=== PATIENT | female | born 1930 | race Caucasian/White ===

== ENCOUNTER 2017-08-24 15:20 | Inpatient (IN) | payer OTHER, MEDICARE ==
[2017-08-24] VITALS: O2SAT 95
[~2017-08-24] VITALS: Ht 160 cm; Wt 99.6 kg
[2017-08-24 11:00] VITALS: BMI 18.7
[~2017-08-24 15:20] MED LIST: ASPI81TA28 PO; BTP80 PO; CLIN150C PO; DOCU100C31 PO; LEVO100T7 PO; LSN20 PO; LSX20 PO; LSX40 PO; NRN100 PO; SPR25 PO
[2017-08-24 15:26] VITALS: Ht 160 cm; Wt 99.6 kg
[2017-08-24] MEDS ORDERED: ASPIRIN 324 MG CHEW PO STA (16:16)
--- NOTE | 2017-08-24 16:29 | DIAGNOSTIC IMAGING REPORT ---
CHEST ONE VIEW PORTABLE CLINICAL HISTORY: Difficult chest pain COMPARISON STUDY: 09/07/2014 FINDINGS: The heart is enlarged. There is a left subclavian dual-chamber central venous pacemaker present. There is mild central vascular prominence. There is no overt edema. There is stable right hilar fullness. There are right basal airspace opacities likely atelectatic although an inflammatory process could appear similar.[ IMPRESSION: 1. Cardiomegaly with mild central vascular prominence but no evidence of overt edema 2. Right basal airspace opacities, atelectasis favored over pneumonia. Electronically signed by: Erich Gant M.D. 08/24/2017 4:27 PM Dictated Date/Time: 08/24/2017 4:26 PM
[2017-08-24] MEDS ORDERED: LSX80 PO (16:31)
[2017-08-24] MEDS ORDERED: ALL300 PO (16:31)
[2017-08-24 17:19] LABS: PARTIAL THROMBOPLASTIN RATIO 1.2; PROTHROMBIN TIME (PATIENT) 10.4 SECONDS (9.0-12.0)
[2017-08-24 17:33] LABS: BUN/CREATININE RATIO 41.4 (10-20); CALCIUM 8.8 mg/dl (8.5-10.1); CREATININE 1.73 mg/dl (0.60-1.20); POTASSIUM 4.2 mmol/L (3.5-5.1)
--- NOTE | 2017-08-24 18:25 | DIAGNOSTIC IMAGING REPORT ---
CHEST 2 VIEWS ROUTINE CLINICAL HISTORY: Abnormal chest x-ray COMPARISON STUDY: 08/24/2017 FINDINGS: The heart remains mildly enlarged. There is mild central vascular prominence without evidence of overt failure. There are no pleural effusions. There are persistent right basal airspace opacities, atelectatic versus inflammatory.[ IMPRESSION: Persistent right basilar airspace opacities, atelectatic versus inflammatory. Electronically signed by: Erich Gant M.D. 08/24/2017 6:23 PM Dictated Date/Time: 08/24/2017 6:22 PM
[2017-08-24 18:45] LABS: BASO % 0.9 %; BASO ABS # 0.04 K/uL (0-0.2); COMPLETE YES; EOS % 4.6 %; HEMATOCRIT 33.9 % (37-47); IG% 0.2 %; LYMPH % 15.6 %; LYMPH ABS # 0.71 K/uL (1.2-3.4); MEAN CELL VOLUME 81.9 fL (80-100); MEAN CORPUSCULAR HEMOGLOBIN 26.8 pg (25-34); MEAN CORPUSCULAR HGB CONC 32.7 g/dl (32-36); MEAN PLATELET VOLUME 11.4 fL (7.4-10.4); NEUT % 65.7 %; PLATELET COUNT 197 K/uL (130-400); RED BLOOD COUNT 4.14 M/uL (4.2-5.4); WHITE BLOOD COUNT 4.54 K/uL (4.8-10.8)
[2017-08-24] MEDS ORDERED: IV FLUIDS COMPLETED PRN (21:15)
[2017-08-24] MEDS ORDERED: SODIUM CHLORIDE 0.9% 1000ML 1,000 ML IV ONE (21:15)
[2017-08-24 21:22] LABS: ALKALINE PHOSPHATASE 72 U/L (45-117); ALT/SGPT 14 U/L (12-78); AST/SGOT 14 U/L (15-37); MAGNESIUM 2.3 mg/dl (1.8-2.4)
[2017-08-24] MEDS ORDERED: HEPARIN IV LOW DOSE NO BOLUS STA (21:26)
[2017-08-24] MEDS ORDERED: NITROGLYCERIN 0.4 MG SL PER TAB CHARGE SL PRN (21:30)
[2017-08-24] MEDS ORDERED: HYDROmorphone INJ 0.5 MG/0.5 ML SYR IV PRN (21:30)
[2017-08-24] MEDS ORDERED: TRAMADOL HCL 50 MG TAB PO PRN (21:30)
[2017-08-24] MEDS ORDERED: ACETAMINOPHEN 325 MG TAB PO PRN (21:30)
[2017-08-24] MEDS ORDERED: SOTALOL HCL 80 MG TAB PO STA (21:49)
[2017-08-24 22:00] VITALS: BP 105/65; PULSE 90; TEMP 36.5; O2SAT 95; O2SAT 96
--- NOTE | 2017-08-24 22:27 | EMERGENCY ROOM VISIT NOTE ---
History Report prepared by Devendra: Kaylan Claudio Under the Supervision of: Dr. Sheldon Moreno M.D. First contact with patient: 16:09 Chief Complaint: CHEST PAIN Stated Complaint: CHEST PAINS Nursing Triage Summary: Short of breath and chest pain, started on Sunday, took Ibuprofen which helped the pain, had intermittently yesterday and today worse. History of Present Illness The patient is a 87 year old female who presents to the Emergency Room with complaints of chest tightness that started Sunday. The patient notes that the tightness started in her upper chest before moving into her left chest. The patient took an Ibuprofen on Sunday and her pain resolved. Her pain came back on and again today. Each time the patient's pain has resolved with Ibuprofen. Presently, the patient has no chest pain. The patient notes that her pain is more present in the morning and that she feels short of breath after a mild exertion. She denies any fever or swelling in her legs. The patient has a pacemaker and is not on a blood thinner. She takes a baby aspirin daily at night. She denies any history of coronary artery disease. She does have a history of atrial fibrillation but has not had it in some time. Source of History: patient Onset: Sunday Position: chest Quality: other (tightness) Timing: resolved Modifying Factors (Relieving): ibuprofen Associated Symptoms: + SOB, No fevers Review of Systems See HPI for pertinent positives & negatives. A total of 10 systems reviewed and were otherwise negative. Past Medical & Surgical Medical Problems: (1) Atrial fibrillation, controlled (2) Chest pain (3) Pacemaker (4) Thyroid disorder Family History No significant family history Social History Smoking Status: Never Smoker Alcohol Use: none Drug Use: none Marital Status: Housing Status: lives alone Occupation Status: retired Current/Historical Medications Scheduled Allopurinol (Allopurinol), 1 TAB PO DAILY Aspirin (Aspirin Ec), 81 MG PO HS Docusate Sodium (Docusate Sodium), 100 MG PO BID Furosemide (Furosemide), 20 MG PO DAILY Furosemide (Furosemide), 1 TAB PO DAILY Gabapentin (Gabapentin), 100 MG PO HS Levothyroxine Sodium (Levothyroxine Sodium), 100 MCG PO QAM Lisinopril (Lisinopril), 20 MG PO QAM Sotalol HCl (Sotalol HCl), 80 MG PO BID Spironolactone (Spironolactone), 12.5 MG PO DAILY Scheduled PRN Clindamycin Hcl (Cleocin), 600 MG PO UD PRN for Prior to Dental Appt. Allergies Coded Allergies: Naproxen (Verified Allergy, Unknown, Black stool/bleeding., 08/24/17) Reported by PT. Codeine (Verified Adverse Reaction, Unknown, GASTRIC UPSET, 08/24/17) Methocarbamol (Verified Adverse Reaction, Unknown, Nausea/Vomiting, ) Reported by PT. Statins (Verified Adverse Reaction, Unknown, MUSCLE WEAKNESS, 08/24/17) Physical Exam Vital Signs Date Time Temp Pulse Resp B/P (MAP) Pulse Ox O2 Delivery O2 Flow Rate FiO2 08/24/17 20:22 102 08/24/17 19:16 94 20 93/59 95 Room Air 08/24/17 16:54 78 20 97/71 94 Room Air 08/24/17 16:31 83 08/24/17 16:22 94 Room Air 08/24/17 15:31 96 Room Air 08/24/17 15:26 36.6 93 20 101/62 96 Room Air Physical Exam Constitutional: Vital signs reviewed. Eyes: Pupils are equal round reactive to light. Conjunctiva are noninjected. ENT: Pharynx is clear without erythema or exudate. Mucous membranes are moist. Neck supple without meningeal signs. Respiratory: Clear to auscultation bilaterally. Breath sounds are equal bilaterally. Cardiovascular: Regular rate and rhythm. No rubs or gallops. GI: Soft, nondistended and nontender. Bowel sounds are present. Musculoskeletal: No peripheral edema. No lower extremity tenderness. Integumentary: No cyanosis. Neurological: The patient is awake and alert. No focal deficits. Psychiatric: Normal affect. Medical Decision & Procedures ER Provider Diagnostic Interpretation: Radiology results as stated below per my review and the radiologist's interpretation: CHEST ONE VIEW PORTABLE FINDINGS: The heart is enlarged. There is a left subclavian dual-chamber central venous pacemaker present. There is mild central vascular prominence. There is no overt edema. There is stable right hilar fullness. There are right basal airspace opacities likely atelectatic although an inflammatory process could appear similar.[ IMPRESSION: 1. Cardiomegaly with mild central vascular prominence but no evidence of overt edema 2. Right basal airspace opacities, atelectasis favored over pneumonia. Electronically signed by: Erich Gant M.D. CHEST 2 VIEWS ROUTINE FINDINGS: The heart remains mildly enlarged. There is mild central vascular prominence without evidence of overt failure. There are no pleural effusions. There are persistent right basal airspace opacities, atelectatic versus inflammatory. IMPRESSION: Persistent right basilar airspace opacities, atelectatic versus inflammatory. Electronically signed by: Erich Gant M.D. Laboratory Results 08/24/17 16:50 Red Blood Count 4.14, Mean Corpuscular Volume 81.9, Mean Corpuscular Hemoglobin 26.8, Mean Corpuscular Hemoglobin Concent 32.7, Mean Platelet Volume 11.4, Neutrophils (%) (Auto) 65.7, Lymphocytes (%) (Auto) 15.6, Monocytes (%) (Auto) 13.0, Eosinophils (%) (Auto) 4.6, Basophils (%) (Auto) 0.9, Neutrophils # (Auto ) 2.98, Lymphocytes # (Auto) 0.71, Monocytes # (Auto) 0.59, Eosinophils # (Auto ) 0.21, Basophils # (Auto) 0.04 08/24/17 16:50 Test 08/24/17 16:50 08/24/17 16:58 08/24/17 22:03 White Blood Count 4.54 K/uL (4.8-10.8) Red Blood Count 4.14 M/uL (4.2-5.4) Hemoglobin 11.1 g/dL (12.0-16.0) Hematocrit 33.9 % (37-47) Mean Corpuscular Volume 81.9 fL (80-100) Mean Corpuscular Hemoglobin 26.8 pg (25-34) Mean Corpuscular Hemoglobin Concent 32.7 g/dl (32-36) Platelet Count 197 K/uL (130-400) Mean Platelet Volume 11.4 fL (7.4-10.4) Neutrophils (%) (Auto) 65.7 % Lymphocytes (%) (Auto) 15.6 % Monocytes (%) (Auto) 13.0 % Eosinophils (%) (Auto) 4.6 % Basophils (%) (Auto) 0.9 % Neutrophils # (Auto) 2.98 K/uL (1.4-6.5) Lymphocytes # (Auto) 0.71 K/uL (1.2-3.4) Monocytes # (Auto) 0.59 K/uL (0.11-0.59) Eosinophils # (Auto) 0.21 K/uL (0-0.5) Basophils # (Auto) 0.04 K/uL (0-0.2) RDW Standard Deviation 50.3 fL (36.4-46.3) RDW Coefficient of Variation 16.7 % (11.5-14.5) Immature Granulocyte % (Auto) 0.2 % Immature Granulocyte # (Auto) 0.01 K/uL (0.00-0.02) Prothrombin Time 10.4 SECONDS (9.0-12.0) Prothromb Time International Ratio 1.0 (0.9-1.1) Activated Partial Thromboplast Time 30.7 SECONDS (21.0-31.0) Partial Thromboplastin Ratio 1.2 Anion Gap 7.0 mmol/L (3-11) Est Creatinine Clear Calc Drug Dose 26.3 ml/min Estimated GFR () 30.5 Estimated GFR (Non- 26.3 BUN/Creatinine Ratio 41.4 (10-20) Calcium Level 8.8 mg/dl (8.5-10.1) Magnesium Level 2.3 mg/dl (1.8-2.4) Total Bilirubin 0.4 mg/dl (0.2-1) Direct Bilirubin < 0.1 mg/dl (0-0.2) Aspartate Amino Transf (AST/SGOT) 14 U/L (15-37) Alanine Aminotransferase (ALT/SGPT) 14 U/L (12-78) Alkaline Phosphatase 72 U/L (45-117) Total Protein 7.7 gm/dl (6.4-8.2) Albumin 3.7 gm/dl (3.4-5.0) Bedside Troponin I 0.040 ng/ml (0-0.045) Laboratory results as reviewed by me. Medications Administered Medications (Trade) Dose Ordered Sig/Cyndi Route Start Time Stop Time Status Last Admin Dose Admin Aspirin (Aspirin Chew) 324 mg NOW STAT PO 08/24/17 16:16 08/24/17 16:17 DC 08/24/17 17:00 324 MG ECG Indication: chest pain Rate (beats per minute): 90 Rhythm: atrial fibrillation Findings: other (No ST elevation, occasional flutter wave) ED Course 1611: The patient was evaluated in room B2. A complete history and physical exam was performed. 1616: Aspirin 324 mg PO. 1838: I discussed test results with with patient. She reports no chest pain and I recommended hospitalization to the patient. 184: I spoke with Idalmis KERN of [facility]. We discussed the patient and his results. The patient will be further evaluated. Medical Decision This is a 89-year-old female presents with chest pain. Differential diagnosis includes unstable angina, DE, pleurisy, GERD, pneumonia. I did perform a limited focused review of portions of the patient's old chart on the electronic medical record. The patient has had no recent pertinent visits to this hospital. I did evaluate the patient as noted above. IV access was established. The patient was placed on a continuous radiographer cardiac catheterization. I did treat the patient with aspirin. She is currently not having any chest discomfort. I did order and personally review the patient's 12-lead EKG and chest x-ray as described above. I did order and review the patient's blood work as noted in the electronic medical record. Troponin is negative. The creatinine is also elevated. I did discuss the test results with the patient. I did recommend hospitalization for further care and evaluation. I did discuss case with the hospital stay and case making machine operator. Medication Reconcilliation Current Medication List: was personally reviewed by me Blood Pressure Screening Patient's blood pressure: Normal blood pressure Consults Time Called: 1837 Consulting Physician: Idalmis PIÑA Returned Call: [phone] I spoke with Idalmis KERN of [facility]. We discussed the patient and his results. The patient will be further evaluated. Impression Primary Impression: Left sided chest pain Additional Impression: Acute kidney injury Scribe Attestation The scribe's documentation has been prepared under my direct and personally reviewed by me in its entirety. I confirm that the note above accurately reflects all work, treatment, procedures, and medical decision making performed by me. Departure Information Dispostion Being Evaluated By Hospitalist Referrals No Doctor, Assigned (PCP) Patient Instructions My [facility] Problem Qualifiers
[2017-08-24 23:07] LABS: PARTIAL THROMBOPLASTIN RATIO 1.2; PROTHROMBIN TIME (PATIENT) 10.5 SECONDS (9.0-12.0)
[2017-08-25] VITALS (14 sets, daily range): BP systolic 93–129; BP diastolic 59–74; PULSE 59–100; TEMP 36.4–37.1; O2SAT 90–100
[2017-08-25 00:40] LABS: URINE APPEARANCE CLEAR (CLEAR); URINE BILIRUBIN NEG (NEG); URINE COLOR YELLOW; URINE EPITHELIAL CELL AUTO >30 /lpf (0-5); URINE NITRITE NEG (NEG); URINE SPECIFIC GRAVITY 1.017 (1.000-1.030); UROBILINOGEN NEG (NEG); ZZUR CULT IF INDIC CLEAN CATCH YES
--- NOTE | 2017-08-25 00:46 | DIAGNOSTIC IMAGING REPORT ---
ULTRASOUND BILATERAL LOWER EXTREMITY VENOUS CLINICAL HISTORY: Lower extremity edema. COMPARISON STUDY: Bilateral lower extremity venous ultrasound dated 08/19/2007. TECHNIQUE: Real-time, grayscale, and color Doppler sonography of the deep veins of the right and left lower extremity was performed from the inguinal crease to the calf. Compression and augmentation were utilized. FINDINGS: There is no sonographic evidence of deep venous thrombosis identified in the right or left lower extremity. The common femoral, superficial femoral, and popliteal veins are patent and normally compressible bilaterally. The greater saphenous vein and the profunda femoris vein at the junction with the common femoral vein are clear in both legs. The visualized calf veins are patent bilaterally. IMPRESSION: There is no sonographic evidence of deep venous thrombosis identified in the right or left lower extremity. Electronically signed by: Hi Ring M.D. 08/25/2017 12:45 AM Dictated Date/Time: 08/25/2017 12:44 AM
[2017-08-25 01:01] LABS: MANUAL MICROSCOPIC REQUIRED? NO; REVIEW REQ? NO
[2017-08-25 04:26] LABS: BASO % 0.5 %; BASO ABS # 0.02 K/uL (0-0.2); COMPLETE YES; EOS % 5.8 %; HEMATOCRIT 32.7 % (37-47); IG% 0.2 %; LYMPH % 14.6 %; LYMPH ABS # 0.63 K/uL (1.2-3.4); MEAN CORPUSCULAR HEMOGLOBIN 25.8 pg (25-34); MEAN CORPUSCULAR HGB CONC 31.5 g/dl (32-36); MEAN PLATELET VOLUME 10.9 fL (7.4-10.4); NEUT % 65.9 %; PLATELET COUNT 166 K/uL (130-400); RED BLOOD COUNT 3.99 M/uL (4.2-5.4); WHITE BLOOD COUNT 4.32 K/uL (4.8-10.8)
[2017-08-25 04:39] LABS: PARTIAL THROMBOPLASTIN RATIO 1.6
[2017-08-25 04:44] LABS: BUN/CREATININE RATIO 44.7 (10-20); CALCIUM 8.8 mg/dl (8.5-10.1); CREATININE 1.43 mg/dl (0.60-1.20); POTASSIUM 4.1 mmol/L (3.5-5.1)
[2017-08-25] MEDS ORDERED: INFLUENZA VACCINE HIGH DOSE 65+ 0.5 ML SYR IM. ONE (05:00)
[2017-08-25] MEDS ORDERED: INFLUENZA ADMINISTRATION CHARGE ONE (05:00)
[2017-08-25] MEDS: HEPARIN 25,000 UNIT/500ML D5W 500 ML IV PRN (05:31)
[2017-08-25] MEDS: LEVOTHYROXINE 100 MCG TAB PO SCH (05:49)
--- NOTE | 2017-08-25 05:50 | HISTORY & PHYSICAL EXAMINATION ---
DATE OF ADMISSION: 08/24/2017 PRIMARY CARE DOCTOR: Irish Crowley MD. CHIEF COMPLAINT: Chest pain, shortness of breath. HISTORY OF PRESENT ILLNESS: History obtained from patient and records. 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 Recent confinement July 2014 for decompensated heart failure. Two day history of left-sided chest pain, somewhat pleuritic with shortness of breath. Denies unusual weight gain or fluid retention. No cough symptoms. Px was seen at log deck tender's office earlier. Patient was noted to in AFib. Px sent to the Emergency Room for further evaluation. Px given aspirin at the ER. Patient currently comfortable. MEDICAL HISTORY: As above. 2D echo from January 2017 showed EF of 60 to 64%, concentric LV wall thickness, thickened sigmoid septum, moderate aortic valve sclerosis, mild aortic valve regurgitation, severe MR, mild TR, mild hypertension. SURGERIES: She has had carpal tunnel surgery, appendectomy, tonsillectomy, hysterectomy, knee surgery, hernia repair, pacemaker placement. HOME MEDICATIONS: Include aspirin, allopurinol, Cleocin, docusate sodium, furosemide, gabapentin, levothyroxine, lisinopril, sotalol, spironolactone. ALLERGIES: CODEINE, METHOCARBAMOL, NAPROXEN, STATIN. FAMILY HISTORY: Stroke, prostate cancer, heart disease. 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 REVIEW OF SYSTEMS: As per HPI, all other ROS negative. PHYSICAL EXAMINATION: VITAL SIGNS: Blood pressure noted to be 105/64, pulse rate 90, RR 20, temperature 36.5, sats 95% on room air. GENERAL: Comfortable, no respiratory distress. Looks younger for stated age. Wheelchair borne SKIN: Pallor, warm. HEENT: Pale palpebral conjunctivae, no ptosis. Dry buccal mucosa. Nasal cannula in place. NECK: Short neck, supple. CHEST: Clear to auscultation. No anterior chest tenderness. CV: Irregular, systolic murmur. Palpable lower extremity pulses. ABDOMEN: Some distention, nontender. EXTREMITIES: Bilateral lower extremity edema, no tenderness. No gross deformity. NEUROLOGIC: Coherent. No gross deformity. LABORATORY DATA: Hemoglobin was noted to be 11.1, hematocrit noted to be 38, white cell count 4.5, platelets 187. Sodium noted to be 137, potassium 4.2, chloride 106, CO2 24, BUN 70, creatinine 1.7, glucose was noted to be 100. Troponin 0.015. D-dimer abn. Chest x-ray showed atelectasis. EKG as per my interpretation, rate 90, AFib. Some T-wave flattening in inferior lateral leads. ASSESSMENT: 1. Pleuritic chest pain with shortness of breath rule out pulmonary embolism 2. hx SSS sp PPM Patient currently in atrial fibrillation. Not on oral anticoagulation. 2. Chronic anemia, hemoglobin baseline. 3. Valvular heart disease as per records. 5. Acute renal failure on chronic renal insufficiency, possibly related to meds. PLAN: Observation. PCU. Analgesia. PE workup. (VQ scan - CT angiogram precluded by kidney dysfunction, Lower extremity Dopplers) Cardio consult RE follow-up evaluation for left-sided chest pain. IV heparin for now for thromboembolic prevention, repeat TTE, continue home sotalol as per outpatient recommendations) Monitor creatinine response to IV fluids. Hold home diuretics, ACEI until creatinine at baseline. DVT prophylaxis, heparin. Full code. MTDD
[2017-08-25] MEDS ORDERED: HEPARIN IV BOLUS 3,000 UNIT in SYRINGE 0 ML IV STA (05:59)
[2017-08-25] MEDS: DOCUSATE SODIUM 100 MG CAP PO SCH ×3 (07:27→20:21)
[2017-08-25] MEDS: SOTALOL HCL 80 MG TAB PO SCH ×2 (08:05→20:17)
--- NOTE | 2017-08-25 08:52 | ECHOCARDIOGRAM REPORT ---
*NOTICE TO RECEIVING DEMOCRAT AGENCY This information is strictly Confidential and protected under [place] law. [place] law prohibits you from making any further disclosure of this information unless further disclosure is expressly permitted by the written consent of the person to whom it pertains or is authorized by law. A general authorization for the release of medical or other information is not sufficient for this purpose. Hospital accepts no responsibility if the information is made available to any other person, INCLUDING THE PATIENT. Interpretation Summary * Name: HECTOR FRANCES Study Date: 08/25/2017 06:48 AM BP: 97/59 mmHg * Patient Location: [facility] HR: 61 * : 1930 (M/d/yyyy) Gender: Female Height: 63 in * Age: 87 yrs Ethnicity: [place] Weight: 220 lb * Ordering Physician: Michel Fajardo * Referring Physician: Alla Velasco PA-C * Performed By: Michel Tena RDCS * * Reason For Study: Chest pain * BSA: 2.0 m2 * -- Conclusions -- * There is borderline concentric left ventricular hypertrophy. * The left ventricular wall motion is normal. * Left ventricular systolic function is normal. * The LV Ejection Fraction = 60-65%. * The right ventricle is normal in size and function. * The left atrium is severely dilated. * There is no pericardial effusion. * Moderate aortic regurgitation. * There is moderate to severe mitral regurgitation. * There is severe tricuspid regurgitation. * Moderate pulmonary hypertension is present. * The pulmonary artery systolic pressure is calculated to be 51 mm Hg. Procedure Details * A complete two-dimensional transthoracic echocardiogram was performed (2D, M-mode, Doppler and color flow Doppler). * The study was technically adequate. Left Ventricle * The left ventricle is normal in size. * There is borderline concentric left ventricular hypertrophy. * Left ventricular systolic function is normal. * Ejection Fraction = 60-65%. * The left ventricular wall motion is normal. Right Ventricle * The right ventricle is normal in size and function. Atria * The left atrium is severely dilated. * The right atrium is mildly dilated. * There is no evidence of atrial septal defect, but resolution does not allow assessment for a patent foramen ovale. Mitral Valve * The mitral valve is normal. * There is no mitral valve stenosis. * There is moderate to severe mitral regurgitation. Tricuspid Valve * The tricuspid valve is normal. * There is no tricuspid stenosis. * There is severe tricuspid regurgitation. * Moderate pulmonary hypertension is present. The pulmonary artery systolic pressure is calculated to be 51 mm Hg. Aortic Valve * The aortic valve is trileaflet. * Aortic stenosis is absent. * Moderate aortic regurgitation. Pulmonic Valve * The pulmonary valve is not well seen, but the Doppler examination is normal without significant regurgitation or stenosis. Great Vessels * The aortic root and proximal ascending aorta are normal sized. Pericardium/Pleural * There is no pericardial effusion. Right Ventricle * A pacemaker lead is noted in the right ventricle. Great Vessels * Normal inferior vena cava size and collapsability with sniff indicates a normal right atrial pressure of 3 mmHg Left Ventricular Diastolic Function * The LV diastolic function is abnormal based on the left atrial enlargement, but not graded due to the underlying mitral valve disease. MMode 2D Measurements and Calculations IVSd 0.88 cm IVSs 1.3 cm LVIDd 5.7 cm LVIDs 4.0 cm LVPWd 0.85 cm LVPWs 1.3 cm IVS/LVPW 1.0 FS 30.1 % EDV(Teich) 161.5 ml ESV(Teich) 70.0 ml EF(Teich) 56.7 % EDV(cubed) 187.4 ml ESV(cubed) 63.9 ml EF(cubed) 65.9 % % IVS thick 42.5 % % LVPW thick 53.2 % LV mass(C)d 189.7 grams LV mass(C)dI 94.2 grams/m\S\2 LV mass(C)s 182.5 grams LV mass(C)sI 90.6 grams/m\S\2 SV(Teich) 91.6 ml SI(Teich) 45.5 ml/m\S\2 SV(cubed) 123.5 ml SI(cubed) 61.3 ml/m\S\2 Ao root diam 3.3 cm Ao root area 8.5 cm\S\2 ACS 1.8 cm LA dimension 6.0 cm asc Aorta Diam 3.1 cm LA/Ao 1.8 LVOT diam 2.0 cm LVOT area 3.0 cm\S\2 LVAd ap4 20.4 cm\S\2 LVLd ap4 6.7 cm EDV(MOD-sp4) 50.7 ml LVAs ap4 10.1 cm\S\2 LVLs ap4 5.5 cm ESV(MOD-sp4) 15.3 ml EF(MOD-sp4) 69.8 % LVAd ap2 24.9 cm\S\2 LVLd ap2 6.6 cm EDV(MOD-sp2) 78.1 ml LVAs ap2 12.8 cm\S\2 LVLs ap2 5.1 cm ESV(MOD-sp2) 26.1 ml EF(MOD-sp2) 66.6 % SV(MOD-sp4) 35.4 ml SI(MOD-sp4) 17.6 ml/m\S\2 SV(MOD-sp2) 52.0 ml SI(MOD-sp2) 25.8 ml/m\S\2 Doppler Measurements and Calculations MV E max diomedes 84.4 cm/sec MV A max diomedes 55.3 cm/sec MV E/A 1.5 MV dec time 0.18 sec Ao V2 max 180.5 cm/sec Ao max PG 13.0 mmHg Ao max PG (full) 4.3 mmHg MARIA GUADALUPE(V,A) 2.5 cm\S\2 MARIA GUADALUPE(V,D) 2.5 cm\S\2 AI max diomedes 302.0 cm/sec AI max PG 36.5 mmHg AI dec slope 106.9 cm/sec\S\2 AI P1/2t 827.5 msec LV V1 max PG 8.7 mmHg LV V1 max 147.6 cm/sec MR max diomedes 480.0 cm/sec MR max PG 92.1 mmHg MR mean diomedes 365.2 cm/sec MR mean PG 60.5 mmHg MR VTI 173.6 cm MR PISA 2.1 cm\S\2 MR flow rate 75.0 cm\S\3/sec MR ERO 0.16 cm\S\2 MR volume 27.1 ml MR PISA radius 0.58 cm MR alias diomedes 35.0 cm/sec PA V2 max 138.8 cm/sec PA max PG 7.7 mmHg PA acc slope 525.4 cm/sec\S\2 PA acc time 0.12 sec TR max diomedes 348.4 cm/sec PA pr(Accel) 25.1 mmHg
--- NOTE | 2017-08-25 10:09 | Cardiology Consultation ---
Cardiology Consultation Date of Consultation: Aug 25, 2017 History of Present Illness Patient is a 87 year old female seen in cardiology consultation per the request of Dr. Rodriguez for evaluation of chest discomfort. The patient's primary data specialist is Dr. Brian Quiñones. The patient states her recent illness dates back to four days ago 1 on Sunday morning she felt a pain that started at the area of her left clavicle and radiated downward toward her left chest. She also had a nosebleed that day. The discomfort waxed and waned, and she felt that it improved with ibuprofen. She describes the discomfort as happening when she took a deep breath in. The next day it happened again in the morning and then again on Sunday, prompting an acute visit in cardiology clinic yesterday with Alla JOHNSON. At that time , she was found to have hypotension with systolic blood pressure readings in the 70 mmHg range. She was also found to have new onset rate controlled atrial fibrillation in the 70 beat per minute range when her pacemaker was checked. She was referred for hospitalization. Her blood pressure still on the lower side, but it is much better, with systolic blood pressure around the 100 mmHg naren. Her initial EKG on presentation last evening revealed rate controlled atrial fibrillation, overnight, she has since converted back to sinus rhythm, and on EKG this morning 08/25/17 and overnight on the quality assurance monitor final, sinus rhythm with atrial paced rhythm is noted and findings of inferior T wave inversion as well as T-wave inversions in leads V3 to V6. Serial cardiac enzymes have been negative. An echocardiogram performed this morning revealed normal left ventricular wall motion without regional wall motion abnormalities and normal LVEF, unchanged compared to January 2017. The patient is alert and oriented and sitting in that side chair. She states that she feels much improved. Her chest discomfort has resolved, although when she exceeded deep breath and she does note that she is still able to reproduce it at a lower intensity. She has noted no chest discomfort with walking such as walking to the bathroom. She is on a heparin infusion. She has suffered no additional nosebleeds thus far. A lower extremity venous duplex was negative for DVT. A d-dimer screen was elevated at 1430 mcg/L. She was noted to have a mild lactic acidosis with lactate level of 2.1. 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 Carpal tunnel release 2. Appendectomy 3. Hysterectomy 4. Bilateral total knee replacement 5. Dual-chamber Medtronic pacemaker June 2011 Social History: Patient lives independently Family History: Family history is noncontributory Review Of Systems See above for pertinent positives & negatives. A total of 10 systems reviewed and were otherwise negative. Allergies Coded Allergies: Naproxen (Verified Allergy, Unknown, Black stool/bleeding., 08/24/17) Reported by PT. Codeine (Verified Adverse Reaction, Unknown, GASTRIC UPSET, 08/24/17) Methocarbamol (Verified Adverse Reaction, Unknown, Nausea/Vomiting, ) Reported by PT. Statins (Verified Adverse Reaction, Unknown, MUSCLE WEAKNESS, 08/24/17) Medications Reported Home Medications Medications Dose Route/Sig Max Daily Dose Days Date Category Dose Instructions Allopurinol 300 Mg Tab 1 Tab PO DAILY 08/24/17 Reported Furosemide 80 Mg Tab 1 Tab PO DAILY 08/24/17 Reported Spironolactone 25 Mg Tab 12.5 Mg PO DAILY 06/04/15 Reported Furosemide 20 Mg Tab 20 Mg PO DAILY 09/07/14 Reported TAKE ONE 20 MG TABLET ALONG WITH AN 80MG TABLET TO EQUAL DAILY DOSE OF 100 MG. Cleocin (Clindamycin Hcl) 150 Mg Cap 600 Mg PO UD PRN 07/07/14 Reported TAKE THIS MEDICATION ONE HOUR PRIOR TO DENTAL APPOINTMENT. Docusate Sodium 100 Mg Cap 100 Mg PO BID 06/21/14 Reported Aspirin Ec (Aspirin) 81 Mg Tab 81 Mg PO HS 06/21/14 Reported Gabapentin 100 Mg Cap 100 Mg PO HS 06/21/14 Reported Lisinopril 20 Mg Tab 20 Mg PO QAM 06/21/14 Reported Sotalol HCl 80 Mg Tab 80 Mg PO BID 06/21/14 Reported Levothyroxine Sodium 100 Mcg Tab 100 Mcg PO QAM 06/21/14 Reported Physical Exam Vital Signs (Last 8hrs): Last 8 Hrs Date Time Temp Pulse Resp B/P (MAP) Pulse Ox O2 Delivery O2 Flow Rate FiO2 08/25/17 07:45 95 Room Air 08/25/17 07:44 36.6 61 18 99/65 (76) 90 08/25/17 04:22 36.5 59 18 97/59 (72) 100 Nasal Cannula 2.0 08/25/17 04:00 95 Room Air General Appearance: Alert and Oriented x3. NAD. Head: Normocephalic Atraumatic. Eyes: PERRLA, EOMI, conjunctiva and sclera clear Neck: Supple. No carotid bruits noted. No JVD. No HJD. Respiratory: Breath sounds clear to auscultation bilaterally. No w/r/r. Cardiovascular: Reg rate and rhythm. 2/6 systolic murmur heard best at left sternal border and at the axilla Abdomen: Normal bowel sounds, soft nontender. no abdominal bruits. Extremities: No edema, no clubbing or cyanosis. distal pulses 2/4 bilaterally. Neuro: No focal deficits. Psychiatric: Normal affect. Data Last Resulted 08/25/17 04:14 Red Blood Count 3.99, Mean Corpuscular Volume 82.0, Mean Corpuscular Hemoglobin 25.8, Mean Corpuscular Hemoglobin Concent 31.5, Mean Platelet Volume 10.9, Neutrophils (%) (Auto) 65.9, Lymphocytes (%) (Auto) 14.6, Monocytes (%) (Auto) 13.0, Eosinophils (%) (Auto) 5.8, Basophils (%) (Auto) 0.5, Neutrophils # (Auto ) 2.85, Lymphocytes # (Auto) 0.63, Monocytes # (Auto) 0.56, Eosinophils # (Auto ) 0.25, Basophils # (Auto) 0.02 Last Resulted 08/25/17 04:14 Past 24 Hours Test 08/24/17 16:50 08/24/17 22:03 08/25/17 04:14 Range/Units Prothromb Time International Ratio 1.0 1.0 0.9-1.1 Prothrombin Time 10.4 10.5 9.0-12.0 SECONDS Troponin I < 0.015 0.017 0-0.045 ng/ml EKG and telemetry as outlined above Pacemaker check performed yesterday had revealed 8 hours of atrial fibrillation. Appropriate generator longevity. Chest x-ray poor summary per radiology report 08/24/17: Persistent right basilar airspace opacities, atelectasis versus inflammatory nature Summary transthoracic echocardiogram performed 08/25/17 and reviewed in apparently: * -- Conclusions -- * There is borderline concentric left ventricular hypertrophy. * The left ventricular wall motion is normal. * Left ventricular systolic function is normal. * The LV Ejection Fraction = 60-65%. * The right ventricle is normal in size and function. * The left atrium is severely dilated. * There is no pericardial effusion. * Moderate aortic regurgitation. * There is moderate to severe mitral regurgitation. * There is severe tricuspid regurgitation. * Moderate pulmonary hypertension is present. * The pulmonary artery systolic pressure is calculated to be 51 mm Hg. -Compared to the report of the prior echocardiogram performed as an outpatient at [facility] in January,, only mild tricuspid regurgitation was noted at that time and severe tricuspid regurgitation is noted on the present study. The calculated pulmonary artery systolic pressure was 2 to be 30-36 mmHg on the prior study, and is higher on the present study 51 mmHg. Assessment & Plan Impression: 87 or female 1. Pleuritic chest discomfort, negative troponin, nonspecific EKG changes, normal resting left ventricular wall motion. Her discomfort has resolved at present. Although she is able to reproduce it to a subtle degree with deep inspiration. She is feeling much more comfortable. Symptoms and clinical presentation are consistent with pleuritis versus perhaps pulmonary embolism, I do not think her presentation is consistent with an acute coronary syndrome 2. Extensive heart disease with significant tricuspid regurgitation, mitral regurgitation, aortic valve regurgitation, moderate pulmonary hypertension 3. Paroxysmal atrial fibrillation, back in sinus rhythm at present Plan: Regarding the patient's atrial fibrillation, she is back in sinus rhythm. I had initially planned to discontinue her sotalol and transition her to metoprolol given her severe left atrial enlargement is of is not optimistic that she would stay in sinus rhythm, however she spontaneously converted to sinus rhythm and therefore I will plan to continue her sotalol for the time being. She does have noted stage III chronic kidney disease, but I think her dose of sotalol is reasonably safe since she has a pacemaker to prevent bradycardia. Recommend anticoagulation with heparin to Coumadin for stroke prophylaxis. She has not been anticoagulated in the past, but given the episode of atrial fibrillation I think this is indicated. Also, although her venous duplex study was negative, I do have underlying clinical suspicion that point her embolism would explain her presentation. She is due to go to nuclear medicine this morning for a ventilation perfusion scan, I think it is reasonable to do her best to evaluate for this diagnosis. Given her kidney insufficiency, she is not a candidate for CT angiogram. In summary, continue sotalol, heparin to Coumadin. If she develops fever or worsening pleuritic chest discomfort would have low threshold for starting her on antibiotics for possible underlying pulmonary infection. A urine culture is pending at present. Andrew Tabares DO, FACC, FACOI Associate Painter [facility], [facility]
--- NOTE | 2017-08-25 10:37 | DIAGNOSTIC IMAGING REPORT ---
NUCLEAR PULMONARY VENTILATION/PERFUSION SCAN CLINICAL HISTORY: Atypical chest pain. Dyspnea. COMPARISON STUDY: Chest CT dated 08/28/2014. Chest x-ray dated 08/24/2017. TECHNIQUE: Initially, ventilation images of both lungs are obtained following the inhalation of 31.8 mCi of aerosolized technetium 99m DTPA. Subsequently, perfusion images of both lungs were obtained following the IV administration of 5.5 mCi of technetium 99m MAA. Ventilation and perfusion images were acquired in the anterior, posterior, and oblique projections. FINDINGS: A chest x-ray performed 08/24/2017 shows cardiomegaly and a cardiac pacemaker. No airspace consolidation or pleural effusion is identified The ventilation of both lungs is markedly heterogeneous. There is deposition of tracer within the central airways suggesting obstructive physiology. Pulmonary perfusion is heterogeneous. No large or segmental perfusion defect is seen. A photopenic defect overlying the left chest is consistent with the patient's pacemaker. IMPRESSION: Findings are considered low probability for pulmonary embolus. Electronically signed by: Hi Ring M.D. 08/25/2017 10:36 AM Dictated Date/Time: 08/25/2017 10:33 AM
[2017-08-25 11:30] LABS: PARTIAL THROMBOPLASTIN RATIO 3.4
--- NOTE | 2017-08-25 15:42 | Progress Note ---
Medicine Progress Note Date & Time of Visit: Aug 25, 2017 at 15:29. Subjective patient seen resting in bedside chair, comfortable states she feels ok overall reports left sided chest pain has resolved no dyspnea, palpitations, dizziness no bleeding denies other symptoms Objective Last 8 Hrs Date Time Temp Pulse Resp B/P (MAP) Pulse Ox O2 Delivery O2 Flow Rate FiO2 08/25/17 14:54 97 Room Air 08/25/17 11:36 36.4 63 20 101/63 (76) 99 08/25/17 11:33 96 Room Air 08/25/17 07:45 95 Room Air 08/25/17 07:44 36.6 61 18 99/65 (76) 90 Physical Exam: General- oriented x 3, not in distress, speaks in sentences with no effort Eyes- EOMI, anicteric Neck- supple, no JVD Lungs- clear breath sounds bilaterally , no rales/wheezes Heart- regular rhythm; no murmur, normal rate Abdomen- normal bowel sounds, soft, nontender Extremities- no pretibial edema, no calf tenderness Neuro- alert, oriented x 3; no gross focal deficits Skin- warm & dry Laboratory Results: Last 24 Hours Test 08/24/17 16:50 08/24/17 16:58 08/24/17 22:03 08/25/17 00:10 White Blood Count 4.54 K/uL Red Blood Count 4.14 M/uL Hemoglobin 11.1 g/dL Hematocrit 33.9 % Mean Corpuscular Volume 81.9 fL Mean Corpuscular Hemoglobin 26.8 pg Mean Corpuscular Hemoglobin Concent 32.7 g/dl Platelet Count 197 K/uL Mean Platelet Volume 11.4 fL Neutrophils (%) (Auto) 65.7 % Lymphocytes (%) (Auto) 15.6 % Monocytes (%) (Auto) 13.0 % Eosinophils (%) (Auto) 4.6 % Basophils (%) (Auto) 0.9 % Neutrophils # (Auto) 2.98 K/uL Lymphocytes # (Auto) 0.71 K/uL Monocytes # (Auto) 0.59 K/uL Eosinophils # (Auto) 0.21 K/uL Basophils # (Auto) 0.04 K/uL RDW Standard Deviation 50.3 fL RDW Coefficient of Variation 16.7 % Immature Granulocyte % (Auto) 0.2 % Immature Granulocyte # (Auto) 0.01 K/uL Prothrombin Time 10.4 SECONDS 10.5 SECONDS Prothromb Time International Ratio 1.0 1.0 Activated Partial Thromboplast Time 30.7 SECONDS 31.7 SECONDS Partial Thromboplastin Ratio 1.2 1.2 Sodium Level 137 mmol/L Potassium Level 4.2 mmol/L Chloride Level 106 mmol/L Carbon Dioxide Level 24 mmol/L Anion Gap 7.0 mmol/L Blood Urea Nitrogen 72 mg/dl Creatinine 1.73 mg/dl Est Creatinine Clear Calc Drug Dose 26.3 ml/min Estimated GFR () 30.5 Estimated GFR (Non- 26.3 BUN/Creatinine Ratio 41.4 Random Glucose 100 mg/dl Calcium Level 8.8 mg/dl Magnesium Level 2.3 mg/dl Total Bilirubin 0.4 mg/dl Direct Bilirubin < 0.1 mg/dl Aspartate Amino Transf (AST/SGOT) 14 U/L Alanine Aminotransferase (ALT/SGPT) 14 U/L Alkaline Phosphatase 72 U/L Total Protein 7.7 gm/dl Albumin 3.7 gm/dl Bedside Troponin I 0.040 ng/ml D-Dimer 1430 ug/L FEU Lactic Acid Level 2.1 mmol/L Troponin I < 0.015 ng/ml Urine Color YELLOW Urine Appearance CLEAR Urine pH 5.0 Urine Specific [place] 1.017 Urine Protein NEG Urine Glucose (UA) NEG Urine Ketones NEG Urine Occult Blood NEG Urine Nitrite NEG Urine Bilirubin NEG Urine Urobilinogen NEG Urine Leukocyte Esterase MODERATE Urine WBC (Auto) 10-30 /hpf Urine RBC (Auto) 0-4 /hpf Urine Hyaline Casts (Auto) 5-10 /lpf Urine Epithelial Cells (Auto) >30 /lpf Urine Bacteria (Auto) NEG Test 08/25/17 04:14 08/25/17 10:39 White Blood Count 4.32 K/uL Red Blood Count 3.99 M/uL Hemoglobin 10.3 g/dL Hematocrit 32.7 % Mean Corpuscular Volume 82.0 fL Mean Corpuscular Hemoglobin 25.8 pg Mean Corpuscular Hemoglobin Concent 31.5 g/dl Platelet Count 166 K/uL Mean Platelet Volume 10.9 fL Neutrophils (%) (Auto) 65.9 % Lymphocytes (%) (Auto) 14.6 % Monocytes (%) (Auto) 13.0 % Eosinophils (%) (Auto) 5.8 % Basophils (%) (Auto) 0.5 % Neutrophils # (Auto) 2.85 K/uL Lymphocytes # (Auto) 0.63 K/uL Monocytes # (Auto) 0.56 K/uL Eosinophils # (Auto) 0.25 K/uL Basophils # (Auto) 0.02 K/uL RDW Standard Deviation 49.9 fL RDW Coefficient of Variation 16.6 % Immature Granulocyte % (Auto) 0.2 % Immature Granulocyte # (Auto) 0.01 K/uL Activated Partial Thromboplast Time 42.7 SECONDS 87.2 SECONDS Partial Thromboplastin Ratio 1.6 3.4 Sodium Level 140 mmol/L Potassium Level 4.1 mmol/L Chloride Level 108 mmol/L Carbon Dioxide Level 23 mmol/L Anion Gap 9.0 mmol/L Blood Urea Nitrogen 64 mg/dl Creatinine 1.43 mg/dl Est Creatinine Clear Calc Drug Dose 31.8 ml/min Estimated GFR () 38.3 Estimated GFR (Non- 33.1 BUN/Creatinine Ratio 44.7 Random Glucose 88 mg/dl Lactic Acid Level 1.0 mmol/L Calcium Level 8.8 mg/dl Troponin I 0.017 ng/ml Date/Time Source Procedure Growth Status 08/25/17 00:10 Urine , Clean Catch Urine Culture Pending Received Assessment & Plan 87 year old female with history of CHF, Valvular Heart Disease, SSS s/p PM presenting with chest pain, left sided. LEFT SIDED CHEST PAIN - ACS ruled out VQ scan: low probability for PE - denies cough, sputum production - resolved ATRIAL FIBRILLATION SSS S/P PACEMAKER PLACEMENT - converted to SR - on heparin drip, warfarin started - continue Sotalol ACUTE RENAL FAILURE ON CKD 3 - baseline crea 1.3-14 GFR 33-39 - back to baseline resume diuretics, Lisinopril CHF, VALVULAR TYPE - euvolemic resume diuretics Chronic anemia, hemoglobin baseline. Disposition pending anticipate d/c home when medically stable may need Lovenox bridge with coumadin upon discharge Current Inpatient Medications: Current Inpatient Medications Medications (Trade) Dose Ordered Sig/Cyndi Route Start Time Stop Time Status Last Admin Dose Admin Miscellaneous (Iv Fluids Completed) 1 ea PRN PRN N/A 08/24/17 21:15 08/24/18 21:14 Acetaminophen (Tylenol Tab) 650 mg Q4H PRN PO 08/24/17 21:30 11/19/17 21:29 Nitroglycerin (Nitrostat Tab) 0.4 mg UD PRN SL 08/24/17 21:30 09/23/17 21:29 Hydromorphone HCl (Dilaudid Inj) 0.5 mg Q3H PRN IV 08/24/17 21:30 09/07/17 21:29 Tramadol HCl (Ultram Tab) 25 mg Q6H PRN PO 08/24/17 21:30 09/23/17 21:29 Aspirin (Ecotrin Tab) 81 mg HS PO 08/25/17 21:00 09/24/17 20:59 Docusate Sodium (coLACE CAP) 100 mg BID PO 08/25/17 09:00 09/24/17 08:59 Gabapentin (Neurontin Cap) 100 mg HS PO 08/25/17 21:00 09/24/17 20:59 Levothyroxine Sodium (Synthroid Tab) 100 mcg DAILYBB PO 08/25/17 06:00 09/24/17 06:59 08/25/17 05:49 100 MCG Sotalol HCl (Betapace Tab) 80 mg BID PO 08/25/17 09:00 09/24/17 08:59 Heparin Sodium/ Dextrose 500 ml @ 15 mls/hr Q24H PRN IV 08/24/17 23:30 09/23/17 23:29 08/25/17 05:31 17 MLS/HR Warfarin Sodium (Coumadin Tab) 5 mg DAILY@16 PO 08/25/17 16:00 09/24/17 15:59
[2017-08-25] MEDS: WARFARIN SOD 5 MG TAB PO SCH (15:52)
[2017-08-25 18:13] LABS: PARTIAL THROMBOPLASTIN RATIO 2.2
[2017-08-25] MEDS: ASPIRIN 81 MG ECTAB PO SCH (20:17)
[2017-08-25] MEDS ORDERED: GABAPENTIN 100 MG CAP PO SCH (21:00)
[2017-08-26] VITALS (8 sets, daily range): BP systolic 79–120; BP diastolic 43–73; PULSE 60–72; TEMP 36.4–36.8; O2SAT 91–98
[2017-08-26] MEDS: HEPARIN 25,000 UNIT/500ML D5W 500 ML IV PRN (04:28)
[2017-08-26] MEDS: LEVOTHYROXINE 100 MCG TAB PO SCH (06:03)
[2017-08-26 06:48] LABS: BASO % 0.6 %; BASO ABS # 0.02 K/uL (0-0.2); COMPLETE YES; EOS % 6.6 %; HEMATOCRIT 29.6 % (37-47); IG% 0.3 %; LYMPH % 17.2 %; LYMPH ABS # 0.62 K/uL (1.2-3.4); MEAN CORPUSCULAR HEMOGLOBIN 26.3 pg (25-34); MEAN CORPUSCULAR HGB CONC 32.1 g/dl (32-36); MEAN PLATELET VOLUME 10.9 fL (7.4-10.4); MONO % 13.6 %; NEUT % 61.7 %; PLATELET COUNT 163 K/uL (130-400); RED BLOOD COUNT 3.61 M/uL (4.2-5.4); WHITE BLOOD COUNT 3.61 K/uL (4.8-10.8)
[2017-08-26 07:03] LABS: PARTIAL THROMBOPLASTIN RATIO 1.9; PROTHROMBIN TIME (PATIENT) 10.6 SECONDS (9.0-12.0)
[2017-08-26] MEDS: DOCUSATE SODIUM 100 MG CAP PO SCH ×2 (07:03→21:06)
[2017-08-26] MEDS: SOTALOL HCL 80 MG TAB PO SCH ×2 (07:05→21:55)
[2017-08-26] MEDS: SPIRONOLACTONE 25 MG TAB PO SCH (07:07)
[2017-08-26 07:20] LABS: BUN/CREATININE RATIO 39.7 (10-20); CALCIUM 8.6 mg/dl (8.5-10.1); CREATININE 1.36 mg/dl (0.60-1.20); POTASSIUM 4.7 mmol/L (3.5-5.1)
[2017-08-26] MEDS ORDERED: FUROSEMIDE 80 MG TAB PO SCH (09:00)
[2017-08-26] MEDS ORDERED: LISINOPRIL 20 MG TAB PO SCH (09:00)
[2017-08-26] MEDS ORDERED: FUROSEMIDE 20 MG TAB PO SCH (09:00)
--- NOTE | 2017-08-26 10:31 | Cardiology Follow-Up ---
Subjective General Date of Service: Aug 26, 2017. Chief Complaint: follow up chest pain, AF, hypotension Pt evaluation today including: conversation w/ patient, physical exam History of Present Illness The patient is a 87 year old female seen in follow up. Patient continues to feel much improved. She denies chest discomfort, denies subjective palpitations, she denies subjective lightheadedness or dizziness. She been in sinus rhythm with atrial pacing until 938 this morning, when on telemetry she converted to a rate controlled atrial fibrillation in the 60 beat per minute range. Her systolic blood pressure has declined to the 90 mmHg range. Her lisinopril had been held for parameters, but she did receive 100 mg of furosemide this morning, however the low blood pressures preceded her receiving the furosemide and she had multiple readings in the 90 mmHg range last evening. Allergies Coded Allergies: Naproxen (Verified Allergy, Unknown, Black stool/bleeding., 08/24/17) Reported by PT. Codeine (Verified Adverse Reaction, Unknown, GASTRIC UPSET, 08/24/17) Methocarbamol (Verified Adverse Reaction, Unknown, Nausea/Vomiting, ) Reported by PT. Statins (Verified Adverse Reaction, Unknown, MUSCLE WEAKNESS, 08/24/17) Social History Smoking Status: Never Smoker Hx Tobacco Use In Past Year?: No Hx Alcohol Use - Type And Amou: No Hx Substance Use - Type And Am: No Problem List Medical Problems: (1) Acute kidney injury Status: Acute (2) Left sided chest pain Status: Acute Physical Exam Vital Signs Last Vital Signs Documentation Date Time Temp Pulse Resp B/P (MAP) Pulse Ox O2 Delivery O2 Flow Rate FiO2 08/26/17 07:42 Nasal Cannula 2.0 08/26/17 07:36 36.8 60 18 86/43 (57) 95 79/55 (63) Physical Exam Constitutional: General Apperance: heathly-appearing Level of Distress: NAD ENMT: normal ENT inspection Neck: supple Lungs: Auscultation: no wheezing, no rales/crackles, no rhonchi Cardiovascular: Heart Auscultation: II/ SERINA Extremities: no edema Assessment and Plan Assessment and Plan Impression: 87 or female 1. Pleuritic chest discomfort, negative troponin, normal left ventricular wall motion on echo-chest pain symptoms subjectively resolved 2. Extensive heart disease with significant tricuspid regurgitation, mitral regurgitation, aortic valve regurgitation, moderate pulmonary hypertension 3. Paroxysmal atrial fibrillation, back in sinus rhythm at present 4. Hypotension Plan: Ventilation/perfusion scan performed yesterday, was low probability for pulmonary embolism. Given her stroke risks of age over 75 years, female sex, congestive heart failure, she is at high risk for cardiac embolic stroke, and therefore will continue plan to initiate anticoagulation, she is on a heparin infusion, and she is to receive her second dose of Coumadin today. Based on how she is feeling, she appears to be ready for discharge, unfortunately her blood pressures have been low and is difficult to determine what to do with her medications. In 2013 she had been admitted for heart failure due to diastolic dysfunction intermixed valvular heart disease per the discharge summary she was discharged on furosemide 40 mg alternating with 20 mg daily. This dose has been increased over the last several years and she is now on furosemide 100 mg daily and spironolactone 12.5 mg daily. The patient knows her medications very well. She is also on lisinopril 20 mg daily. She likely requires diuretic dose daily given her significant mitral regurgitation and tricuspid regurgitation and aortic valve regurgitation aortic to prevent significant heart failure symptoms. At present she does not have any dyspnea. I've placed on hold on her furosemide. I also placed on hold on her lisinopril. Continue spironolactone 12.5 mg daily. Continue sotalol 80 mg twice a day. Continue to monitor her, hopefully by tomorrow the blood pressure was better. Will likely need to adjust her chronic frusemide dose from 100 mg daily down to perhaps 60 mg daily. Patient was agreeable with this approach. She notes her medications very well. She noted that Neurontin appears to be ordered for her while she is in the hospital. She has not been taking this for several years. She had taken it in the past for postherpetic neuralgia. I have updated her medication list and have eliminated the Neurontin as prescribed in the hospital and I have also eliminated from her home medication list in [facility]. She does take allopurinol home. Going to continue to hold this for the time being pending reassessment of her blood pressure and renal function, just to simplify her medication list for now, her. Laboratory Results Last 24 Hours Test 08/25/17 10:39 08/25/17 17:43 08/26/17 06:14 Activated Partial Thromboplast Time 87.2 SECONDS 56.1 SECONDS 48.2 SECONDS Partial Thromboplastin Ratio 3.4 2.2 1.9 White Blood Count 3.61 K/uL Red Blood Count 3.61 M/uL Hemoglobin 9.5 g/dL Hematocrit 29.6 % Mean Corpuscular Volume 82.0 fL Mean Corpuscular Hemoglobin 26.3 pg Mean Corpuscular Hemoglobin Concent 32.1 g/dl Platelet Count 163 K/uL Mean Platelet Volume 10.9 fL Neutrophils (%) (Auto) 61.7 % Lymphocytes (%) (Auto) 17.2 % Monocytes (%) (Auto) 13.6 % Eosinophils (%) (Auto) 6.6 % Basophils (%) (Auto) 0.6 % Neutrophils # (Auto) 2.23 K/uL Lymphocytes # (Auto) 0.62 K/uL Monocytes # (Auto) 0.49 K/uL Eosinophils # (Auto) 0.24 K/uL Basophils # (Auto) 0.02 K/uL RDW Standard Deviation 49.7 fL RDW Coefficient of Variation 16.5 % Immature Granulocyte % (Auto) 0.3 % Immature Granulocyte # (Auto) 0.01 K/uL Prothrombin Time 10.6 SECONDS Prothromb Time International Ratio 1.0 Sodium Level 138 mmol/L Potassium Level 4.7 mmol/L Chloride Level 109 mmol/L Carbon Dioxide Level 24 mmol/L Anion Gap 5.0 mmol/L Blood Urea Nitrogen 54 mg/dl Creatinine 1.36 mg/dl Est Creatinine Clear Calc Drug Dose 33.5 ml/min Estimated GFR () 40.7 Estimated GFR (Non- 35.1 BUN/Creatinine Ratio 39.7 Random Glucose 83 mg/dl Calcium Level 8.6 mg/dl
--- NOTE | 2017-08-26 11:18 | Progress Note ---
Medicine Progress Note Date & Time of Visit: Aug 26, 2017 at 11:14. Subjective patient seen resting in bedside chair, in good spirits, comfortable states she feels fine today no recurrence of chest no dyspnea, dizziness, nausea, palpitations denies bleeding no other symptoms Objective Last 8 Hrs Date Time Temp Pulse Resp B/P (MAP) Pulse Ox O2 Delivery O2 Flow Rate FiO2 08/26/17 11:03 36.5 63 16 120/73 (89) 96 Room Air 08/26/17 11:00 Nasal Cannula 2.0 08/26/17 07:42 Nasal Cannula 2.0 08/26/17 07:36 36.8 60 18 86/43 (57) 95 79/55 (63) 08/26/17 04:02 36.5 72 20 93/61 (72) 98 Room Air 08/26/17 04:00 Nasal Cannula 2.0 Physical Exam: General- oriented x 3, not in distress, speaks in sentences with no effort Eyes- anicteric Neck- no JVD Lungs- clear breath sounds bilaterally , no rales/wheezes Heart- regular rhythm; no murmur, normal rate Abdomen- normal bowel sounds, soft, nontender Extremities- grade 1 lower leg edema, no calf tenderness Neuro- alert, oriented x 3; no gross focal deficits Skin- warm & dry Laboratory Results: Last 24 Hours Test 08/25/17 17:43 08/26/17 06:14 Activated Partial Thromboplast Time 56.1 SECONDS 48.2 SECONDS Partial Thromboplastin Ratio 2.2 1.9 White Blood Count 3.61 K/uL Red Blood Count 3.61 M/uL Hemoglobin 9.5 g/dL Hematocrit 29.6 % Mean Corpuscular Volume 82.0 fL Mean Corpuscular Hemoglobin 26.3 pg Mean Corpuscular Hemoglobin Concent 32.1 g/dl Platelet Count 163 K/uL Mean Platelet Volume 10.9 fL Neutrophils (%) (Auto) 61.7 % Lymphocytes (%) (Auto) 17.2 % Monocytes (%) (Auto) 13.6 % Eosinophils (%) (Auto) 6.6 % Basophils (%) (Auto) 0.6 % Neutrophils # (Auto) 2.23 K/uL Lymphocytes # (Auto) 0.62 K/uL Monocytes # (Auto) 0.49 K/uL Eosinophils # (Auto) 0.24 K/uL Basophils # (Auto) 0.02 K/uL RDW Standard Deviation 49.7 fL RDW Coefficient of Variation 16.5 % Immature Granulocyte % (Auto) 0.3 % Immature Granulocyte # (Auto) 0.01 K/uL Prothrombin Time 10.6 SECONDS Prothromb Time International Ratio 1.0 Sodium Level 138 mmol/L Potassium Level 4.7 mmol/L Chloride Level 109 mmol/L Carbon Dioxide Level 24 mmol/L Anion Gap 5.0 mmol/L Blood Urea Nitrogen 54 mg/dl Creatinine 1.36 mg/dl Est Creatinine Clear Calc Drug Dose 33.5 ml/min Estimated GFR () 40.7 Estimated GFR (Non- 35.1 BUN/Creatinine Ratio 39.7 Random Glucose 83 mg/dl Calcium Level 8.6 mg/dl Assessment & Plan 87 year old female with history of CHF, Valvular Heart Disease, SSS s/p PM presenting with chest pain, left sided. LEFT SIDED CHEST PAIN, RESOLVED - ACS ruled out VQ scan: low probability for PE - denies cough, sputum production - resolved ATRIAL FIBRILLATION SSS S/P PACEMAKER PLACEMENT - converted to SR - on heparin drip, warfarin started inr 1.0 continue heparin + coumadin 5mg po daily - continue Sotalol HYPOTENSION - Lasix + Lisinopril held for now monitor BP ACUTE RENAL FAILURE ON CKD 3 - baseline crea 1.3-14 GFR 33-39 - back to baseline CHF, VALVULAR TYPE - no signs of overt decompensation Lasix on hold due to hypotension monitor Chronic anemia, hemoglobin baseline. Disposition pending anticipate d/c home when medically stable may need Lovenox bridge with coumadin upon discharge follows with Dr. Crowley for PCP [facility] for Cardiology Current Inpatient Medications: Current Inpatient Medications Medications (Trade) Dose Ordered Sig/Cyndi Route Start Time Stop Time Status Last Admin Dose Admin Miscellaneous (Iv Fluids Completed) 1 ea PRN PRN N/A 08/24/17 21:15 08/24/18 21:14 Acetaminophen (Tylenol Tab) 650 mg Q4H PRN PO 08/24/17 21:30 09/23/17 21:29 Nitroglycerin (Nitrostat Tab) 0.4 mg UD PRN SL 08/24/17 21:30 09/23/17 21:29 Hydromorphone HCl (Dilaudid Inj) 0.5 mg Q3H PRN IV 08/24/17 21:30 09/07/17 21:29 Tramadol HCl (Ultram Tab) 25 mg Q6H PRN PO 08/24/17 21:30 09/23/17 21:29 Aspirin (Ecotrin Tab) 81 mg HS PO 08/25/17 21:00 09/24/17 20:59 08/25/17 20:17 81 MG Docusate Sodium (coLACE CAP) 100 mg BID PO 08/25/17 09:00 09/24/17 08:59 Levothyroxine Sodium (Synthroid Tab) 100 mcg DAILYBB PO 08/25/17 06:00 09/24/17 06:59 08/26/17 06:03 100 MCG Sotalol HCl (Betapace Tab) 80 mg BID PO 08/25/17 09:00 09/24/17 08:59 08/25/17 20:17 80 MG Heparin Sodium/ Dextrose 500 ml @ 15 mls/hr Q24H PRN IV 08/24/17 23:30 09/23/17 23:29 08/26/17 04:28 15 MLS/HR Warfarin Sodium (Coumadin Tab) 5 mg DAILY@16 PO 08/25/17 16:00 09/24/17 15:59 08/25/17 15:52 5 MG Lisinopril (Zestril Tab) 20 mg QAM PO 08/26/17 09:00 09/25/17 08:59 Future Hold Spironolactone (Aldactone Tab) 12.5 mg DAILY PO 08/26/17 09:00 09/25/17 08:59 08/26/17 07:07 12.5 MG
[2017-08-26] MEDS: WARFARIN SOD 5 MG TAB PO SCH (15:22)
[2017-08-26] MEDS: ASPIRIN 81 MG ECTAB PO SCH (21:06)
[2017-08-27 03:02] VITALS: BP 96/62; PULSE 60; TEMP 36.5; O2SAT 99
[2017-08-27] MEDS: LEVOTHYROXINE 100 MCG TAB PO SCH (05:50)
[2017-08-27 06:12] LABS: BASO % 0.3 %; BASO ABS # 0.01 K/uL (0-0.2); COMPLETE YES; EOS % 7.2 %; HEMATOCRIT 30.6 % (37-47); IG% 0.3 %; LYMPH % 16.2 %; LYMPH ABS # 0.56 K/uL (1.2-3.4); MEAN CELL VOLUME 81.8 fL (80-100); MEAN CORPUSCULAR HEMOGLOBIN 25.4 pg (25-34); MEAN PLATELET VOLUME 10.5 fL (7.4-10.4); MONO % 14.5 %; NEUT % 61.5 %; PLATELET COUNT 171 K/uL (130-400); RED BLOOD COUNT 3.74 M/uL (4.2-5.4); WHITE BLOOD COUNT 3.46 K/uL (4.8-10.8)
[2017-08-27 06:21] LABS: PARTIAL THROMBOPLASTIN RATIO 1.6; PROTHROMBIN TIME (PATIENT) 10.7 SECONDS (9.0-12.0)
[2017-08-27 06:38] LABS: CALCIUM 8.9 mg/dl (8.5-10.1); CREATININE 1.3 mg/dl (0.60-1.20); POTASSIUM 4.5 mmol/L (3.5-5.1)
[2017-08-27 07:45] VITALS: BP 94/60; PULSE 60; TEMP 36.8; O2SAT 93
[2017-08-27] MEDS: SOTALOL HCL 80 MG TAB PO SCH (08:01)
[2017-08-27] MEDS: DOCUSATE SODIUM 100 MG CAP PO SCH (08:01)
[2017-08-27] MEDS: SPIRONOLACTONE 25 MG TAB PO SCH (08:25)
--- NOTE | 2017-08-27 08:49 | Cardiology Follow-Up ---
Subjective General Date of Service: Aug 27, 2017. Chief Complaint: follow up chest pain, AF, hypotension Pt evaluation today including: conversation w/ patient, physical exam, chart review, lab review, review of studies, review of inpatient medication list History of Present Illness Patient feeling well this AM. No recurrent chest pain. No SOB. currently NSR/ Atrial paced on telemetry. Denies orthopnea, PND or edema. No dizziness or lightheadedness. Allergies Coded Allergies: Naproxen (Verified Allergy, Unknown, Black stool/bleeding., 08/24/17) Reported by PT. Codeine (Verified Adverse Reaction, Unknown, GASTRIC UPSET, 08/24/17) Methocarbamol (Verified Adverse Reaction, Unknown, Nausea/Vomiting, ) Reported by PT. Statins (Verified Adverse Reaction, Unknown, MUSCLE WEAKNESS, 08/24/17) Social History Smoking Status: Never Smoker Hx Tobacco Use In Past Year?: No Hx Alcohol Use - Type And Amou: No Hx Substance Use - Type And Am: No Problem List Medical Problems: (1) Acute kidney injury Status: Acute (2) Left sided chest pain Status: Acute Review of Systems Respiratory: No cough, No sputum, No wheezing, No shortness of breath, No dyspnea at rest, No hemoptysis Cardiac: No chest pain, No orthopnea, No PND, No edema, No palpitations Physical Exam Vital Signs Last Vital Signs Documentation Date Time Temp Pulse Resp B/P (MAP) Pulse Ox O2 Delivery O2 Flow Rate FiO2 08/27/17 07:45 36.8 60 18 94/60 (71) 93 Room Air 08/27/17 03:02 2.0 Physical Exam Constitutional: General Apperance: heathly-appearing, overweight Level of Distress: NAD Psychiatric: Mental Status: active & alert Orientation: to time, to place, to person Eyes: Pupils: PERRLA ENMT: normal ENT inspection Neck: supple Lungs: Respiratory effort: no dyspnea Auscultation: no wheezing, no rales/crackles, no rhonchi Cardiovascular: Heart Auscultation: RRR, II/ SERINA Abdomen: Bowel Sounds: normal Inspection & Palpation: soft, non-distended Extremities: no edema Assessment and Plan Assessment and Plan 87 year old female 1. Pleuritic chest discomfort, negative troponin, normal left ventricular wall motion on echo-chest pain symptoms subjectively resolved 2. Extensive heart disease with significant tricuspid regurgitation, mitral regurgitation, aortic valve regurgitation, moderate pulmonary hypertension 3. Paroxysmal atrial fibrillation, back in sinus rhythm at present 4. Hypotension, asymptomatic. Plan: Ventilation/perfusion scan was low probability for pulmonary embolism. Venous duplex negative for DVT. Symptoms improved. Recommend stopping lisinopril on discharge. Discharge on Furosemide 60 mg daily (reduced from 100 mg). Continue spironolactone. Continue sotalol. Anticoagulation clinic referral. Stop heparin this AM. Continue coumadin for CHADS2 score of 3 (Age, CHF, history of HTN). (Verify Neurontin is not on discharge medications. Resumed on admission in error ). Stable cardiac signs/symptoms for discharge today. 1-2 week cardiology f/u will be arranged to monitor BP and fluid status with the above changes. She will be contacted by the anticoagulation clinic as well. Case discussed with Dr. Tabares CARDIOLOGY ATTENDING ADDENDUM: The patient was seen and personally examined. Agree with Alla Velasco PA-C's findings and plans as documented above with additions as noted below. Pt feel well. Denies chest pain or palpitations. Impression -as above. Plan: stable for dc on coumadin without bridge therapy. Follow up with [facility] anticoagulation clinic. Hold lisinopril until outpt follow up at which time BP will be reassess. Continue [employer] spironolactone dose. Reduce furosemide from 100 mg daily to 60 mg daily. Abdulkadir Tabares, Laboratory Results Last 24 Hours Test 08/27/17 05:42 White Blood Count 3.46 K/uL Red Blood Count 3.74 M/uL Hemoglobin 9.5 g/dL Hematocrit 30.6 % Mean Corpuscular Volume 81.8 fL Mean Corpuscular Hemoglobin 25.4 pg Mean Corpuscular Hemoglobin Concent 31.0 g/dl Platelet Count 171 K/uL Mean Platelet Volume 10.5 fL Neutrophils (%) (Auto) 61.5 % Lymphocytes (%) (Auto) 16.2 % Monocytes (%) (Auto) 14.5 % Eosinophils (%) (Auto) 7.2 % Basophils (%) (Auto) 0.3 % Neutrophils # (Auto) 2.13 K/uL Lymphocytes # (Auto) 0.56 K/uL Monocytes # (Auto) 0.50 K/uL Eosinophils # (Auto) 0.25 K/uL Basophils # (Auto) 0.01 K/uL RDW Standard Deviation 49.0 fL RDW Coefficient of Variation 16.4 % Immature Granulocyte % (Auto) 0.3 % Immature Granulocyte # (Auto) 0.01 K/uL Prothrombin Time 10.7 SECONDS Prothromb Time International Ratio 1.0 Activated Partial Thromboplast Time 41.1 SECONDS Partial Thromboplastin Ratio 1.6 Sodium Level 137 mmol/L Potassium Level 4.5 mmol/L Chloride Level 105 mmol/L Carbon Dioxide Level 24 mmol/L Anion Gap 8.0 mmol/L Blood Urea Nitrogen 53 mg/dl Creatinine 1.30 mg/dl Est Creatinine Clear Calc Drug Dose 34.9 ml/min Estimated GFR () 43.0 Estimated GFR (Non- 37.1 BUN/Creatinine Ratio 41.0 Random Glucose 84 mg/dl Calcium Level 8.9 mg/dl
[2017-08-27] MEDS ORDERED: FUROSEMIDE 40 MG TAB PO SCH (09:15)
[2017-08-27 11:32] VITALS: BP 101/66; PULSE 61; TEMP 36.6; O2SAT 95
[2017-08-27] MEDS ORDERED: LSX40 PO (12:05)
[2017-08-27] MEDS ORDERED: CMD5 PO (12:05)
--- NOTE | 2017-08-27 12:12 | Discharge Instructions ---
Discharge Instructions Date of Service Aug 27, 2017. Admission Reason for Admission: Chest Pain Discharge Discharge Diagnosis / Problem: CHEST PAIN Discharge Goals Goal(s): Diagnostic testing, Therapeutic intervention Activity Recommendations Activity Limitations: as noted below (increase activity gradually as tolerated) . Instructions / Follow-Up Instructions / Follow-Up PLEASE REVIEW YOUR NEW MEDICATION LIST AND FOLLOW INSTRUCTIONS CAREFULLY. ALWAYS BE CAREFUL WITH AMBULATING. IF YOU HAVE ANY HEAD TRAUMA, PLEASE GO TO THE IMMEDIATELY TO BE EVALUATED. CALL PRIMARY CARE PHYSICIAN OR RETURN TO ER IMMEDIATELY IF WITH RECURRENCE OF SYMPTOMS. FOLLOW UP WITH DR. POWER ON THURSDAY AUGUST 31, 2017 AT 12:45PM. FOLLOW UP WITH CARDIOLOGY CLINIC SCHEDULED (CLINIC WILL CALL YOU RE: APPOINTMENT SCHEDULE). FOLLOW UP WITH [facility]/ANTICOAGULATION CLINIC FOR FURTHER INSTRUCTIONS REGARDING COUMADIN DOSE. (CLINIC WILL CALL YOU REGARDING APPOINTMENT SCHEDULE. IF YOU HAVE NOT RECEIVED A CALL BY TOMORROW, PLEASE CALL THEIR OFFICE AT [phone]. Call your Primary Care doctor if any of the following symptoms or problems start or get worse: * Shortness of breath or difficulty breathing * Wake up at night short of breath * Chest pain * Cough * Swelling of your hands, feet, or legs * More fatigued or tired with your normal activity * Palpitations - sudden fast heart beats WEIGHT * Weigh yourself every morning after using the bathroom. * Use the same scale. * Wear the same amount of clothing. * Write your weight down on a chart. * Call your Primary Care doctor if you gain more than 2-3 pounds in 1-2 days. MEDICATIONS * Use this discharge instruction sheet for medication instructions. * Take your medications at the time your doctor ordered. * Do not skip a dose of your medicines. * If you miss a dose of medicine, take it as soon as possible, but DO NOT DOUBLE A DOSE. * Read your medicine information when you get home. * Know all of the side effects of your medicine. If in doubt, ask your pharmacist * Call your Primary Care doctor's office if you have any side effects. * Be sure all of your doctors know what medicine and herbs you take (including cold, flu, and herbal medicine). Take the following with you to your follow-up doctor appointments: * Weight Chart * Medication List * List of questions Do not drink excessive alcohol, beer or wine. Current Hospital Diet Patient's current hospital diet: AHA Diet (Heart Healthy) Discharge Diet Recommended Diet: AHA Diet (Heart Healthy) Fluid Restriction: 2000 ml (8 cups) Procedures Procedures Performed: VQ SCAN OF THE LUNGS, ECHOCARDIOGRAM Pending Studies Studies pending at discharge: yes List of pending studies: REPEAT BLOODWORK TO BE DIRECTED BY THE [facility]/ANTICOAGULATION CLINIC Medical Emergencies . Who to Call and When: Call 911 or go to the Emergency Room if: * If at any time you feel your situation is an emergency * You have tightness or pain in your chest that does not go away with rest or Nitroglycerin * You are very short of breath even with rest . Non-Emergent Contact Non-Emergency issues call your: Primary Care Provider, Co Founder And President Call Non-Emergent contact if: you have a fever, your pain is not controlled, your pain is worsening, you have any medication questions . . "Provider Documentation" section prepared by Julio Lubin. . VTE Core Measure Inpt VTE Proph given/why not?: Unfractionated heparin SQ, Warfarin (Coumadin)
--- NOTE | 2017-08-27 12:26 | Progress Note ---
Medicine Progress Note Date & Time of Visit: Aug 27, 2017 at 12:26. Subjective sitting in bedside chair, comfortable states she feels fine overall denies dizziness, chest pain, dyspnea, palpitations no other symptoms Objective Last 8 Hrs Date Time Temp Pulse Resp B/P (MAP) Pulse Ox O2 Delivery O2 Flow Rate FiO2 08/27/17 11:32 36.6 61 16 101/66 (78) 95 Room Air 08/27/17 08:10 Room Air 08/27/17 07:45 36.8 60 18 94/60 (71) 93 Room Air Physical Exam: General- oriented x 3, not in distress, speaks in sentences with no effort Eyes- anicteric Neck- no JVD Lungs- clear breath sounds bilaterally Heart- regular rhythm; no murmur, normal rate Abdomen- normal bowel sounds, soft, nontender Extremities- grade 1 lower leg edema, no calf tenderness Neuro- alert, oriented x 3; no gross focal deficits Skin- warm & dry Laboratory Results: Last 24 Hours Test 08/27/17 05:42 White Blood Count 3.46 K/uL Red Blood Count 3.74 M/uL Hemoglobin 9.5 g/dL Hematocrit 30.6 % Mean Corpuscular Volume 81.8 fL Mean Corpuscular Hemoglobin 25.4 pg Mean Corpuscular Hemoglobin Concent 31.0 g/dl Platelet Count 171 K/uL Mean Platelet Volume 10.5 fL Neutrophils (%) (Auto) 61.5 % Lymphocytes (%) (Auto) 16.2 % Monocytes (%) (Auto) 14.5 % Eosinophils (%) (Auto) 7.2 % Basophils (%) (Auto) 0.3 % Neutrophils # (Auto) 2.13 K/uL Lymphocytes # (Auto) 0.56 K/uL Monocytes # (Auto) 0.50 K/uL Eosinophils # (Auto) 0.25 K/uL Basophils # (Auto) 0.01 K/uL RDW Standard Deviation 49.0 fL RDW Coefficient of Variation 16.4 % Immature Granulocyte % (Auto) 0.3 % Immature Granulocyte # (Auto) 0.01 K/uL Prothrombin Time 10.7 SECONDS Prothromb Time International Ratio 1.0 Activated Partial Thromboplast Time 41.1 SECONDS Partial Thromboplastin Ratio 1.6 Sodium Level 137 mmol/L Potassium Level 4.5 mmol/L Chloride Level 105 mmol/L Carbon Dioxide Level 24 mmol/L Anion Gap 8.0 mmol/L Blood Urea Nitrogen 53 mg/dl Creatinine 1.30 mg/dl Est Creatinine Clear Calc Drug Dose 34.9 ml/min Estimated GFR () 43.0 Estimated GFR (Non- 37.1 BUN/Creatinine Ratio 41.0 Random Glucose 84 mg/dl Calcium Level 8.9 mg/dl Assessment & Plan 87 year old female with history of CHF, Valvular Heart Disease, SSS s/p PM presenting with chest pain, left sided. LEFT SIDED CHEST PAIN, RESOLVED - ACS ruled out VQ scan: low probability for PE - resolved ATRIAL FIBRILLATION EPISODE SSS S/P PACEMAKER PLACEMENT - converted to Sinus rhythm spontaneously - Cardiology Dr. Tabares consulted, recommend anticoagulation - started on heparin drip + warfarin inr 1.0 on discharge day Cardiology recommending to discharge on Coumadin, no bridging necessary discharged on Coumadin 5mg po daily called Anticoagulation Clinic to establish patient with them, they will call the patient re: further instructions - continue Sotalol HYPOTENSION - noted on hospital day 2 - Lisinopril discontinued Lasix decreased to 60mg po daily - monitor ACUTE RENAL FAILURE ON CKD 3 - back to baseline crea CHF, VALVULAR TYPE - no signs of overt decompensation - - Lisinopril discontinued Lasix decreased to 60mg po daily Chronic anemia, hemoglobin baseline. Disposition d/c home with home health services follow with Dr. Crowley for PCP in 3-5 days [facility] Coumadin Clinic already notified re: patient Current Inpatient Medications: Current Inpatient Medications Medications (Trade) Dose Ordered Sig/Cyndi Route Start Time Stop Time Status Last Admin Dose Admin Miscellaneous (Iv Fluids Completed) 1 ea PRN PRN N/A 08/24/17 21:15 08/24/18 21:14 Acetaminophen (Tylenol Tab) 650 mg Q4H PRN PO 08/24/17 21:30 09/23/17 21:29 Nitroglycerin (Nitrostat Tab) 0.4 mg UD PRN SL 08/24/17 21:30 09/23/17 21:29 Hydromorphone HCl (Dilaudid Inj) 0.5 mg Q3H PRN IV 08/24/17 21:30 09/07/17 21:29 Tramadol HCl (Ultram Tab) 25 mg Q6H PRN PO 08/24/17 21:30 09/23/17 21:29 Aspirin (Ecotrin Tab) 81 mg HS PO 08/25/17 21:00 09/24/17 20:59 08/26/17 21:06 81 MG Docusate Sodium (coLACE CAP) 100 mg BID PO 08/25/17 09:00 09/24/17 08:59 08/27/17 08:01 100 MG Levothyroxine Sodium (Synthroid Tab) 100 mcg DAILYBB PO 08/25/17 06:00 09/24/17 06:59 08/27/17 05:50 100 MCG Sotalol HCl (Betapace Tab) 80 mg BID PO 08/25/17 09:00 09/24/17 08:59 08/27/17 08:01 80 MG Warfarin Sodium (Coumadin Tab) 5 mg DAILY@16 PO 08/25/17 16:00 09/24/17 15:59 08/26/17 15:22 5 MG Spironolactone (Aldactone Tab) 12.5 mg DAILY PO 08/26/17 09:00 09/25/17 08:59 08/27/17 08:25 12.5 MG Furosemide (Lasix Tab) 60 mg QAM PO 08/27/17 09:15 09/26/17 09:14 08/27/17 11:23 60 MG
--- NOTE | 2017-08-27 12:26 | Discharge Summary ---
Discharge Summary Date of Service Aug 27, 2017. Discharge Summary Admission Date: Aug 26, 2017 at 13:35 Discharge Date: Aug 27, 2017 Discharge Disposition: Home with services Principal Diagnosis: LEFT SIDED CHEST PAIN, RESOLVED, ACUTE CORONARY SYNDROME RULED OUT Secondary Diagnoses/Problems: Please refer to hospital course below. Procedures: CHEST 2 VIEWS ROUTINE CLINICAL HISTORY: Abnormal chest x-ray COMPARISON STUDY: 08/24/2017 FINDINGS: The heart remains mildly enlarged. There is mild central vascular prominence without evidence of overt failure. There are no pleural effusions. There are persistent right basal airspace opacities, atelectatic versus inflammatory.[ IMPRESSION: Persistent right basilar airspace opacities, atelectatic versus inflammatory. LEG US: IMPRESSION: There is no sonographic evidence of deep venous thrombosis identified in the right or left lower extremity. VQ SCAN IMPRESSION: Findings are considered low probability for pulmonary embolus. Consultations: [facility] [employer] DR. MCCULLOUGH Pending Studies/Follow-Up: Please refer to hospital course below. Medication Reconciliation New Medications: Furosemide (Furosemide) 40 Mg Tab 60 MG PO QAM for 30 Days, #45 TAB 2 Refills Warfarin Sod (Coumadin) 5 Mg Tab 5 MG PO DAILY@16 for 30 Days, #30 TAB 1 Refill further instructions regarding dose will be provided by coumadin clinic in [facility] Continued Medications: Allopurinol (Allopurinol) 300 Mg Tab 1 TAB PO DAILY Aspirin (Aspirin Ec) 81 Mg Tab 81 MG PO HS Clindamycin Hcl (Cleocin) 150 Mg Cap 600 MG PO UD PRN for Prior to Dental Appt., CAP TAKE THIS MEDICATION ONE HOUR PRIOR TO DENTAL APPOINTMENT. Docusate Sodium (Docusate Sodium) 100 Mg Cap 100 MG PO BID Levothyroxine Sodium (Levothyroxine Sodium) 100 Mcg Tab 100 MCG PO QAM Sotalol HCl (Sotalol HCl) 80 Mg Tab 80 MG PO BID Spironolactone (Spironolactone) 25 Mg Tab 12.5 MG PO DAILY Discontinued Medications: Furosemide (Furosemide) 20 Mg Tab 20 MG PO DAILY TAKE ONE 20 MG TABLET ALONG WITH AN 80MG TABLET TO EQUAL DAILY DOSE OF 100 MG. Furosemide (Furosemide) 80 Mg Tab 1 TAB PO DAILY Lisinopril (Lisinopril) 20 Mg Tab 20 MG PO QAM Admission Information HPI (per Admitting provider): Medical history significant for diastolic heart failure (EF 65%), mixed valvular heart disease (aortic, mitral/tricuspid insufficiency, sick sinus syndrome status post pacemaker placement, sleep apnea as per records, restrictive lung disease secondary to kyphoscoliosis, chronic anemia (baseline hemoglobin of 10 to 11), chronic renal insufficiency (baseline creatinine 1.3). Recent confinement July 2014 for decompensated heart failure. Two day history of left-sided chest pain, somewhat pleuritic with shortness of breath. Denies unusual weight gain or fluid retention. No cough symptoms. 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 Patient was noted to in AFib. Px sent to the Emergency Room for further evaluation. Px given aspirin at the ER. Patient currently comfortable. Physical Exam (per Admitting): VITAL SIGNS: Blood pressure noted to be 105/64, pulse rate 90, RR 20, temperature 36.5, sats 95% on room air. GENERAL: Comfortable, no respiratory distress. Looks younger for stated age. Wheelchair borne SKIN: Pallor, warm. HEENT: Pale palpebral conjunctivae, no ptosis. Dry buccal mucosa. Nasal cannula in place. NECK: Short neck, supple. CHEST: Clear to auscultation. No anterior chest tenderness. CV: Irregular, systolic murmur. Palpable lower extremity pulses. ABDOMEN: Some distention, nontender. EXTREMITIES: Bilateral lower extremity edema, no tenderness. No gross deformity. NEUROLOGIC: Coherent. No gross deformity. Hospital Course 87 year old female with history of CHF, Valvular Heart Disease, SSS s/p PM presenting with chest pain, left sided. LEFT SIDED CHEST PAIN, RESOLVED - ACS ruled out VQ scan: low probability for PE - denies cough, sputum production - resolved ATRIAL FIBRILLATION SSS S/P PACEMAKER PLACEMENT - converted to SR - on heparin drip, warfarin started inr 1.0 continue heparin + coumadin 5mg po daily - continue Sotalol HYPOTENSION - Lasix + Lisinopril held for now monitor BP ACUTE RENAL FAILURE ON CKD 3 - baseline crea 1.3-14 GFR 33-39 - back to baseline CHF, VALVULAR TYPE - no signs of overt decompensation Lasix on hold due to hypotension monitor Chronic anemia, hemoglobin baseline. Disposition pending anticipate d/c home when medically stable may need Lovenox bridge with coumadin upon discharge follows with Dr. Power for PCP [facility] Total time spent on discharge = 40 minutes This includes examination of the patient, discharge planning, medication reconciliation, and communication with other providers. Discharge Instructions Discharge Instructions Date of Service Aug 27, 2017. Admission Reason for Admission: Chest Pain Discharge Discharge Diagnosis / Problem: CHEST PAIN Discharge Goals Goal(s): Diagnostic testing, Therapeutic intervention Activity Recommendations Activity Limitations: as noted below (increase activity gradually as tolerated) . Instructions / Follow-Up Instructions / Follow-Up PLEASE REVIEW YOUR NEW MEDICATION LIST AND FOLLOW INSTRUCTIONS CAREFULLY. ALWAYS BE CAREFUL WITH AMBULATING. IF YOU HAVE ANY HEAD TRAUMA, PLEASE GO TO THE IMMEDIATELY TO BE EVALUATED. CALL PRIMARY CARE PHYSICIAN OR RETURN TO ER IMMEDIATELY IF WITH RECURRENCE OF SYMPTOMS. FOLLOW UP WITH DR. POWER ON THURSDAY AUGUST 31, 2017 AT 12:45PM. FOLLOW UP WITH CARDIOLOGY CLINIC SCHEDULED (CLINIC WILL CALL YOU RE: APPOINTMENT SCHEDULE). FOLLOW UP WITH [facility]/ANTICOAGULATION CLINIC FOR FURTHER INSTRUCTIONS REGARDING COUMADIN DOSE. (CLINIC WILL CALL YOU REGARDING APPOINTMENT SCHEDULE. IF YOU HAVE NOT RECEIVED A CALL BY TOMORROW, PLEASE CALL THEIR OFFICE AT [phone]. Call your Primary Care doctor if any of the following symptoms or problems start or get worse: * Shortness of breath or difficulty breathing * Wake up at night short of breath * Chest pain * Cough * Swelling of your hands, feet, or legs * More fatigued or tired with your normal activity * Palpitations - sudden fast heart beats WEIGHT * Weigh yourself every morning after using the bathroom. * Use the same scale. * Wear the same amount of clothing. * Write your weight down on a chart. * Call your Primary Care doctor if you gain more than 2-3 pounds in 1-2 days. MEDICATIONS * Use this discharge instruction sheet for medication instructions. * Take your medications at the time your doctor ordered. * Do not skip a dose of your medicines. * If you miss a dose of medicine, take it as soon as possible, but DO NOT DOUBLE A DOSE. * Read your medicine information when you get home. * Know all of the side effects of your medicine. If in doubt, ask your pharmacist * Call your Primary Care doctor's office if you have any side effects. * Be sure all of your doctors know what medicine and herbs you take (including cold, flu, and herbal medicine). Take the following with you to your follow-up doctor appointments: * Weight Chart * Medication List * List of questions Do not drink excessive alcohol, beer or wine. Current Hospital Diet Patient's current hospital diet: AHA Diet (Heart Healthy) Discharge Diet Recommended Diet: AHA Diet (Heart Healthy) Fluid Restriction: 2000 ml (8 cups) Procedures Procedures Performed: VQ SCAN OF THE LUNGS, ECHOCARDIOGRAM Pending Studies Studies pending at discharge: yes List of pending studies: REPEAT BLOODWORK TO BE DIRECTED BY THE [facility]AGULATION CLINIC Medical Emergencies . Who to Call and When: Call 911 or go to the Emergency Room if: * If at any time you feel your situation is an emergency * You have tightness or pain in your chest that does not go away with rest or Nitroglycerin * You are very short of breath even with rest . Non-Emergent Contact Non-Emergency issues call your: Primary Care Provider, Legal File Clerk Call Non-Emergent contact if: you have a fever, your pain is not controlled, your pain is worsening, you have any medication questions . . "Provider Documentation" section prepared by Julio Lubin. . VTE Core Measure Inpt VTE Proph given/why not?: Unfractionated heparin SQ, Warfarin (Coumadin)
[2017-08-27 12:55] VITALS: BP 101/66; PULSE 61; TEMP 36.6; O2SAT 95
== END 2017-08-27 14:37 | disposition home health service (06) | DRG 204 ==
LOC: C.EDB 15:21 → C.2T 20:56 → ENRESERV 21:07 → OBSVTOIN 08-26 13:35
PROVIDERS: ADMIT Internal Medicine; ATTEND Internal Medicine
DX: R07.81 Pleurodynia (principal); N17.9 Acute kidney failure, unspecified; I50.30 Unspecified diastolic (congestive) heart failure; E87.2 Acidosis; R06.02 Shortness of breath; I95.9 Hypotension, unspecified; I48.0 Paroxysmal atrial fibrillation; I08.3 Combined rheumatic disorders of mitral, aortic and tricuspid valves; I27.20 Pulmonary hypertension, unspecified; N18.3 Chronic kidney disease, stage 3 (moderate); J98.4 Other disorders of lung; E07.9 Disorder of thyroid, unspecified; D53.9 Nutritional anemia, unspecified; M41.9 Scoliosis, unspecified; G47.30 Sleep apnea, unspecified; E66.3 Overweight; Z68.38 Body mass index [BMI] 38.0-38.9, adult; Z23 Encounter for immunization; Z95.0 Presence of cardiac pacemaker; Z96.653 Presence of artificial knee joint, bilateral; Z79.82 Long term (current) use of aspirin; Z79.899 Other long term (current) drug therapy

== ENCOUNTER 2018-06-23 15:16 | Emergency (ER) | payer OTHER, MEDICARE ==
[~2018-06-23] VITALS: Ht 149.9 cm; Wt 102.9 kg
[~2018-06-23 15:16] MED LIST changes: +ALL300 PO; +CMD5 PO; -LSN20 PO; -LSX20 PO; -NRN100 PO; +SPIR25TA6 PO; -SPR25 PO
[2018-06-23 15:28] VITALS: TEMP 36.6
[2018-06-23 16:32] VITALS: Ht 149.9 cm; Wt 102.9 kg
[2018-06-23 16:32] LABS: BASO % 0.3 %; BASO ABS # 0.02 K/uL (0-0.2); EOS % 3.1 %; EOS ABS # 0.19 K/uL (0-0.5); HEMATOCRIT 36.1 % (37-47); HEMOGLOBIN 11.5 g/dL (12.0-16.0); IG# 0.01 K/uL (0.00-0.02); LYMPH % 7.9 %; LYMPH ABS # 0.49 K/uL (1.2-3.4); MEAN CELL VOLUME 84.7 fL (80-100); MEAN CORPUSCULAR HGB CONC 31.9 g/dl (32-36); MEAN PLATELET VOLUME 10.5 fL (7.4-10.4); MONO % 12.4 %; MONO ABS # 0.77 K/uL (0.11-0.59); NEUT % 76.1 %; NEUT ABS # 4.71 K/uL (1.4-6.5); PLATELET COUNT 200 K/uL (130-400); RED CELL DISTRIBUTION WIDTH CV 17.1 % (11.5-14.5); RED CELL DISTRIBUTION WIDTH SD 52.5 fL (36.4-46.3); WHITE BLOOD COUNT 6.19 K/uL (4.8-10.8)
[2018-06-23 16:41] LABS: INR 1.9 (0.9-1.1); PTT PATIENT 36.9 SECONDS (21.0-31.0)
[2018-06-23 16:48] LABS: CALCIUM 9.3 mg/dl (8.5-10.1); CREATININE 1.25 mg/dl (0.60-1.20); POTASSIUM 4.6 mmol/L (3.5-5.1)
[2018-06-23] MEDS ORDERED: FERR1TAB23 PO (16:55)
[2018-06-23] MEDS ORDERED: BIOT1CAP4 PO (16:55)
[2018-06-23] MEDS ORDERED: WARF-246 PO ×2 (16:55)
[2018-06-23] MEDS ORDERED: CHOL100040 PO (16:55)
[2018-06-23] MEDS ORDERED: BUME1TAB PO (16:55)
--- NOTE | 2018-06-23 17:58 | DIAGNOSTIC IMAGING REPORT ---
LEFT LOWER EXTREMITY VENOUS DOPPLER CLINICAL HISTORY: Left leg pain. Evaluate for DVT/hematoma. COMPARISON STUDY: Bilateral lower extremity venous Doppler August 25, 2017. TECHNIQUE: Sonography of the deep venous system of the left lower extremity was performed. Compression and augmentation were evaluated. FINDINGS: The left common femoral, superficial femoral and popliteal veins were compressible. Augmentation was normal. Flow was shown within the deep calf vessels. Note is made of a complex 4.9 x 2.6 x 1.2 cm left popliteal fluid collection at site of bruising. This contains no color flow. IMPRESSION: 1. No evidence of deep venous thrombus within the left lower extremity. 2. Complex 4.9 x 2.6 x 1.2 cm left popliteal fluid collection at site of bruising. This may reflect hematoma or complex popliteal cyst. Electronically signed by: Zacarias Diaz M.D. 06/23/2018 5:57 PM Dictated Date/Time: 06/23/2018 5:56 PM
[2018-06-23 18:30] VITALS: BP 110/61; PULSE 58; O2SAT 97
--- NOTE | 2018-06-23 22:09 | EMERGENCY ROOM VISIT NOTE ---
History Report prepared by Devendra: Torey Bhandari Under the Supervision of: Dr. Sheldon Moreno M.D. First contact with patient: 16:01 Chief Complaint: LEG PAIN,LEG INJURY Stated Complaint: LARGE LUMP ON LEFT KNEE History of Present Illness The patient is a 87 year old female who presents to the Emergency Room with complaints of a bruise on the posterior side of the left knee that is mildly painful with contact. The patient reports that she noticed it today and suggested it may be from her automatic chair she uses because it pushes on the back of her leg. She also reports being on Coumadin daily and that her legs are normally swollen at baseline. 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 The patient denies chest murry, fever, shortness of breath , vomiting, abdominal pain, a history of lower extremity blood clots, and any recent bug bites. Source of History: patient Onset: Today Position: leg (left) Symptom Intensity: mild Quality: dull Modifying Factors (Worsening): other (With contact) Associated Symptoms: No fevers, No chest pain, No SOB, No vomiting, No abdominal pain Review of Systems See HPI for pertinent positives & negatives. A total of 10 systems reviewed and were otherwise negative. Past Medical & Surgical Medical Problems: (1) Atrial fibrillation, controlled (2) Chest pain (3) Pacemaker (4) Thyroid disorder Family History No significant family history Social History Smoking Status: Never Smoker Alcohol Use: none Drug Use: none Marital Status: Housing Status: lives alone Occupation Status: retired Current/Historical Medications Scheduled Allopurinol (Allopurinol), 1 TAB PO DAILY Aspirin (Aspirin Ec), 81 MG PO HS Biotin (Biotin), 1 PO DAILY Bumetanide (Bumex), 1 MG PO BID Cholecalciferol (Vitamin D-1000), 1 TAB PO DAILY Ferrous Sulfate (Iron), 1 TAB PO DAILY Levothyroxine Sodium (Levothyroxine Sodium), 100 MCG PO QAM Sotalol HCl (Sotalol HCl), 80 MG PO BID Spironolactone (Spironolactone), 12.5 MG PO DAILY Warfarin Sodium (Warfarin Sodium), 1 TAB PO 5XWK Warfarin Sodium (Warfarin Sodium), 7.5 TAB PO WK Scheduled PRN Clindamycin Hcl (Cleocin), 600 MG PO UD PRN for Prior to Dental Appt. Allergies Coded Allergies: Naproxen (Verified Allergy, Unknown, Black stool/bleeding., 06/23/18) Reported by PT. Codeine (Verified Adverse Reaction, Unknown, GASTRIC UPSET, 06/23/18) Methocarbamol (Verified Adverse Reaction, Unknown, Nausea/Vomiting, ) Reported by PT. Statins (Verified Adverse Reaction, Unknown, MUSCLE WEAKNESS, 06/23/18) Physical Exam Vital Signs Date Time Temp Pulse Resp B/P (MAP) Pulse Ox O2 Delivery O2 Flow Rate FiO2 06/23/18 18:30 58 18 110/61 97 06/23/18 17:48 62 18 109/57 97 Room Air 06/23/18 15:28 36.6 62 20 126/80 97 Room Air Physical Exam Constitutional: Vital signs reviewed. Eyes: Pupils are equal round reactive to light. Conjunctiva are noninjected. ENT: Pharynx is clear without erythema or exudate. Mucous membranes are moist. Neck supple without meningeal signs. Respiratory: Clear to auscultation bilaterally. Breath sounds are equal bilaterally. Cardiovascular: Regular rate and rhythm. No rubs or gallops. GI: Soft, nondistended and nontender. Bowel sounds are present. Musculoskeletal: Bilateral pitting edema, left leg shows ecchymosis medially behind knee without increased warmth or erythema. 6cm rounded indurated region without fluctuance. Integumentary: No cyanosis. Neurological: The patient is awake and alert. No focal deficits. Psychiatric: Normal affect. Medical Decision & Procedures ER Provider Diagnostic Interpretation: Radiology results as stated below per my review and the radiologist's interpretation: LEFT LOWER EXTREMITY VENOUS DOPPLER CLINICAL HISTORY: Left leg pain. Evaluate for DVT/hematoma. COMPARISON STUDY: Bilateral lower extremity venous Doppler August 25, 2017. TECHNIQUE: Sonography of the deep venous system of the left lower extremity was performed. Compression and augmentation were evaluated. FINDINGS: The left common femoral, superficial femoral and popliteal veins were compressible. Augmentation was normal. Flow was shown within the deep calf vessels. Note is made of a complex 4.9 x 2.6 x 1.2 cm left popliteal fluid collection at site of bruising. This contains no color flow. IMPRESSION: 1. No evidence of deep venous thrombus within the left lower extremity. 2. Complex 4.9 x 2.6 x 1.2 cm left popliteal fluid collection at site of bruising. This may reflect hematoma or complex popliteal cyst. Electronically signed by: Zacarias Diaz M.D. 06/23/2018 5:57 PM Dictated Date/Time: 06/23/2018 5:56 PM Laboratory Results 06/23/18 16:19 Red Blood Count 4.26, Mean Corpuscular Volume 84.7, Mean Corpuscular Hemoglobin 27.0, Mean Corpuscular Hemoglobin Concent 31.9, Mean Platelet Volume 10.5, Neutrophils (%) (Auto) 76.1, Lymphocytes (%) (Auto) 7.9, Monocytes (%) (Auto) 12.4, Eosinophils (%) (Auto) 3.1, Basophils (%) (Auto) 0.3, Neutrophils # (Auto ) 4.71, Lymphocytes # (Auto) 0.49, Monocytes # (Auto) 0.77, Eosinophils # (Auto ) 0.19, Basophils # (Auto) 0.02 06/23/18 16:19 Test 06/23/18 16:19 White Blood Count 6.19 K/uL (4.8-10.8) Red Blood Count 4.26 M/uL (4.2-5.4) Hemoglobin 11.5 g/dL (12.0-16.0) Hematocrit 36.1 % (37-47) Mean Corpuscular Volume 84.7 fL (80-100) Mean Corpuscular Hemoglobin 27.0 pg (25-34) Mean Corpuscular Hemoglobin Concent 31.9 g/dl (32-36) Platelet Count 200 K/uL (130-400) Mean Platelet Volume 10.5 fL (7.4-10.4) Neutrophils (%) (Auto) 76.1 % Lymphocytes (%) (Auto) 7.9 % Monocytes (%) (Auto) 12.4 % Eosinophils (%) (Auto) 3.1 % Basophils (%) (Auto) 0.3 % Neutrophils # (Auto) 4.71 K/uL (1.4-6.5) Lymphocytes # (Auto) 0.49 K/uL (1.2-3.4) Monocytes # (Auto) 0.77 K/uL (0.11-0.59) Eosinophils # (Auto) 0.19 K/uL (0-0.5) Basophils # (Auto) 0.02 K/uL (0-0.2) RDW Standard Deviation 52.5 fL (36.4-46.3) RDW Coefficient of Variation 17.1 % (11.5-14.5) Immature Granulocyte % (Auto) 0.2 % Immature Granulocyte # (Auto) 0.01 K/uL (0.00-0.02) Prothrombin Time 19.9 SECONDS (9.0-12.0) Prothromb Time International Ratio 1.9 (0.9-1.1) Activated Partial Thromboplast Time 36.9 SECONDS (21.0-31.0) Partial Thromboplastin Ratio 1.4 Anion Gap 9.0 mmol/L (3-11) Est Creatinine Clear Calc Drug Dose 34.2 ml/min Estimated GFR () 45.1 Estimated GFR (Non- 38.9 BUN/Creatinine Ratio 30.2 (10-20) Calcium Level 9.3 mg/dl (8.5-10.1) Laboratory results as reviewed by me. ED Course 1604: The patient was evaluated in room B12. A complete history and physical exam was performed. 180: I spoke with the patient about her test results. 1814 Upon reevaluation, the patient appeared to have improvement of all symptoms. I discussed shelli's findings with the patient. She verbalized agreement of the treatment plan. She was discharged home. Medical Decision This is an 87-year-old female who presents with a bruise behind her left leg. Differential diagnosis includes hematoma, abscess, cellulitis, DVT, superficial thrombophlebitis. I did perform a limited focused review of portions of the patient's old chart on the electronic medical record. The patient has had one recent pertinent visit to this hospital in August of 2017 for chest pain. She had a low probability V/Q scan and negative Doppler ultrasound of bilateral legs. I did evaluate the patient as noted above. Patient has a bruise behind her left leg. It does not appear to be infected at all. There is no increased warmth or erythema. She states it only hurts when you push on it. She does appear to have a hematoma there. She is on Coumadin. IV access was established. I did order and review the patient's blood work as noted in the electronic medical record. Her INR is subtherapeutic at 1.9. I did order a Doppler ultrasound of the left leg. I did review the images myself as well as the radiology report as described above. Doppler demonstrates possible hematoma versus Quiroz's cyst. I did discuss the test results with the patient and her son. She will call her doctor tomorrow regarding her INR and Coumadin dosing. She was discharged in good condition. Medication Reconcilliation Current Medication List: was personally reviewed by me Blood Pressure Screening Patient's blood pressure: Normal blood pressure Impression Primary Impression: Hematoma of left lower extremity Additional Impression: Subtherapeutic international normalized ratio (INR) Scribe Attestation The scribe's documentation has been prepared under my direct and personally reviewed by me in its entirety. I confirm that the note above accurately reflects all work, treatment, procedures, and medical decision making performed by me. Departure Information Dispostion Home / Self-Care Referrals Irish Crowley M.D. (PCP) Forms HOME CARE DOCUMENTATION FORM, IMPORTANT VISIT INFORMATION Patient Instructions My [facility] Additional Instructions You have been examined and treated today on an emergency basis only. This is not a substitute for, or an effort to provide, complete comprehensive medical care. It is impossible to recognize and treat all injuries or illnesses in a single emergency department visit. It is therefore important that you follow up closely with your physician. Call as soon as possible for an appointment. Return for worsening symptoms or if you develop fever, vomiting, chest pain, shortness of breath, numbness or weakness in your foot, significant coldness or change in color of your foot or any other concerning symptoms. Your INR today was 1.9. Talk to your doctor tomorrow about your Coumadin dosing. Problem Qualifiers Primary Impression: Hematoma of left lower extremity Encounter type: initial encounter Qualified Codes: S80.12XA - Contusion of left lower leg, initial encounter
== END 2018-06-23 18:30 | disposition home or self-care (01) ==
LOC: C.EDB 15:17
DX: S80.12XA Contusion of left lower leg, initial encounter (principal); X58.XXXA Exposure to other specified factors, initial encounter; R79.1 Abnormal coagulation profile; Z96.652 Presence of left artificial knee joint; I48.91 Unspecified atrial fibrillation; Z95.0 Presence of cardiac pacemaker; E07.9 Disorder of thyroid, unspecified; Z79.82 Long term (current) use of aspirin; Z79.01 Long term (current) use of anticoagulants; Z79.899 Other long term (current) drug therapy; Z88.6 Allergy status to analgesic agent; Z88.5 Allergy status to narcotic agent; Z88.8 Allergy status to other drugs, medicaments and biological substances

== ENCOUNTER 2018-12-03 03:36 | Inpatient (IN) ==
[2018-12-03 04:41] LABS: Basophils # (auto) 0.02 K/uL (0-0.2); Basophils % (auto) 0.2 %; Eosinophils # (auto) 0.09 K/uL (0-0.5); Eosinophils % (auto) 0.8 %; Hematocrit (blood only) 34.8 % (37-47); Hemoglobin 11.4 g/dL (12.0-16.0); Immature Granulocytes # (auto) 0.02 K/uL (0.00-0.02); Immature Granulocytes % (auto) 0.2 %; Lymphocytes # (auto) 1.07 K/uL (1.2-3.4); Mean Corpuscular Hgb Conc 32.8 g/dL (32-36); Mean Corpuscular Volume 86.6 fL (80-100); Mean Platelet Volume 10.7 fL (7.4-10.4); Monocytes # (auto) 1.26 K/uL (0.11-0.59); Monocytes % (auto) 10.6 %; Neutrophils # (auto) 9.45 K/uL (1.4-6.5); Neutrophils % (auto) 79.2 %; Platelet Count 236 K/uL (130-400); RDW Coefficient of Variation 16.2 % (11.5-14.5); RDW Standard Deviation 51.2 fL (36.4-46.3); Red Blood Count 4.02 M/uL (4.2-5.4); White Blood Count 11.91 K/uL (4.8-10.8)
[2018-12-03] MEDS ORDERED: SODIUM CHLORIDE 0.9% 1000ML 500 ML IV ONE (04:53)
[2018-12-03 05:00] LABS: BUN Creatinine Ratio 13.3 (10-20); Blood Urea Nitrogen 42 mg/dl (7-18); Calcium 9.8 mg/dl (8.5-10.1); Carbon Dioxide 27 mmol/L (21-32); Chloride 96 mmol/L (98-107); Est GFR (African American) 14.8; Est GFR (Non-African American) 12.8; Glucose 106 mg/dl (70-99); Sodium 131 mmol/L (136-145)
[2018-12-03 05:29] LABS: Potassium 4.5 mmol/L (3.5-5.1)
[2018-12-03 05:30] LABS: Magnesium 2.2 mg/dl (1.8-2.4)
[2018-12-03 05:38] LABS: Allen Test POS (Pos); HCO3 ABG 22 mmol/L (19-24); Oxygen Saturation ABG 92.2 % (90-95); PCO2 ABG 29 mmHg (35-46); PO2 ABG 64 mm/Hg (80-95)
[2018-12-03 05:45] LABS: Influenza A virus by PCR Neg for Influ A (Neg); Influenza B virus by PCR Neg for Influ B (Neg)
[2018-12-03] MEDS ORDERED: MIDODRINE HCL 2.5 MG TAB PO STA (06:07)
[2018-12-03 07:20] LABS: Troponin I 0.353 ng/ml (0-0.045)
--- NOTE | 2018-12-03 07:21 | Emergency Department Note ---
Entered by Sheldon Faulkner acting as a scribe for Kvng Snell MD ED Provider Note Name: Delfina Majano Age: 88 Arrives Via: Private vehicle Informant: Patient CC: SOB HPI: The patient is an 88 year old female who presents to the ED via private vehicle with her son due to complaints of intermittent SOB and heart palpitations that began recently. Patient adds that 10 hours ago she was experiencing pain in her left arm which was resolved after taking Aspirin. Patient states she is a dialysis patient and that her blood pressure typically runs low when she is receiving treatment. She adds that she gets her dialysis through a chest port which was put in by Dr. Miles. She denies any recent leakage from the port. Patients past medical history includes a pacemaker, fluid overload, and kidney infections. She denies using blood thinners. Patient adds that she has lost weight recently. Son states the patient has had intermittent back pain as well as SOB over the past couple of weeks which appears to be mildly relieved following a bowel movement. ROS: See above HPI for pertinent positives & negatives. A total of 10 systems reviewed and were otherwise negative. Past Medical History: Kidney infections, pacemaker, and hypothyroidism Past Surgical History: Appendectomy Family History: None Social History: Lives with family Home Medications: None Allergies None Physical: Vitals: BP = 59/37 P = 68 Resp = 35 Temp = 97.9 O2 Sat = 95 Delivery = Nasal Cannula Exam: GENERAL: Patient is chronically unwell appearing and in minimal distress. EYES: No scleral icterus, unremarkable pupils. ENT: Mucous membranes are dry, no nasal congestion. NECK: No masses appreciated, no meningismus, trachea is midline. RESPIRATORY: Mildly tachypneic otherwise clear to auscultation and equal bilaterally. No wheeze, no rhonchi. CARDIOVASCULAR: Regular rate and rhythm. No murmurs, rubs, gallops appreciated. GASTROINTESTINAL: Abdomen soft, non-tender, no peritonitis. Bowel sounds positive. No masses appreciated. BACK: No midline tenderness, no CVA tenderness EXTREMITIES: Normal motion all extremities, no cyanosis, mild edema. NEUROLOGIC: Alert and oriented, no acute motor or sensory deficits, no focal weakness, cranial nerves grossly intact. SKIN: No rash, no jaundice, no diaphoresis. ED Course: Prior Medical Record, Triage/Nursing Notes, Medications, Allergies reviewed by Me Vital Signs: reviewed and remarkable for hypotension Labs: Reviewed and remarkable for elevated ph, low po2 Interventions: Saline Lock, NSS bolus 500ml IV, Midodrine 5mg PO Imaging: X ray results are stated below per my interpretation: Chest: 1 view: Extensive congestive findings worse from previous 08/2018 EKG: Per My Interpretation: Sinus at 64 bpm with PVC, qtc 458 and periodic paced atrial beat. Consults: Dr Ford Times: 0350: Past medical records reviewed. The patient was evaluated in room B2 , and a complete history and physical examination were performed. 0459: I reevaluated the patient. Patient's blood pressure dropped once again and is now 59/34. Patient is still complaining of mild SOB but otherwise no significant chest pain. I discussed starting fluids with the patient and she is aware of the risks and agreeable. Further labs were ordered. 0525: I reevaluated the patient. She had mild improvement of her blood pressure with IV fluids and denies any current symptoms. 0544: I reassessed the patient whose blood pressure continues to improve. Patient is now in the systolic 80's which son notes is normal for her. Blood pressure: Hypotensive. No Referral necessary Disposition: Hospitalization. Prescriptions: none. Differentials: Infectious, Reactive Airway Disease, Pneumonia, Pneumothorax, COPD, CHF, ACS, Pulmonary Embolism, MSK, GI, Dissection, amongst other etiologies entertained. Medical Decision Making: Pleasant 88 yr old female arrives for evaluation of shortness of breath and palpitations. Initial triage HR 122 though on my eval it is in 60s. She is hypotensive and seemed to be improving just with getting in bed but then started dropping though asymtomatic with this. CXR with diffuse congestion findings which don't really go with exam. She has no fever, nor cough thus I feel that infection seems unlikely. She was given small fluid bolus with improvement in BP though notes it seems to have made her feel more abdominal fullness. She was noted to have improvement to her BP on the low limit of her baseline. She was then given PO Midodrine and I am concerned further fluid would put her in to fulmanant failure. I am somewhat worried about this being PE, though with renal failure I am a bit loath to give her dye challenge, plus fact that with her O2 at baseline seems unlikely this is PE. She has no active chest pain, and EKG without ischemia. There was some issue with lab unfortunately thus delay to mildly positive which I suspect is more due to renal failure than acs. I do not feel that empiric anticoagulation would be arana in this patient at this time. She does have hypotension though no evidence of infection and it is tough to believe this is septic in nature. She denies any recent nor chronic steroids thus I feel adrenal insufficiency/ hypotension unlikely. Given difficulty of case I involved hospitalist for further evaluation/management. Impression: Shortness of Breath Acute Hypotension Kvng Snell MD The scribe's documentation has been prepared under my direction and personally reviewed by me in its entirety. I confirm that the note above accurately reflects all work, treatment, procedures, and medical decision making performed by me. Impression & Plan Shortness of breath, Acute hypotension Past Med/Surg History Social History marital status: / Current Living Situation: Alone Other Information That Helps Us Care for You: No Feels Safe at Home: Yes Safety Concerns: Feels Safe At This Time Smoking Status: Never smoker Do You Dip or Chew Tobacco: No Second Hand Exposure: No Tobacco Cessation Education Requested by Patient: No Hx Alcohol Use: Yes Alcohol Intake Frequency: other Hx Substance Use: No Beliefs That Will Affect Care: None Preferred Language: Yakut Communication Ability: Effective Director Of Search Engine Marketing Required: No Results & Data Vital Signs Vital Signs - 24 hr 12/03/18 03:39 12/03/18 03:54 12/03/18 03:56 Temperature 36.6 C Temperature Source Oral Sepsis Recent Fever Within 48 Hours No Sepsis Action Taken by Nursing No Action Required Pulse Rate 122 H 74 70 Respiratory Rate 20 21 30 H Respiratory Effort / Characteristics Non-Labored Spontaneous Respiratory Depth Normal Blood Pressure 60/38 L 66/45 L Blood Pressure Mean 45 52 Blood Pressure Position Sitting Pulse Oximetry 98 Oxygen Delivery Method Room Air Oxygen Flow Rate 12/03/18 04:00 12/03/18 04:01 12/03/18 04:10 Temperature Temperature Source Sepsis Recent Fever Within 48 Hours Sepsis Action Taken by Nursing Pulse Rate 75 78 69 Respiratory Rate 32 H 32 H 33 H Respiratory Effort / Characteristics Respiratory Depth Blood Pressure 73/49 L Blood Pressure Mean 57 Blood Pressure Position Pulse Oximetry 97 Oxygen Delivery Method Nasal Cannula Oxygen Flow Rate 12/03/18 04:20 12/03/18 04:30 12/03/18 04:31 Temperature Temperature Source Sepsis Recent Fever Within 48 Hours Sepsis Action Taken by Nursing Pulse Rate 72 68 67 Respiratory Rate 28 H 27 H 23 Respiratory Effort / Characteristics Respiratory Depth Blood Pressure 59/37 L Blood Pressure Mean 44 Blood Pressure Position Pulse Oximetry Oxygen Delivery Method Oxygen Flow Rate 12/03/18 04:40 12/03/18 04:50 12/03/18 05:00 Temperature Temperature Source Sepsis Recent Fever Within 48 Hours Sepsis Action Taken by Nursing Pulse Rate 68 68 68 Respiratory Rate 35 H 30 H 41 H Respiratory Effort / Characteristics Respiratory Depth Blood Pressure Blood Pressure Mean Blood Pressure Position Pulse Oximetry 95 95 93 Oxygen Delivery Method Nasal Cannula Oxygen Flow Rate 12/03/18 05:01 12/03/18 05:10 12/03/18 05:20 Temperature Temperature Source Sepsis Recent Fever Within 48 Hours Sepsis Action Taken by Nursing Pulse Rate 68 68 71 Respiratory Rate 26 H 23 25 H Respiratory Effort / Characteristics Respiratory Depth Blood Pressure 65/47 L Blood Pressure Mean 53 Blood Pressure Position Pulse Oximetry 95 95 95 Oxygen Delivery Method Oxygen Flow Rate 12/03/18 05:30 12/03/18 05:31 12/03/18 05:40 Temperature Temperature Source Sepsis Recent Fever Within 48 Hours Sepsis Action Taken by Nursing Pulse Rate 70 71 72 Respiratory Rate 23 31 H 30 H Respiratory Effort / Characteristics Respiratory Depth Blood Pressure 75/55 L Blood Pressure Mean 61 Blood Pressure Position Pulse Oximetry 95 96 93 Oxygen Delivery Method Nasal Cannula Oxygen Flow Rate 12/03/18 05:50 12/03/18 06:00 12/03/18 06:01 Temperature Temperature Source Sepsis Recent Fever Within 48 Hours Sepsis Action Taken by Nursing Pulse Rate 70 72 71 Respiratory Rate 26 H 26 H 27 H Respiratory Effort / Characteristics Respiratory Depth Blood Pressure 80/59 L Blood Pressure Mean 66 Blood Pressure Position Pulse Oximetry 92 91 91 Oxygen Delivery Method Oxygen Flow Rate 12/03/18 06:02 12/03/18 06:10 12/03/18 06:15 Temperature Temperature Source Sepsis Recent Fever Within 48 Hours Sepsis Action Taken by Nursing Pulse Rate 71 72 Respiratory Rate 28 H 39 H Respiratory Effort / Characteristics Respiratory Depth Blood Pressure Blood Pressure Mean Blood Pressure Position Pulse Oximetry 92 89 L 94 Oxygen Delivery Method Nasal Cannula Oxygen Flow Rate 2 12/03/18 06:30 12/03/18 06:31 Temperature Temperature Source Sepsis Recent Fever Within 48 Hours Sepsis Action Taken by Nursing Pulse Rate 74 74 Respiratory Rate 25 H 29 H Respiratory Effort / Characteristics Respiratory Depth Blood Pressure 88/60 L Blood Pressure Mean 69 Blood Pressure Position Pulse Oximetry 92 92 Oxygen Delivery Method Oxygen Flow Rate Laboratory Data Result diagrams: 12/03/18 04:10 12/03/18 05:05 Lab Results 12/03/18 12/03/18 12/03/18 Range/Units 04:10 04:10 04:37 WBC 11.91 H (4.8-10.8) K/uL RBC 4.02 L (4.2-5.4) M/uL Hgb 11.4 L (12.0-16.0) g/dL Hct 34.8 L (37-47) % MCV 86.6 (80-100) fL MCH 28.4 (25-34) pg MCHC 32.8 (32-36) g/dL RDW Std Deviation 51.2 H (36.4-46.3) fL RDW Coeff of Cornel 16.2 H (11.5-14.5) % Plt Count 236 (130-400) K/uL MPV 10.7 H (7.4-10.4) fL Immature Gran % (Auto) 0.2 % Neut % (Auto) 79.2 % Lymph % (Auto) 9.0 % [place] % (Auto) 10.6 % Eos % (Auto) 0.8 % Baso % (Auto) 0.2 % Immature Gran # (Auto) 0.02 (0.00-0.02) K/uL Neut # (Auto) 9.45 H (1.4-6.5) K/uL Lymph # (Auto) 1.07 L (1.2-3.4) K/uL [place] # (Auto) 1.26 H (0.11-0.59) K/uL Eos # (Auto) 0.09 (0-0.5) K/uL Baso # (Auto) 0.02 (0-0.2) K/uL ABG pH (7.35-7.45) ABG pCO2 (35-46) mmHg ABG pO2 (80-95) mm/Hg ABG HCO3 (19-24) mmol/L ABG O2 Saturation (90-95) % ABG Base Excess (-9-1.8) mEq/L Kory Test (Pos) Barometric Pressure mm/Hg Oxygen Given Sodium 131 L (136-145) mmol/L Potassium (3.5-5.1) mmol/L Chloride 96 L (98-107) mmol/L Carbon Dioxide 27 (21-32) mmol/L Anion Gap 8.0 (3-11) BUN 42 H (7-18) mg/dl Creatinine 3.12 H (0.6-1.2) mg/dl Est Cr Clr Drug Dosing Not Reportable Est GFR ( Amer) 14.8 Est GFR (Non-Af Amer) 12.8 BUN/Creatinine Ratio 13.3 (10-20) Glucose 106 H (70-99) mg/dl Lactate (0.4-2.0) mmol/L Calcium 9.8 (8.5-10.1) mg/dl Magnesium (1.8-2.4) mg/dl TSH 2.030 (0.300-4.500) uIu/ml Influenza Type A (PCR) Neg for Influ A (Neg) Influenza Type B (PCR) Neg for Influ B (Neg) 12/03/18 12/03/18 12/03/18 Range/Units 05:05 05:05 05:27 WBC (4.8-10.8) K/uL RBC (4.2-5.4) M/uL Hgb (12.0-16.0) g/dL Hct (37-47) % MCV (80-100) fL MCH (25-34) pg MCHC (32-36) g/dL RDW Std Deviation (36.4-46.3) fL RDW Coeff of Cornel (11.5-14.5) % Plt Count (130-400) K/uL MPV (7.4-10.4) fL Immature Gran % (Auto) % Neut % (Auto) % Lymph % (Auto) % [place] % (Auto) % Eos % (Auto) % Baso % (Auto) % Immature Gran # (Auto) (0.00-0.02) K/uL Neut # (Auto) (1.4-6.5) K/uL Lymph # (Auto) (1.2-3.4) K/uL [place] # (Auto) (0.11-0.59) K/uL Eos # (Auto) (0-0.5) K/uL Baso # (Auto) (0-0.2) K/uL ABG pH 7.50 H (7.35-7.45) ABG pCO2 29 L (35-46) mmHg ABG pO2 64 L (80-95) mm/Hg ABG HCO3 22 (19-24) mmol/L ABG O2 Saturation 92.2 (90-95) % ABG Base Excess -0.3 (-9-1.8) mEq/L Kory Test POS (Pos) Barometric Pressure 726.4 mm/Hg Oxygen Given 2L Sodium (136-145) mmol/L Potassium 4.5 (3.5-5.1) mmol/L Chloride (98-107) mmol/L Carbon Dioxide (21-32) mmol/L Anion Gap (3-11) BUN (7-18) mg/dl Creatinine (0.6-1.2) mg/dl Est Cr Clr Drug Dosing Est GFR ( Amer) Est GFR (Non-Af Amer) BUN/Creatinine Ratio (10-20) Glucose (70-99) mg/dl Lactate 1.8 (0.4-2.0) mmol/L Calcium (8.5-10.1) mg/dl Magnesium 2.2 (1.8-2.4) mg/dl TSH (0.300-4.500) uIu/ml Influenza Type A (PCR) (Neg) Influenza Type B (PCR) (Neg) Administered Medications Discontinued Medications Sodium Chloride (Nss 1000ml) 500 mls @ 999 mls/hr IV .Q31M ONE Stop: 12/03/18 05:23 Last Infusion: 12/03/18 05:35 Dose: Admin: 12/03/18 05:05 Dose: 999 mls/hr Midodrine (Proamatine) 5 mg PO NOW STA Stop: 12/03/18 06:08 Last Admin: 12/03/18 06:17 Dose: 5 mg Discharge Plan Visit Data Chief Complaint: Shortness of Breath/Dyspnea Stated Complaint: SHORTNESS OF BREATH ED Provider: Kvng Snell Discharge Problem: Shortness of breath, Acute hypotension Forms Stand Alone Forms: My [facility] Prescriptions Prescriptions: No Action levothyroxine [Synthroid] 100 mcg tablet 100 mcg PO DAILY RF: 0 pantoprazole 40 mg tablet,delayed release (DR/EC) 40 mg PO DAILY RF: 0 aspirin [Aspirin Childrens] 81 mg Tablet,Chewable 81 mg PO DAILY RF: 0 iron 18 mg Tablet 25 mg PO DAILY RF: 0 allopurinol 100 mg Tablet 150 mg PO DAILY RF: 0 sotalol 80 mg Tablet 40 mg PO BID RF: 0 bumetanide 1 mg Tablet 1 mg PO DAILY RF: 0 docusate sodium [Colace] 100 mg Capsule 100 mg PO DAILY RF: 0 sennosides [Senna Laxative] 8.6 mg Tablet 8.6 mg PO DAILY PRN (Reason: Constipation) RF: 0 midodrine 5 mg Tablet 5 mg PO DIRECTED RF: 0 The scribe's documentation has been prepared under my direction and personally reviewed by me in its entirety. I confirm that the note above accurately reflects all work, treatment, procedures, and medical decision making performed by me.
--- NOTE | 2018-12-03 07:31 | XRay Report ---
XR KUB CLINICAL HISTORY: 88 years-old Female presenting with constipation. TECHNIQUE: Single supine view of the abdomen was obtained. COMPARISON: 08/22/[address] from 07/02/2018. FINDINGS: Nonobstructive bowel gas pattern. No gross pneumoperitoneum. Allowing for bowel gas and stool, no calcifications to suggest nephrolithiasis. Atherosclerotic calci fications. Several pelvic phleboliths, unchanged in distribution. Degenerative changes of the spine. Partially visualized pacer lead to the right ventricular apex. IMPRESSION: 1. No bowel obstruction or gross evidence of a pathologic stool burden. Electronically signed by: Zhang Duffy M.D. 12/03/2018 7:30 AM
--- NOTE | 2018-12-03 07:33 | XRay Report ---
XR chest 1V portable CLINICAL HISTORY: 88 years-old Female presenting with cp, palpitations. TECHNIQUE: Portable upright AP view of the chest was obtained. COMPARISON: 09/03/2018. FINDINGS: Tunneled right internal jugular dialysis catheter terminates in the lower SVC. Left subclavian pacer with leads to the right atrium and right ventricular apex. Atherosclerosis of the aortic arch. Cardia c silhouette moderately enlarged. Pulmonary vascular prominence with bronchial wall cuffing. Perihila r and bibasilar added density of the lungs. Trace bilateral pleural effusions may also be present. No pneumothorax. Degenerative changes of the thoracic spine. Suspected osteopenia. IMPRESSION: 1. Cardiomegaly with volume overload/congestive change and mild pulmonary edema. Trace effusions als o suspected. 2. Pulmonary edema obscures the previously suggested right lower lung nodule. Electronically signed by: Zhang Duffy M.D. 12/03/2018 7:31 AM
[2018-12-03] MEDS ORDERED: DOPAMINE / D5W 400 MG/250 ML BAG IV STA (07:45)
--- NOTE | 2018-12-03 07:51 | XRay Report ---
XR chest 1V portable CLINICAL HISTORY: Worsening shortness of breath COMPARISON STUDY: 12/03/2018 FINDINGS: The heart remains enlarged. There is a left subclavian dual-chamber central venous pacemake r present. There is a right internal jugular central venous catheter. Lateral positioning of the tip, is likely secondary to slight film rotation. There is radiographic evidence of congestive failure/fl uid overload. Small pleural effusions are suspected.[ IMPRESSION: 1. Cardiomegaly and radiographic evidence of congestive failure with pulmonary edema. 2. Suspected small pleural effusions 3. Slight lateral positioning of the tip of the right internal jugular central venous catheter, likel y represents a projectional phenomenon due to film rotation Electronically signed by: Erich Gant M.D. 12/03/2018 7:50 AM
--- NOTE | 2018-12-03 08:28 | Nephrology Consultation ---
Date of Consultation December 03, 2018 Assessment & Plan (1) ESRD on dialysis: will do stat tx today; plan again tomorrow most likely >3 hr tx today w/ 2.5 L fluid removal goal -midodrine another 5 mg now and additional 5 mg prn hypotension on HD ordered Present on Admission?: Yes (2) Acute on chronic heart failure with preserved ejection fraction: -if bp not adequate on midodrine, cardiology recommends levophed support of bp; monitor for need; further cardiology recs pending -ordered FR 1.2 L -bumex on non HD days only pls Present on Admission?: Yes History of Present Illness Reason for Consultation: ESRD Requesting Physician: Dr Ford Attending Physician: Hilario Gage MD History of Present Illness 88 y/o F w/ ESRD on 2 days weekly HD via [facility] whom I'm asked to see for dialysis care and volume mgt after she presented to ER this AM w/ progressive dyspnea, palpitations. Her presenting sbp was 59. She had 500 mL NS in ER; also had 5 mg midodrine >> sbp in 80s now which is about her baseline. She was moved to ICU where she was started on cpap but still feeling sob. She has pulmonary HTN, valvular disease (mitral and tricuspid insufficiency), chronic heart failure from same, paroxysmal a fib, ESRD but just started on dialysis this fall. She only dialysis twice weekly; we have tried to wean her from dialysis but her respiratory status does not tolerate this. In fact she appears now not to be tolerating 2X weekly dialysis. She had acute dyspnea on 11/29 pretx and had 2.4 L off but needed w/c after treatment (she usually walks out after tx). She did well until 12/01 afternoon when she became again short of breath, more urgent by 12/02 AM >> went to HD and had 1.8 L off but woke short of breath and came in. Allergies Allergy/AdvReac Type Severity Reaction Status Date / Time naproxen Allergy Unknown Black Verified 12/03/18 04:21 stool/bleeding. codeine AdvReac Unknown GASTRIC Verified 12/03/18 04:21 UPSET methocarbamol AdvReac Unknown Nausea/Vomi Verified 12/03/18 04:21 ting [id number] Reductase AdvReac Unknown MUSCLE Verified 12/03/18 04:21 Inhibitor WEAKNESS Home Medications Home Medications Medication Instructions Recorded Confirmed Type aspirin [Aspirin Childrens] 81 mg PO DAILY 08/20/18 12/03/18 History iron 25 mg PO DAILY 08/20/18 12/03/18 History levothyroxine [Synthroid] 100 mcg PO DAILY 08/20/18 12/03/18 History pantoprazole 40 mg PO DAILY 08/20/18 12/03/18 History allopurinol 150 mg PO DAILY 12/03/18 12/03/18 History bumetanide 1 mg PO DAILY 12/03/18 12/03/18 History docusate sodium [Colace] 100 mg PO DAILY 12/03/18 12/03/18 History midodrine 5 mg PO DIRECTED 12/03/18 12/03/18 History sennosides [Senna Laxative] 8.6 mg PO DAILY PRN 12/03/18 12/03/18 History sotalol 40 mg PO BID 12/03/18 12/03/18 History Patient History Social History marital status: / Current Living Situation: Alone Other Information That Helps Us Care for You: No Feels Safe at Home: Yes Safety Concerns: Feels Safe At This Time Smoking Status: Never smoker Do You Dip or Chew Tobacco: No Second Hand Exposure: No Tobacco Cessation Education Requested by Patient: No Hx Alcohol Use: Yes Alcohol Intake Frequency: other Hx Substance Use: No Beliefs That Will Affect Care: None Preferred Language: Arabic Communication Ability: Effective [employer] Truck [employer] Required: No Review of Systems limited by pt being on cpap Constitutional: as per Subjective / HPI, + fatigue and + weakness Eyes: no worsening vision Ear, Nose, Mouth, Throat: no dry mouth Respiratory: + dyspnea and + dyspnea on exertion Cardiovascular: + dyspnea, + orthopnea and + lightheadedness; no chest pain and no palpitations Gastrointestinal: + early satiety; no abdominal pain, no nausea, no vomiting and no change in bowel habits voids most days; takes bumex non hd days; no change in chronic voiding habits Musculoskeletal: + muscle weakness; no back pain, no stiffness and no body aches Integumentary: no rash and no non-healing lesions Neurologic: + generalized weakness; no abnormal speech and no confusion Psychiatric: no behavioral changes and no confusion Endocrine: + fatigue Hematologic / Lymphatic: no easy bleeding Physical Exam 2 Vital Signs (Past 24 Hours): Last Vital Signs Temp 36.6 C 12/03/18 03:39 Pulse 78 12/03/18 07:27 Resp 30 H 12/03/18 07:27 BP 71/48 L 12/03/18 07:27 Pulse Ox 87 L 12/03/18 07:23 Constitutional: well developed, well nourished and + obese on cpap, alert, oriented x 3, very slight distress w/ breathing Eyes: EOM intact bilaterally ENMT: Ears: no external ear abnormality Nose: no external nose abnormality Mouth: + dry oral mucous membranes Neck: no nuchal rigidity Respiratory: + respiratory distress (mild > from tachypnea) Auscultation: + diminished lung sounds and + crackles kyphotic spine Cardiovascular: Rate/Rhythm: regular rate and regular rhythm Extremities: + edema (trace) Gastrointestinal (Abdomen): Inspection/Auscultation: normal bowel sounds Percussion/Palpation: abdomen soft; abdomen nontender Musculoskeletal: Extremities: strength 5/5 throughout Skin: no rashes, warm and dry Neurologic: wilson, fluent speech, no tremor Psychiatric: A+Ox3, euthymic affect Genitourinary: no fish Results & Data Laboratory Results Abnormal lab results 12/03/18 12/03/18 12/03/18 Range/Units 04:10 04:10 05:27 WBC 11.91 H (4.8-10.8) K/uL RBC 4.02 L (4.2-5.4) M/uL Hgb 11.4 L (12.0-16.0) g/dL Hct 34.8 L (37-47) % RDW Std Deviation 51.2 H (36.4-46.3) fL RDW Coeff of Cornel 16.2 H (11.5-14.5) % MPV 10.7 H (7.4-10.4) fL Neut # (Auto) 9.45 H (1.4-6.5) K/uL Lymph # (Auto) 1.07 L (1.2-3.4) K/uL [place] # (Auto) 1.26 H (0.11-0.59) K/uL ABG pH 7.50 H (7.35-7.45) ABG pCO2 29 L (35-46) mmHg ABG pO2 64 L (80-95) mm/Hg Sodium 131 L (136-145) mmol/L Chloride 96 L (98-107) mmol/L BUN 42 H (7-18) mg/dl Creatinine 3.12 H (0.6-1.2) mg/dl Glucose 106 H (70-99) mg/dl Troponin I 0.353 H* (0-0.045) ng/ml Diagnostic Findings cxr 1. Cardiomegaly and radiographic evidence of congestive failure with pulmonary edema. 2. Suspected small pleural effusions 3. Slight lateral positioning of the tip of the right internal jugular central venous catheter, likely represents a projectional phenomenon due to film rotation
[2018-12-03] MEDS ORDERED: IPRATROPIUM BROMIDE NEB SOLN 0.02% 2.5 ML VIAL INH PRN (08:36)
[2018-12-03] MEDS ORDERED: SENNA 8.6 MG TAB PO PRN (08:36)
[2018-12-03] MEDS ORDERED: LEVALBUTEROL 1.25MG/0.5ML NEB INH PRN (08:36)
[2018-12-03] MEDS ORDERED: ONDANSETRON INJ 2 MG/ML 2 ML VIAL IV PRN (08:36)
[2018-12-03] MEDS ORDERED: XOPENEX/ATROVENT 1.25mg/0.5MG NEB COMBO NEB PRN (08:36)
[2018-12-03] MEDS ORDERED: NITROGLYCERIN SL 0.4 MG/TAB TAB SL PRN (08:36)
[2018-12-03] MEDS ORDERED: IRON 25 MG PO SCH (09:00)
[2018-12-03] MEDS ORDERED: ALLOPURINOL 100 MG TAB PO SCH (09:00)
[2018-12-03] MEDS ORDERED: BUMETANIDE 1 MG TAB PO SCH (09:00)
[2018-12-03] MEDS ORDERED: PANTOprazole 40 MG TAB PO SCH (09:00)
[2018-12-03] MEDS ORDERED: ASPIRIN 81 MG ECTAB PO SCH (09:00)
[2018-12-03] MEDS ORDERED: SODIUM CHLORIDE 0.9% 1000ML 1,000 ML IV PRN ×2 (09:56→20:55)
[2018-12-03] MEDS ORDERED: HEPARIN SOD (PORCINE) 1000 UNIT/ML 10 ML VIAL IV ONE (10:15)
[2018-12-03] MEDS ORDERED: MIDODRINE HCL 2.5 MG TAB PO PRN (10:17)
[2018-12-03] MEDS: SOTALOL HCL 80 MG TAB PO SCH ×2 (10:20→20:56)
--- NOTE | 2018-12-03 10:59 | Cardiology Consultation ---
Date of Consultation December 03, 2018 Assessment & Plan (1) Acute on chronic heart failure with preserved ejection fraction: Acute decompensated heart failure on the basis of mixed valvular heart disease with history of moderate to severe mitral insufficiency, severe tricuspid regurgitation, moderate aortic insufficiency, with moderate pulmonary hypertension. Patient initially hypotensive on admission. Clinically improved with addition of midodrine. Suggest use of intravenous norepinephrine if necessary during hemodialysis. Case discussed with nephrology. Recommend volume removal as tolerated to improve pulmonary edema and respiratory status. Overall prognosis is poor. 40 minutes of critical care time were spent reviewing records, evaluating patient, reviewing data, formulating plan of care and discussion with consultants and family. (2) Valvular heart disease: (3) Paroxysmal atrial fibrillation: Patient remains in sinus rhythm on sotalol. 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 (4) Acute hypotension: Supportive care. Avoid additional intravenous hydration at this time due to acute decompensated heart failure in the setting of mixed valvular heart disease. Norepinephrine will be utilized for blood pressure support. Will consider addition of dobutamine if necessary. (5) ESRD on dialysis: HD today. (6) Tachy-xi syndrome: (7) Pacemaker: History of Present Illness Reason for Consultation: CHF, hypotension Requesting Physician: Dr. Ford Attending Physician: Hilario Gage MD History of Present Illness 88-year-old female presenting to the emergency department with progressive shortness of breath. Carries a history of mixed valvular heart disease, paroxysmal atrial fibrillation, end-stage renal disease on hemodialysis, and chronic hypertension. Patient received dialysis treatment yesterday when they remove 1.3 L. Unfortunately, shortness of breath continued to progress despite volume removal. She presented the ER hypotensive with x-ray evidence of pulmonary edema. Currently receiving BiPAP therapy. She is awake and alert. Denies chest pain at this time. Shortness of breath improved. Remains in sinus rhythm on telemetry. Denies edema, orthopnea, or PND. No chest discomfort or palpitations. Chronically treated with sotalol despite renal insufficiency and hemodialysis. Most recent echocardiogram demonstrated severe mixed valvular disease with preserved LV systolic function. Denies fever, chills, sick contact, cough, myalgia, dysuria, diarrhea, or abdominal discomfort. Allergies Allergy/AdvReac Type Severity Reaction Status Date / Time naproxen Allergy Unknown Black Verified 12/03/18 04:21 stool/bleeding. codeine AdvReac Unknown GASTRIC Verified 12/03/18 04:21 UPSET methocarbamol AdvReac Unknown Nausea/Vomi Verified 12/03/18 04:21 ting [id number] Reductase AdvReac Unknown MUSCLE Verified 12/03/18 04:21 Inhibitor WEAKNESS Home Medications Home Medications Medication Instructions Recorded Confirmed Type aspirin [Aspirin Childrens] 81 mg PO DAILY 08/20/18 12/03/18 History iron 25 mg PO DAILY 08/20/18 12/03/18 History levothyroxine [Synthroid] 100 mcg PO DAILY 08/20/18 12/03/18 History pantoprazole 40 mg PO DAILY 08/20/18 12/03/18 History allopurinol 150 mg PO DAILY 12/03/18 12/03/18 History bumetanide 1 mg PO DAILY 12/03/18 12/03/18 History docusate sodium [Colace] 100 mg PO DAILY 12/03/18 12/03/18 History midodrine 5 mg PO DIRECTED 12/03/18 12/03/18 History sennosides [Senna Laxative] 8.6 mg PO DAILY PRN 12/03/18 12/03/18 History sotalol 40 mg PO BID 12/03/18 12/03/18 History Patient History Medical History 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) Obstructive type of ventilatory defect with mild restriction which may be related to patient's morbid obesity (per 2015 PFTs) Morbid obesity (Chronic) CKD (chronic kidney disease), stage III (Chronic) Gout (Chronic) Pulmonary HTN (Chronic) Myasthenia gravis (Chronic) Subacute cutaneous lupus erythematosus (Chronic) Acute on chronic diastolic HF (heart failure) (Acute) In setting of mixed valvular disease Hypothyroidism (Chronic) Pacemaker (Chronic) Atrial fibrillation (Chronic) on anticoaguation Congestive heart failure Surgical History H/O: hysterectomy (Resolved) History of tonsillectomy (Resolved) History of appendectomy (Resolved) History of permanent cardiac pacemaker placement (Resolved) Family History Other Heart disease Stroke Social History marital status: / Current Living Situation: Alone Other Information That Helps Us Care for You: No Feels Safe at Home: Yes Safety Concerns: Feels Safe At This Time Smoking Status: Never smoker Do You Dip or Chew Tobacco: No Second Hand Exposure: No Tobacco Cessation Education Requested by Patient: No Hx Alcohol Use: Yes Alcohol Intake Frequency: other Hx Substance Use: No Beliefs That Will Affect Care: None Communication Ability: Effective Review of Systems Pertinent positives noted per HPI, comprehensive 10 system review otherwise negative. Physical Exam 2 Vital Signs (Past 24 Hours): Last Vital Signs Temp 36.6 C 12/03/18 08:05 Pulse 71 12/03/18 10:01 Resp 27 H 12/03/18 10:01 BP 84/56 L 12/03/18 10:01 Pulse Ox 97 12/03/18 10:01 Physical Exam: General: NAD, AAO x3, well nourished. Chronically ill. HEENT : + Bipap. Normocephalic. Atraumatic. Conjunctiva pink, no scleral icterus. Neck : No carotid bruits, the carotid upstrokes are brisk. + JVD. No HJR Heart: Regular normal S-1 and S-2 no S-3 or S-4 gallop. 2/6 mid systolic murmur heard best at the left sternal border. No rub appreciated. PMI is not displaced. No RV heave. Lungs: + Rales bilateral at the lower and mid lung holden. No rhonchi or wheeze. Abdomen: Normal bowel sounds. Soft. Nontender. No masses or organomegaly. No abdominal bruits. Extremities: No clubbing, cyanosis, or edema. Pulses: radial=2/4, posterior tibial=2/4. Neuro: Cranial nerves grossly intact. No focal motor deficit.
[2018-12-03] MEDS ORDERED: MIDODRINE HCL 2.5 MG TAB PO SCH (11:30)
[2018-12-03] MEDS: DOCUSATE SODIUM 100 MG CAP PO SCH (11:39)
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
[2018-12-03] MEDS: LEVOTHYROXINE SODIUM 100 MCG TABLET PO SCH (11:40)
[2018-12-03] MEDS: HEPARIN SOD (PORCINE) 1000 UNIT/ML 10 ML VIAL IV SCH (16:38)
--- NOTE | 2018-12-03 17:16 | Hospitalist Progress Note ---
Date of Service December 03, 2018 Assessment & Plan (1) ESRD on dialysis: This is an 88-year-old female who presents with shortness of breath. ESRD on dialysis /Solitary kidney - Patient had dialysis while in the ICU and a reported 2.5 liters removed. she is breathing on nasal cannula and feeling better since this morning when she was on BIPAP -midodrine as per nephrology for hypotension Acute decompensated heart failure on the basis of mixed valvular heart disease with history of moderate to severe mitral insufficiency, severe tricuspid regurgitation, moderate aortic insufficiency, with moderate pulmonary hypertension. -Patient initially hypotensive on admission -blood pressure better with dialysis but patient known to tolerate chronically soft blood pressures -In ICU in case pressors are needed -patient home diuresis is bumex because of reactions to Lasix as per patient No identifiable infection at this time and no antibiotics given as blood pressure likely related to ESRD and cardiac dsyfunction as above Tachy/xi syndrome with pacemaker Valvular heart disease: Paroxysmal atrial fibrillation: -Patient remains in sinus rhythm on sotalol -cardiology will discuss transition to amiodarone with patient's outpatient preventive medicine specialist due to renal insufficiency and need for hemodialysis. Anemia, most likely from chronic kidney disease. Iron deficiency. Continue iron supplements. History of chronic obstructive pulmonary disease and pulmonary hypertension -DuoNebs p.r.n. History of gout can resume allopurinol. History of hypothyroidism can resume Synthroid. Deep venous thrombosis prophylaxis. Sequential compression devices Subjective Patient had dialysis while in the ICU and a reported 2.5 liters removed. she is breathing on nasal cannula and feeling better since this morning when she was on BIPAP denies lightheadedness. denies chest pain. denies palpitations. denies pain. denies vomiting Physical Exam 2 Vital Signs (Past 24 Hours): Last Vital Signs Temp 36.4 C L 12/03/18 14:55 Pulse 68 12/03/18 16:00 Resp 38 H 12/03/18 11:15 BP 99/62 L 12/03/18 14:55 Pulse Ox 96 12/03/18 11:15 Constitutional: WD/WN, vitals as above Eyes: PERRL, conjunctivae normal, anicteric sclerae ENMT: external ear and nose normal, oropharynx normal Respiratory: normal respiratory effort (no wheezing, no rhonchi) Cardiovascular: Rate/Rhythm: regular rate and regular rhythm Gastrointestinal (Abdomen): normal bowel sounds, soft, nontender, no hepatosplenomegaly Musculoskeletal: Head/Neck/Chest: normocephalic and head atraumatic Neurologic: PERRL, EOMI, accommodation nl, no face palsy, no dysarthria Psychiatric: A+Ox3, euthymic affect
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
[2018-12-04 05:14] LABS: Basophils # (auto) 0.02 K/uL (0-0.2); Basophils % (auto) 0.2 %; Eosinophils # (auto) 0.07 K/uL (0-0.5); Eosinophils % (auto) 0.7 %; Hematocrit (blood only) 33.3 % (37-47); Hemoglobin 10.8 g/dL (12.0-16.0); Immature Granulocytes # (auto) 0.03 K/uL (0.00-0.02); Immature Granulocytes % (auto) 0.3 %; Lymphocytes % (auto) 6.5 %; Mean Corpuscular Hgb Conc 32.4 g/dL (32-36); Mean Corpuscular Volume 87.4 fL (80-100); Mean Platelet Volume 10.9 fL (7.4-10.4); Monocytes # (auto) 1.31 K/uL (0.11-0.59); Monocytes % (auto) 12.2 %; Neutrophils % (auto) 80.1 %; Platelet Count 192 K/uL (130-400); RDW Coefficient of Variation 16.4 % (11.5-14.5); RDW Standard Deviation 52.6 fL (36.4-46.3); Red Blood Count 3.81 M/uL (4.2-5.4); White Blood Count 10.73 K/uL (4.8-10.8)
[2018-12-04 05:51] LABS: Albumin Globulin Ratio 0.8 (0.9-2); Albumin Level 3.2 gm/dl (3.4-5.0); BUN Creatinine Ratio 9.1 (10-20); Bilirubin,Total 0.7 mg/dl (0.2-1); Calcium 9.3 mg/dl (8.5-10.1); Creatinine Clr Calc Pharmacy 13.8 ml/min; Est GFR (African American) 16.2; Potassium 4.2 mmol/L (3.5-5.1); Total Protein 7.2 gm/dl (6.4-8.2); Troponin I 0.693 ng/ml (0-0.045)
[2018-12-04] MEDS: LEVOTHYROXINE SODIUM 100 MCG TABLET PO SCH (05:55)
[2018-12-04] MEDS: SOTALOL HCL 80 MG TAB PO SCH ×2 (07:04→20:54)
[2018-12-04] MEDS: ALLOPURINOL 100 MG TAB PO SCH (07:43)
[2018-12-04] MEDS: DOCUSATE SODIUM 100 MG CAP PO SCH (07:43)
[2018-12-04] MEDS ORDERED: HEPARIN SOD (PORCINE) 1000 UNIT/ML 10 ML VIAL IV SCH (08:00)
[2018-12-04 08:13] LABS: Hepatitis B Surface Antibody Non-Immune
[2018-12-04 08:23] LABS: Hepatitis B Surface Antigen Neg (Neg)
--- NOTE | 2018-12-04 08:23 | Nephrology Progress Note ---
Date of Service December 04, 2018 Assessment & Plan (1) ESRD on dialysis: for routine tx today; plan another tx tomorrow and likely 12/06 as well to optimize volume status >4 hr tx today w/ 2-2.5 L fluid removal goal as tolerated <<>>did have call from dialysis nurse that HR incresaing to 100-110s, even 130s on hd -midodrine 5 mg before HD 30 min and additional 5 mg prn hypotension on HD ordered -cont 1.2L FR and daily bmp (2) Acute on chronic heart failure with preserved ejection fraction: -agree w/ holding bumex for now -has fortunately not needed IV meds for bp support and bp a bit better today Subjective tolerated 2.5L fluid removal yesterday; seen on rounds this am and feeling well on 2L NC at that time; no n, weakness improved. Physical Exam 2 Vital Signs (Past 24 Hours): Last Vital Signs Temp 37 C 12/04/18 04:00 Pulse 62 12/04/18 06:00 Resp 22 12/04/18 06:00 BP 94/56 L 12/04/18 06:00 Pulse Ox 95 12/04/18 06:00 Constitutional: well developed, well nourished and + obese on 02nc Eyes: EOM intact bilaterally ENMT: Ears: no external ear abnormality Nose: no external nose abnormality Mouth: + dry oral mucous membranes Neck: no nuchal rigidity Respiratory: Auscultation: + diminished lung sounds and + crackles Cardiovascular: Rate/Rhythm: regular rate and regular rhythm Extremities: + edema (trace) Gastrointestinal (Abdomen): Inspection/Auscultation: normal bowel sounds Percussion/Palpation: abdomen soft; abdomen nontender Musculoskeletal: Extremities: strength 5/5 throughout Skin: no rashes, warm and dry Neurologic: wilson fluent speech good insight Psychiatric: A+Ox3, euthymic affect Results & Data Laboratory Results Abnormal lab results 12/03/18 12/03/18 12/03/18 Range/Units 08:29 09:00 14:51 RBC (4.2-5.4) M/uL Hgb (12.0-16.0) g/dL Hct (37-47) % RDW Std Deviation (36.4-46.3) fL RDW Coeff of Cornel (11.5-14.5) % MPV (7.4-10.4) fL Immature Gran # (Auto) (0.00-0.02) K/uL Neut # (Auto) (1.4-6.5) K/uL Lymph # (Auto) (1.2-3.4) K/uL Foster # (Auto) (0.11-0.59) K/uL Sodium (136-145) mmol/L Chloride (98-107) mmol/L BUN (7-18) mg/dl Creatinine (0.6-1.2) mg/dl BUN/Creatinine Ratio (10-20) POC Glucose 113 H (70-99) Troponin I 0.288 H* 0.573 H* (0-0.045) ng/ml Albumin (3.4-5.0) gm/dl Albumin/Globulin Ratio (0.9-2) Hep Bs Antibody, Quant (>or=10mIU/mL Immune) mIU/mL 12/03/18 12/04/18 12/04/18 Range/Units 20:48 04:50 04:50 RBC 3.81 L (4.2-5.4) M/uL Hgb 10.8 L (12.0-16.0) g/dL Hct 33.3 L (37-47) % RDW Std Deviation 52.6 H (36.4-46.3) fL RDW Coeff of Cornel 16.4 H (11.5-14.5) % MPV 10.9 H (7.4-10.4) fL Immature Gran # (Auto) 0.03 H (0.00-0.02) K/uL Neut # (Auto) 8.60 H (1.4-6.5) K/uL Lymph # (Auto) 0.70 L (1.2-3.4) K/uL Foster # (Auto) 1.31 H (0.11-0.59) K/uL Sodium 131 L (136-145) mmol/L Chloride 96 L (98-107) mmol/L BUN 26 H (7-18) mg/dl Creatinine 2.90 H (0.6-1.2) mg/dl BUN/Creatinine Ratio 9.1 L (10-20) POC Glucose (70-99) Troponin I 0.760 H* 0.693 H* (0-0.045) ng/ml Albumin 3.2 L (3.4-5.0) gm/dl Albumin/Globulin Ratio 0.8 L (0.9-2) Hep Bs Antibody, Quant (>or=10mIU/mL Immune) mIU/mL 12/04/18 12/04/18 Range/Units 04:50 05:56 RBC (4.2-5.4) M/uL Hgb (12.0-16.0) g/dL Hct (37-47) % RDW Std Deviation (36.4-46.3) fL RDW Coeff of Cornel (11.5-14.5) % MPV (7.4-10.4) fL Immature Gran # (Auto) (0.00-0.02) K/uL Neut # (Auto) (1.4-6.5) K/uL Lymph # (Auto) (1.2-3.4) K/uL Foster # (Auto) (0.11-0.59) K/uL Sodium (136-145) mmol/L Chloride (98-107) mmol/L BUN (7-18) mg/dl Creatinine (0.6-1.2) mg/dl BUN/Creatinine Ratio (10-20) POC Glucose 103 H (70-99) Troponin I (0-0.045) ng/ml Albumin (3.4-5.0) gm/dl Albumin/Globulin Ratio (0.9-2) Hep Bs Antibody, Quant 5.10 L (>or=10mIU/mL Immune) mIU/mL
[2018-12-04] MEDS ORDERED: MIDODRINE HCL 2.5 MG TAB PO SCH (08:30)
--- NOTE | 2018-12-04 09:07 | Cardiology Progress Note ---
Date of Service December 04, 2018 Assessment & Plan (1) Acute on chronic heart failure with preserved ejection fraction: Echocardiogram demonstrates severe mitral regurgitation. Heart failure secondary to volume overload in the setting of severe valvular heart disease. Patient appears markedly improved after dialysis treatment. She is scheduled for second dialysis treatment today. Ultimately I believe she will require treatment 3 days/week to maintain lower body weight for adequate volume control. She may be considered for mitral valve clip in the future pending clinical course. We will continue to monitor closely. She may be transferred to telemetry today. (2) Valvular heart disease: (3) Paroxysmal atrial fibrillation: Atrial paced rhythm on telemetry. Continue current medications. (4) Acute hypotension: Blood pressure stable. She has not required intravenous vasopressor medications at this time. Will continue to monitor. (5) ESRD on dialysis: HD today. (6) Tachy-xi syndrome: (7) Pacemaker: Subjective Patient seen and examined at bedside. 2.5 L removed on HD yesterday. Feeling much better today. Son is present at bedside. Patient denies chest pain or shortness of breath at rest. Atrial paced rhythm on telemetry. Patient offers no complaints. Review of Systems All systems reviewed & are unremarkable except as noted in HPI & below Physical Exam 2 Vital Signs (Past 24 Hours): Last Vital Signs Temp 37 C 12/04/18 04:00 Pulse 62 12/04/18 06:00 Resp 22 12/04/18 06:00 BP 94/56 L 12/04/18 06:00 Pulse Ox 95 12/04/18 06:00 Physical Exam: General: NAD, AAO x3, well nourished. HEENT: Normocephalic. Atraumatic. Conjunctiva pink, no scleral icterus. Neck: No carotid bruits, the carotid upstrokes are brisk. No JVD. No HJR Heart: Regular normal S-1 and S-2 no S-3 or S-4 gallop. 1-2/6 mid systolic murmur heard best at the left ventricular apex. There is a second 1/6 systolic murmur heard best at the left sternal border. No rub appreciated. PMI is not displaced. No RV heave. Lungs: Clear bilateral without rales , rhonchi, or wheeze. Abdomen: Normal bowel sounds. Soft. Nontender. No masses or organomegaly. No abdominal bruits. Extremities: No clubbing, cyanosis, or edema. Pulses: radial=2/4, posterior tibial=2/4. Neuro: Cranial nerves grossly intact. No focal motor deficit.
--- NOTE | 2018-12-04 11:59 | Critical Care Progress Note ---
Date of Service December 04, 2018 Assessment & Plan (1) Myasthenia gravis: 88-year-old female was admitted on 03 December 2018 for shortness of breath. 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 Awake, alert, conversational, no known acute issues. PMH myasthenia gravis. Pulm: Shortness of breath, likely related to acute on chronic diastolic valvular heart disease and pulmonary edema (seen on CXR). Dialysis has previously helped with this. Nephrology recommends bumex on non-HD days only. PMH COPD and pulmonary hypertension. Has atrovent and xopenex (both prn). Doing well on 2 L nasal cannula oxygen. CVS: Diastolic CHF, mitral insufficiency & tricuspid regurg, requiring dopamine on prior admits. Some hypotension on this admission, briefly on dopamine. PMH Afib, presently in NSR on sotalol. Pacemaker for tachy-xi syndrome. As outpt, on midodrine on dialysis days for hypotension. Continued here. echo notes EF 65-70%, dilation of left & right atrium, and valvular regurgitation (see full report). Mildly elevated TnI may be due to ESRD. See cardiology notes. ID: Afebrile, WBC 11, lactate of 1.8. No known acute infectious issues. Endo: No known diabetes. History of hypothyroidism (normal TSH), on Synthroid. Monitor blood sugars. Renal/Lytes: PMH solitary kidney. ESRD, started on dialysis in Aug 2018, currently [facility]. Nephrology consulted. Cards mentions may need dialysis 3x/wk for fluid status. Mild hyponatremia. GI: No known acute issues. On home pantoprazole. Tolerating heart healthy, renal dialysis diet, 1200 mL fluid restriction. Heme: Admit Hb 11.4, stable compared to prior. Anemia likely related to chronic kidney disease. On iron supplements. DVT prophy: Previously stopped coumadin due to hemoptysis. On SCDs. Heparin with dialysis. Misc: PMH gout, on allopurinol. Code status: DO NOT RESUSCITATE PT/OT: Ordered. Disposition: Admitted to telemetry with critical care consult. Critical care will sign off, though please reconsult if any questions or concerns. 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 Bonilla was resident physician during care of patient. I separately evaluated patient for kaminski portions of the history and the exam. I was present during the critical portion of medical decision making, and I discussed the case with the resident. I generally agree with the findings and plan. Patient feeling much improved compared to yesterday. No longer requiring oxygen tolerated breakfast this morning. No evidence of myasthenic crisis, NIF within acceptable range. Answered questions of the patient and the son both are very pleasant. Patient is stable for downgrade out of the ICU today. Patient still has some intrinsic kidney function, this may make finding her true dry weight somewhat difficult she appears to be on a very tight edge with regards to her fluid status given her preserved ejection fraction heart failure. She has decent insight into the disease process and denies dietary indiscretion and is buddhism with the amount of fluid intake she allows herself. Subjective Found patient sitting the bedside chair this morning with her son at bedside. She says that she feels "great", has some general questions about her overall heart, but has no other immediate concerns. Physical Exam 2 Vital Signs (Past 24 Hours): Last Vital Signs Temp 37.1 C 12/04/18 08:00 Pulse 65 12/04/18 08:35 Resp 20 12/04/18 08:35 BP 91/50 L 12/04/18 08:35 Pulse Ox 98 12/04/18 08:01 Physical Exam: General Appearance: Awake, alert & oriented, speaking easily with nasal cannula oxygen in place, and appears no acute distress. CV: +S1S2, 2/6 systolic murmur. Right chest perm-a-cath. Pulm: Clear throughout. Abdomen: +BS, soft, non-tender, non-distended. Extremities: No pedal edema or calf tenderness. Moving all extremities naturally and easily. Neuro: No gross neuro deficits. Results & Data Laboratory Results 12/04/18 12/04/18 12/04/18 Range/Units 05:56 04:50 04:50 WBC (4.8-10.8) K/uL RBC (4.2-5.4) M/uL Hgb (12.0-16.0) g/dL Hct (37-47) % MCV (80-100) fL MCH (25-34) pg MCHC (32-36) g/dL RDW Std Deviation (36.4-46.3) fL RDW Coeff of Cornel (11.5-14.5) % Plt Count (130-400) K/uL MPV (7.4-10.4) fL Immature Gran % (Auto) % Neut % (Auto) % Lymph % (Auto) % [place] % (Auto) % Eos % (Auto) % Baso % (Auto) % Immature Gran # (Auto) (0.00-0.02) K/uL Neut # (Auto) (1.4-6.5) K/uL Lymph # (Auto) (1.2-3.4) K/uL [place] # (Auto) (0.11-0.59) K/uL Eos # (Auto) (0-0.5) K/uL Baso # (Auto) (0-0.2) K/uL Sodium 131 L (136-145) mmol/L Potassium 4.2 (3.5-5.1) mmol/L Chloride 96 L (98-107) mmol/L Carbon Dioxide 28 (21-32) mmol/L Anion Gap 7.0 (3-11) BUN 26 H (7-18) mg/dl Creatinine 2.90 H (0.6-1.2) mg/dl Est Cr Clr Drug Dosing 13.8 ml/min Est GFR ( Amer) 16.2 Est GFR (Non-Af Amer) 14.0 BUN/Creatinine Ratio 9.1 L (10-20) Glucose 87 (70-99) mg/dl POC Glucose 103 H (70-99) Calcium 9.3 (8.5-10.1) mg/dl Total Bilirubin 0.7 (0.2-1) mg/dl AST 17 (15-37) U/L ALT 14 (12-78) U/L Alkaline Phosphatase 67 (45-117) U/L Troponin I 0.693 H* (0-0.045) ng/ml Total Protein 7.2 (6.4-8.2) gm/dl Albumin 3.2 L (3.4-5.0) gm/dl Globulin 4.0 (2.5-4.0) gm/dl Albumin/Globulin Ratio 0.8 L (0.9-2) Nasal Screen MRSA (PCR) (Negative) Hep Bs Antigen Neg (Neg) Hep Bs Antibody Non-Immune Hep Bs Antibody, Quant 5.10 L (>or=10mIU/mL Immune) mIU/mL 12/04/18 12/03/18 12/03/18 Range/Units 04:50 20:48 14:56 WBC 10.73 (4.8-10.8) K/uL RBC 3.81 L (4.2-5.4) M/uL Hgb 10.8 L (12.0-16.0) g/dL Hct 33.3 L (37-47) % MCV 87.4 (80-100) fL MCH 28.3 (25-34) pg MCHC 32.4 (32-36) g/dL RDW Std Deviation 52.6 H (36.4-46.3) fL RDW Coeff of Cornel 16.4 H (11.5-14.5) % Plt Count 192 (130-400) K/uL MPV 10.9 H (7.4-10.4) fL Immature Gran % (Auto) 0.3 % Neut % (Auto) 80.1 % Lymph % (Auto) 6.5 % [place] % (Auto) 12.2 % Eos % (Auto) 0.7 % Baso % (Auto) 0.2 % Immature Gran # (Auto) 0.03 H (0.00-0.02) K/uL Neut # (Auto) 8.60 H (1.4-6.5) K/uL Lymph # (Auto) 0.70 L (1.2-3.4) K/uL [place] # (Auto) 1.31 H (0.11-0.59) K/uL Eos # (Auto) 0.07 (0-0.5) K/uL Baso # (Auto) 0.02 (0-0.2) K/uL Sodium (136-145) mmol/L Potassium (3.5-5.1) mmol/L Chloride (98-107) mmol/L Carbon Dioxide (21-32) mmol/L Anion Gap (3-11) BUN (7-18) mg/dl Creatinine (0.6-1.2) mg/dl Est Cr Clr Drug Dosing ml/min Est GFR ( Amer) Est GFR (Non-Af Amer) BUN/Creatinine Ratio (10-20) Glucose (70-99) mg/dl POC Glucose 97 (70-99) Calcium (8.5-10.1) mg/dl Total Bilirubin (0.2-1) mg/dl AST (15-37) U/L ALT (12-78) U/L Alkaline Phosphatase (45-117) U/L Troponin I 0.760 H* (0-0.045) ng/ml Total Protein (6.4-8.2) gm/dl Albumin (3.4-5.0) gm/dl Globulin (2.5-4.0) gm/dl Albumin/Globulin Ratio (0.9-2) Nasal Screen MRSA (PCR) (Negative) Hep Bs Antigen (Neg) Hep Bs Antibody Hep Bs Antibody, Quant (>or=10mIU/mL Immune) mIU/mL 12/03/18 12/03/18 Range/Units 14:51 08:00 WBC (4.8-10.8) K/uL RBC (4.2-5.4) M/uL Hgb (12.0-16.0) g/dL Hct (37-47) % MCV (80-100) fL MCH (25-34) pg MCHC (32-36) g/dL RDW Std Deviation (36.4-46.3) fL RDW Coeff of Cornel (11.5-14.5) % Plt Count (130-400) K/uL MPV (7.4-10.4) fL Immature Gran % (Auto) % Neut % (Auto) % Lymph % (Auto) % [place] % (Auto) % Eos % (Auto) % Baso % (Auto) % Immature Gran # (Auto) (0.00-0.02) K/uL Neut # (Auto) (1.4-6.5) K/uL Lymph # (Auto) (1.2-3.4) K/uL [place] # (Auto) (0.11-0.59) K/uL Eos # (Auto) (0-0.5) K/uL Baso # (Auto) (0-0.2) K/uL Sodium (136-145) mmol/L Potassium (3.5-5.1) mmol/L Chloride (98-107) mmol/L Carbon Dioxide (21-32) mmol/L Anion Gap (3-11) BUN (7-18) mg/dl Creatinine (0.6-1.2) mg/dl Est Cr Clr Drug Dosing ml/min Est GFR ( Amer) Est GFR (Non-Af Amer) BUN/Creatinine Ratio (10-20) Glucose (70-99) mg/dl POC Glucose (70-99) Calcium (8.5-10.1) mg/dl Total Bilirubin (0.2-1) mg/dl AST (15-37) U/L ALT (12-78) U/L Alkaline Phosphatase (45-117) U/L Troponin I 0.573 H* (0-0.045) ng/ml Total Protein (6.4-8.2) gm/dl Albumin (3.4-5.0) gm/dl Globulin (2.5-4.0) gm/dl Albumin/Globulin Ratio (0.9-2) Nasal Screen MRSA (PCR) Negative (Negative) Hep Bs Antigen (Neg) Hep Bs Antibody Hep Bs Antibody, Quant (>or=10mIU/mL Immune) mIU/mL Medications Administered Current Inpatient Medications Acetaminophen (Tylenol) 650 mg PO Q4H PRN PRN Reason: Pain or Fever Stop: 01/02/19 08:35 Allopurinol (Zyloprim) 100 mg PO DAILY [facility] Stop: 01/03/19 08:59 Last Admin: 12/04/18 07:43 Dose: 100 mg Docusate Sodium (Colace) 100 mg PO DAILY [facility] Stop: 01/02/19 08:59 Last Admin: 12/04/18 07:43 Dose: 100 mg Heparin Sodium (Porcine) (Heparin Iv Bolus) 1,000 units IV TODAY@0800 [facility] Stop: 12/04/18 23:59 Heparin Sodium (Porcine) (Heparin Iv Bolus) 400 units IV TODAY@0800,0900,1000 [facility] Stop: 12/04/18 23:59 Ipratropium [place] (Atrovent 0.02% 0.5mg/2.5ml) 0.5 mg INH Q4H PRN PRN Reason: Shortness Of Breath Stop: 01/02/19 08:35 Levalbuterol HCl (Xopenex 1.25mg/0.5ml Neb) 1.25 mg INH Q4H PRN PRN Reason: Shortness Of Breath Stop: 01/02/19 08:35 Levothyroxine Sodium (Synthroid) 100 mcg PO DAILYBB [facility] Stop: 01/02/19 08:59 Last Admin: 12/04/18 05:55 Dose: 100 mcg Midodrine (Proamatine) 5 mg PO UD PRN PRN Reason: low bp Stop: 01/02/19 10:16 Midodrine (Proamatine) 5 mg PO UD [facility] Stop: 01/03/19 08:29 Nitroglycerin (Nitrostat) 0.4 mg SL UD PRN PRN Reason: Chest Pain Stop: 01/02/19 08:35 Ondansetron HCl (Zofran) 4 mg IV Q6H PRN PRN Reason: Nausea Stop: 01/02/19 08:35 Sennosides (Senokot) 8.6 mg PO DAILY PRN PRN Reason: Constipation Stop: 01/02/19 08:35 Last Admin: 12/03/18 11:39 Dose: 8.6 mg Sotalol HCl (Betapace) 40 mg PO BID [facility] Stop: 01/02/19 08:59 Last Admin: 12/04/18 07:04 Dose: Not Given Resident Activity Tracking Resident Involvement: Resident Care Provided Care Provided: Adult Hospital Medicine
--- NOTE | 2018-12-04 13:22 | Hospitalist Progress Note ---
Date of Service December 04, 2018 Assessment & Plan (1) Acute on chronic heart failure with preserved ejection fraction: secondary to Valvular Heart Disease, Severe Mitral Regurgitation improved after HD for HD today and likely the next 2 days per Cardiology; She may be considered for mitral valve clip in the future pending clinical course. (2) ESRD on dialysis: ESRD on dialysis /Solitary kidney - on Midodrine for Hypotension Nephro on board Tachy/xi syndrome with pacemaker Valvular heart disease: Paroxysmal atrial fibrillation: -Patient remains in sinus rhythm on sotalol Anemia, most likely from chronic kidney disease. Iron deficiency. Continue iron supplements. History of chronic obstructive pulmonary disease and pulmonary hypertension -DuoNebs p.r.n. History of gout allopurinol. History of hypothyroidism Synthroid. Deep venous thrombosis prophylaxis. Sequential compression devices Disposition: management of volume overload in progress Subjective ff up for volume overload, Valvular CHF seen sitting up in bed, comfortable, in good spirits states she feels improved today no dyspnea denies chest pain, palpitations, dizziness, nausea, headache no other symptoms Physical Exam 2 Vital Signs (Past 24 Hours): Last Vital Signs Temp 37 C 12/04/18 12:00 Pulse 64 12/04/18 12:01 Resp 25 H 12/04/18 12:01 BP 94/66 L 12/04/18 12:01 Pulse Ox 97 12/04/18 12:01 Physical Exam: General- oriented x 3, not in distress, speaks in sentences with no effort or accessory muscle use Eyes- anicteric Neck- no JVD Lungs- mild rales at the bases, no wheezing Heart- normal rate, regular rhythm; (+) 3/6 holosystolic murmur Abdomen- normal bowel sounds, nondistended, soft, nontender Extremities- no pretibial edema, no calf tenderness Neuro- alert, oriented x 3; no gross focal neurologic deficits Skin- warm & dry Results & Data Laboratory Results Laboratory Results - last 24 hr 12/03/18 12/03/18 12/03/18 14:51 14:56 20:48 WBC RBC Hgb Hct MCV MCH MCHC RDW Std Deviation RDW Coeff of Cornel Plt Count MPV Immature Gran % (Auto) Neut % (Auto) Lymph % (Auto) [place] % (Auto) Eos % (Auto) Baso % (Auto) Immature Gran # (Auto) Neut # (Auto) Lymph # (Auto) [place] # (Auto) Eos # (Auto) Baso # (Auto) Sodium Potassium Chloride Carbon Dioxide Anion Gap BUN Creatinine Est Cr Clr Drug Dosing Est GFR ( Amer) Est GFR (Non-Af Amer) BUN/Creatinine Ratio Glucose POC Glucose 97 Calcium Total Bilirubin AST ALT Alkaline Phosphatase Troponin I 0.573 H* 0.760 H* Total Protein Albumin Globulin Albumin/Globulin Ratio Hep Bs Antigen Hep Bs Antibody Hep Bs Antibody, Quant 12/04/18 12/04/18 12/04/18 04:50 04:50 04:50 WBC 10.73 RBC 3.81 L Hgb 10.8 L Hct 33.3 L MCV 87.4 MCH 28.3 MCHC 32.4 RDW Std Deviation 52.6 H RDW Coeff of Cornel 16.4 H Plt Count 192 MPV 10.9 H Immature Gran % (Auto) 0.3 Neut % (Auto) 80.1 Lymph % (Auto) 6.5 [place] % (Auto) 12.2 Eos % (Auto) 0.7 Baso % (Auto) 0.2 Immature Gran # (Auto) 0.03 H Neut # (Auto) 8.60 H Lymph # (Auto) 0.70 L [place] # (Auto) 1.31 H Eos # (Auto) 0.07 Baso # (Auto) 0.02 Sodium 131 L Potassium 4.2 Chloride 96 L Carbon Dioxide 28 Anion Gap 7.0 BUN 26 H Creatinine 2.90 H Est Cr Clr Drug Dosing 13.8 Est GFR ( Amer) 16.2 Est GFR (Non-Af Amer) 14.0 BUN/Creatinine Ratio 9.1 L Glucose 87 POC Glucose Calcium 9.3 Total Bilirubin 0.7 AST 17 ALT 14 Alkaline Phosphatase 67 Troponin I 0.693 H* Total Protein 7.2 Albumin 3.2 L Globulin 4.0 Albumin/Globulin Ratio 0.8 L Hep Bs Antigen Neg Hep Bs Antibody Non-Immune Hep Bs Antibody, Quant 5.10 L 12/04/18 05:56 WBC RBC Hgb Hct MCV MCH MCHC RDW Std Deviation RDW Coeff of Cornel Plt Count MPV Immature Gran % (Auto) Neut % (Auto) Lymph % (Auto) [place] % (Auto) Eos % (Auto) Baso % (Auto) Immature Gran # (Auto) Neut # (Auto) Lymph # (Auto) [place] # (Auto) Eos # (Auto) Baso # (Auto) Sodium Potassium Chloride Carbon Dioxide Anion Gap BUN Creatinine Est Cr Clr Drug Dosing Est GFR ( Amer) Est GFR (Non-Af Amer) BUN/Creatinine Ratio Glucose POC Glucose 103 H Calcium Total Bilirubin AST ALT Alkaline Phosphatase Troponin I Total Protein Albumin Globulin Albumin/Globulin Ratio Hep Bs Antigen Hep Bs Antibody Hep Bs Antibody, Quant
[2018-12-04] MEDS ORDERED: SENNA 8.6 MG TAB PO PRN (17:53)
[2018-12-04] MEDS: PANTOprazole 40 MG TAB PO SCH (19:10)
[2018-12-04] MEDS: ASPIRIN 81 MG ECTAB PO SCH (19:11)
[2018-12-05] MEDS: LEVOTHYROXINE SODIUM 100 MCG TABLET PO SCH (06:13)
--- NOTE | 2018-12-05 07:42 | Nephrology Progress Note ---
Date of Service December 05, 2018 Assessment & Plan (1) ESRD on dialysis: given AF w/ RVR yesterday on tx, will hold tx today >plan routine HD tomorrow and if tolerated consider short 2/3 tx ->will permanently be 3d/wk as OP -midodrine 5 mg before HD 30 min and additional 5 mg prn hypotension on HD ordered -cont 1.2L FR (2) Acute on chronic heart failure with preserved ejection fraction: -agree w/ holding bumex for now -clinically improved -due in part to severe mitral valve rgg>>cardiology considering MV clip in future but remotely and not likely Subjective had af w/ rvr on hd yesterday; had to get some fluid back; still managed 2L UF though; son at bedside w/ pt today. trying RA and breathing ok. slept well. feeling well. not aware of palpitations. closer to baseline today Physical Exam 2 Vital Signs (Past 24 Hours): Last Vital Signs Temp 36.5 C 12/05/18 03:26 Pulse 99 H 12/05/18 03:26 Resp 18 12/05/18 03:26 BP 84/57 L 12/05/18 03:26 Pulse Ox 97 12/05/18 03:26 Constitutional: well developed, well nourished and + obese on RA sitting up in bed Eyes: EOM intact bilaterally ENMT: Ears: no external ear abnormality Nose: no external nose abnormality Mouth: + dry oral mucous membranes Neck: no nuchal rigidity Respiratory: Auscultation: + diminished lung sounds and + crackles (fine ) Cardiovascular: Extremities: + edema (trace) irregularly irregular in 100s Gastrointestinal (Abdomen): Inspection/Auscultation: normal bowel sounds Percussion/Palpation: abdomen soft; abdomen nontender Musculoskeletal: Extremities: strength 5/5 throughout Skin: no rashes, warm and dry Neurologic: wilson, fluent speech Psychiatric: A+Ox3, euthymic affect Results & Data Laboratory Results Abnormal lab results 12/04/18 Range/Units 04:50 Hep Bs Antibody, Quant 5.10 L (>or=10mIU/mL Immune) mIU/mL
[2018-12-05] MEDS: ALLOPURINOL 100 MG TAB PO SCH (07:55)
[2018-12-05] MEDS: DOCUSATE SODIUM 100 MG CAP PO SCH (07:55)
[2018-12-05] MEDS: PANTOprazole 40 MG TAB PO SCH (07:56)
[2018-12-05] MEDS: ASPIRIN 81 MG ECTAB PO SCH (07:56)
[2018-12-05] MEDS: SOTALOL HCL 80 MG TAB PO SCH (08:58)
[2018-12-05] MEDS: HEPARIN SOD (PORCINE) 1000 UNIT/ML 10 ML VIAL IV SCH (10:12)
--- NOTE | 2018-12-05 11:47 | Cardiology Progress Note ---
Date of Service December 05, 2018 Assessment & Plan (1) Paroxysmal atrial fibrillation: Patient converted to atrial fibrillation with rapid ventricular response during hemodialysis. Due to chronic resting hypotension treatment options are limited. In the presence of structural heart disease and renal insufficiency, amiodarone is preferred to sotalol. Patient will require 24- 48hour washout period for sotalol prior to initiation of amiodarone. Sotalol is not protein bound and therefore likely will be removed significantly with a dialysis treatment. Plan for repeat ECG tomorrow after dialysis. If QTC within acceptable range will initiate amiodarone therapy in addition to metoprolol. Continue to monitor telemetry. She is not a candidate for long- term anticoagulation due to hemoptysis and intramuscular hematoma as previously documented. (2) Acute on chronic heart failure with preserved ejection fraction: Acute decompensated heart failure on the basis of severe mitral insufficiency. Patient converted to atrial fibrillation although she remains minimally symptomatic currently. Hemodialysis will be performed tomorrow with additional fluid removal as tolerated. Management of atrial fibrillation as noted above. (3) Valvular heart disease: (4) Acute hypotension: Supportive care. Avoid additional intravenous hydration at this time due to acute decompensated heart failure in the setting of mixed valvular heart disease. Norepinephrine will be utilized for blood pressure support if necessary. (5) ESRD on dialysis: HD tomorrow. Nephrology input appreciated. (6) Tachy-xi syndrome: (7) Pacemaker: Subjective Patient seen and examined at the bedside. Converted to atrial flutter/ fibrillation with rapid ventricular response yesterday at approximately 5 PM yesterday. Continues to receive sotalol. Patient is unaware of her atrial fibrillation. Denies palpitations, chest pain, shortness of breath. Apparently converted to atrial fibrillation during hemodialysis. Her hemodialysis treatments placed on hold today. Anticoagulation discontinued in the past due to spontaneous intramuscular hematoma as well as hemoptysis. Review of Systems All systems reviewed & are unremarkable except as noted in HPI & below Physical Exam 2 Vital Signs (Past 24 Hours): Last Vital Signs Temp 36.9 C 12/05/18 11:04 Pulse 106 H 12/05/18 11:04 Resp 17 12/05/18 11:04 BP 86/59 L 12/05/18 11:04 Pulse Ox 95 12/05/18 11:04 Physical Exam: General: NAD, AAO x3, well nourished. Chronically ill. HEENT : Normocephalic. Atraumatic. Conjunctiva pink, no scleral icterus. Neck: No carotid bruits, the carotid upstrokes are brisk. No JVD. No HJR Heart: Irregular rhythm, borderline tachycardic. Normal S-1 and S-2. 1/6 holosystolic murmur heard best at left ventricular apex. No rub appreciated. PMI is not displaced. No RV heave. Lungs: Clear bilateral without rales , rhonchi, or wheeze. Abdomen: Normal bowel sounds. Soft. Nontender. No masses or organomegaly. No abdominal bruits. Extremities: Trace to mild bilateral pedal edema. No clubbing, or cyanosis. Pulses: radial=2/4, Dorsalis pedis =2/4, posterior tibial=2/4. Neuro: Cranial nerves grossly intact. No focal motor deficit.
[2018-12-05] MEDS: METOPROLOL TARTRATE 25 MG TAB PO SCH ×2 (14:23→20:09)
--- NOTE | 2018-12-05 14:41 | Hospitalist Progress Note ---
Date of Service December 05, 2018 Assessment & Plan (1) Acute on chronic heart failure with preserved ejection fraction: secondary to Valvular Heart Disease, Severe Mitral Regurgitation appears euvolemic today plan for HD tomorrow per Cardiology; She may be considered for mitral valve clip in the future pending clinical course. (2) ESRD on dialysis: ESRD on dialysis /Solitary kidney - on Midodrine for Hypotension Nephro on board Paroxysmal atrial fibrillation: - converted to A fib yesterday - asymptomatic, HR high 90s on Sotalol plan to transition to Amiodaron as per Cardiology - continue ASA not a good candidate for anticoagulation due to history of hemopysis and intramuscular hematoma Tachy/xi syndrome with pacemaker Anemia, most likely from chronic kidney disease. Iron deficiency. Continue iron supplements. History of chronic obstructive pulmonary disease and pulmonary hypertension -DuoNebs p.r.n. History of gout allopurinol. History of hypothyroidism Synthroid. Deep venous thrombosis prophylaxis. Sequential compression devices Disposition: management of volume overload in progress PT /OT eval patient would like to return home upon discharge Subjective ff up for volume overload, Valvular CHF converted to Afib during HD yesterday resting in bed, comfortable denies chest pain, dyspnea, palpitations, dizziness no other symptoms Physical Exam 2 Vital Signs (Past 24 Hours): Last Vital Signs Temp 36.9 C 12/05/18 11:04 Pulse 106 H 12/05/18 11:04 Resp 17 12/05/18 11:04 BP 86/59 L 12/05/18 11:04 Pulse Ox 95 12/05/18 11:04 Physical Exam: General- oriented x 3, not in distress, speaks in sentences with no effort or accessory muscle use Eyes- anicteric Neck- no JVD Lungs- clear BS BL, no rales/wheezes Heart- normal rate, regular rhythm; no murmurs Abdomen- normal bowel sounds, nondistended, soft, nontender Extremities- no pretibial edema, no calf tenderness Neuro- alert, oriented x 3; no gross focal neurologic deficits Skin- warm & dry Results & Data Laboratory Results Laboratory Results - last 24 hr 12/04/18 18:15 POC Glucose 88
[2018-12-06] MEDS: LEVOTHYROXINE SODIUM 100 MCG TABLET PO SCH (06:00)
--- NOTE | 2018-12-06 07:19 | Nephrology Consultation ---
Date of Consultation December 06, 2018 Assessment & Plan (1) ESRD on dialysis: >plan routine HD today and if tolerated consider short 2/3 tx ->will permanently be 3d/wk as OP -midodrine 5 mg before HD 30 min and additional 5 mg prn hypotension on HD ordered -cont 1.2L FR (2) Acute on chronic heart failure with preserved ejection fraction: -agree w/ holding bumex for now -clinically improved -due in part to severe mitral valve rgg>>cardiology considering MV clip in future but remotely and not likely History of Present Illness Attending Physician: Julio Lubin MD Allergies Allergy/AdvReac Type Severity Reaction Status Date / Time naproxen Allergy Unknown Black Verified 12/03/18 04:21 stool/bleeding. codeine AdvReac Unknown GASTRIC Verified 12/03/18 04:21 UPSET methocarbamol AdvReac Unknown Nausea/Vomi Verified 12/03/18 04:21 ting [id number] Reductase AdvReac Unknown MUSCLE Verified 12/03/18 04:21 Inhibitor WEAKNESS Home Medications Home Medications Medication Instructions Recorded Confirmed Type aspirin [Aspirin Childrens] 81 mg PO DAILY 08/20/18 12/03/18 History iron 25 mg PO DAILY 08/20/18 12/03/18 History levothyroxine [Synthroid] 100 mcg PO DAILY 08/20/18 12/03/18 History pantoprazole 40 mg PO DAILY 08/20/18 12/03/18 History allopurinol 150 mg PO DAILY 12/03/18 12/03/18 History bumetanide 1 mg PO DAILY 12/03/18 12/03/18 History docusate sodium [Colace] 100 mg PO DAILY 12/03/18 12/03/18 History midodrine 5 mg PO DIRECTED 12/03/18 12/03/18 History sennosides [Senna Laxative] 8.6 mg PO DAILY PRN 12/03/18 12/03/18 History sotalol 40 mg PO BID 12/03/18 12/03/18 History Patient History Medical History 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) Obstructive type of ventilatory defect with mild restriction which may be related to patient's morbid obesity (per 2015 PFTs) Morbid obesity (Chronic) CKD (chronic kidney disease), stage III (Chronic) Gout (Chronic) Pulmonary HTN (Chronic) Myasthenia gravis (Chronic) Subacute cutaneous lupus erythematosus (Chronic) Acute on chronic diastolic HF (heart failure) (Acute) In setting of mixed valvular disease Hypothyroidism (Chronic) Pacemaker (Chronic) Atrial fibrillation (Chronic) on anticoaguation Congestive heart failure Surgical History H/O: hysterectomy (Resolved) History of tonsillectomy (Resolved) History of appendectomy (Resolved) History of permanent cardiac pacemaker placement (Resolved) Family History Other Heart disease Stroke Social History marital status: / Current Living Situation: Alone Other Information That Helps Us Care for You: No Feels Safe at Home: Yes Safety Concerns: Feels Safe At This Time Smoking Status: Never smoker Do You Dip or Chew Tobacco: No Second Hand Exposure: No Tobacco Cessation Education Requested by Patient: No Hx Alcohol Use: Yes Alcohol Intake Frequency: other Hx Substance Use: No Beliefs That Will Affect Care: None Communication Ability: Effective Physical Exam 2 Vital Signs (Past 24 Hours): Last Vital Signs Temp 36.3 C L 12/06/18 04:51 Pulse 94 H 12/06/18 04:51 Resp 18 12/06/18 04:51 BP 93/65 L 12/06/18 04:51 Pulse Ox 99 12/06/18 04:51 Constitutional: well developed, well nourished and + obese Eyes: EOM intact bilaterally ENMT: Ears: no external ear abnormality Nose: no external nose abnormality Mouth: + dry oral mucous membranes Neck: no nuchal rigidity Respiratory: + respiratory distress (mild > from tachypnea) Auscultation: + diminished lung sounds and + crackles (fine ) Cardiovascular: Rate/Rhythm: regular rate and regular rhythm Extremities: + edema (trace) Gastrointestinal (Abdomen): Inspection/Auscultation: normal bowel sounds Percussion/Palpation: abdomen soft; abdomen nontender Musculoskeletal: Extremities: strength 5/5 throughout Skin: no rashes, warm and dry Psychiatric: A+Ox3, euthymic affect
[2018-12-06] MEDS ORDERED: MIDODRINE HCL 2.5 MG TAB PO SCH (07:30)
[2018-12-06] MEDS ORDERED: HEPARIN SOD (PORCINE) 1000 UNIT/ML 10 ML VIAL IV ONE (08:00)
[2018-12-06] MEDS ORDERED: SODIUM CHLORIDE 0.9% 1000ML 1,000 ML IV PRN (08:00)
[2018-12-06] MEDS ORDERED: EPOETIN ALFA 4,000 UNIT/ML VIAL IV SCH (08:00)
[2018-12-06] MEDS: ASPIRIN 81 MG ECTAB PO SCH (08:07)
[2018-12-06] MEDS: ALLOPURINOL 100 MG TAB PO SCH (08:07)
[2018-12-06] MEDS: METOPROLOL TARTRATE 25 MG TAB PO SCH ×3 (08:07→21:25)
[2018-12-06] MEDS: PANTOprazole 40 MG TAB PO SCH (08:07)
[2018-12-06] MEDS: DOCUSATE SODIUM 100 MG CAP PO SCH (08:11)
[2018-12-06] MEDS: HEPARIN SOD (PORCINE) 1000 UNIT/ML 10 ML VIAL IV SCH (11:39)
--- NOTE | 2018-12-06 13:45 | Cardiology Progress Note ---
Date of Service December 06, 2018 Assessment & Plan (1) Paroxysmal atrial fibrillation: Patient converted to atrial fibrillation with rapid ventricular response during hemodialysis. Due to chronic resting hypotension treatment options are limited. She did not receive her evening dose of metoprolol nor her a.m. dose today. Heart rate remains elevated although she is essentially asymptomatic. Plan to initiate treatment with amiodarone this evening pending review of repeat ECG and QT interval. May utilize intravenous digoxin in the short-term to improve rate control. Hold parameter for metoprolol will be changed to ensure patient receives her doses regularly. She is not a candidate for long-term anticoagulation due to hemoptysis and intramuscular hematoma as previously documented. (2) Acute on chronic heart failure with preserved ejection fraction: Acute decompensated heart failure on the basis of severe mitral insufficiency. Patient converted to atrial fibrillation although she remains minimally symptomatic currently. Hemodialysis today with volume removal as tolerated. (3) Valvular heart disease: Mitral valve clip may be considered in the future for treatment of severe mitral regurgitation. (4) Tachy-xi syndrome: (5) Pacemaker: Subjective Patient seen and examined on hemodialysis. Rhythm currently atrial fibrillation with rapid ventricular response. Heart rate ranging from 100-125 bpm. Unaware of her heart rate. No chest discomfort or shortness of breath. Remains hypotensive. Sotalol placed on hold yesterday. She did not receive her evening dose of metoprolol nor her a.m. dose of metoprolol today due to hypotension. Offers no complaints. Review of Systems All systems reviewed & are unremarkable except as noted in HPI & below Physical Exam 2 Vital Signs (Past 24 Hours): Last Vital Signs Temp 36.8 C 12/06/18 12:20 Pulse 120 H 12/06/18 13:41 Resp 20 12/06/18 12:20 BP 85/35 L 12/06/18 13:41 Pulse Ox 95 12/06/18 12:20 Physical Exam: General: NAD, AAO x3, well nourished. Chronically ill. HEENT : Normocephalic. Atraumatic. Conjunctiva pink, no scleral icterus. Neck: No carotid bruits, the carotid upstrokes are brisk. No JVD. No HJR Heart: Irregular rhythm, tachycardic. Normal S-1 and S-2. 1/6 holosystolic murmur heard best at left ventricular apex. No rub appreciated. PMI is not displaced. No RV heave. Lungs: Clear bilateral without rales , rhonchi, or wheeze. Abdomen: Normal bowel sounds. Soft. Nontender. No masses or organomegaly. No abdominal bruits. Extremities: Trace to mild bilateral pedal edema. No clubbing, or cyanosis. Pulses: radial=2/4, Dorsalis pedis =2/4, posterior tibial=2/4. Neuro: Cranial nerves grossly intact. No focal motor deficit.
[2018-12-06] MEDS: ACETAMINOPHEN 325 MG TAB PO PRN (14:01)
--- NOTE | 2018-12-06 16:01 | Hospitalist Progress Note ---
Date of Service December 06, 2018 Assessment & Plan (1) Acute on chronic heart failure with preserved ejection fraction: secondary to Valvular Heart Disease, Severe Mitral Regurgitation appears euvolemic today s/p HD today per Cardiology; She may be considered for mitral valve clip in the future pending clinical course. (2) ESRD on dialysis: ESRD on dialysis /Solitary kidney - on Midodrine for Hypotension Nephro on board Paroxysmal atrial fibrillation: - converted to A fib yesterday - asymptomatic, HR low 100s on Metoprolol plan to transition to Amiodarone as per Cardiology - continue ASA not a good candidate for anticoagulation due to history of hemopysis and intramuscular hematoma Tachy/xi syndrome with pacemaker Anemia, most likely from chronic kidney disease. Iron deficiency. Continue iron supplements. History of chronic obstructive pulmonary disease and pulmonary hypertension -[employer] p.r.n. History of gout allopurinol. History of hypothyroidism Synthroid. Deep venous thrombosis prophylaxis. Sequential compression devices Disposition: management of volume overload in progress PT /OT eval patient would like to return home upon discharge Subjective ff up for volume overload, Valvular CHF seen resting in bed, reading a book felt tired after HD but feeling better during my exam denies dyspnea, chest pain, dizziness no other symptoms Physical Exam 2 Vital Signs (Past 24 Hours): Last Vital Signs Temp 36.6 C 12/06/18 15:44 Pulse 109 H 12/06/18 15:44 Resp 18 12/06/18 15:44 BP 63/44 L 12/06/18 15:44 Pulse Ox 93 12/06/18 15:44 Physical Exam: General- oriented x 3, not in distress, speaks in sentences with no effort or accessory muscle use Eyes- anicteric Neck- no JVD Lungs- clear breath sounds bilaterally Heart- mild tachycardia, irregularly irregular rhythm; no murmurs Abdomen- normal bowel sounds, nondistended, soft, nontender Extremities- no pretibial edema, no calf tenderness Neuro- alert, oriented x 3; no gross focal neurologic deficits Skin- warm & dry
--- NOTE | 2018-12-06 19:57 | Nephrology Progress Note ---
Date of Service December 06, 2018 Assessment & Plan (1) ESRD on dialysis: >plan routine HD today >> would not tx again before 2/4 unless acute event ->will permanently be 3d/wk as OP -midodrine 5 mg before HD 30 min and additional 5 mg prn hypotension on HD ordered -cont 1.2L FR (2) Acute on chronic heart failure with preserved ejection fraction: -agree w/ holding bumex for now -clinically improved -due in part to severe mitral valve rgg>>cardiology considering MV clip in future but remotely and not likely Subjective tolerated hd well this am >> states mouth feels dry, noting some constipation. sbp in 70s past few hrs asx and HR 100-120s; no distress. no sob Physical Exam 2 Vital Signs (Past 24 Hours): Last Vital Signs Temp 36.3 C L 12/06/18 19:46 Pulse 60 12/06/18 19:46 Resp 22 12/06/18 19:46 BP 73/45 L 12/06/18 19:46 Pulse Ox 94 12/06/18 19:46 Constitutional: well developed, well nourished and + obese on RA A70 x 3 Eyes: EOM intact bilaterally ENMT: Ears: no external ear abnormality Nose: no external nose abnormality Mouth: + dry oral mucous membranes Neck: no nuchal rigidity Respiratory: Auscultation: + diminished lung sounds and + crackles (fine ) Cardiovascular: Rate/Rhythm: regular rate and regular rhythm Extremities: + edema (trace) Gastrointestinal (Abdomen): Inspection/Auscultation: normal bowel sounds Percussion/Palpation: abdomen soft; abdomen nontender Musculoskeletal: Extremities: strength 5/5 throughout Skin: no rashes, warm and dry Neurologic: wilson fluent sepech Psychiatric: A+Ox3, euthymic affect Results & Data Laboratory Results reviewed
[2018-12-06] MEDS: AMIODARONE 200 MG TAB PO SCH (21:24)
[2018-12-06] MEDS: SENNA 8.6 MG TAB PO SCH (21:29)
[2018-12-07] MEDS: LEVOTHYROXINE SODIUM 100 MCG TABLET PO SCH (06:25)
[2018-12-07] MEDS: ACETAMINOPHEN 325 MG TAB PO PRN (07:26)
[2018-12-07] MEDS: PANTOprazole 40 MG TAB PO SCH (07:27)
[2018-12-07] MEDS: ALLOPURINOL 100 MG TAB PO SCH (07:27)
[2018-12-07] MEDS: SENNA 8.6 MG TAB PO SCH (07:28)
[2018-12-07] MEDS: ASPIRIN 81 MG ECTAB PO SCH (07:28)
[2018-12-07] MEDS: AMIODARONE 200 MG TAB PO SCH ×2 (07:30→21:51)
[2018-12-07] MEDS: DOCUSATE SODIUM 100 MG CAP PO SCH (07:54)
[2018-12-07] MEDS: METOPROLOL TARTRATE 25 MG TAB PO SCH ×3 (08:41→21:50)
[2018-12-07] MEDS ORDERED: SENNA 8.6 MG TAB PO SCH (09:00)
--- NOTE | 2018-12-07 11:08 | Cardiology Progress Note ---
Date of Service December 07, 2018 Assessment & Plan (1) Paroxysmal atrial fibrillation: Patient overnight is reverted back to atrial paced rhythm with resolve of atrial fibrillation on low-dose amiodarone therapy. Blood pressure is improved with rate control she is not a candidate for long-term anticoagulation due to hemoptysis and intramuscular hematoma as previously documented. (2) Acute on chronic heart failure with preserved ejection fraction: Acute decompensated heart failure on the basis of severe mitral insufficiency. We will anticipate 3 times weekly dialysis (3) Valvular heart disease: Mitral valve clip may be considered in the future for treatment of severe mitral regurgitation. (4) Tachy-xi syndrome: We will continue amiodarone and metoprolol as amiodarone becomes more complete and load likely reduce or discontinue metoprolol (5) Pacemaker: Subjective Patient seen and examined chart medications telemetry reviewed. Patient feels well this morning notes no dyspnea chest pains tachypalpitations dizziness or lightheadedness. Telemetry reveals reversion back to atrial paced rhythm with resolve atrial fibrillation Physical Exam 2 Vital Signs (Past 24 Hours): Last Vital Signs Temp 36.5 C 12/07/18 07:42 Pulse 67 12/07/18 07:42 Resp 20 12/07/18 07:42 BP 95/57 L 12/07/18 07:42 Pulse Ox 94 12/07/18 07:42 Physical Exam: General: NAD, AAO x3, well nourished. Appears bright today. HEENT: Normocephalic. Atraumatic. Conjunctiva pink, no scleral icterus. Neck: No carotid bruits, the carotid upstrokes are brisk. No JVD. No HJR Heart: Regular rate and rhythm with atrial paced rhythm on telemetry. Normal S-1 and S -2. 1/6 holosystolic murmur heard best at left ventricular apex. No rub appreciated. PMI is not displaced. No RV heave. Lungs: Clear bilateral without rales , rhonchi, or wheeze. Abdomen: Normal bowel sounds. Soft. Nontender. No masses or organomegaly. No abdominal bruits. Extremities: Trace to mild bilateral pedal edema. No clubbing, or cyanosis. Pulses: radial=2/4, Dorsalis pedis =2/4, posterior tibial=2/4. Neuro: Cranial nerves grossly intact. No focal motor deficit.
[2018-12-07] MEDS: LIDOCAINE 5% 1 PATCH TD SCH (11:10)
[2018-12-07] MEDS: DICLOFENAC SOD 1% GEL 100 GM TUBE EXT SCH ×2 (11:13→21:51)
[2018-12-07] MEDS ORDERED: FUROSEMIDE 40 MG in SYRINGE 0 ML IV ONE (12:45)
--- NOTE | 2018-12-07 12:51 | Progress Note ---
DATE: 12/07/2018 NEPHROLOGY PROGRESS NOTE SUBJECTIVE: Overnight, no new issues. She had dialysis yesterday and about 2 kilo of fluid was removed. She denies any worsening shortness of breath, orthopnea, PND; however, she is not making a whole lot of urine. PHYSICAL EXAMINATION: VITAL SIGNS: Blood pressure is 97/65, 96% on room air. CHEST: Decreased breath sounds. S1 and S2, regular. Systolic murmur heard. ABDOMEN: Soft, nontender. EXTREMITIES: Shows trace to 1+ edema. LABORATORY TESTS: Reviewed in detail, although no labs today. ASSESSMENT AND PLAN: End-stage renal disease, on dialysis. She had dialysis yesterday. Plan is to do dialysis again on Sunday. She is not making a lot of urine, so there is a risk of getting into pulmonary edema. I will give her Lasix 40 mg IV x1, although her blood pressure is somewhat low. She should be able to handle this dose of Lasix. Obviously, is she cannot handle Lasix she cant handle dialysis. Daily labs, I would order one BMP for tomorrow. SYLVIA
--- NOTE | 2018-12-07 17:38 | Hospitalist Progress Note ---
Date of Service December 07, 2018 Assessment & Plan (1) Acute on chronic heart failure with preserved ejection fraction: secondary to Valvular Heart Disease, Severe Mitral Regurgitation appears euvolemic today plan for repeat HD On Sunday per Cardiology; She may be considered for mitral valve clip in the future pending clinical course. (2) ESRD on dialysis: ESRD on dialysis /Solitary kidney - on Midodrine for Hypotension Nephro on board Paroxysmal atrial fibrillation: - converted to A fib Amiodarone started Metoprolol being tapered off - back to atrial paced rhyhthm - continue ASA not a good candidate for anticoagulation due to history of hemopysis and intramuscular hematoma Tachy/xi syndrome with pacemaker Anemia, most likely from chronic kidney disease. Iron deficiency. Continue iron supplements. History of chronic obstructive pulmonary disease and pulmonary hypertension -Abe p.r.n. History of gout allopurinol. History of hypothyroidism Synthroid. Deep venous thrombosis prophylaxis. Sequential compression devices Disposition: management of volume overload in progress PT /OT eval patient would like to return home upon discharge Subjective ff for CHF seen sitting up in bed,comfortable, in good spirits daughter at the bedside states she feels good today no dyspnea, chest pain, dizzinesss, palpitations no other symptoms Physical Exam 2 Vital Signs (Past 24 Hours): Last Vital Signs Temp 36.5 C 12/07/18 15:10 Pulse 59 L 12/07/18 15:10 Resp 18 12/07/18 15:10 BP 100/68 12/07/18 15:10 Pulse Ox 96 12/07/18 15:10 Physical Exam: General- oriented x 3, not in distress, speaks in sentences with no effort or accessory muscle use Eyes- anicteric Neck- no JVD Lungs- clear breath sounds bilaterally Heart- normal rate, regular rhythm; no murmurs Abdomen- normal bowel sounds, nondistended, soft, nontender Extremities- no pretibial edema, no calf tenderness Neuro- alert, oriented x 3; no gross focal neurologic deficits Skin- warm & dry
[2018-12-08 06:45] LABS: BUN Creatinine Ratio 9.3 (10-20); Calcium 9.4 mg/dl (8.5-10.1); Creatinine Clr Calc Pharmacy 7.7 ml/min; Est GFR (African American) 8.7; Est GFR (Non-African American) 7.5
[2018-12-08] MEDS: LEVOTHYROXINE SODIUM 100 MCG TABLET PO SCH (07:04)
[2018-12-08] MEDS: LIDOCAINE 5% 1 PATCH TD SCH (07:42)
[2018-12-08] MEDS: SENNA 8.6 MG TAB PO SCH (07:43)
[2018-12-08] MEDS: DICLOFENAC SOD 1% GEL 100 GM TUBE EXT SCH ×2 (07:43→20:00)
[2018-12-08] MEDS: ASPIRIN 81 MG ECTAB PO SCH (07:43)
[2018-12-08] MEDS: PANTOprazole 40 MG TAB PO SCH (07:43)
[2018-12-08] MEDS: AMIODARONE 200 MG TAB PO SCH ×2 (07:43→19:59)
[2018-12-08] MEDS: ALLOPURINOL 100 MG TAB PO SCH (07:44)
[2018-12-08] MEDS: DOCUSATE SODIUM 100 MG CAP PO SCH (09:03)
[2018-12-08] MEDS: METOPROLOL TARTRATE 25 MG TAB PO SCH (09:03)
--- NOTE | 2018-12-08 12:33 | Cardiology Progress Note ---
Date of Service December 08, 2018 Assessment & Plan (1) Paroxysmal atrial fibrillation: Patient overnight is reverted back to atrial paced rhythm with resolve of atrial fibrillation on low-dose amiodarone therapy. Blood pressure is improved with rate control she is not a candidate for long-term anticoagulation due to hemoptysis and intramuscular hematoma as previously documented. We will continue amiodarone, discontinue metoprolol (2) Acute on chronic heart failure with preserved ejection fraction: Acute decompensated heart failure on the basis of severe mitral insufficiency. We will anticipate 3 times weekly dialysis (3) Valvular heart disease: Mitral valve clip may be considered in the future for treatment of severe mitral regurgitation. (4) Tachy-xi syndrome: We will continue amiodarone and metoprolol as amiodarone becomes more complete and load likely reduce or discontinue metoprolol (5) Pacemaker: Subjective Patient seen and examined chart medications telemetry reviewed. Patient feels well this morning notes no dyspnea chest pains tachypalpitations dizziness or lightheadedness. Patient is maintaining normal AV conduction with atrial paced rhythm by telemetry. Recurrence of atrial arrhythmias. Blood pressure still trending low and metoprolol has been held. Overall feels well today Physical Exam 2 Vital Signs (Past 24 Hours): Last Vital Signs Temp 36.9 C 12/08/18 06:58 Pulse 68 12/08/18 06:58 Resp 19 12/08/18 06:58 BP 81/52 L 12/08/18 09:07 Pulse Ox 96 12/08/18 06:58 Physical Exam: Physical Exam: General: NAD, AAO x3, well nourished. Appears bright today. HEENT: Normocephalic. Atraumatic. Conjunctiva pink, no scleral icterus. Neck: No carotid bruits, the carotid upstrokes are brisk. No JVD. No HJR Heart: Regular rate and rhythm with atrial paced rhythm on telemetry. Normal S-1 and S -2. 1/6 holosystolic murmur heard best at left ventricular apex. No rub appreciated. PMI is not displaced. No RV heave. Lungs: Clear bilateral without rales , rhonchi, or wheeze. Abdomen: Normal bowel sounds. Soft. Nontender. No masses or organomegaly. No abdominal bruits. Extremities: Trace to mild bilateral pedal edema. No clubbing, or cyanosis. Pulses: radial=2/4, Dorsalis pedis =2/4, posterior tibial=2/4. Neuro: Cranial nerves grossly intact. No focal motor deficit. Results & Data Laboratory Results Laboratory Results - last 24 hr 12/08/18 05:23 Sodium 131 L Potassium 4.0 Chloride 94 L Carbon Dioxide 26 Anion Gap 11.0 BUN 46 H Creatinine 4.85 H* Est Cr Clr Drug Dosing 7.7 Est GFR ( Amer) 8.7 Est GFR (Non-Af Amer) 7.5 BUN/Creatinine Ratio 9.3 L Glucose 92 Calcium 9.4
--- NOTE | 2018-12-08 14:33 | Hospitalist Progress Note ---
Date of Service December 08, 2018 Assessment & Plan (1) Acute on chronic heart failure with preserved ejection fraction: secondary to Valvular Heart Disease, Severe Mitral Regurgitation appears euvolemic today plan for repeat HD On Sunday per Cardiology; She may be considered for mitral valve clip in the future pending clinical course. 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 Iron deficiency. Continue iron supplements. History of chronic obstructive pulmonary disease and pulmonary hypertension -[employer] p.r.n. History of gout allopurinol. History of hypothyroidism Synthroid. Deep venous thrombosis prophylaxis. Sequential compression devices Disposition: management of volume overload in progress PT /OT eval patient would like to return home upon discharge Subjective ff for CHF seen sitting up in bed comfortable, not in distress in good spirits reports pain on the left side of her back- attributes to pain from previous episode of shingles denies shortness of breath, chest pain, dyspnea, palpitations, dizziness no other symptoms Physical Exam 2 Vital Signs (Past 24 Hours): Last Vital Signs Temp 36.5 C 12/08/18 13:08 Pulse 61 12/08/18 13:08 Resp 18 12/08/18 13:08 BP 77/51 L 12/08/18 13:08 Pulse Ox 93 12/08/18 13:08 Physical Exam: General- oriented x 2, not in distress, speaks in sentences with no effort or accessory muscle use Eyes- anicteric Neck- no JVD Lungs- clear breath sounds bilaterally Heart- normal rate, regular rhythm; no murmurs Abdomen- normal bowel sounds, nondistended, soft, nontender Back-mild tenderness mid thoracic--> left side of the back no erythema/warmth Extremities- no pretibial edema, no calf tenderness Neuro- alert, oriented x 3; no gross focal neurologic deficits Skin- warm & dry Results & Data Laboratory Results Laboratory Results - last 24 hr 12/08/18 05:23 Sodium 131 L Potassium 4.0 Chloride 94 L Carbon Dioxide 26 Anion Gap 11.0 BUN 46 H Creatinine 4.85 H* Est Cr Clr Drug Dosing 7.7 Est GFR ( Amer) 8.7 Est GFR (Non-Af Amer) 7.5 BUN/Creatinine Ratio 9.3 L Glucose 92 Calcium 9.4
--- NOTE | 2018-12-08 16:15 | Progress Note ---
DATE: 12/08/2018 NEPHROLOGY NOTE SUBJECTIVE: Overnight, no new issues. I gave Lasix 40 mg IV one time as a trial, but she really did not make any urine even after that. Her blood pressure is running very low and this morning was only 77 systolic. However, she appears quite upbeat and denies any nausea, vomiting, chest pain, shortness of breath or orthopnea. She ate her meal almost entirely. PHYSICAL EXAMINATION: VITAL SIGNS: Blood pressure is 77/51, pulse rate 61, respiratory rate 18, 93% on room air. HEENT: Mucous membrane is moist. NECK: Supple. No jugular venous distention. CHEST: She has bilaterally decreased breath sound. CARDIOVASCULAR: Systolic murmur heard. ABDOMEN: Soft, nontender. EXTREMITIES: Shows trace to 1+ edema, but it is mostly lymphedema. LABORATORY TESTS: Reviewed in detail. Sodium 131, potassium 4.0, BUN 46, creatinine 4.85. The hemoglobin was not done. ASSESSMENT AND PLAN: An 88-year-old female with end-stage renal disease, but mainly related with severe cardiac status. Plan is to do dialysis tomorrow. However, it will be challenging as her blood pressure is very low. The exact prescription of dialysis will be adjusted depending on her condition tomorrow.
[2018-12-09] MEDS: DICLOFENAC SOD 1% GEL 100 GM TUBE EXT SCH ×2 (04:52→21:02)
[2018-12-09] MEDS: TRAMADOL HCL 50 MG TABLET PO PRN ×2 (05:17→20:03)
[2018-12-09] MEDS: LEVOTHYROXINE SODIUM 100 MCG TABLET PO SCH (05:17)
[2018-12-09 07:38] LABS: BUN Creatinine Ratio 11.3 (10-20); Calcium 9.2 mg/dl (8.5-10.1); Creatinine Clr Calc Pharmacy 6.4 ml/min; Est GFR (African American) 6.8; Est GFR (Non-African American) 5.9; Potassium 3.9 mmol/L (3.5-5.1)
[2018-12-09] MEDS: ASPIRIN 81 MG ECTAB PO SCH (10:08)
[2018-12-09] MEDS: LIDOCAINE 5% 1 PATCH TD SCH (10:08)
[2018-12-09] MEDS: ALLOPURINOL 100 MG TAB PO SCH (10:09)
[2018-12-09] MEDS: SENNA 8.6 MG TAB PO SCH (10:09)
[2018-12-09] MEDS: PANTOprazole 40 MG TAB PO SCH (10:10)
[2018-12-09] MEDS: AMIODARONE 200 MG TAB PO SCH ×3 (10:52→21:47)
[2018-12-09] MEDS: DOCUSATE SODIUM 100 MG CAP PO SCH (10:52)
--- NOTE | 2018-12-09 14:25 | Cardiology Progress Note ---
Date of Service December 09, 2018 Assessment & Plan (1) Paroxysmal atrial fibrillation: Patient remains in atrial paced rhythm no recurrence of atrial fibrillation. We will continue amiodarone, metoprolol discontinued. Patient poor long-term anticoagulation candidate (2) Acute on chronic heart failure with preserved ejection fraction: Acute decompensated heart failure on the basis of severe mitral insufficiency. We will anticipate 3 times weekly dialysis. Mild volume overload noted today with anticipated dialysis this afternoon (3) Valvular heart disease: Mitral valve clip may be considered in the future for treatment of severe mitral regurgitation. 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 Patient feels well this morning notes no dyspnea chest pains tachypalpitations dizziness or lightheadedness. Patient is maintaining normal AV conduction with atrial paced rhythm by telemetry. Recurrence of atrial arrhythmias. Blood pressure still trending low and metoprolol has been held. Overall feels well today Physical Exam 2 Vital Signs (Past 24 Hours): Last Vital Signs Temp 36.5 C 12/09/18 13:25 Pulse 60 12/09/18 13:45 Resp 16 12/09/18 13:05 BP 96/60 L 12/09/18 13:45 Pulse Ox 94 12/09/18 13:05 Physical Exam: Physical Exam: General: NAD, AAO x3, well nourished. Appears bright today. HEENT: Normocephalic. Atraumatic. Conjunctiva pink, no scleral icterus. Neck: No carotid bruits, the carotid upstrokes are brisk. No JVD. No HJR Heart: Regular rate and rhythm with atrial paced rhythm on telemetry. Normal S-1 and S -2. 3/6 holosystolic murmur heard best at left ventricular apex. No rub appreciated. PMI is not displaced. No RV heave. Lungs: Bibasilar rales are present. Abdomen: Normal bowel sounds. Soft. Nontender. No masses or organomegaly. No abdominal bruits. Extremities: Trace to mild bilateral pedal edema. No clubbing, or cyanosis. Pulses: radial=2/4, Dorsalis pedis =2/4, posterior tibial=2/4. Neuro: Cranial nerves grossly intact. No focal motor deficit. Results & Data Laboratory Results Laboratory Results - last 24 hr 12/09/18 06:19 Sodium 130 L Potassium 3.9 Chloride 92 L Carbon Dioxide 25 Anion Gap 13.0 H BUN 67 H Creatinine 5.91 H* D Est Cr Clr Drug Dosing 6.4 Est GFR ( Amer) 6.8 Est GFR (Non-Af Amer) 5.9 BUN/Creatinine Ratio 11.3 Glucose 85 Calcium 9.2
--- NOTE | 2018-12-09 18:04 | Nephrology Progress Note ---
Date of Service December 09, 2018 Assessment & Plan (1) ESRD on dialysis: >plan routine HD today >> next HD on 12/11; tolerated 2L UF today ->will permanently be 3d/wk as OP -cont midodrine 5 mg before HD 30 min and additional 5 mg prn hypotension on HD ordered -cont 1.2L FR -sNa on today's labs reflects mild vol OL (2) Acute on chronic heart failure with preserved ejection fraction: -agree w/ holding bumex for now -- she does still void and could use bumex on non hd days -clinically improved -due in part to severe mitral valve rgg>>cardiology considering MV clip in future but remotely and not likely Subjective seen on rounds this am. son at bedside. cardiology cont to adjust amiodarone. walking carefully to bathroom atnd back. no change in edema; feels exertional dyspnea controlled. no palpitations, no n Physical Exam 2 Vital Signs (Past 24 Hours): Last Vital Signs Temp 36.5 C 12/09/18 16:55 Pulse 61 12/09/18 17:30 Resp 16 12/09/18 13:05 BP 99/56 L 12/09/18 17:30 Pulse Ox 94 12/09/18 13:05 Constitutional: well developed, well nourished and + obese on ra nad Eyes: EOM intact bilaterally ENMT: Ears: no external ear abnormality Nose: no external nose abnormality Mouth: + dry oral mucous membranes Neck: no nuchal rigidity Respiratory: Auscultation: + diminished lung sounds Cardiovascular: Rate/Rhythm: regular rate and regular rhythm Extremities: + edema (trace) Gastrointestinal (Abdomen): Inspection/Auscultation: normal bowel sounds Percussion/Palpation: abdomen soft; abdomen nontender Musculoskeletal: Extremities: strength 5/5 throughout Skin: no rashes, warm and dry Neurologic: wilson, fluent speech Psychiatric: A+Ox3, euthymic affect Results & Data Laboratory Results Abnormal lab results 12/09/18 Range/Units 06:19 Sodium 130 L (136-145) mmol/L Chloride 92 L (98-107) mmol/L Anion Gap 13.0 H (3-11) BUN 67 H (7-18) mg/dl Creatinine 5.91 H* D (0.6-1.2) mg/dl
--- NOTE | 2018-12-09 18:49 | Hospitalist Progress Note ---
Date of Service December 09, 2018 Assessment & Plan (1) Acute on chronic heart failure with preserved ejection fraction: secondary to Valvular Heart Disease, Severe Mitral Regurgitation s/p HD today plan for 3x week per Cardiology; She may be considered for mitral valve clip in the future pending clinical course. 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 Iron deficiency. Continue iron supplements. History of chronic obstructive pulmonary disease and pulmonary hypertension -Abe p.r.n. History of gout allopurinol. History of hypothyroidism Synthroid. Deep venous thrombosis prophylaxis. Sequential compression devices Disposition: management of volume overload in progress PT /OT eval anticipate d/c home tomorrow with home health services Subjective ff for CHF sitting up in bed, comfortable smiling states she feels fine overall no dyspnea BP improving no other symptoms Physical Exam 2 Vital Signs (Past 24 Hours): Last Vital Signs Temp 36.5 C 12/09/18 16:55 Pulse 61 12/09/18 17:30 Resp 16 12/09/18 13:05 BP 99/56 L 12/09/18 17:30 Pulse Ox 94 12/09/18 13:05 Physical Exam: General- oriented x 3, not in distress, speaks in sentences with no effort or accessory muscle use Eyes- anicteric Neck- no JVD Lungs- clear BS BL no rales no wheezing Heart- normal rate, regular rhythm; no murmurs Abdomen- normal bowel sounds, nondistended, soft, nontender Extremities- no pretibial edema, no calf tenderness Neuro- alert, oriented x 3; no gross focal neurologic deficits Skin- warm & dry Results & Data Laboratory Results Laboratory Results - last 24 hr 12/09/18 06:19 Sodium 130 L Potassium 3.9 Chloride 92 L Carbon Dioxide 25 Anion Gap 13.0 H BUN 67 H Creatinine 5.91 H* D Est Cr Clr Drug Dosing 6.4 Est GFR ( Amer) 6.8 Est GFR (Non-Af Amer) 5.9 BUN/Creatinine Ratio 11.3 Glucose 85 Calcium 9.2
[2018-12-09] MEDS ORDERED: ALBUMIN 25% 50 ML IV ONE (21:30)
[2018-12-09 21:44] LABS: Basophils # (auto) 0.03 K/uL (0-0.2); Basophils % (auto) 0.3 %; Eosinophils # (auto) 0.19 K/uL (0-0.5); Eosinophils % (auto) 2.2 %; Hematocrit (blood only) 35.9 % (37-47); Hemoglobin 11.9 g/dL (12.0-16.0); Immature Granulocytes # (auto) 0.03 K/uL (0.00-0.02); Immature Granulocytes % (auto) 0.3 %; Lymphocytes # (auto) 0.67 K/uL (1.2-3.4); Lymphocytes % (auto) 7.6 %; Mean Corpuscular Hgb Conc 33.1 g/dL (32-36); Mean Corpuscular Volume 86.1 fL (80-100); Mean Platelet Volume 10.4 fL (7.4-10.4); Monocytes # (auto) 0.88 K/uL (0.11-0.59); Neutrophils # (auto) 6.98 K/uL (1.4-6.5); Neutrophils % (auto) 79.6 %; Platelet Count 241 K/uL (130-400); RDW Coefficient of Variation 15.6 % (11.5-14.5); RDW Standard Deviation 49.2 fL (36.4-46.3); Red Blood Count 4.17 M/uL (4.2-5.4); White Blood Count 8.78 K/uL (4.8-10.8)
[2018-12-10] MEDS: LEVOTHYROXINE SODIUM 100 MCG TABLET PO SCH (06:10)
[2018-12-10 07:50] LABS: Creatinine Clr Calc Pharmacy 9.7 ml/min; Est GFR (African American) 11.5; Est GFR (Non-African American) 9.9; Potassium 3.7 mmol/L (3.5-5.1)
[2018-12-10] MEDS: SENNA 8.6 MG TAB PO SCH (08:58)
[2018-12-10] MEDS: LIDOCAINE 5% 1 PATCH TD SCH (08:58)
[2018-12-10] MEDS: ASPIRIN 81 MG ECTAB PO SCH (08:58)
[2018-12-10] MEDS: PANTOprazole 40 MG TAB PO SCH (08:58)
[2018-12-10] MEDS: ALLOPURINOL 100 MG TAB PO SCH (08:58)
[2018-12-10] MEDS: DOCUSATE SODIUM 100 MG CAP PO SCH (09:05)
[2018-12-10] MEDS: AMIODARONE 200 MG TAB PO SCH (09:09)
[2018-12-10] MEDS: DICLOFENAC SOD 1% GEL 100 GM TUBE EXT SCH (09:10)
--- NOTE | 2018-12-10 10:48 | Hospitalist Progress Note ---
Date of Service December 10, 2018 Assessment & Plan (1) Acute on chronic heart failure with preserved ejection fraction: secondary to Valvular Heart Disease, Severe Mitral Regurgitation seen by Nephro received additional HD plan to increase HD to 3x a week to optimize volume status per Cardiology; She may be considered for mitral valve clip in the future pending clinical course. 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 Iron deficiency. Continue iron supplements. History of chronic obstructive pulmonary disease and pulmonary hypertension -Abe p.r.n. History of gout allopurinol. History of hypothyroidism Synthroid. Deep venous thrombosis prophylaxis. Sequential compression devices Disposition: d/c home today with home health ff up with PCP in [address] Crowley 12/17/18 at 1245 ff up with [facility] for HD MWF ff up with Cardio as scheduled Subjective ff for CHF sitting up in bed, reading a book comfortable states she feels fine overall denies dyspnea, dizziness, chest pain, palpitaitons no other symptoms states she is ready and would like to be discharged today Physical Exam 2 Vital Signs (Past 24 Hours): Last Vital Signs Temp 36.6 C 12/10/18 07:34 Pulse 60 12/10/18 07:34 Resp 18 12/10/18 07:34 BP 95/58 L 12/10/18 07:34 Pulse Ox 99 12/10/18 07:34 Physical Exam: General- oriented x 3, not in distress, speaks in sentences with no effort or accessory muscle use Eyes- anicteric Neck- no JVD Lungs- clear breath sounds bilaterally no rales/wheezes Heart- normal rate, regular rhythm; no murmurs Abdomen- normal bowel sounds, nondistended, soft, nontender Extremities- no pretibial edema, no calf tenderness Neuro- alert, oriented x 3; no gross focal neurologic deficits Skin- warm & dry Results & Data Laboratory Results Laboratory Results - last 24 hr 12/09/18 12/09/18 12/09/18 21:31 21:31 21:31 WBC 8.78 RBC 4.17 L Hgb 11.9 L Hct 35.9 L MCV 86.1 MCH 28.5 MCHC 33.1 RDW Std Deviation 49.2 H RDW Coeff of Cornel 15.6 H Plt Count 241 MPV 10.4 Immature Gran % (Auto) 0.3 Neut % (Auto) 79.6 Lymph % (Auto) 7.6 Page % (Auto) 10.0 Eos % (Auto) 2.2 Baso % (Auto) 0.3 Immature Gran # (Auto) 0.03 H Neut # (Auto) 6.98 H Lymph # (Auto) 0.67 L Page # (Auto) 0.88 H Eos # (Auto) 0.19 Baso # (Auto) 0.03 Sodium Potassium Chloride Carbon Dioxide Anion Gap BUN Creatinine Est Cr Clr Drug Dosing Est GFR ( Amer) Est GFR (Non-Af Amer) BUN/Creatinine Ratio Glucose Lactate 1.3 Calcium Blood Type A Positive Antibody Screen NEGATIVE 12/10/18 06:17 WBC RBC Hgb Hct MCV MCH MCHC RDW Std Deviation RDW Coeff of Cornel Plt Count MPV Immature Gran % (Auto) Neut % (Auto) Lymph % (Auto) Page % (Auto) Eos % (Auto) Baso % (Auto) Immature Gran # (Auto) Neut # (Auto) Lymph # (Auto) Page # (Auto) Eos # (Auto) Baso # (Auto) Sodium 131 L Potassium 3.7 Chloride 95 L Carbon Dioxide 26 Anion Gap 11.0 BUN 31 H D Creatinine 3.85 H D Est Cr Clr Drug Dosing 9.7 Est GFR ( Amer) 11.5 Est GFR (Non-Af Amer) 9.9 BUN/Creatinine Ratio 8.0 L Glucose 85 Lactate Calcium 9.0 Blood Type Antibody Screen
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
--- NOTE | 2018-12-10 16:10 | Cardiology Progress Note ---
Date of Service December 10, 2018 Assessment & Plan (1) Paroxysmal atrial fibrillation: Patient remains in atrial paced rhythm no recurrence of atrial fibrillation. We will continue amiodarone, metoprolol discontinued. Patient poor long-term anticoagulation candidate Arrangements [facility] for [facility] as well as interventional cardiology planned appointment/valve clinic (2) Acute on chronic heart failure with preserved ejection fraction: Acute decompensated heart failure on the basis of severe mitral insufficiency. We will anticipate 3 times weekly dialysis. Volume overload improved (3) Valvular heart disease: Mitral valve clip may be considered in the future for treatment of severe mitral regurgitation. 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 Patient feels well this morning notes no dyspnea chest pains tachypalpitations dizziness or lightheadedness. No further arrhythmias on telemetry remains in atrial paced mechanism Physical Exam 2 Vital Signs (Past 24 Hours): Last Vital Signs Temp 36.4 C L 12/10/18 11:57 Pulse 60 12/10/18 11:57 Resp 18 12/10/18 11:57 BP 90/60 L 12/10/18 11:57 Pulse Ox 97 12/10/18 11:57 Physical Exam: Physical Exam: General: NAD, AAO x3, well nourished. Appears bright today. HEENT: Normocephalic. Atraumatic. Conjunctiva pink, no scleral icterus. Neck: No carotid bruits, the carotid upstrokes are brisk. No JVD. No HJR Heart: Regular rate and rhythm with atrial paced rhythm on telemetry. Normal S-1 and S-2. 3/6 holosystolic murmur heard best at left ventricular apex. No rub appreciated. PMI is not displaced. No RV heave. Lungs : Bibasilar crackles are present. Abdomen: Normal bowel sounds. Soft. Nontender. No masses or organomegaly. No abdominal bruits. Extremities: Trace to mild bilateral pedal edema. No clubbing, or cyanosis. Pulses: radial=2/4, Dorsalis pedis =2/4, posterior tibial=2/4. Neuro: Cranial nerves grossly intact. No focal motor deficit.
== END 2018-12-10 13:30 | disposition home health service (06) | DRG 306 ==
LOC: ED 03:36 → 1E 06:32 → SUATTDRO 06:32 → 1E 07:45 → 2N 12-04 10:56
DX: Z99.2 Dependence on renal dialysis; Z79.899 Other long term (current) drug therapy; R79.89 Other specified abnormal findings of blood chemistry; M10.9 Gout, unspecified; I50.33 Acute on chronic diastolic (congestive) heart failure; E03.9 Hypothyroidism, unspecified; Z79.82 Long term (current) use of aspirin; I48.0 Paroxysmal atrial fibrillation; Z82.49 Family history of ischemic heart disease and other diseases of the circulatory system; Z88.6 Allergy status to analgesic agent; Z88.8 Allergy status to other drugs, medicaments and biological substances; D50.9 Iron deficiency anemia, unspecified; I95.9 Hypotension, unspecified; Z86.79 Personal history of other diseases of the circulatory system; I08.1 Rheumatic disorders of both mitral and tricuspid valves; B02.23 Postherpetic polyneuropathy; E66.01 Morbid (severe) obesity due to excess calories; Z95.0 Presence of cardiac pacemaker; Z66 Do not resuscitate; D72.829 Elevated white blood cell count, unspecified; J44.9 Chronic obstructive pulmonary disease, unspecified; N18.6 End stage renal disease; G70.00 Myasthenia gravis without (acute) exacerbation; D63.1 Anemia in chronic kidney disease; Z68.41 Body mass index [BMI] 40.0-44.9, adult; I27.20 Pulmonary hypertension, unspecified

== ENCOUNTER 2019-04-13 22:59 | Inpatient (IN) ==
--- OUTSIDE RECORDS SUMMARY | 2019-04-13 23:01 | External Medical Summary | Continuity of Care Document ---
:1930 Author Name Sherry Ding, Provider Address Unavailable Unavailable , Care Team Providers Name Role Phone Michel Stephenson M.D. Unavailable [email or web address] PAMELLA POWER Unavailable Unavailable Assessments Assessment Narrative:Hiatal hernia. Problems Raynaud phenomenon (443.0) (I73.00) Gout (274.9) (M10.9) Chronic kidney disease, stage III (moderate) (585.3) (N18.3) Pulmonary hypertension (416.8) (I27.20) COPD (chronic obstructive pulmonary disease) (496) (J44.9) Afib (427.31) (I48.91) Myasthenia gravis (358.00) (G70.00) Hyperlipidemia (272.4) (E78.5) Osteoporosis (733.00) (M81.0) Mitral insufficiency (424.0) (I34.0) GERD (gastroesophageal reflux disease) (530.81) (K21.9) Pacemaker (V45.01) (Z95.0) Allergies and Adverse Reactions codeine (Allergy) methocarbamol (Allergy) Naproxen TABS (Allergy) Statins (Allergy) Medications Bumex 1 MG Oral Tablet; TAKE 1 TABLET TWICE DAILY. Start: 29-Jul-2018 Refills: 0 Aspirin 81 MG Oral Tablet Delayed Release; TAKE 1 TABLET BELLA LY. Start: 29-Jul-2018 Refills: 0 Allopurinol 300 MG Oral Tablet; TAKE 1 TABLET DAILY. Start: 29-Jul-2018 Refills: 0 Coumadin 5 MG Oral Tablet; TAKE 1 TABLET DAILY. Start: 29-Jul-2018 Refills: 0 Spironolactone 25 MG Oral Tablet; TAKE 1/2 TABLET DAILY. Start: 29-Jul-2018 Refills: 0 Sotalol HCl - 80 MG Oral Tablet; TAKE 1 TABLET TWICE DAILY. Start: 29-Jul-2018 Refills: 0 Synthroid 100 MCG Oral Tablet; TAKE 1 TABLET DAILY. Start: 29-Jul-2018 Refills: 0 Iron 325 (65 Fe) MG Oral Tablet; TAKE 1 TABLET DAILY DIRE CTED. Start: 29-Jul-2018 Refills: 0 Vitamin D 1000 UNIT Oral Tablet; TAKE 1 TABLET DAILY. Start: 29-Jul-2018 Refills: 0 Biotin 2500 MCG Oral Capsule Start: Refills: 0 Procedures History of Knee Replacement Status: Comp leted History of Appendectomy Status: Complete d History of Tonsillectomy Status: Complet ed History of umbilical hernia repair Statu s: Completed History of Hysterectomy Status: Complete d Immunizations Immunizations not documented Family History Mother Family history of Status: Active Father Family history of Status: Active Social History - Smoking Status Never smoker Interventions Discussion/SummaryQuite frankly, this 88-year-old looks much better and I think the symptoms from her hiatal hernia are minimal. While one could certainly make a case for addressing this surgically, I would not push it on this obese 88-year-old female with multiple other comorbidities. I am going to follow her up as needed. I have explained to the patient and her family that we are here if she needs us. I would be glad to revisit the topic of a hiatal hernia repair if she were to run into trouble. She seemed very pleased with this plan. Plan of Treatment Planned Observations Planned Goals not documented Results No Known Results Results not documented Encounters Appointment; Michel Stephenson M.D. 29-Jul-2018 14:15 Encounter Diagnosis: Problem not documented
[2019-04-14] MEDS ORDERED: FUROSEMIDE 120 MG in SYRINGE 0 ML IV STA (00:27)
[2019-04-14] MEDS ORDERED: NITROGLYCERIN 2% OINTMENT 30GM TUBE EXT ONE (00:27)
[2019-04-14] MEDS ORDERED: metOLazone 5 MG TABLET PO ONE (00:27)
[2019-04-14 00:33] LABS: Basophils # (auto) 0.03 K/uL (0-0.2); Basophils % (auto) 0.2 %; Eosinophils % (auto) 0.8 %; Hematocrit (blood only) 38.1 % (37-47); Hemoglobin 12.7 g/dL (12.0-16.0); Immature Granulocytes # (auto) 0.03 K/uL (0.00-0.02); Immature Granulocytes % (auto) 0.2 %; Mean Corpuscular Hgb Conc 33.3 g/dL (32-36); Monocytes # (auto) 1.23 K/uL (0.11-0.59); Neutrophils # (auto) 9.79 K/uL (1.4-6.5); Neutrophils % (auto) 79.8 %; Platelet Count 255 K/uL (130-400); RDW Coefficient of Variation 14.3 % (11.5-14.5); RDW Standard Deviation 44.2 fL (36.4-46.3); Red Blood Count 4.48 M/uL (4.2-5.4); White Blood Count 12.28 K/uL (4.8-10.8)
[2019-04-14] MEDS ORDERED: FUROSEMIDE 40 MG/4 ML VIAL IV ONE (00:34)
[2019-04-14 00:42] LABS: BUN Creatinine Ratio 19.2 (10-20); Calcium 9.6 mg/dl (8.5-10.1); Creatinine Clr Calc Pharmacy 12.6 ml/min; Est GFR (African American) 15.4; Est GFR (Non-African American) 13.3; Potassium 3.8 mmol/L (3.5-5.1)
[2019-04-14 00:48] LABS: Albumin Globulin Ratio 1.1 (0.9-2); Bilirubin,Total 0.5 mg/dl (0.2-1); Globulin 3.7 gm/dl (2.5-4.0); Total Protein 7.7 gm/dl (6.4-8.2); Troponin I 0.049 ng/ml (0-0.045)
[2019-04-14] MEDS ORDERED: MoRPHine SULFATE 2 MG/ML CARP IV STA (00:52)
[2019-04-14] MEDS ORDERED: MoRPHine SULFATE 4 MG/ML 1 ML CARP\\VIAL IV STA (01:03)
[2019-04-14] MEDS ORDERED: RAPID SEQUENCE INDUCTION BAG ONE (01:09)
[2019-04-14] MEDS ORDERED: PROPOFOL IV EMULSION 10 MG/ML 100 ML VIAL IV ONE (01:09)
[2019-04-14] MEDS ORDERED: NITROGLYCERIN/D5W 100MCG/ML 250 ML IV SCH (01:15)
[2019-04-14 01:40] LABS: Phosphorus 4.5 mg/dl (2.5-4.9)
[2019-04-14] MEDS ORDERED: ALBUT/IPRATROP 3MG/0.5MG NEB 3 ML VIAL NEB STA (01:51)
[2019-04-14] MEDS ORDERED: ALBUT/IPRATROP 3MG/0.5MG NEB 3 ML VIAL ONE (01:55)
--- NOTE | 2019-04-14 01:59 | History & Physical Report ---
Date of Service April 14, 2019 Assessment & Plan (1) Acute hypoxemic respiratory failure: Secondary to decompensated HF failure History diastolic dysfunction hx valvular heart disease (severe mitral regurgitation; moderate aortic/tricuspid regurgitation) hx ESRD on HD Possibly precipitated by "higher than usual" home blood pressure (Patient's BP usually low as per son.) SSS sp PPM, patient NSR currently not on Coumadin secondary to bleeding history Bilateral LE swelling secondary to CHF rule out LE DVT NICKY as per records COPD/restrictive lung disease as per records chronic anemia secondary to ESRD, hemoglobin at baseline myasthenia gravis, currently in remission Hyperglycemia rule out DM ICU Baseline ABG Continue BiPAP Cardiology consult RE decompensated heart failure Nephrology consult RE emergent dialysis for pulmonary edema causing significant respiratory distress (ER provider already in touch with Dr. Shea. He recommends emergent hemodialysis in addition to initial diuretics administered at the emergency room.) Monitor patient BP, may need beta-guera addition Strict I/Os, daily weights, CHF education LE venous Dopplers rule out DVT check hemoglobin A1c DVT prophylaxis. Heparin subcu Conditional CODE STATUS (okay with intubation; no CPR) Patient son requesting updates from providers. Mr. Josef Majano, contact #[phone]. History of Present Illness Chief Complaint: Shortness of breath Primary Care Provider: Irish Crowley MD History obtained from patient, family, and records. 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 Recent confinement November 2018 for decompensated heart failure. Watchman device recommended by [facility] operational test mechanic doing February 2019 outpatient visit. Patient still contemplating decision. The last 3 days, patient heart rate noted to be higher than usual, 100-110s. As per son, patient SBP 120s which is high for patient's usual low blood pressures. Patient denies unusual stress/anxiety/dietary indiscretion. Compliant with home meds and scheduled hemodialysis. Denies chest pain, cough symptoms. Legs increasingly noted to be more swollen. Patient brought to the ER with worsening shortness of breath, fluid retention issues. At the ER, patient noted to be in respiratory distress. BiPAP initiated. Lasix, Zaroxolyn, Nitro , Morphine administered at the ER. 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 gabapentin AdvReac Severe drug Verified 04/14/19 00:54 induced lupus codeine AdvReac Unknown GASTRIC Verified 04/14/19 00:54 UPSET methocarbamol AdvReac Unknown Nausea/Vomi Verified 04/14/19 00:54 ting [id number]-[id number] Reductase AdvReac Unknown MUSCLE Verified 04/14/19 00:54 Inhibitor WEAKNESS Home Medications Home Medications Medication Instructions Recorded Confirmed Type aspirin [Aspirin Childrens] 81 mg PO HS 08/20/18 04/14/19 History levothyroxine [Synthroid] 100 mcg PO DAILY 08/20/18 04/14/19 History pantoprazole 40 mg PO DAILY 08/20/18 04/14/19 History docusate sodium [Colace] 100 mg PO DAILY 12/03/18 04/14/19 History midodrine 5 mg PO DIRECTED 12/03/18 04/14/19 History sennosides [Senna Laxative] 8.6 mg PO DAILY PRN 12/03/18 04/14/19 History amiodarone 200 mg PO DAILY 04/14/19 04/14/19 History cholecalciferol (vitamin D3) 1,000 unit PO DAILY 04/14/19 04/14/19 History [Vitamin D3] Past Med/Surg History Medical History Anemia Hyponatremia Elevated troponin Hypotension Tricuspid regurgitation Mitral insufficiency COPD (chronic obstructive pulmonary disease) Pulmonary edema Acute on chronic heart failure with preserved ejection fraction Acute decompensated heart failure on the basis of mixed valvular heart disease with history of moderate to severe mitral insufficiency, severe tricuspid insufficiency, moderate aortic insufficiency. 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) Obstructive type of ventilatory defect with mild restriction which may be related to patient's morbid obesity (per 2015 PFTs) Morbid obesity (Chronic) CKD (chronic kidney disease), stage III (Chronic) Gout (Chronic) Pulmonary HTN (Chronic) Myasthenia gravis (Chronic) Subacute cutaneous lupus erythematosus (Chronic) Acute on chronic diastolic HF (heart failure) (Acute) In setting of mixed valvular disease Hypothyroidism (Chronic) Pacemaker (Chronic) Atrial fibrillation (Chronic) on anticoaguation Congestive heart failure Surgical History H/O: hysterectomy (Resolved) History of tonsillectomy (Resolved) History of appendectomy (Resolved) History of permanent cardiac pacemaker placement (Resolved) Family History Other Heart disease Stroke Social History Preferred Language: Ivorian Communication Ability: Effective Visual Impairment: No Limitations Mushroom Growing Supervisor Required: No Beliefs That Will Affect Care: None marital status: / Current Living Situation: Alone current occupational status: retired Other Information That Helps Us Care for You: No Feels Safe at Home: Yes Safety Concerns: Feels Safe At This Time Smoking Status: Never smoker Second Hand Exposure: No Hx Alcohol Use: No Hx Substance Use: No Review of Systems Review of Systems: As per HPI, all 10 systems reviewed, all other ROS negative Physical Exam Physical Exam: GENERAL: Pleasant, slightly uncomfortable, minimal respiratory distress, obese SKIN: Sallow , warm HEENT: Pale palpebral conjunctivae, no ptosis, dry buccal mucosa, BiPAP in place NECK : Supple, short, no tenderness CHEST : Bilateral crackles, expiratory wheezes , no tenderness HEART : RRR, systolic murmur ABDOMEN: Some distention, nontender EXTREMITIES : Bilateral LE swelling with leg wrappings noted, no LE tenderness, no other conspicuous deformities noted NEUROLOGIC : Coherent, no facial asymmetry, gait and stance not assessed Results & Data Vital Signs (Past 12 Hours) Vital Signs Temp Pulse Pulse Resp BP BP Pulse Ox 04/14/19 01:55 90 24 110/70 98 04/14/19 01:50 89 22 109/64 95 04/14/19 01:45 93 H 25 H 108/62 95 04/14/19 01:40 98 H 30 H 118/72 94 04/14/19 01:35 97 H 26 H 119/65 94 04/14/19 01:30 104 H 29 H 127/91 94 04/14/19 01:26 99 H 30 H 94 04/14/19 01:25 100 H 29 H 152/93 H 94 04/14/19 01:22 104 H 32 H 161/93 H 97 04/14/19 01:12 106 H 28 H 169/90 H 94 04/14/19 00:41 110 H 36 H 133/86 96 04/14/19 00:22 110 H 32 H 95 04/14/19 00:17 108 H 32 H 141/92 H 94 04/13/19 23:15 36.5 C 22 121/75 Laboratory Results Laboratory Results WBC 12.28 K/uL (4.8-10.8) H 04/14/19 00:02 RBC 4.48 M/uL (4.2-5.4) 04/14/19 00:02 Hgb 12.7 g/dL (12.0-16.0) 04/14/19 00:02 Hct 38.1 % (37-47) 04/14/19 00:02 MCV 85.0 fL (80-100) 04/14/19 00:02 MCH 28.3 pg (25-34) 04/14/19 00:02 MCHC 33.3 g/dL (32-36) 04/14/19 00:02 RDW Std Deviation 44.2 fL (36.4-46.3) 04/14/19 00:02 RDW Coeff of Cornel 14.3 % (11.5-14.5) 04/14/19 00:02 Plt Count 255 K/uL (130-400) 04/14/19 00:02 MPV 11.0 fL (7.4-10.4) H 04/14/19 00:02 Immature Gran % (Auto) 0.2 % 04/14/19 00:02 Neut % (Auto) 79.8 % 04/14/19 00:02 Lymph % (Auto) 9.0 % 04/14/19 00:02 [place] % (Auto) 10.0 % 04/14/19 00:02 Eos % (Auto) 0.8 % 04/14/19 00:02 Baso % (Auto) 0.2 % 04/14/19 00:02 Immature Gran # (Auto) 0.03 K/uL (0.00-0.02) H 04/14/19 00:02 Neut # (Auto) 9.79 K/uL (1.4-6.5) H 04/14/19 00:02 Lymph # (Auto) 1.10 K/uL (1.2-3.4) L 04/14/19 00:02 [place] # (Auto) 1.23 K/uL (0.11-0.59) H 04/14/19 00:02 Eos # (Auto) 0.10 K/uL (0-0.5) 04/14/19 00:02 Baso # (Auto) 0.03 K/uL (0-0.2) 04/14/19 00:02 Sodium 130 mmol/L (136-145) L 04/14/19 00:02 Potassium 3.8 mmol/L (3.5-5.1) 04/14/19 00:02 Chloride 92 mmol/L (98-107) L 04/14/19 00:02 Carbon Dioxide 27 mmol/L (21-32) 04/14/19 00:02 Anion Gap 11.0 (3-11) 04/14/19 00:02 BUN 58 mg/dl (7-18) H 04/14/19 00:02 Creatinine 3.02 mg/dl (0.6-1.2) H 04/14/19 00:02 Est Cr Clr Drug Dosing 12.6 ml/min 04/14/19 00:02 Est GFR ( Amer) 15.4 04/14/19 00:02 Est GFR (Non-Af Amer) 13.3 04/14/19 00:02 BUN/Creatinine Ratio 19.2 (10-20) 04/14/19 00:02 Glucose 116 mg/dl (70-99) H 04/14/19 00:02 Calcium 9.6 mg/dl (8.5-10.1) 04/14/19 00:02 Phosphorus 4.5 mg/dl (2.5-4.9) 04/14/19 00:02 Magnesium 2.0 mg/dl (1.8-2.4) 04/14/19 00:02 Total Bilirubin 0.5 mg/dl (0.2-1) 04/14/19 00:02 AST 16 U/L (15-37) 04/14/19 00:02 ALT 17 U/L (12-78) 04/14/19 00:02 Alkaline Phosphatase 90 U/L (45-117) 04/14/19 00:02 Troponin I 0.049 ng/ml (0-0.045) H* 04/14/19 00:02 NT-Pro-B Natriuret Pep 3991 pg/ml (0-1800) H 04/14/19 00:02 Total Protein 7.7 gm/dl (6.4-8.2) 04/14/19 00:02 Albumin 4.0 gm/dl (3.4-5.0) 04/14/19 00:02 Globulin 3.7 gm/dl (2.5-4.0) 04/14/19 00:02 Albumin/Globulin Ratio 1.1 (0.9-2) 04/14/19 00:02 Lipase 215 U/L (73-393) 04/14/19 00:02 Diagnostic Findings Chest x-ray as per my interpretation pulmonary edema, bilateral pleural effusions EKG as per my interpretation : Rate 80, NSR, diffuse T wave flattening over limb leads, ST depression lateral leads
[2019-04-14 02:21] LABS: Partial Thromboplastin Ratio 1.1
[2019-04-14] MEDS ORDERED: ICU PROTOCOL FOR HYPERGLYCEMIA PRN (03:09)
[2019-04-14] MEDS ORDERED: LEVALBUTEROL 1.25MG/0.5ML NEB INH PRN (03:09)
[2019-04-14] MEDS ORDERED: ACETAMINOPHEN 325 MG TAB PO PRN (03:09)
[2019-04-14] MEDS ORDERED: MIDODRINE HCL 2.5 MG TAB PO PRN (03:09)
[2019-04-14] MEDS ORDERED: PROMETHAZINE HCL 12.5 MG in SODIUM CHLORIDE 0.9% 50 ML IV PRN (03:09)
[2019-04-14] MEDS ORDERED: HYDROmorphone INJ 0.5 MG/0.5 ML SYR IV PRN (03:09)
[2019-04-14] MEDS ORDERED: TRAMADOL HCL 50 MG TABLET PO PRN (03:09)
[2019-04-14] MEDS ORDERED: XOPENEX/ATROVENT 1.25mg/0.5MG NEB COMBO NEB PRN (03:09)
[2019-04-14] MEDS ORDERED: SENNA 8.6 MG TAB PO PRN (03:09)
[2019-04-14] MEDS ORDERED: IPRATROPIUM BROMIDE NEB SOLN 0.02% 2.5 ML VIAL INH PRN (03:09)
[2019-04-14 03:47] LABS: Prothrombin Time 10.3 Seconds (9.0-12.0)
[2019-04-14 04:15] LABS: Hepatitis B Surface Antibody Immune
[2019-04-14 04:26] LABS: Hepatitis B Surface Antigen Neg (Neg)
[2019-04-14] MEDS ORDERED: HEPARIN SOD 5,000 UNIT/0.5 ML VIAL SQ SCH ×2 (06:00→21:00)
[2019-04-14 06:45] LABS: Estimated Average Glucose 97 mg/dl
--- NOTE | 2019-04-14 06:47 | XRay Report ---
XR chest 1V portable CLINICAL HISTORY: Shortness of breath. COMPARISON STUDY: Chest radiograph December 03, 2018. FINDINGS: Patient is rotated. A right internal jugular dual lumen catheter remains in place. There is a dual-lead left subclavian pacemaker. Cardiomegaly is again noted. Right hilar prominence is noted. This may be due to patient rotation. Diffuse interstitial thickening and bilateral opacities are not ed. There is no pneumothorax. There are suspected small bilateral pleural effusions. IMPRESSION: 1. Extensive interstitial thickening and bilateral opacities. The findings favor pulmonary edema alth ough bilateral pneumonia could appear similar. Radiographic follow-up is recommended. 2. Small bilateral pleural effusions. Electronically signed by: Zacarias Diaz M.D. 04/14/2019 6:46 AM
[2019-04-14] MEDS: LEVOTHYROXINE SODIUM 100 MCG TABLET PO SCH (07:49)
--- NOTE | 2019-04-14 08:15 | Nephrology Consultation ---
Date of Consultation April 14, 2019 Assessment & Plan (1) ESRD on dialysis: pt on mwf HD; she had emergent HD 3 hrs overnight w/ 2.4 L removed; unable to achieve 3L UF goal d/t hypotension. her blood pressures currently, serum chemistries, anemia, dialysis clearance are all acceptable at this time. More work to do to optimize her volume status but this will be incremental work. Her hyponatremia is stable/ moderate and likely reflects volume overload -no further HD today unless marked change in status -reassess needs on 04/15, but likely to need tx at that time primarily for volume mgt -daily bmp, hgb Present on Admission?: Yes (2) Acute on chronic heart failure with preserved ejection fraction: pt w/ chronic valvular/ R HF and presenting here w/ volume overload; pulmonary edema; low threshold to repeat TTE if not already planned Present on Admission?: Yes (3) Acute pulmonary edema: improved after aggressive HD, no longer needing bipap; follow clinically and per ICU team Present on Admission?: Yes History of Present Illness Reason for Consultation: ESRD admitted w/ acute pulmonary edema Requesting Physician: Dr Fajardo Attending Physician: Julio Lubin MD History of Present Illness 88 y/o F who had emergent HD overnight in ICU for 3 hrs after she was admitted w/ pulmonary edema; 2.4 kg of fluid was removed. She dialyzes under my care at [facility] via tunnelled dialysis catheter; she is adherent w/ dialysis treatemnts. Other pmh includes pulmonary HTN, valvular disease (severe mitral and moderate aortic/ tricuspid insufficiency), chronic valvular/R heart failure from same, paroxysmal a fib not on AC, hypothyroid, COPD/restrictive lung disease per report secondary to kyphoscoliosis. she lives independently w/ strong family support at baseline and ambulates w/ a walker. She has chronic hypotension w/ sbp running often in 80-100s at dialysis and needing midodrine to maintain these pressures. she has not tolerated attempts to wean her dialysis in the past d/t volume issues despite improvements in creatinine. She generally has very low blood pressures which make hitting fluid removal targets challenging. She has recently been doing lymphedema therapy as OP to help w/ fluid overlaod issues. She presented to the ER w/ HR in 120s and relatively elevated SBP in 120s; no reported dietary indiscretions or missed dialysis treatments. Pt and her son are very educated about dialysis care >> her son noticed more swelling recently (past 36 hrs) but less fluid removal at dialysis - ie, she has been coming in close to her target weight despite more swelling. pt did walk in and out of [facility] yesterday w/o issues, went home, cooked own lunch; but by evening she was feeling so sob that she came to ER Allergies Allergy/AdvReac Type Severity Reaction Status Date / Time naproxen Allergy Unknown Black Verified 04/14/19 00:54 stool/bleeding. gabapentin AdvReac Severe drug Verified 04/14/19 00:54 induced lupus codeine AdvReac Unknown GASTRIC Verified 04/14/19 00:54 UPSET methocarbamol AdvReac Unknown Nausea/Vomi Verified 04/14/19 00:54 ting Dupxaxc-Nju-Iuz Reductase AdvReac Unknown MUSCLE Verified 04/14/19 00:54 Inhibitor WEAKNESS Home Medications Home Medications Medication Instructions Recorded Confirmed Type aspirin [Aspirin Childrens] 81 mg PO HS 08/20/18 04/14/19 History levothyroxine [Synthroid] 100 mcg PO DAILY 08/20/18 04/14/19 History pantoprazole 40 mg PO DAILY 08/20/18 04/14/19 History docusate sodium [Colace] 100 mg PO DAILY 12/03/18 04/14/19 History midodrine 5 mg PO DIRECTED 12/03/18 04/14/19 History sennosides [Senna Laxative] 8.6 mg PO DAILY PRN 12/03/18 04/14/19 History amiodarone 200 mg PO DAILY 04/14/19 04/14/19 History cholecalciferol (vitamin D3) 1,000 unit PO DAILY 04/14/19 04/14/19 History [Vitamin D3] Patient History Medical History Anemia Hyponatremia Elevated troponin Hypotension Tricuspid regurgitation Mitral insufficiency COPD (chronic obstructive pulmonary disease) Pulmonary edema Acute on chronic heart failure with preserved ejection fraction Acute decompensated heart failure on the basis of mixed valvular heart disease with history of moderate to severe mitral insufficiency, severe tricuspid insufficiency, moderate aortic insufficiency. 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) Obstructive type of ventilatory defect with mild restriction which may be related to patient's morbid obesity (per 2015 PFTs) Morbid obesity (Chronic) CKD (chronic kidney disease), stage III (Chronic) Gout (Chronic) Pulmonary HTN (Chronic) Myasthenia gravis (Chronic) Subacute cutaneous lupus erythematosus (Chronic) Acute on chronic diastolic HF (heart failure) (Acute) In setting of mixed valvular disease Hypothyroidism (Chronic) Pacemaker (Chronic) Atrial fibrillation (Chronic) on anticoaguation Congestive heart failure Surgical History H/O: hysterectomy (Resolved) History of tonsillectomy (Resolved) History of appendectomy (Resolved) History of permanent cardiac pacemaker placement (Resolved) Family History Other Heart disease Stroke Social History Preferred Language: Amharic Communication Ability: Effective Visual Impairment: No Limitations Wheel Inspector Required: No Beliefs That Will Affect Care: None marital status: / Current Living Situation: Alone current occupational status: retired Other Information That Helps Us Care for You: No Feels Safe at Home: Yes Safety Concerns: Feels Safe At This Time Smoking Status: Never smoker Second Hand Exposure: No Hx Alcohol Use: No Hx Substance Use: No Review of Systems Review of Systems: All systems reviewed & are unremarkable except as noted in HPI & below Constitutional: as per Subjective / HPI, + fatigue and + weakness; no fever and no chills Eyes: no worsening vision Ear, Nose, Mouth, Throat: + dry mouth Respiratory: as per Subjective / HPI; no cough and no pain on inspiration Cardiovascular: + edema; no chest pain Gastrointestinal: no abdominal pain, no vomiting and no change in bowel habits Genitourinary: no change in chronic voiding habits; minimal uop daily Musculoskeletal: no myalgia and no muscle weakness Integumentary: no rash and no non-healing lesions Psychiatric: no behavioral changes Endocrine: + fatigue Hematologic / Lymphatic: no easy bleeding Physical Exam Constitutional: well developed, well nourished and + obese sitting in bed A& 0 x 3 on 02nc Eyes: EOM intact bilaterally ENMT: Ears: no external ear abnormality Nose: no external nose abnormality Mouth: + dry oral mucous membranes Neck: no nuchal rigidity Respiratory: normal respiratory effort; no labored breathing Auscultation: + diminished lung sounds and + crackles (about 2/[address] up posteriorly - her baseline); no wheezes kyphotic spine Cardiovascular: Rate/Rhythm: regular rate and regular rhythm Heart Sounds: + murmur Extremities: + edema (at most 1+) Gastrointestinal (Abdomen): Inspection/Auscultation: normal bowel sounds Percussion/Palpation: abdomen soft; abdomen nontender Musculoskeletal: Extremities: strength 5/5 throughout wilson, fluent speech Skin: no rashes, warm and dry Neurologic: wilson, fluent speech, no tremor Psychiatric: A+Ox3, euthymic affect Results & Data Vital Signs (Past 12 Hours) Vital Signs Temp Pulse Pulse Pulse Pulse Resp BP 04/14/19 07:15 66 24 04/14/19 06:26 36.3 C L 66 66 107/67 04/14/19 06:20 66 95/65 L 04/14/19 06:00 68 68 20 99/70 L 04/14/19 05:40 67 91/61 L 04/14/19 05:20 66 93/59 L 04/14/19 05:00 69 65 16 95/61 L 04/14/19 04:40 63 89/59 L 04/14/19 04:20 65 93/62 L 04/14/19 04:00 36.7 C 64 65 14 106/64 04/14/19 03:40 69 113/73 04/14/19 03:25 36.4 C 78 78 140/79 04/14/19 03:19 36.7 C 84 18 04/14/19 03:09 73 20 04/14/19 02:53 84 20 04/14/19 02:25 85 23 04/14/19 02:15 86 25 H 04/14/19 02:10 84 23 04/14/19 02:05 87 21 04/14/19 02:00 88 23 04/14/19 01:59 89 23 04/14/19 01:55 90 24 04/14/19 01:50 89 22 04/14/19 01:45 93 H 25 H 06/10/19 01:40 98 H 30 H 04/14/19 01:35 97 H 26 H 04/14/19 01:30 104 H 29 H 04/14/19 01:26 99 H 30 H 04/14/19 01:25 100 H 29 H 04/14/19 01:22 104 H 32 H 04/14/19 01:12 106 H 28 H 04/14/19 00:41 110 H 36 H 04/14/19 00:22 110 H 32 H 04/14/19 00:17 108 H 32 H 04/13/19 23:15 36.5 C 22 121/75 BP Pulse Ox 04/14/19 07:15 100 04/14/19 06:26 107/67 04/14/19 06:20 04/14/19 06:00 89/62 L 96 04/14/19 05:40 04/14/19 05:20 04/14/19 05:00 93/59 L 98 04/14/19 04:40 04/14/19 04:20 04/14/19 04:00 89/59 L 96 04/14/19 03:40 04/14/19 03:25 04/14/19 03:19 138/79 98 04/14/19 03:09 140/79 97 04/14/19 02:53 96 04/14/19 02:25 93/54 L 97 04/14/19 02:15 112/69 97 04/14/19 02:10 108/66 97 04/14/19 02:05 107/63 97 04/14/19 02:00 119/66 98 04/14/19 01:59 98 04/14/19 01:55 110/70 98 04/14/19 01:50 109/64 95 04/14/19 01:45 108/62 95 04/14/19 01:40 118/72 94 04/14/19 01:35 119/65 94 04/14/19 01:30 127/91 94 04/14/19 01:26 94 04/14/19 01:25 152/93 H 94 04/14/19 01:22 161/93 H 97 04/14/19 01:12 169/90 H 94 04/14/19 00:41 133/86 96 04/14/19 00:22 95 04/14/19 00:17 141/92 H 94 04/13/19 23:15 Laboratory Results Abnormal lab results 04/14/19 04/14/19 04/14/19 Range/Units 00:02 00:02 02:14 WBC 12.28 H (4.8-10.8) K/uL MPV 11.0 H (7.4-10.4) fL Immature Gran # (Auto) 0.03 H (0.00-0.02) K/uL Neut # (Auto) 9.79 H (1.4-6.5) K/uL Lymph # (Auto) 1.10 L (1.2-3.4) K/uL Hart # (Auto) 1.23 H (0.11-0.59) K/uL Sodium 130 L (136-145) mmol/L Chloride 92 L (98-107) mmol/L BUN 58 H (7-18) mg/dl Creatinine 3.02 H (0.6-1.2) mg/dl Glucose 116 H (70-99) mg/dl Troponin I 0.049 H* 0.149 H* (0-0.045) ng/ml NT-Pro-B Natriuret Pep 3991 H (0-1800) pg/ml TSH 5.120 H (0.300-4.500) uIu/ml Diagnostic Findings cxr 1. Extensive interstitial thickening and bilateral opacities. The findings favor pulmonary edema although bilateral pneumonia could appear similar. Radiographic follow-up is recommended. 2. Small bilateral pleural effusions.
--- NOTE | 2019-04-14 08:23 | Emergency Department Note ---
Entered by Maryellen Sanchez acting as a scribe for History of Present Illness General Chief complaint: Shortness of Breath/Dyspnea Stated complaint: SOB Time Seen by Provider: 04/13/19 23:32 Source: patient and family History of Present Illness Onset (ago): day(s) (this evening) Location: chest Pain Consistency: + other (episode) Quality: + other (shortness of breath) Exacerbated By: + movement (exertion) Associated symptoms: + denies other symptoms (dizziness, lightheadedness, change in bowel movements, numbness, tingling) and + other (heart racing, leg swelling, lack of thirst); no chest pain and no fever/chills (fever) The patient is an 88 year old female who presents to the ED with complaints of an episode of shortness of breath starting this evening. The patients son states that the patient is on dialysis and goes Sunday, Sunday and Sunday. He notes that she is on dialysis because she only had one functioning kidney for many years since the other was injured and gradually that one declined in function. He states that 4 days ago when she went her heart rate was way up over 100. He states that she came home and she monitored it and it came down, but he believes that she was in a fib. He notes that she has a history of it and it has been seen when they have gone for their pacer checks, but otherwise they havent seen it. He reports that the next evening following dialysis she woke up and could feel her heart racing. He states that when they went in the next morning though for dialysis, it was fine and her heart rate was back to normal. The patients son states that yesterday he noticed the she was retaining fluid more than normal from the waist down. He states that her legs were much more swollen than usual. He states that tonight she then called him saying he was short of breath. He states that when he got there she was breathing very shallow. He notes that each time she breaths like this there is an underlying problem caus ing it. He states that he decided to bring her to the ED. The patient notes that the shortness of breath is worse when she exerts herself. The patients son notes that she normally can walk around a store for 5-10 minutes and can walk out of dialysis on her own. The patients son complains of the patient having a lack of thirst. The patient denies use of blood thinners, fever, chest pain, dizziness, lightheadedness, change in bowel movements, numbness, tingling, and a history of lung problems. Pt's son privately states pt has had similar episode before, last one was in the winter. She has needed bipap previously and on last admission was a DNR. Home Medications Home Medications Medication Instructions Recorded Confirmed Type aspirin [Aspirin Childrens] 81 mg PO HS 08/20/18 04/14/19 History levothyroxine [Synthroid] 100 mcg PO DAILY 08/20/18 04/14/19 History pantoprazole 40 mg PO DAILY 08/20/18 04/14/19 History docusate sodium [Colace] 100 mg PO DAILY 12/03/18 04/14/19 History midodrine 5 mg PO DIRECTED 12/03/18 04/14/19 History sennosides [Senna Laxative] 8.6 mg PO DAILY PRN 12/03/18 04/14/19 History amiodarone 200 mg PO DAILY 04/14/19 04/14/19 History cholecalciferol (vitamin D3) 1,000 unit PO DAILY 04/14/19 04/14/19 History [Vitamin D3] Allergies Allergy/AdvReac Type Severity Reaction Status Date / Time naproxen Allergy Unknown Black Verified 04/14/19 00:54 stool/bleeding. gabapentin AdvReac Severe drug Verified 04/14/19 00:54 induced lupus codeine AdvReac Unknown GASTRIC Verified 04/14/19 00:54 UPSET methocarbamol AdvReac Unknown Nausea/Vomi Verified 04/14/19 00:54 ting [id number] Reductase AdvReac Unknown MUSCLE Verified 04/14/19 00:54 Inhibitor WEAKNESS Past Med/Surg History Medical History Anemia Hyponatremia Elevated troponin Hypotension Tricuspid regurgitation Mitral insufficiency COPD (chronic obstructive pulmonary disease) Pulmonary edema Acute on chronic heart failure with preserved ejection fraction Acute decompensated heart failure on the basis of mixed valvular heart disease with history of moderate to severe mitral insufficiency, severe tricuspid insufficiency, moderate aortic insufficiency. 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) Obstructive type of ventilatory defect with mild restriction which may be related to patient's morbid obesity (per 2015 PFTs) Morbid obesity (Chronic) CKD (chronic kidney disease), stage III (Chronic) Gout (Chronic) Pulmonary HTN (Chronic) Myasthenia gravis (Chronic) Subacute cutaneous lupus erythematosus (Chronic) Acute on chronic diastolic HF (heart failure) (Acute) In setting of mixed valvular disease Hypothyroidism (Chronic) Pacemaker (Chronic) Atrial fibrillation (Chronic) on anticoaguation Congestive heart failure Surgical History H/O: hysterectomy (Resolved) History of tonsillectomy (Resolved) History of appendectomy (Resolved) History of permanent cardiac pacemaker placement (Resolved) Family History Other Heart disease Stroke Social History Preferred Language: Guamanian Communication Ability: Effective Visual Impairment: No Limitations 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 and A total of 10 systems reviewed and were otherwise negative Physical Exam Vital Signs Vital Signs - 24 hr 04/14/19 01:25 04/14/19 01:26 04/14/19 01:30 Pulse Rate 99 H Pulse Rate [Finger] 100 H 104 H Respiratory Rate 29 H 30 H 29 H Respiratory Effort / Characteristics Non-Labored Spontaneous Respiratory Depth Normal Respiratory Pattern Regular Blood Pressure [Right Arm] 152/93 H 127/91 Blood Pressure Mean [Right Arm] 112 103 Blood Pressure Position [Right Arm] Sitting Sitting Pulse Oximetry 94 94 94 Oxygen Delivery Method BiPAP CPAP Fraction of Inspired Oxygen 60 60 60 SaO2/FiO2 Ratio 156 156 04/14/19 01:35 04/14/19 01:40 04/14/19 01:45 Pulse Rate Pulse Rate [Finger] 97 H 98 H 93 H Respiratory Rate 26 H 30 H 25 H Respiratory Effort / Characteristics Respiratory Depth Respiratory Pattern Blood Pressure [Right Arm] 119/65 118/72 108/62 Blood Pressure Mean [Right Arm] 83 87 77 Blood Pressure Position [Right Arm] Sitting Sitting Pulse Oximetry 94 94 95 Oxygen Delivery Method BiPAP BiPAP BiPAP Fraction of Inspired Oxygen SaO2/FiO2 Ratio 04/14/19 01:50 04/14/19 01:55 04/14/19 01:59 Pulse Rate 89 Pulse Rate [Finger] 89 90 Respiratory Rate 22 24 23 Respiratory Effort / Characteristics Non-Labored Spontaneous Respiratory Depth Normal Respiratory Pattern Regular Blood Pressure [Right Arm] 109/64 110/70 Blood Pressure Mean [Right Arm] 79 83 Blood Pressure Position [Right Arm] Sitting Pulse Oximetry 95 98 98 Oxygen Delivery Method BiPAP BiPAP Fraction of Inspired Oxygen 60 SaO2/FiO2 Ratio 04/14/19 02:00 04/14/19 02:05 04/14/19 02:10 Pulse Rate Pulse Rate [Finger] 88 87 84 Respiratory Rate 23 21 23 Respiratory Effort / Characteristics Non-Labored Spontaneous Respiratory Depth Respiratory Pattern Blood Pressure [Right Arm] 119/66 107/63 108/66 Blood Pressure Mean [Right Arm] 83 77 80 Blood Pressure Position [Right Arm] Pulse Oximetry 98 97 97 Oxygen Delivery Method BiPAP Nebulizer BiPAP BiPAP Fraction of Inspired Oxygen 50 50 SaO2/FiO2 Ratio 196 194 04/14/19 02:15 Pulse Rate Pulse Rate [Finger] 86 Respiratory Rate 25 H Respiratory Effort / Characteristics Respiratory Depth Respiratory Pattern Blood Pressure [Right Arm] 112/69 Blood Pressure Mean [Right Arm] 83 Blood Pressure Position [Right Arm] Pulse Oximetry 97 Oxygen Delivery Method BiPAP Fraction of Inspired Oxygen SaO2/FiO2 Ratio GENERAL: alert, well appearing, well nourished, no distress, non-toxic EYE EXAM: normal conjunctiva, PERRL and EOM's grossly intact OROPHARYNX: no exudate, no erythema, lips, buccal mucosa, and tongue normal and mucous membranes are moist NECK: JVD present, supple, no nuchal rigidity, no adenopathy, non-tender LUNGS: Increased work of breathing. Supraclavicular retractions. Fine bibasilar rales. HEART: Tachycardic rate, no murmurs, S1 normal and S2 normal ABDOMEN: abdomen soft, non-tender, normo-active bowel sounds, no masses, no rebound or guarding. BACK: Back is symmetrical on inspection and there is no deformity, no midline tenderness, no CVA tenderness. SKIN: no rashes and no bruising, no petechiae. UPPER EXTREMITIES: upper extremities are grossly normal. FROM b/l, nml pulses b/l. LOWER EXTREMITIES: Bilateral 2+ lower extremity edema. Legs wrapped b/l. Sensation intact b/l. NEURO EXAM: Normal sensorium, cranial nerves II-XII grossly intact, normal speech, no gross weakness of arms, no gross weakness of legs. Course 2339: Past medical records reviewed. The patient was evaluated in room B12B. A complete history and physical exam was performed. 0006: I reevaluated the patient and she is working to breathe now more than before. On re-exam, she has rales throughout bilateral lungs. She is being placed on Bi-PAP. The patient's son states that she has been refractory to other diuretics in the past. He notes that she is DNR. 0023: I discussed the patient's case with Dr. Shea-Nephrology. She states to give the patient 120 of Lasix, 5 of Metolazone, Nitroglycerin, and Morphine. He states that he wants to try to hold off for dialysis till early this morning. 0034: I reevaluated the patient and updated the son on the treatment plan. She is still not breathing very well. 0048: I reevaluated the patient and she doesn't look any better. I discussed the option of intubation. The son and her are going to talk it over. 0103: I reevaluated the patient and her blood pressure is going up. She is going to get more Morphine. The son and her are still talking over the possibility of intubation. 0112: I reevaluated the patient and watched her breathing for some time. Pt still appears to have increased WOB and audible rales. 0117: I discussed the patient's case with Dr. Shea-Nephrology. They will call in a dialysis nurse. 0121: I reevaluated the patient and updated her and her son on the plan thus far. She is getting a second line. She is not using as many accessory muscles as before, but you can still here audible gurgling. 0128: I reevaluated the patient and she looks a little better. She is not pulling at her shoulders and her neck as much either. We are titrating her nitroglycerin up at this time. She still sounds like she has bilaterally rales throughout. 0142: I reevaluated the patient and she has rales throughout bilateral lungs. No audible gurgling. She looks marginally improved. 0148: I discussed the patient's case with Dr. Kathleen Rick. He will evaluate the patient for further management. 0202: I reevaluated the patient and she was up to 15 on the Nitroglycerin drip, but is now at 10. She states that she is feeling slightly better. 0216: I discussed the patient's case with Dr. Ramirez-Director Payment. 0217: I reevaluated the patient and she is doing much better. I updated her and her son on her test results and discussed the treatment plan with them. They verbally agree and understand. 0248: The patient is heading to the unit at this time. Consultations Consultation #1: I discussed the patient's case with Dr. JohnsonNephfaizan. She states to give the patient 120 of Lasix, 5 of Metolazone, Nitroglycerin, and Mor phine. He states that he wants to try to hold off for dialysis till early this morning. Time: 00:23 Consultation #2: I discussed the patient's case with Dr. Torres. She is going to call in a dialysis nurse. Time: 01:17 Consultation #3: I discussed the patient's case with Dr. Kathleen Rick. He will evaluate the patient for further management. Time: 01:48 Additional Consultation(s): 0216: I discussed the patient's case with Dr. Ramirez-Director Payment. He accepts the patient to the unit. Administered Medications Amiodarone HCl (Cordarone) 200 mg PO DAILY [facility]DR[facility] Stop: 05/14/19 08:59 Last Admin: 04/14/19 10:15 Dose: 200 mg Documented by: [id number] Aspirin (Ecotrin Ectab) 81 mg PO HS [facility] Stop: 05/14/19 20:59 Last Admin: 04/14/19 21:27 Dose: 81 mg Documented by: [id number] Docusate Sodium (Colace) 100 mg PO DAILY [facility] Stop: 05/14/19 08:59 Last Admin: 04/14/19 10:15 Dose: 100 mg Documented by: [id number] Levothyroxine Sodium (Synthroid) 100 mcg PO DAILYBB [facility] Stop: 05/14/19 06:29 Last Admin: 04/14/19 07:49 Dose: 100 mcg Documented by: [id number] Pantoprazole Sodium (Protonix) 40 mg PO DAILY [facility] Stop: 05/14/19 08:59 Last Admin: 04/14/19 10:16 Dose: 40 mg Documented by: [id number] Sennosides (Senokot) 8.6 mg PO DAILY PRN PRN Reason: Constipation Stop: 05/14/19 03:08 Last Admin: 04/14/19 10:17 Dose: 8.6 mg Documented by: [id number] Sevelamer HCl (Renagel) 800 mg PO TIDM [facility]DRED Stop: 05/14/19 11:59 Last Admin: 04/14/19 16:37 Dose: 800 mg Documented by: [id number] Admin: 04/14/19 11:28 Dose: 800 mg Documented by: [id number] Vitamin D (Vitamin D3) 1,000 units PO DAILY MILDRED Stop: 05/14/19 08:59 Last Admin: 04/14/19 10:16 Dose: 1,000 units Documented by: [id number] Discontinued Medications Albuterol (Duoneb) 3 ml NEB NOW STA Stop: 04/14/19 01:52 Last Admin: 04/14/19 02:00 Dose: 3 ml Documented by: [id number] Albuterol (Duoneb) Confirm Administered Dose 3 ml .ROUTE .STK-MED ONE Stop: 04/14/19 01:56 Last Admin: 04/14/19 02:02 Dose: Not Given Documented by: [id number] Allopurinol (Zyloprim) 150 mg PO DAILY MILDR[facility] Stop: 05/14/19 08:59 Last Admin: 04/14/19 18:31 Dose: Not Given Documented by: [id number] Furosemide (Lasix) Confirm Administered Dose 120 mg IV .STK-MED ONE Stop: 04/14/19 00:35 Last Admin: 04/14/19 00:39 Dose: 120 mg Documented by: [id number] Heparin Sodium (Porcine) (Heparin Sodium (Porcine)) 5,000 units SQ Q8 MILDRED Stop: 05/14/19 05:59 Last Admin: 04/14/19 07:48 Dose: 5,000 units Documented by: [id number] Cosigned by: [id number] Furosemide 120 mg/ Syringe 12 mls @ 4 mls/min IV NOW STA Stop: 04/14/19 00:29 Last Admin: 04/14/19 00:39 Dose: Not Given Documented by: [id number] Nitroglycerin/Dextrose (Nitroglycerin/D5w 100 Mcg/Ml) 250 mls @ 3 mls/hr IV .Q24H MILDRED; Protocol Stop: 05/14/19 01:14 Last Titration: 04/14/19 07:42 Dose: 0 mcg/min, 0 mls/hr Documented by: [id number] Titration: 04/14/19 02:40 Dose: 0 mcg/min, 0 mls/hr Documented by: [id number] Titration: 04/14/19 01:45 Dose: 5 mcg/min, 3 mls/hr Documented by: [id number] Titration: 04/14/19 01:36 Dose: 10 mcg/min, 6 mls/hr Documented by: [id number] Titration: 04/14/19 01:26 Dose: 15 mcg/min, 9 mls/hr Documented by: [id number] Admin: 04/14/19 01:14 Dose: 5 mcg/min, 3 mls/hr Documented by: [id number] Cosigned by: [id number] Metolazone (Zaroxolyn) 5 mg PO NOW ONE Stop: 04/14/19 00:28 Last Admin: 04/14/19 00:46 Dose: 5 mg Documented by: [id number] Miscellaneous () Confirm Administered Dose 1 ea .ROUTE .STK-MED ONE Stop: 04/14/19 01:10 Last Admin: 04/14/19 03:06 Dose: Not Given Documented by: [id number] Morphine Sulfate (Morphine Sulfate) 2 mg IV NOW STA Stop: 04/14/19 00:53 Last Admin: 04/14/19 00:55 Dose: 2 mg Documented by: [id number] Morphine Sulfate (Morphine Sulfate) 4 mg IV NOW STA Stop: 04/14/19 01:04 Last Admin: 04/14/19 01:06 Dose: 4 mg Documented by: [id number] Nitroglycerin (Nitro-Bid 2%) 1 inch EXT NOW ONE Stop: 04/14/19 00:28 Last Admin: 04/14/19 00:38 Dose: 1 inch Documented by: [id number] Propofol (Diprivan) Confirm Administered Dose 1,000 mg IV .STK-MED ONE Stop: 04/14/19 01:10 Last Admin: 04/14/19 03:05 Dose: Not Given Documented by: [id number] Medical Decision Making Differential Diagnosis Differential diagnoses includes but is not limited to pneumonia, bronchitis, COPD/Asthma exacerbation, pneumothorax, pulmonary embolism, congestive heart jimenez lure, acute coronary syndrome Medical Records Attestation: I reviewed the patient's medical records. Home Medications Current Medication List: was personally reviewed by me Laboratory Data Attestation: I reviewed the patient's lab results. Result diagrams: 04/14/19 21:29 04/14/19 00:02 Lab Results 04/14/19 04/14/19 04/14/19 Range/Units 00:02 00:02 00:02 WBC 12.28 H (4.8-10.8) K/uL RBC 4.48 (4.2-5.4) M/uL Hgb 12.7 (12.0-16.0) g/dL Hct 38.1 (37-47) % MCV 85.0 (80-100) fL MCH 28.3 (25-34) pg MCHC 33.3 (32-36) g/dL RDW Std Deviation 44.2 (36.4-46.3) fL RDW Coeff of Cornel 14.3 (11.5-14.5) % Plt Count 255 (130-400) K/uL MPV 11.0 H (7.4-10.4) fL Immature Gran % (Auto) 0.2 % Neut % (Auto) 79.8 % Lymph % (Auto) 9.0 % Fallon % (Auto) 10.0 % Eos % (Auto) 0.8 % Baso % (Auto) 0.2 % Immature Gran # (Auto) 0.03 H (0.00-0.02) K/uL Neut # (Auto) 9.79 H (1.4-6.5) K/uL Lymph # (Auto) 1.10 L (1.2-3.4) K/uL Fallon # (Auto) 1.23 H (0.11-0.59) K/uL Eos # (Auto) 0.10 (0-0.5) K/uL Baso # (Auto) 0.03 (0-0.2) K/uL PT (9.0-12.0) Seconds INR (0.9-1.1) APTT 30.0 (21.0-31.0) Seconds PTT Ratio 1.1 Sodium 130 L (136-145) mmol/L Potassium 3.8 (3.5-5.1) mmol/L Chloride 92 L (98-107) mmol/L Carbon Dioxide 27 (21-32) mmol/L Anion Gap 11.0 (3-11) BUN 58 H (7-18) mg/dl Creatinine 3.02 H (0.6-1.2) mg/dl Est Cr Clr Drug Dosing 12.6 ml/min Est GFR ( Amer) 15.4 Est GFR (Non-Af Amer) 13.3 BUN/Creatinine Ratio 19.2 (10-20) Glucose 116 H (70-99) mg/dl Calcium 9.6 (8.5-10.1) mg/dl Phosphorus 4.5 (2.5-4.9) mg/dl Magnesium 2.0 (1.8-2.4) mg/dl Total Bilirubin 0.5 (0.2-1) mg/dl AST 16 (15-37) U/L ALT 17 (12-78) U/L Alkaline Phosphatase 90 (45-117) U/L Troponin I 0.049 H* (0-0.045) ng/ml NT-Pro-B Natriuret Pep 3991 H (0-1800) pg/ml Total Protein 7.7 (6.4-8.2) gm/dl Albumin 4.0 (3.4-5.0) gm/dl Globulin 3.7 (2.5-4.0) gm/dl Albumin/Globulin Ratio 1.1 (0.9-2) Lipase 215 (73-393) U/L Procalcitonin (0-0.5) ng/ml TSH 5.120 H (0.300-4.500) uIu/ml Hep Bs Antigen (Neg) Hep Bs Antibody Hep Bs Antibody, Quant (>or=10mIU/mL Immune) mIU/mL 04/14/19 04/14/19 04/14/19 Range/Units 00:02 00:02 00:02 WBC (4.8-10.8) K/uL RBC (4.2-5.4) M/uL Hgb (12.0-16.0) g/dL Hct (37-47) % MCV (80-100) fL MCH (25-34) pg MCHC (32-36) g/dL RDW Std Deviation (36.4-46.3) fL RDW Coeff of Cornel (11.5-14.5) % Plt Count (130-400) K/uL MPV (7.4-10.4) fL Immature Gran % (Auto) % Neut % (Auto) % Lymph % (Auto) % Fallon % (Auto) % Eos % (Auto) % Baso % (Auto) % Immature Gran # (Auto) (0.00-0.02) K/uL Neut # (Auto) (1.4-6.5) K/uL Lymph # (Auto) (1.2-3.4) K/uL Fallon # (Auto) (0.11-0.59) K/uL Eos # (Auto) (0-0.5) K/uL Baso # (Auto) (0-0.2) K/uL PT 10.3 (9.0-12.0) Seconds INR 1.0 (0.9-1.1) APTT (21.0-31.0) Seconds PTT Ratio Sodium (136-145) mmol/L Potassium (3.5-5.1) mmol/L Chloride (98-107) mmol/L Carbon Dioxide (21-32) mmol/L Anion Gap (3-11) BUN (7-18) mg/dl Creatinine (0.6-1.2) mg/dl Est Cr Clr Drug Dosing ml/min Est GFR ( Amer) Est GFR (Non-Af Amer) BUN/Creatinine Ratio (10-20) Glucose (70-99) mg/dl Calcium (8.5-10.1) mg/dl Phosphorus (2.5-4.9) mg/dl Magnesium (1.8-2.4) mg/dl Total Bilirubin (0.2-1) mg/dl AST (15-37) U/L ALT (12-78) U/L Alkaline Phosphatase (45-117) U/L Troponin I (0-0.045) ng/ml NT-Pro-B Natriuret Pep (0-1800) pg/ml Total Protein (6.4-8.2) gm/dl Albumin (3.4-5.0) gm/dl Globulin (2.5-4.0) gm/dl Albumin/Globulin Ratio (0.9-2) Lipase (73-393) U/L Procalcitonin < 0.05 (0-0.5) ng/ml TSH (0.300-4.500) uIu/ml Hep Bs Antigen Neg (Neg) Hep Bs Antibody Immune Hep Bs Antibody, Quant > 1000.00 (>or=10mIU/mL Immune) mIU/mL 04/14/19 Range/Units 02:14 WBC (4.8-10.8) K/uL RBC (4.2-5.4) M/uL Hgb (12.0-16.0) g/dL Hct (37-47) % MCV (80-100) fL MCH (25-34) pg MCHC (32-36) g/dL RDW Std Deviation (36.4-46.3) fL RDW Coeff of Cornel (11.5-14.5) % Plt Count (130-400) K/uL MPV (7.4-10.4) fL Immature Gran % (Auto) % Neut % (Auto) % Lymph % (Auto) % Fallon % (Auto) % Eos % (Auto) % Baso % (Auto) % Immature Gran # (Auto) (0.00-0.02) K/uL Neut # (Auto) (1.4-6.5) K/uL Lymph # (Auto) (1.2-3.4) K/uL Fallon # (Auto) (0.11-0.59) K/uL Eos # (Auto) (0-0.5) K/uL Baso # (Auto) (0-0.2) K/uL PT (9.0-12.0) Seconds INR (0.9-1.1) APTT (21.0-31.0) Seconds PTT Ratio Sodium (136-145) mmol/L Potassium (3.5-5.1) mmol/L Chloride (98-107) mmol/L Carbon Dioxide (21-32) mmol/L Anion Gap (3-11) BUN (7-18) mg/dl Creatinine (0.6-1.2) mg/dl Est Cr Clr Drug Dosing ml/min Est GFR ( Amer) Est GFR (Non-Af Amer) BUN/Creatinine Ratio (10-20) Glucose (70-99) mg/dl Calcium (8.5-10.1) mg/dl Phosphorus (2.5-4.9) mg/dl Magnesium (1.8-2.4) mg/dl Total Bilirubin (0.2-1) mg/dl AST (15-37) U/L ALT (12-78) U/L Alkaline Phosphatase (45-117) U/L Troponin I 0.149 H* (0-0.045) ng/ml NT-Pro-B Natriuret Pep (0-1800) pg/ml Total Protein (6.4-8.2) gm/dl Albumin (3.4-5.0) gm/dl Globulin (2.5-4.0) gm/dl Albumin/Globulin Ratio (0.9-2) Lipase (73-393) U/L Procalcitonin (0-0.5) ng/ml TSH (0.300-4.500) uIu/ml Hep Bs Antigen (Neg) Hep Bs Antibody Hep Bs Antibody, Quant (>or=10mIU/mL Immune) mIU/mL Imaging Data Attestation: I personally reviewed and interpreted this imaging study as follows: My Impression: CHEST X-RAY: The results were interpreted by me. Bilateral pulmonary edema. Port noted in the right chest. Cardiomegaly. Rotated. Worse compared to prior. ECG Data Attestation: I personally reviewed and interpreted this ECG as follows: Indication: SOB/dyspnea Rate (beats per minute): 83 Rhythm: sinus rhythm Findings: + other (normal axis, normal intervals, erratic baseline, flat T waves in lead 1 and aVL) and + ST depression (slight in V6) Blood Pressure Blood Pressure Findings: Normal blood pressure Blood Pressure Disposition: did not require urgent referral MDM Narrative Patient initially here with mild respiratory distress and increased work of breathing but became suddenly and severely worse while starting her evaluation with labs. Patient had not even gotten chest x-ray yet when she suddenly became worse and so RT was called stat to initiate BiPAP. Given severity of condition, difficulty obtaining IV access and labs, and knowing patient was due for dialysis in several hours anyway, I discussed the case with nephrology. Concern that while patient does still make a small amount of urine, the son states she has briefly been refractory to diuretic therapy. Nephrology felt it was reasonable to try additional medications including diuretics and patient. Patient was started on additional medications according to these recommendations and given progressive increased work of breathing and worsening bilateral rales, patient moved to room B1 in case of possible intubation as this is been an ongoing discussion with the patient and son at bedside. Patient was reevaluated multiple times at frequent intervals due to her severity of symptoms and she and son altered decided they would be in favor of pursuing intubation if need be. Preparations were made for possible intubation at bedside given the patient's tenuous condition. After 45 minutes every contacted nephrology as she had not shown any improvement with their original orders and updated them on her condition. They will plan on trying to arrange emergent dialysis tonight instead of waiting until the morning. Patient very slowly began to show very slight improvement although still had bilateral rales throughout. Patient's hypertension improved with addition and titration of nitro drip and additional morphine. Lab abnormalities noted once labs eventually received. I feel the elevated troponin is more likely related to her chronic kidney disease and not ACS. Case discussed with hospitalist for admission and escape wheel tooth cutter contacted. Patient and family aware of all results, critical nature of her condition, possible need for intubation, they verbalized understanding. Impression & Plan Acute pulmonary edema, Dyspnea, CKD (chronic kidney disease) Critical Care Time Critical Care Time: Yes Total Critical Care Time: 123 I have personally spent 123 minutes of critical care time in the direct management of this patient. This includes bedside care, interpretation of diagno stic studies, and testing, discussion with consultants, patient, and family members, and other required patient management activities. This 123 minutes is in excess of all separately billable procedures. Discharge Plan Visit Data *Final* Discharge Date/Time: 04/14/19 02:33 Chief Complaint: Shortness of Breath/Dyspnea Stated Complaint: SOB ED Provider: Chani Orantes Discharge Problem: Acute pulmonary edema, Dyspnea, CKD (chronic kidney disease) Patient Disposition: Admitted As Inpatient Discharge Instructions Interventions: ED Discharge Assessment Last Done: 04/14/19 02:33 Discharge Problem: Dyspnea Qualifiers: Dyspnea type: unspecified Qualified Code(s): R06.00 - Dyspnea, unspecified CKD (chronic kidney disease) Qualifiers: Chronic kidney disease stage: unspecified stage Qualified Code(s): N18.9 - Chronic kidney disease, unspecified The scribe's documentation has been prepared under my direction and personally reviewed by me in its entirety. I confirm that the note above accurately reflects all work, treatment, procedures, and medical decision making performed by me.
[2019-04-14] MEDS ORDERED: ALLOPURINOL 100 MG TAB PO SCH (09:00)
--- NOTE | 2019-04-14 09:41 | Hospitalist Progress Note ---
Date of Service April 14, 2019 Assessment & Plan (1) Acute hypoxemic respiratory failure: Secondary to decompensated CHF failure hx valvular heart disease (severe mitral regurgitation; moderate aortic/tricuspid regurgitation) ESRD on HD Status post hemodialysis overnight Respiratory status improved, weaned off Bipap Management of HD per nephro- plan for HD tomorrow Cardiology also consulted ALEN, STEPHANIE sp PPM, patient NSR currently not on Coumadin secondary to bleeding history Bilateral LE swelling secondary to CHF rule out LE DVT NICKY as per records COPD/restrictive lung disease as per records chronic anemia secondary to ESRD, hemoglobin at baseline myasthenia gravis, currently in remission DVT prophylaxis. Heparin subcu Conditional CODE STATUS (okay with intubation; no CPR) discussed case and plan of care at length with patient and son Bill, they are agreeable and comfortable with the plan of care All questions answered Subjective ff up for hypoxic respiratory failure, CHF exacerbation seen sitting up in bed, comfortable In good spirits States he feels improved compared to admission On 2 L nasal cannula, not in distress Denies chest pain, shortness of breath, palpitations, dizziness, nausea No other symptoms Review of Systems Review of Systems: All systems reviewed & are unremarkable except as noted in HPI & below Physical Exam Physical Exam: General- oriented x 2, not in distress, speaks in sentences with no effort or accessory muscle use Eyes- anicteric Neck- no JVD Lungs-positive mild rales bilaterally, at the bases, no wheezing, good air entry bilaterally Heart- normal rate, regular rhythm; no murmurs Abdomen- normal bowel sounds, nondistended, soft, nontender Extremities-grade 2 bilateral lower leg edema, no calf tenderness Neuro- alert, oriented x 2; no gross focal neurologic deficits Skin- warm & dry Results & Data Vital Signs (Past 12 Hours) Vital Signs Temp Pulse Pulse Pulse Pulse Resp BP 04/14/19 08:01 72 113/58 L 04/14/19 08:00 69 04/14/19 07:15 66 24 04/14/19 06:26 36.3 C L 66 66 107/67 04/14/19 06:20 66 95/65 L 04/14/19 06:00 68 68 20 99/70 L 04/14/19 05:40 67 91/61 L 04/14/19 05:20 66 93/59 L 04/14/19 05:00 69 65 16 95/61 L 04/14/19 04:40 63 89/59 L 04/14/19 04:20 65 93/62 L 04/14/19 04:00 36.7 C 64 65 14 106/64 04/14/19 03:40 69 113/73 04/14/19 03:25 36.4 C 78 78 140/79 04/14/19 03:19 36.7 C 84 18 04/14/19 03:09 73 20 04/14/19 02:53 84 20 04/14/19 02:25 85 23 04/14/19 02:15 86 25 H 04/14/19 02:10 84 23 04/14/19 02:05 87 21 04/14/19 02:00 88 23 04/14/19 01:59 89 23 04/14/19 01:55 90 24 04/14/19 01:50 89 22 04/14/19 01:45 93 H 25 H 04/14/19 01:40 98 H 30 H 04/14/19 01:35 97 H 26 H 04/14/19 01:30 104 H 29 H 04/14/19 01:26 99 H 30 H 04/14/19 01:25 100 H 29 H 04/14/19 01:22 104 H 32 H 04/14/19 01:12 106 H 28 H 04/14/19 00:41 110 H 36 H 04/14/19 00:22 110 H 32 H 04/14/19 00:17 108 H 32 H 04/13/19 23:15 36.5 C 22 121/75 BP Pulse Ox 04/14/19 08:01 93 04/14/19 08:00 04/14/19 07:15 100 04/14/19 06:26 107/67 04/14/19 06:20 04/14/19 06:00 89/62 L 96 04/14/19 05:40 04/14/19 05:20 04/14/19 05:00 93/59 L 98 04/14/19 04:40 04/14/19 04:20 04/14/19 04:00 89/59 L 96 04/14/19 03:40 04/14/19 03:25 04/14/19 03:19 138/79 98 04/14/19 03:09 140/79 97 04/14/19 02:53 96 04/14/19 02:25 93/54 L 97 04/14/19 02:15 112/69 97 04/14/19 02:10 108/66 97 04/14/19 02:05 107/63 97 04/14/19 02:00 119/66 98 04/14/19 01:59 98 04/14/19 01:55 110/70 98 04/14/19 01:50 109/64 95 04/14/19 01:45 108/62 95 04/14/19 01:40 118/72 94 04/14/19 01:35 119/65 94 04/14/19 01:30 127/91 94 04/14/19 01:26 94 04/14/19 01:25 152/93 H 94 04/14/19 01:22 161/93 H 97 04/14/19 01:12 169/90 H 94 04/14/19 00:41 133/86 96 04/14/19 00:22 95 04/14/19 00:17 141/92 H 94 04/13/19 23:15 Laboratory Results Laboratory Results - last 24 hr 04/14/19 04/14/19 04/14/19 00:02 00:02 00:02 WBC 12.28 H RBC 4.48 Hgb 12.7 Hct 38.1 MCV 85.0 MCH 28.3 MCHC 33.3 RDW Std Deviation 44.2 RDW Coeff of Cornel 14.3 Plt Count 255 MPV 11.0 H Immature Gran % (Auto) 0.2 Neut % (Auto) 79.8 Lymph % (Auto) 9.0 [place] % (Auto) 10.0 Eos % (Auto) 0.8 Baso % (Auto) 0.2 Immature Gran # (Auto) 0.03 H Neut # (Auto) 9.79 H Lymph # (Auto) 1.10 L [place] # (Auto) 1.23 H Eos # (Auto) 0.10 Baso # (Auto) 0.03 PT INR APTT 30.0 PTT Ratio 1.1 ABG pH ABG pCO2 ABG pO2 ABG HCO3 ABG O2 Saturation ABG Base Excess Kory Test Barometric Pressure Oxygen Given Sodium 130 L Potassium 3.8 Chloride 92 L Carbon Dioxide 27 Anion Gap 11.0 BUN 58 H Creatinine 3.02 H Est Cr Clr Drug Dosing 12.6 Est GFR ( Amer) 15.4 Est GFR (Non-Af Amer) 13.3 BUN/Creatinine Ratio 19.2 Glucose 116 H Estimat Average Glucose Hemoglobin A1c Lactate Calcium 9.6 Phosphorus 4.5 Magnesium 2.0 Total Bilirubin 0.5 AST 16 ALT 17 Alkaline Phosphatase 90 Troponin I 0.049 H* NT-Pro-B Natriuret Pep 3991 H Total Protein 7.7 Albumin 4.0 Globulin 3.7 Albumin/Globulin Ratio 1.1 Lipase 215 Procalcitonin TSH 5.120 H Urine Color Urine Appearance Urine pH Ur Specific [place] Urine Protein Urine Glucose (UA) Urine Ketones Urine Blood Urine Nitrite Urine Bilirubin Urine Urobilinogen Ur Leukocyte Esterase Urine WBC (Auto) Urine RBC (Auto) U Hyaline Cast (Auto) U Epithel Cells (Auto) Urine Bacteria (Auto) Ur Renal Epithelial Cell Nasal Screen MRSA (PCR) Hep Bs Antigen Hep Bs Antibody Hep Bs Antibody, Quant 04/14/19 04/14/19 04/14/19 00:02 00:02 00:02 WBC RBC Hgb Hct MCV MCH MCHC RDW Std Deviation RDW Coeff of Cornel Plt Count MPV Immature Gran % (Auto) Neut % (Auto) Lymph % (Auto) [place] % (Auto) Eos % (Auto) Baso % (Auto) Immature Gran # (Auto) Neut # (Auto) Lymph # (Auto) [place] # (Auto) Eos # (Auto) Baso # (Auto) PT 10.3 INR 1.0 APTT PTT Ratio ABG pH ABG pCO2 ABG pO2 ABG HCO3 ABG O2 Saturation ABG Base Excess Kory Test Barometric Pressure Oxygen Given Sodium Potassium Chloride Carbon Dioxide Anion Gap BUN Creatinine Est Cr Clr Drug Dosing Est GFR ( Amer) Est GFR (Non-Af Amer) BUN/Creatinine Ratio Glucose Estimat Average Glucose Hemoglobin A1c Lactate Calcium Phosphorus Magnesium Total Bilirubin AST ALT Alkaline Phosphatase Troponin I NT-Pro-B Natriuret Pep Total Protein Albumin Globulin Albumin/Globulin Ratio Lipase Procalcitonin < 0.05 TSH Urine Color Urine Appearance Urine pH Ur Specific [place] Urine Protein Urine Glucose (UA) Urine Ketones Urine Blood Urine Nitrite Urine Bilirubin Urine Urobilinogen Ur Leukocyte Esterase Urine WBC (Auto) Urine RBC (Auto) U Hyaline Cast (Auto) U Epithel Cells (Auto) Urine Bacteria (Auto) Ur Renal Epithelial Cell Nasal Screen MRSA (PCR) Hep Bs Antigen Neg Hep Bs Antibody Immune Hep Bs Antibody, Quant > 1000.00 04/14/19 04/14/19 04/14/19 02:14 02:33 02:33 WBC RBC Hgb Hct MCV MCH MCHC RDW Std Deviation RDW Coeff of Cornel Plt Count MPV Immature Gran % (Auto) Neut % (Auto) Lymph % (Auto) [place] % (Auto) Eos % (Auto) Baso % (Auto) Immature Gran # (Auto) Neut # (Auto) Lymph # (Auto) [place] # (Auto) Eos # (Auto) Baso # (Auto) PT INR APTT PTT Ratio ABG pH Cancelled ABG pCO2 Cancelled ABG pO2 Cancelled ABG HCO3 Cancelled ABG O2 Saturation Cancelled ABG Base Excess Cancelled Kory Test Cancelled Barometric Pressure Cancelled Oxygen Given Cancelled Sodium Potassium Chloride Carbon Dioxide Anion Gap BUN Creatinine Est Cr Clr Drug Dosing Est GFR ( Amer) Est GFR (Non-Af Amer) BUN/Creatinine Ratio Glucose Estimat Average Glucose Hemoglobin A1c Lactate 2.0 Calcium Phosphorus Magnesium Total Bilirubin AST ALT Alkaline Phosphatase Troponin I 0.149 H* NT-Pro-B Natriuret Pep Total Protein Albumin Globulin Albumin/Globulin Ratio Lipase Procalcitonin TSH Urine Color Urine Appearance Urine pH Ur Specific [place] Urine Protein Urine Glucose (UA) Urine Ketones Urine Blood Urine Nitrite Urine Bilirubin Urine Urobilinogen Ur Leukocyte Esterase Urine WBC (Auto) Urine RBC (Auto) U Hyaline Cast (Auto) U Epithel Cells (Auto) Urine Bacteria (Auto) Ur Renal Epithelial Cell Nasal Screen MRSA (PCR) Hep Bs Antigen Hep Bs Antibody Hep Bs Antibody, Quant 04/14/19 04/14/19 04/14/19 02:33 03:10 07:56 WBC RBC Hgb Hct MCV MCH MCHC RDW Std Deviation RDW Coeff of Cornel Plt Count MPV Immature Gran % (Auto) Neut % (Auto) Lymph % (Auto) [place] % (Auto) Eos % (Auto) Baso % (Auto) Immature Gran # (Auto) Neut # (Auto) Lymph # (Auto) [place] # (Auto) Eos # (Auto) Baso # (Auto) PT INR APTT PTT Ratio ABG pH ABG pCO2 ABG pO2 ABG HCO3 ABG O2 Saturation ABG Base Excess Kory Test Barometric Pressure Oxygen Given Sodium Potassium Chloride Carbon Dioxide Anion Gap BUN Creatinine Est Cr Clr Drug Dosing Est GFR ( Amer) Est GFR (Non-Af Amer) BUN/Creatinine Ratio Glucose Estimat Average Glucose 97 Hemoglobin A1c 5.0 Lactate Calcium Phosphorus Magnesium Total Bilirubin AST ALT Alkaline Phosphatase Troponin I 0.500 H* NT-Pro-B Natriuret Pep Total Protein Albumin Globulin Albumin/Globulin Ratio Lipase Procalcitonin TSH Urine Color Urine Appearance Urine pH Ur Specific [place] Urine Protein Urine Glucose (UA) Urine Ketones Urine Blood Urine Nitrite Urine Bilirubin Urine Urobilinogen Ur Leukocyte Esterase Urine WBC (Auto) Urine RBC (Auto) U Hyaline Cast (Auto) U Epithel Cells (Auto) Urine Bacteria (Auto) Ur Renal Epithelial Cell Nasal Screen MRSA (PCR) Negative Hep Bs Antigen Hep Bs Antibody Hep Bs Antibody, Quant 04/14/19 10:25 WBC RBC Hgb Hct MCV MCH MCHC RDW Std Deviation RDW Coeff of Cornel Plt Count MPV Immature Gran % (Auto) Neut % (Auto) Lymph % (Auto) [place] % (Auto) Eos % (Auto) Baso % (Auto) Immature Gran # (Auto) Neut # (Auto) Lymph # (Auto) [place] # (Auto) Eos # (Auto) Baso # (Auto) PT INR APTT PTT Ratio ABG pH ABG pCO2 ABG pO2 ABG HCO3 ABG O2 Saturation ABG Base Excess Kory Test Barometric Pressure Oxygen Given Sodium Potassium Chloride Carbon Dioxide Anion Gap BUN Creatinine Est Cr Clr Drug Dosing Est GFR ( Amer) Est GFR (Non-Af Amer) BUN/Creatinine Ratio Glucose Estimat Average Glucose Hemoglobin A1c Lactate Calcium Phosphorus Magnesium Total Bilirubin AST ALT Alkaline Phosphatase Troponin I NT-Pro-B Natriuret Pep Total Protein Albumin Globulin Albumin/Globulin Ratio Lipase Procalcitonin TSH Urine Color Yellow Urine Appearance Cloudy A Urine pH 5.0 Ur Specific [place] 1.018 Urine Protein Negative Urine Glucose (UA) Negative Urine Ketones Negative Urine Blood Negative Urine Nitrite Negative Urine Bilirubin Negative Urine Urobilinogen Negative Ur Leukocyte Esterase 3+ H Urine WBC (Auto) 10-30 H Urine RBC (Auto) 0-4 U Hyaline Cast (Auto) 1-5 U Epithel Cells (Auto) 20-30 H Urine Bacteria (Auto) 1+ H Ur Renal Epithelial Cell 5-10 H Nasal Screen MRSA (PCR) Hep Bs Antigen Hep Bs Antibody Hep Bs Antibody, Quant Diagnostic Findings Laboratory Results - last 24 hr 04/14/19 04/14/19 04/14/19 00:02 00:02 00:02 WBC 12.28 H RBC 4.48 Hgb 12.7 Hct 38.1 MCV 85.0 MCH 28.3 MCHC 33.3 RDW Std Deviation 44.2 RDW Coeff of Cornel 14.3 Plt Count 255 MPV 11.0 H Immature Gran % (Auto) 0.2 Neut % (Auto) 79.8 Lymph % (Auto) 9.0 [place] % (Auto) 10.0 Eos % (Auto) 0.8 Baso % (Auto) 0.2 Immature Gran # (Auto) 0.03 H Neut # (Auto) 9.79 H Lymph # (Auto) 1.10 L [place] # (Auto) 1.23 H Eos # (Auto) 0.10 Baso # (Auto) 0.03 PT INR APTT 30.0 PTT Ratio 1.1 ABG pH ABG pCO2 ABG pO2 ABG HCO3 ABG O2 Saturation ABG Base Excess Kory Test Barometric Pressure Oxygen Given Sodium 130 L Potassium 3.8 Chloride 92 L Carbon Dioxide 27 Anion Gap 11.0 BUN 58 H Creatinine 3.02 H Est Cr Clr Drug Dosing 12.6 Est GFR ( Amer) 15.4 Est GFR (Non-Af Amer) 13.3 BUN/Creatinine Ratio 19.2 Glucose 116 H Estimat Average Glucose Hemoglobin A1c Lactate Calcium 9.6 Phosphorus 4.5 Magnesium 2.0 Total Bilirubin 0.5 AST 16 ALT 17 Alkaline Phosphatase 90 Troponin I 0.049 H* NT-Pro-B Natriuret Pep 3991 H Total Protein 7.7 Albumin 4.0 Globulin 3.7 Albumin/Globulin Ratio 1.1 Lipase 215 Procalcitonin TSH 5.120 H Urine Color Urine Appearance Urine pH Ur Specific [place] Urine Protein Urine Glucose (UA) Urine Ketones Urine Blood Urine Nitrite Urine Bilirubin Urine Urobilinogen Ur Leukocyte Esterase Urine WBC (Auto) Urine RBC (Auto) U Hyaline Cast (Auto) U Epithel Cells (Auto) Urine Bacteria (Auto) Ur Renal Epithelial Cell Nasal Screen MRSA (PCR) Hep Bs Antigen Hep Bs Antibody Hep Bs Antibody, Quant 04/14/19 04/14/19 04/14/19 00:02 00:02 00:02 WBC RBC Hgb Hct MCV MCH MCHC RDW Std Deviation RDW Coeff of Cornel Plt Count MPV Immature Gran % (Auto) Neut % (Auto) Lymph % (Auto) [place] % (Auto) Eos % (Auto) Baso % (Auto) Immature Gran # (Auto) Neut # (Auto) Lymph # (Auto) [place] # (Auto) Eos # (Auto) Baso # (Auto) PT 10.3 INR 1.0 APTT PTT Ratio ABG pH ABG pCO2 ABG pO2 ABG HCO3 ABG O2 Saturation ABG Base Excess Kory Test Barometric Pressure Oxygen Given Sodium Potassium Chloride Carbon Dioxide Anion Gap BUN Creatinine Est Cr Clr Drug Dosing Est GFR ( Amer) Est GFR (Non-Af Amer) BUN/Creatinine Ratio Glucose Estimat Average Glucose Hemoglobin A1c Lactate Calcium Phosphorus Magnesium Total Bilirubin AST ALT Alkaline Phosphatase Troponin I NT-Pro-B Natriuret Pep Total Protein Albumin Globulin Albumin/Globulin Ratio Lipase Procalcitonin < 0.05 TSH Urine Color Urine Appearance Urine pH Ur Specific [place] Urine Protein Urine Glucose (UA) Urine Ketones Urine Blood Urine Nitrite Urine Bilirubin Urine Urobilinogen Ur Leukocyte Esterase Urine WBC (Auto) Urine RBC (Auto) U Hyaline Cast (Auto) U Epithel Cells (Auto) Urine Bacteria (Auto) Ur Renal Epithelial Cell Nasal Screen MRSA (PCR) Hep Bs Antigen Neg Hep Bs Antibody Immune Hep Bs Antibody, Quant > 1000.00 04/14/19 04/14/19 04/14/19 02:14 02:33 02:33 WBC RBC Hgb Hct MCV MCH MCHC RDW Std Deviation RDW Coeff of Cornel Plt Count MPV Immature Gran % (Auto) Neut % (Auto) Lymph % (Auto) [place] % (Auto) Eos % (Auto) Baso % (Auto) Immature Gran # (Auto) Neut # (Auto) Lymph # (Auto) [place] # (Auto) Eos # (Auto) Baso # (Auto) PT INR APTT PTT Ratio ABG pH Cancelled ABG pCO2 Cancelled ABG pO2 Cancelled ABG HCO3 Cancelled ABG O2 Saturation Cancelled ABG Base Excess Cancelled Kory Test Cancelled Barometric Pressure Cancelled Oxygen Given Cancelled Sodium Potassium Chloride Carbon Dioxide Anion Gap BUN Creatinine Est Cr Clr Drug Dosing Est GFR ( Amer) Est GFR (Non-Af Amer) BUN/Creatinine Ratio Glucose Estimat Average Glucose Hemoglobin A1c Lactate 2.0 Calcium Phosphorus Magnesium Total Bilirubin AST ALT Alkaline Phosphatase Troponin I 0.149 H* NT-Pro-B Natriuret Pep Total Protein Albumin Globulin Albumin/Globulin Ratio Lipase Procalcitonin TSH Urine Color Urine Appearance Urine pH Ur Specific [place] Urine Protein Urine Glucose (UA) Urine Ketones Urine Blood Urine Nitrite Urine Bilirubin Urine Urobilinogen Ur Leukocyte Esterase Urine WBC (Auto) Urine RBC (Auto) U Hyaline Cast (Auto) U Epithel Cells (Auto) Urine Bacteria (Auto) Ur Renal Epithelial Cell Nasal Screen MRSA (PCR) Hep Bs Antigen Hep Bs Antibody Hep Bs Antibody, Quant 04/14/19 04/14/19 04/14/19 02:33 03:10 07:56 WBC RBC Hgb Hct MCV MCH MCHC RDW Std Deviation RDW Coeff of Cornel Plt Count MPV Immature Gran % (Auto) Neut % (Auto) Lymph % (Auto) [place] % (Auto) Eos % (Auto) Baso % (Auto) Immature Gran # (Auto) Neut # (Auto) Lymph # (Auto) [place] # (Auto) Eos # (Auto) Baso # (Auto) PT INR APTT PTT Ratio ABG pH ABG pCO2 ABG pO2 ABG HCO3 ABG O2 Saturation ABG Base Excess Kory Test Barometric Pressure Oxygen Given Sodium Potassium Chloride Carbon Dioxide Anion Gap BUN Creatinine Est Cr Clr Drug Dosing Est GFR ( Amer) Est GFR (Non-Af Amer) BUN/Creatinine Ratio Glucose Estimat Average Glucose 97 Hemoglobin A1c 5.0 Lactate Calcium Phosphorus Magnesium Total Bilirubin AST ALT Alkaline Phosphatase Troponin I 0.500 H* NT-Pro-B Natriuret Pep Total Protein Albumin Globulin Albumin/Globulin Ratio Lipase Procalcitonin TSH Urine Color Urine Appearance Urine pH Ur Specific [place] Urine Protein Urine Glucose (UA) Urine Ketones Urine Blood Urine Nitrite Urine Bilirubin Urine Urobilinogen Ur Leukocyte Esterase Urine WBC (Auto) Urine RBC (Auto) U Hyaline Cast (Auto) U Epithel Cells (Auto) Urine Bacteria (Auto) Ur Renal Epithelial Cell Nasal Screen MRSA (PCR) Negative Hep Bs Antigen Hep Bs Antibody Hep Bs Antibody, Quant 04/14/19 10:25 WBC RBC Hgb Hct MCV MCH MCHC RDW Std Deviation RDW Coeff of Cornel Plt Count MPV Immature Gran % (Auto) Neut % (Auto) Lymph % (Auto) [place] % (Auto) Eos % (Auto) Baso % (Auto) Immature Gran # (Auto) Neut # (Auto) Lymph # (Auto) [place] # (Auto) Eos # (Auto) Baso # (Auto) PT INR APTT PTT Ratio ABG pH ABG pCO2 ABG pO2 ABG HCO3 ABG O2 Saturation ABG Base Excess Kory Test Barometric Pressure Oxygen Given Sodium Potassium Chloride Carbon Dioxide Anion Gap BUN Creatinine Est Cr Clr Drug Dosing Est GFR ( Amer) Est GFR (Non-Af Amer) BUN/Creatinine Ratio Glucose Estimat Average Glucose Hemoglobin A1c Lactate Calcium Phosphorus Magnesium Total Bilirubin AST ALT Alkaline Phosphatase Troponin I NT-Pro-B Natriuret Pep Total Protein Albumin Globulin Albumin/Globulin Ratio Lipase Procalcitonin TSH Urine Color Yellow Urine Appearance Cloudy A Urine pH 5.0 Ur Specific [place] 1.018 Urine Protein Negative Urine Glucose (UA) Negative Urine Ketones Negative Urine Blood Negative Urine Nitrite Negative Urine Bilirubin Negative Urine Urobilinogen Negative Ur Leukocyte Esterase 3+ H Urine WBC (Auto) 10-30 H Urine RBC (Auto) 0-4 U Hyaline Cast (Auto) 1-5 U Epithel Cells (Auto) 20-30 H Urine Bacteria (Auto) 1+ H Ur Renal Epithelial Cell 5-10 H Nasal Screen MRSA (PCR) Hep Bs Antigen Hep Bs Antibody Hep Bs Antibody, Quant
--- NOTE | 2019-04-14 09:53 | Cardiology Consultation ---
Date of Consultation April 14, 2019 Assessment & Plan (1) Acute on chronic heart failure with preserved ejection fraction: Patient symptomatically improved after hemodialysis session, having received BiPAP support overnight. She has a mild troponin elevation, likely due to her kidney insufficiency and volume overload status, I do not think her symptoms and mild troponin elevation are reflective of an acute coronary syndrome or intracoronary plaque rupture. (2) Mitral insufficiency: The patient has a history of moderate to severe mitral regurgitation as well as tricuspid regurgitation. She has been followed by Dr. Selene Napoles of interventional cardiology / structural heart disease / valve clinic at [facility] with most recent follow-up visit in February 2019. Transesophageal echocardiogram performed at that time was interpreted as moderate by ALEC. Therefore it was felt that no percutaneous intervention of the mitral regurgitation. (3) Atrial fibrillation: PAF. In SR at present. Continue Amiodarone. 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 She had previously been on sotalol for rhythm control, but in November 2018 she had breakthrough atrial fibrillation prompting transition to amiodarone. She is not on anticoagulation due to multiple severe bleeding complications in the past. Her most recent visit with interventional cardiology, implantation of the Watchman percutaneous left atrial appendage occlusion device was recommended. This had actually tentatively been scheduled, but the patient canceled that on 03/18/2019 due to concerns that she felt the risks of procedure outweigh the potential benefits. (4) History of permanent cardiac pacemaker placement: Most recent device check as an outpatient on 02/03/2019 revealed stable findings with underlying sinus rhythm and intact AV node function, she was atrial paced 49% the time and right ventricular paced 8% the time was stable generator longevity, the battery voltage was 2.89 V with an estimated longevity of 2.81 V. She is due for repeat device check in EP clinic on 05/19/2019 for close follow-up of her pacing thresholds and battery life. (5) ESRD on dialysis: Nephrology input noted and appreciated. History of Present Illness Attending Physician: Julio Lubin MD History of Present Illness Delfina Majano is an 88-year-old female seen in cardiology consultation per the request of Dr. Rodriguez for the evaluation of shortness of breath. 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 Brian Quiñones. She is well-known to our cardiology service from multiple admissions, and follows closely as an outpatient. The patient is accompanied by her son, Josef, who is sitting at the bedside. She reports that she has been doing relatively well from a congestive heart failure standpoint recently. She has been having routine dialysis, and has not been admitted for congestive heart failure since November 2018. She reportedly was doing well on Sunday, and even did well in terms of how she felt through Sunday when Josef accompanied her to congregational. He did note that it looks like she was swollen in her abdomen and legs and feet on Sunday. She felt abrupt onset of shortness of breath at 7:30 PM last evening, Sunday evening, prompting emergency room evaluation. EKG performed on 04/13/2019 at 2329 revealed normal sinus rhythm at 83 bpm, although the preliminary computer report sites of possible lateral ST changes, there is significant baseline artifact, I do not think this EKG is very helpful in terms of ischemia in this territory. Chest x-ray revealed findings suggestive of interstitial edema with small pleural effusions also noted. Her initial blood pressure reading in the emergency room at 12:17 AM was 141/92, and it is improved, most recent reading has been 113/58. She is Antwan received a course of bedside dialysis first thing this morning. Allergies Allergy/AdvReac Type Severity Reaction Status Date / Time naproxen Allergy Unknown Black Verified 04/14/19 00:54 stool/bleeding. gabapentin AdvReac Severe drug Verified 04/14/19 00:54 induced lupus codeine AdvReac Unknown GASTRIC Verified 04/14/19 00:54 UPSET methocarbamol AdvReac Unknown Nausea/Vomi Verified 04/14/19 00:54 ting Ofmvjof-Man-Iuj Reductase AdvReac Unknown MUSCLE Verified 04/14/19 00:54 Inhibitor WEAKNESS Home Medications Home Medications Medication Instructions Recorded Confirmed Type aspirin [Aspirin Childrens] 81 mg PO HS 08/20/18 04/14/19 History levothyroxine [Synthroid] 100 mcg PO DAILY 08/20/18 04/14/19 History pantoprazole 40 mg PO DAILY 08/20/18 04/14/19 History docusate sodium [Colace] 100 mg PO DAILY 12/03/18 04/14/19 History midodrine 5 mg PO DIRECTED 12/03/18 04/14/19 History sennosides [Senna Laxative] 8.6 mg PO DAILY PRN 12/03/18 04/14/19 History amiodarone 200 mg PO DAILY 04/14/19 04/14/19 History cholecalciferol (vitamin D3) 1,000 unit PO DAILY 04/14/19 04/14/19 History [Vitamin D3] Patient History Medical History Anemia Hyponatremia Elevated troponin Hypotension Tricuspid regurgitation Mitral insufficiency COPD (chronic obstructive pulmonary disease) Pulmonary edema Acute on chronic heart failure with preserved ejection fraction Acute decompensated heart failure on the basis of mixed valvular heart disease with history of moderate to severe mitral insufficiency, severe tricuspid insufficiency, moderate aortic insufficiency. 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) Obstructive type of ventilatory defect with mild restriction which may be related to patient's morbid obesity (per 2015 PFTs) Morbid obesity (Chronic) CKD (chronic kidney disease), stage III (Chronic) Gout (Chronic) Pulmonary HTN (Chronic) Myasthenia gravis (Chronic) Subacute cutaneous lupus erythematosus (Chronic) Acute on chronic diastolic HF (heart failure) (Acute) In setting of mixed valvular disease Hypothyroidism (Chronic) Pacemaker (Chronic) Atrial fibrillation (Chronic) on anticoaguation Congestive heart failure Surgical History H/O: hysterectomy (Resolved) History of tonsillectomy (Resolved) History of appendectomy (Resolved) History of permanent cardiac pacemaker placement (Resolved) Family History Other Heart disease Stroke Social History Preferred Language: Chinese Communication Ability: Effective Visual Impairment: No Limitations Railroad Watchman Required: No Beliefs That Will Affect Care: None marital status: / Current Living Situation: Alone current occupational status: retired Other Information That Helps Us Care for You: No Feels Safe at Home: Yes Safety Concerns: Feels Safe At This Time Smoking Status: Never smoker Second Hand Exposure: No Hx Alcohol Use: No Hx Substance Use: No Physical Exam Constitutional: no acute distress and no altered mental status Respiratory: Auscultation: + diminished lung sounds (Mildly decreased breath sounds bilaterally at the bases); no crackles and no rales Cardiovascular: Rate/Rhythm: regular rate and regular rhythm Heart Sounds: + murmur (I/ systolic murmur heard best at the left axilla) Vessels: no JVD Extremities: + edema (1+ bilateral lower extremity edema, with appearance of venous insufficiency) Gastrointestinal (Abdomen): normal bowel sounds, soft, nontender, no hepatosplenomegaly Skin: no rashes, warm and dry Neurologic: PERRL, EOMI, accommodation nl, no face palsy, no dysarthria moves all extremities; no focal motor deficits Results & Data Vital Signs (Past 12 Hours) Vital Signs Temp Pulse Pulse Pulse Pulse Resp BP 04/14/19 08:01 72 113/58 L 04/14/19 08:00 69 04/14/19 07:15 66 24 04/14/19 06:26 36.3 C L 66 66 107/67 04/14/19 06:20 66 95/65 L 04/14/19 06:00 68 68 20 99/70 L 04/14/19 05:40 67 91/61 L 04/14/19 05:20 66 93/59 L 04/14/19 05:00 69 65 16 95/61 L 04/14/19 04:40 63 89/59 L 04/14/19 04:20 65 93/62 L 04/14/19 04:00 36.7 C 64 65 14 106/64 04/14/19 03:40 69 113/73 04/14/19 03:25 36.4 C 78 78 140/79 04/14/19 03:19 36.7 C 84 18 04/14/19 03:09 73 20 04/14/19 02:53 84 20 04/14/19 02:25 85 23 04/14/19 02:15 86 25 H 04/14/19 02:10 84 23 04/14/19 02:05 87 21 04/14/19 02:00 88 23 04/14/19 01:59 89 23 04/14/19 01:55 90 24 04/14/19 01:50 89 22 04/14/19 01:45 93 H 25 H 04/14/19 01:40 98 H 30 H 04/14/19 01:35 97 H 26 H 04/14/19 01:30 104 H 29 H 04/14/19 01:26 99 H 30 H 04/14/19 01:25 100 H 29 H 04/14/19 01:22 104 H 32 H 04/14/19 01:12 106 H 28 H 04/14/19 00:41 110 H 36 H 04/14/19 00:22 110 H 32 H 04/14/19 00:17 108 H 32 H 04/13/19 23:15 36.5 C 22 121/75 BP Pulse Ox 04/14/19 08:01 93 04/14/19 08:00 04/14/19 07:15 100 04/14/19 06:26 107/67 04/14/19 06:20 04/14/19 06:00 89/62 L 96 04/14/19 05:40 04/14/19 05:20 04/14/19 05:00 93/59 L 98 04/14/19 04:40 04/14/19 04:20 04/14/19 04:00 89/59 L 96 04/14/19 03:40 04/14/19 03:25 04/14/19 03:19 138/79 98 04/14/19 03:09 140/79 97 04/14/19 02:53 96 04/14/19 02:25 93/54 L 97 04/14/19 02:15 112/69 97 04/14/19 02:10 108/66 97 04/14/19 02:05 107/63 97 04/14/19 02:00 119/66 98 04/14/19 01:59 98 04/14/19 01:55 110/70 98 04/14/19 01:50 109/64 95 04/14/19 01:45 108/62 95 04/14/19 01:40 118/72 94 04/14/19 01:35 119/65 94 04/14/19 01:30 127/91 94 04/14/19 01:26 94 04/14/19 01:25 152/93 H 94 04/14/19 01:22 161/93 H 97 04/14/19 01:12 169/90 H 94 04/14/19 00:41 133/86 96 04/14/19 00:22 95 04/14/19 00:17 141/92 H 94 04/13/19 23:15 Laboratory Results Cardiac Enzymes 04/14/19 04/14/19 04/14/19 Range/Units 00:02 02:14 07:56 AST 16 (15-37) U/L Troponin I 0.049 H* 0.149 H* 0.500 H* (0-0.045) ng/ml Coagulation 04/14/19 04/14/19 Range/Units 00:02 00:02 PT 10.3 (9.0-12.0) Seconds APTT 30.0 (21.0-31.0) Seconds CBC 04/14/19 Range/Units 00:02 WBC 12.28 H (4.8-10.8) K/uL RBC 4.48 (4.2-5.4) M/uL Hgb 12.7 (12.0-16.0) g/dL Hct 38.1 (37-47) % Plt Count 255 (130-400) K/uL Neut # (Auto) 9.79 H (1.4-6.5) K/uL Lymph # (Auto) 1.10 L (1.2-3.4) K/uL [place] # (Auto) 1.23 H (0.11-0.59) K/uL Eos # (Auto) 0.10 (0-0.5) K/uL Baso # (Auto) 0.03 (0-0.2) K/uL Comprehensive Metabolic Panel 04/14/19 Range/Units 00:02 Sodium 130 L (136-145) mmol/L Potassium 3.8 (3.5-5.1) mmol/L Chloride 92 L (98-107) mmol/L Carbon Dioxide 27 (21-32) mmol/L BUN 58 H (7-18) mg/dl Creatinine 3.02 H (0.6-1.2) mg/dl Glucose 116 H (70-99) mg/dl Calcium 9.6 (8.5-10.1) mg/dl AST 16 (15-37) U/L ALT 17 (12-78) U/L Alkaline Phosphatase 90 (45-117) U/L Total Protein 7.7 (6.4-8.2) gm/dl Albumin 4.0 (3.4-5.0) gm/dl Intake and Output 04/13/19 04/14/19 04/14/19 22:59 06:59 14:59 Intake Total 5.75 / 5.75 / 20 Output Total 2400 / 2400 Balance 5.75 / 5.75 -2380 / -2380 Intake: IV 5.75 / 5.75 0 / 0 NITROGLYCERIN/D5w 100 Mcg/Ml 5.75 / 5.75 0 / 0 250 ML @ 5 MCG/MIN 3 mls/hr IV .Q24H MILDRED Rx#:[id number] Oral 0 / 0 Output: Urine 0 / 0 Other 2400 / 2400 # Bowel Movements 0 / 0 Other: Hemodialysis Ultrafiltration 2,400 Amount Weight 87.1 kg Diagnostic Findings Summary of transesophageal echocardiogram recently having been performed at [facility] on 02/06/2019: The qualitative LV ejection fraction is 65-69% (normal). Mitral regurgitation is due to a combination of mitral annular dilation and posterior leaflet mitral valve prolapse. No obvious flail portion of the mitral valve is noted. Moderate mitral regurgitation is present. Moderate tricuspid regurgitation is present. The proximal ascending thoracic aorta is mildly enlarged.
[2019-04-14] MEDS: AMIODARONE 200 MG TAB PO SCH (10:15)
[2019-04-14] MEDS: DOCUSATE SODIUM 100 MG CAP PO SCH (10:15)
[2019-04-14] MEDS: PANTOprazole 40 MG TAB PO SCH (10:16)
[2019-04-14] MEDS: CHOLECALCIFEROL 1,000 UNITS TAB PO SCH (10:16)
[2019-04-14 10:37] LABS: Appearance Urine Cloudy (Clear); Bilirubin Urine Negative (Negative); Blood Urine Negative (Negative); Color Urine Yellow; Epithelial Cell Urine Auto 20-30 /lpf (0-5); Glucose Urine UA Negative (Negative); Ketones Urine Negative (Negative); Leukocyte Esterase Urine 3+ (Negative); Nitrite Urine Negative (Negative); Protein Urine Negative (Negative); Specific Gravity Urine 1.018 (1.000-1.030); Urobilinogen Urine Negative (Negative)
--- NOTE | 2019-04-14 10:56 | Ultrasound Report ---
US venous doppler LE CLINICAL HISTORY: 88 years-old Female presenting with loyd leg swelling. TECHNIQUE: Real-time grayscale and color and spectral Doppler ultrasound imaging of the veins of the bilateral lower extremities was performed. Compression and augmentation were also utilized. COMPARISON: 08/23/2018. FINDINGS: RIGHT: Common femoral vein: Patent. Greater saphenous vein (superficial): Patent. Deep femoral vein: Patent. Femoral vein: Patent. Popliteal vein: Patent. Calf veins: Grossly patent allowing for body habitus. LEFT: Common femoral vein: Patent. Greater saphenous vein (superficial): Patent. Deep femoral vein: Patent. Femoral vein: Patent. Popliteal vein: Patent. Calf veins: Grossly patent allowing for body habitus. Other: Hypoechoic to anechoic complex collection in the right posterior knee measuring 3.8 x 1.2 x 2. 5 cm.. IMPRESSION: 1. No evidence of deep venous thrombosis. Limited evaluation of the lower legs due to body habitus. 2. Suspected right popliteal cyst. Electronically signed by: Zhang Duffy M.D. 04/14/2019 10:54 AM
[2019-04-14 11:03] LABS: RBC Urine Automated 0-4 /hpf (0-4)
[2019-04-14 11:04] LABS: Bacteria Urine Automated 1+ (Negative)
[2019-04-14] MEDS: SEVELAMER HCL 800 MG TABLET PO SCH ×2 (11:28→16:37)
[2019-04-14] MEDS: ASPIRIN 81 MG ECTAB PO SCH (21:27)
--- NOTE | 2019-04-14 21:29 | CT Scan Report ---
CT chest wo con CT DOSE: 472.61 mGycm HISTORY: hemoptysis TECHNIQUE: Multiaxial CT images of the chest were performed without contrast. A dose lowering techni que was utilized adhering to the principles of ALARA. COMPARISON: Chest CTA 08/28/2014. FINDINGS: Left-sided pacemaker is noted. There is a right jugular dual-lumen catheter which terminate s in the SVC. No suspicious lytic or blastic osseous lesions. No pneumothorax. Trace mucoid material within the right mainstem bronchus. No pneumothorax. Interstitial thickening at the lung bases is lik mel chronic. There are also patchy areas of consolidation within the bases of the lower lobes posteri dandre. This may represent atelectasis. Multifocal scattered groundglass airspace opacities most pronou nced within the right upper lobe. A few scattered subcentimeter nodules are noted. These measure up t o 3 mm and are likely benign. Multiple scattered calcified granulomas within the visualized liver and spleen. Atrophic left kidney. Bilateral adrenal gland thickening is likely age-related. Moderate hia tus hernia. Trace bilateral pleural effusions. The heart is mildly enlarged. No mediastinal or hilar lymphadenopathy. Mild calcified plaque within the thoracic aorta. 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 IMPRESSION: 1. Scattered patchy groundglass airspace opacities most pronounced within the right upper lobe. This could be due to an atypical pneumonia or developing pulmonary edema. 2. Mild cardiomegaly and trace bilateral pleural effusions. 3. Moderate hiatus hernia. 4. Additional findings as described above. Electronically signed by: Vijay Griffith M.D. 04/14/2019 9:27 PM
[2019-04-14 21:38] LABS: Basophils # (auto) 0.01 K/uL (0-0.2); Basophils % (auto) 0.1 %; Eosinophils # (auto) 0.04 K/uL (0-0.5); Eosinophils % (auto) 0.4 %; Hematocrit (blood only) 36.6 % (37-47); Hemoglobin 12.2 g/dL (12.0-16.0); Immature Granulocytes # (auto) 0.02 K/uL (0.00-0.02); Immature Granulocytes % (auto) 0.2 %; Lymphocytes % (auto) 7.3 %; Mean Corpuscular Hgb Conc 33.3 g/dL (32-36); Mean Corpuscular Volume 85.9 fL (80-100); Mean Platelet Volume 9.6 fL (7.4-10.4); Monocytes # (auto) 0.99 K/uL (0.11-0.59); Monocytes % (auto) 10.3 %; Neutrophils # (auto) 7.81 K/uL (1.4-6.5); Neutrophils % (auto) 81.7 %; Platelet Count 197 K/uL (130-400); RDW Coefficient of Variation 14.3 % (11.5-14.5); RDW Standard Deviation 44.5 fL (36.4-46.3); Red Blood Count 4.26 M/uL (4.2-5.4); White Blood Count 9.57 K/uL (4.8-10.8)
--- NOTE | 2019-04-14 21:41 | Hospitalist Progress Note ---
Date of Service April 14, 2019 Subjective Patient noted to have cough symptoms productive of tomato colored sputum as per RN. No chest pain, no unusual shortness of breath. ? Hemoptysis CT chest RE hemoptysis CBC now Hold Heparin subcu until blood work results known. Will relay to AM provider. Results & Data Vital Signs (Past 12 Hours) Vital Signs Temp Pulse Resp BP Pulse Ox 04/14/19 19:34 36.7 C 70 20 98/58 L 97 04/14/19 15:29 36.6 C 69 17 102/54 L 97 04/14/19 11:39 36.5 C 65 17 105/66 95 04/14/19 11:26 36.4 C L 70 20 117/68 96
[2019-04-15] MEDS: LEVOTHYROXINE SODIUM 100 MCG TABLET PO SCH (05:49)
[2019-04-15 06:20] LABS: Basophils # (auto) 0.01 K/uL (0-0.2); Basophils % (auto) 0.1 %; Eosinophils # (auto) 0.03 K/uL (0-0.5); Eosinophils % (auto) 0.4 %; Hematocrit (blood only) 32.8 % (37-47); Hemoglobin 10.9 g/dL (12.0-16.0); Immature Granulocytes # (auto) 0.02 K/uL (0.00-0.02); Immature Granulocytes % (auto) 0.3 %; Lymphocytes # (auto) 0.51 K/uL (1.2-3.4); Lymphocytes % (auto) 7.2 %; Mean Corpuscular Hgb Conc 33.2 g/dL (32-36); Mean Corpuscular Volume 85.6 fL (80-100); Mean Platelet Volume 9.9 fL (7.4-10.4); Monocytes # (auto) 0.94 K/uL (0.11-0.59); Monocytes % (auto) 13.4 %; Neutrophils # (auto) 5.53 K/uL (1.4-6.5); Neutrophils % (auto) 78.6 %; Platelet Count 182 K/uL (130-400); RDW Coefficient of Variation 14.4 % (11.5-14.5); RDW Standard Deviation 45.1 fL (36.4-46.3); Red Blood Count 3.83 M/uL (4.2-5.4); White Blood Count 7.04 K/uL (4.8-10.8)
[2019-04-15 06:58] LABS: Calcium 8.8 mg/dl (8.5-10.1); Creatinine Clr Calc Pharmacy 13.2 ml/min; Est GFR (African American) 16.3; Est GFR (Non-African American) 14.1; Potassium 4.1 mmol/L (3.5-5.1)
[2019-04-15] MEDS: CHOLECALCIFEROL 1,000 UNITS TAB PO SCH (07:24)
[2019-04-15] MEDS: AMIODARONE 200 MG TAB PO SCH (07:24)
[2019-04-15] MEDS: SEVELAMER HCL 800 MG TABLET PO SCH ×3 (07:24→19:31)
[2019-04-15] MEDS: PANTOprazole 40 MG TAB PO SCH (07:25)
[2019-04-15] MEDS: DOCUSATE SODIUM 100 MG CAP PO SCH (07:25)
--- NOTE | 2019-04-15 09:07 | Nephrology Progress Note ---
Date of Service April 15, 2019 Assessment & Plan (1) ESRD on dialysis: pt on mwf HD; she had emergent HD 3 hrs in very early hours 04/14 w/ 2.4 L removed; unable to achieve 3L UF goal d/t hypotension. her blood pressures currently, serum chemistries, anemia, dialysis clearance are all acceptable at this time again today but she remains vol OL. Optimizing her volume status will be incremental work. Her hyponatremia is stable/ moderate and likely reflects volume overload -HD again today 4 hrs goal 2-3 L UF as bp tolerates -reassess needs on 04/16, but likely to need tx at that time primarily for volume mgt -daily bmp, hgb (2) Acute on chronic heart failure with preserved ejection fraction: pt w/ chronic valvular/ R HF and presenting here w/ volume overload; pulmonary edema; low threshold to repeat TTE if not already planned>>aggressive hd to manage volume (3) Acute pulmonary edema: improved after aggressive HD but still hypoxic, no longer needing bipap; follow clinically per primary team Subjective last small pink tinged sputum 0900; feels improved in terms of breathing; tolerating po; moving bowels; edema more prominent today had emergent CT ON non con chest d/t hemoptysis > heparin stopped > RUL opacities, ? atypical PNA or more edema Review of Systems Review of Systems: All systems reviewed & are unremarkable except as noted in HPI & below Constitutional: + fatigue Eyes: no worsening vision Ear, Nose, Mouth, Throat: + dry mouth Respiratory: as per Subjective / HPI and + hemoptysis Cardiovascular: + edema; no chest pain and no palpitations Gastrointestinal: as per Subjective / HPI Integumentary: no rash and no non-healing lesions Neurologic: + generalized weakness; no behavioral changes and no confusion Psychiatric: no behavioral changes Physical Exam Constitutional: well developed, well nourished and + obese sitting up in chair on 4L 02NC Eyes: EOM intact bilaterally ENMT: Ears: no external ear abnormality Nose: no external nose abnormality Mouth: + dry oral mucous membranes Neck: no nuchal rigidity Respiratory: normal respiratory effort; no labored breathing Auscultation: + diminished lung sounds and + crackles (about 2/3 way up posteriorly - her baseline); no wheezes kyphotic spine Cardiovascular: Rate/Rhythm: regular rate and regular rhythm Heart Sounds: + murmur Extremities: + edema (at most 1+) Gastrointestinal (Abdomen): Inspection/Auscultation: normal bowel sounds Percussion/Palpation: abdomen soft; abdomen nontender Musculoskeletal: Extremities: strength 5/5 throughout Skin: no rashes, warm and dry Psychiatric: A+Ox3, euthymic affect Results & Data Vital Signs (Past 12 Hours) Vital Signs Temp Pulse Pulse Resp BP Pulse Ox 04/15/19 07:22 36.5 C 66 20 104/47 L 97 04/15/19 03:54 64 22 96 04/15/19 03:38 36.7 C 65 20 96/72 L 96 04/15/19 00:00 36.7 C 70 18 118/61 100 04/14/19 22:30 78 36 H 98 Laboratory Results Abnormal lab results 04/14/19 04/14/19 04/15/19 Range/Units 10:25 21:29 05:58 RBC 3.83 L (4.2-5.4) M/uL Hgb 10.9 L (12.0-16.0) g/dL Hct 36.6 L 32.8 L (37-47) % Neut # (Auto) 7.81 H (1.4-6.5) K/uL Lymph # (Auto) 0.70 L 0.51 L (1.2-3.4) K/uL [place] # (Auto) 0.99 H 0.94 H (0.11-0.59) K/uL Sodium (136-145) mmol/L BUN (7-18) mg/dl Creatinine (0.6-1.2) mg/dl Urine Appearance Cloudy A (Clear) Ur Leukocyte Esterase 3+ H (Negative) Urine WBC (Auto) 10-30 H (0-5) /hpf U Epithel Cells (Auto) 20-30 H (0-5) /lpf Urine Bacteria (Auto) 1+ H (Negative) Ur Renal Epithelial Cell 5-10 H (0-5) /lpf 04/15/19 Range/Units 05:58 RBC (4.2-5.4) M/uL Hgb (12.0-16.0) g/dL Hct (37-47) % Neut # (Auto) (1.4-6.5) K/uL Lymph # (Auto) (1.2-3.4) K/uL [place] # (Auto) (0.11-0.59) K/uL Sodium 133 L (136-145) mmol/L BUN 43 H (7-18) mg/dl Creatinine 2.88 H (0.6-1.2) mg/dl Urine Appearance (Clear) Ur Leukocyte Esterase (Negative) Urine WBC (Auto) (0-5) /hpf U Epithel Cells (Auto) (0-5) /lpf Urine Bacteria (Auto) (Negative) Ur Renal Epithelial Cell (0-5) /lpf Diagnostic Findings chest ct non con FINDINGS: Left-sided pacemaker is noted. There is a right jugular dual-lumen catheter which terminates in the SVC. No suspicious lytic or blastic osseous lesions. No pneumothorax. Trace mucoid material within the right mainstem bronchus. No pneumothorax. Interstitial thickening at the lung bases is likely chronic. There are also patchy areas of consolidation within the bases of the lower lobes posteriorly. This may represent atelectasis. Multifocal scattered groundglass airspace opacities most pronounced within the right upper lobe. A few scattered subcentimeter nodules are noted. These measure up to 3 mm and are likely benign. Multiple scattered calcified granulomas within the visualized liver and spleen. Atrophic left kidney. Bilateral adrenal gland thickening is likely age-related. Moderate hiatus hernia. Trace bilateral pleural effusions. The heart is mildly enlarged. No mediastinal or hilar lymphadenopathy. Mild calcified plaque within the thoracic aorta. Mild aneurysmal dilatation of the ascending thoracic aorta measuring up to 4.3 cm in diameter. IMPRESSION: 1. Scattered patchy groundglass airspace opacities most pronounced within the right upper lobe. This could be due to an atypical pneumonia or developing pulmonary edema. 2. Mild cardiomegaly and trace bilateral pleural effusions. 3. Moderate hiatus hernia. 4. Additional findings as described above.
[2019-04-15] MEDS ORDERED: SODIUM CHLORIDE 0.9% 1000ML 1,000 ML IV PRN (09:08)
[2019-04-15] MEDS ORDERED: HEPARIN SOD (PORCINE) 1000 UNIT/ML 10 ML VIAL IV SCH (10:00)
--- NOTE | 2019-04-15 10:39 | Hospitalist Progress Note ---
Date of Service April 15, 2019 Assessment & Plan (1) Acute hypoxemic respiratory failure: Secondary to decompensated CHF failure hx valvular heart disease (severe mitral regurgitation; moderate aortic/tricuspid regurgitation) ESRD on HD Status post hemodialysis 04/13/19 Respiratory status improved, weaned off Bipap no arrythmias for HD again today wean off O2 supplement (patient only uses 2 L o2 via NC at HS) Management of HD per nephro Cardiology also consulted- continue current meds Doppler US: no DV Episode of Hemoptysis? likely from Pulmonary Edema, secondary to CHF CT chest: 1. Scattered patchy groundglass airspace opacities most pronounced within the right upper lobe. This could be due to an atypical pneumonia or developing pulmonary edema. 2. Mild cardiomegaly and trace bilateral pleural effusions. 3. Moderate hiatus hernia. 4. Additional findings as described above. -- no signs/symptoms of pneumonia -- monitor PAF, SSS sp PPM, patient NSR currently not on Coumadin secondary to bleeding history NICKY as per records COPD/restrictive lung disease as per records chronic anemia secondary to ESRD, hemoglobin at baseline myasthenia gravis, currently in remission DVT prophylaxis. Heparin subcu HELD due to hemoptysis Conditional CODE STATUS (okay with intubation; no CPR) discussed case and plan of care at length with patient and son Bill, they are agreeable and comfortable with the plan of care All questions answered Subjective ff up for acute volume overload, ESRD overnight, patient had red tinged sputum CT chest ordered showing Pulmonary edema seen resting in bedside chair, in good spirits states she feels improved compared to yesterday on 4 L nasal cannula, denies active dyspnea states pink tinged sputum is improving denies chest pain, palpitations, dizziness no arrhythmias overnight denies other symptoms Review of Systems Review of Systems: All systems reviewed & are unremarkable except as noted in HPI & below Physical Exam Physical Exam: General- oriented x 3, not in distress, speaks in sentences with no effort or accessory muscle use Eyes- anicteric Neck- no JVD Lungs- rales bilateral bases, no wheezing Heart- normal rate, regular rhythm; no murmurs Abdomen- normal bowel sounds, nondistended, soft, nontender Extremities- grade 2 lower leg edema, no calf tenderness Neuro- alert, oriented x 3; no gross focal neurologic deficits Skin- warm & dry Results & Data Vital Signs (Past 12 Hours) Vital Signs Temp Pulse Pulse Resp BP Pulse Ox 04/15/19 07:22 36.5 C 66 20 104/47 L 97 04/15/19 03:54 64 22 96 04/15/19 03:38 36.7 C 65 20 96/72 L 96 04/15/19 00:00 36.7 C 70 18 118/61 100 Laboratory Results Laboratory Results - last 24 hr 04/14/19 04/14/19 04/15/19 21:29 21:29 05:58 WBC 9.57 7.04 RBC 4.26 3.83 L Hgb 12.2 10.9 L Hct 36.6 L 32.8 L MCV 85.9 85.6 MCH 28.6 28.5 MCHC 33.3 33.2 RDW Std Deviation 44.5 45.1 RDW Coeff of Cornel 14.3 14.4 Plt Count 197 182 MPV 9.6 9.9 Immature Gran % (Auto) 0.2 0.3 Neut % (Auto) 81.7 78.6 Lymph % (Auto) 7.3 7.2 [place] % (Auto) 10.3 13.4 Eos % (Auto) 0.4 0.4 Baso % (Auto) 0.1 0.1 Immature Gran # (Auto) 0.02 0.02 Neut # (Auto) 7.81 H 5.53 Lymph # (Auto) 0.70 L 0.51 L [place] # (Auto) 0.99 H 0.94 H Eos # (Auto) 0.04 0.03 Baso # (Auto) 0.01 0.01 Sodium Potassium Chloride Carbon Dioxide Anion Gap BUN Creatinine Est Cr Clr Drug Dosing Est GFR ( Amer) Est GFR (Non-Af Amer) BUN/Creatinine Ratio Glucose Calcium Procalcitonin Blood Type A Positive Antibody Screen NEGATIVE 04/15/19 04/15/19 05:58 10:11 WBC RBC Hgb Hct MCV MCH MCHC RDW Std Deviation RDW Coeff of Cornel Plt Count MPV Immature Gran % (Auto) Neut % (Auto) Lymph % (Auto) [place] % (Auto) Eos % (Auto) Baso % (Auto) Immature Gran # (Auto) Neut # (Auto) Lymph # (Auto) [place] # (Auto) Eos # (Auto) Baso # (Auto) Sodium 133 L Potassium 4.1 Chloride 98 Carbon Dioxide 27 Anion Gap 8.0 BUN 43 H Creatinine 2.88 H Est Cr Clr Drug Dosing 13.2 Est GFR ( Amer) 16.3 Est GFR (Non-Af Amer) 14.1 BUN/Creatinine Ratio 15.0 Glucose 95 Calcium 8.8 Procalcitonin 0.86 H Blood Type Antibody Screen
[2019-04-15] MEDS: HEPARIN SOD (PORCINE) 1000 UNIT/ML 10 ML VIAL IV SCH ×2 (15:31→15:32)
--- NOTE | 2019-04-15 18:09 | Cardiology Progress Note ---
Date of Service April 15, 2019 Assessment & Plan (1) Acute hypoxemic respiratory failure: (2) Acute pulmonary edema: (3) Acute on chronic heart failure with preserved ejection fraction: HD for volume management. (4) Mitral insufficiency: Recent ALEC revealed Mod MR, non operative management recommended. (5) Paroxysmal atrial fibrillation: Continue amiodarone. Not on anticoagulation due to bleeding complications. Continue SQ heparin for DVT prophylaxis. No LE DVT on duplex this admission. Subjective CC: follow up shortness of breath Subjective: Patient comfortable. On HD. Vitals stable. Telemetry reveals SR in the 60s. Physical Exam Constitutional: no acute distress Respiratory: Auscultation: + diminished lung sounds (mildly decreased BS at bases); no crackles, no rales, no rhonchi and no wheezes Cardiovascular: Rate/Rhythm: regular rate Heart Sounds: + murmur (II/ SM) Vessels: no JVD Extremities: + edema (1+ bilateral LE edema) Results & Data Vital Signs (Past 12 Hours) Vital Signs Temp Pulse Pulse Resp BP BP Pulse Ox 04/15/19 17:40 61 92/60 L 04/15/19 17:20 63 86/55 L 04/15/19 17:00 64 89/56 L 04/15/19 16:40 63 87/54 L 04/15/19 16:20 61 91/54 L 04/15/19 16:00 60 96/63 L 04/15/19 15:40 57 L 88/61 L 04/15/19 15:20 60 97/56 L 04/15/19 15:00 68 98/57 L 04/15/19 14:53 70 109/63 04/15/19 14:46 36.6 C 04/15/19 11:17 36.6 C 81 22 82/54 L 93 04/15/19 07:22 36.5 C 66 20 104/47 L 97 Laboratory Results CBC 04/14/19 04/15/19 Range/Units 21:29 05:58 WBC 9.57 7.04 (4.8-10.8) K/uL RBC 4.26 3.83 L (4.2-5.4) M/uL Hgb 12.2 10.9 L (12.0-16.0) g/dL Hct 36.6 L 32.8 L (37-47) % Plt Count 197 182 (130-400) K/uL Neut # (Auto) 7.81 H 5.53 (1.4-6.5) K/uL Lymph # (Auto) 0.70 L 0.51 L (1.2-3.4) K/uL Brooks # (Auto) 0.99 H 0.94 H (0.11-0.59) K/uL Eos # (Auto) 0.04 0.03 (0-0.5) K/uL Baso # (Auto) 0.01 0.01 (0-0.2) K/uL Comprehensive Metabolic Panel 04/15/19 Range/Units 05:58 Sodium 133 L (136-145) mmol/L Potassium 4.1 (3.5-5.1) mmol/L Chloride 98 (98-107) mmol/L Carbon Dioxide 27 (21-32) mmol/L BUN 43 H (7-18) mg/dl Creatinine 2.88 H (0.6-1.2) mg/dl Glucose 95 (70-99) mg/dl Calcium 8.8 (8.5-10.1) mg/dl Intake and Output 04/15/19 04/15/19 04/15/19 06:59 14:59 22:59 Intake Total 200 / 460 425 / 425 Balance 200 / -2140 425 / 425 Intake: Oral 200 / 460 425 / 425 Other: # Unmeasured Voids 3 Weight 86.7 kg 87 kg Patient Weight 04/16/19 06:59 Weight 87 kg
[2019-04-15] MEDS: ASPIRIN 81 MG ECTAB PO SCH (19:31)
[2019-04-16] MEDS: LEVOTHYROXINE SODIUM 100 MCG TABLET PO SCH (06:05)
[2019-04-16] MEDS: AMIODARONE 200 MG TAB PO SCH (07:28)
[2019-04-16] MEDS: CHOLECALCIFEROL 1,000 UNITS TAB PO SCH (07:28)
[2019-04-16] MEDS: SEVELAMER HCL 800 MG TABLET PO SCH ×3 (07:28→16:41)
[2019-04-16] MEDS: PANTOprazole 40 MG TAB PO SCH (07:28)
[2019-04-16] MEDS ORDERED: SODIUM CHLORIDE 0.9% 1000ML 1,000 ML IV PRN (07:50)
[2019-04-16] MEDS: DOCUSATE SODIUM 100 MG CAP PO SCH (09:17)
[2019-04-16 09:22] LABS: Basophils # (auto) 0.02 K/uL (0-0.2); Basophils % (auto) 0.3 %; Eosinophils # (auto) 0.06 K/uL (0-0.5); Eosinophils % (auto) 0.8 %; Hematocrit (blood only) 34.9 % (37-47); Hemoglobin 11.6 g/dL (12.0-16.0); Immature Granulocytes # (auto) 0.01 K/uL (0.00-0.02); Immature Granulocytes % (auto) 0.1 %; Lymphocytes # (auto) 0.88 K/uL (1.2-3.4); Lymphocytes % (auto) 12.2 %; Mean Corpuscular Volume 86.4 fL (80-100); Mean Platelet Volume 10.4 fL (7.4-10.4); Monocytes # (auto) 0.95 K/uL (0.11-0.59); Monocytes % (auto) 13.2 %; Neutrophils # (auto) 5.27 K/uL (1.4-6.5); Neutrophils % (auto) 73.4 %; Platelet Count 176 K/uL (130-400); RDW Coefficient of Variation 14.4 % (11.5-14.5); RDW Standard Deviation 45.1 fL (36.4-46.3); Red Blood Count 4.04 M/uL (4.2-5.4); White Blood Count 7.19 K/uL (4.8-10.8)
[2019-04-16 09:43] LABS: Mean Corpuscular Hgb Conc 33.2 g/dL (32-36)
--- NOTE | 2019-04-16 10:29 | Dialysis Progress Note ---
Date of Service April 16, 2019 Assessment & Plan (1) ESRD on dialysis: pt on mwf HD; she had emergent HD 3 hrs in very early hours 04/14 w/ 2.4 L removed; unable to achieve 3L UF goal d/t hypotension. her blood pressures currently, serum chemistries, anemia, dialysis clearance are all acceptable at this time again today but she remains vol OL. Optimizing her volume status will be incremental work. Her hyponatremia is stable/ moderate and likely reflects volume overload -HD again today 4 hrs goal 2-3 L UF as bp tolerates -reassess needs on 04/17, but plan next tx on 04/18 as IP or OP -daily bmp, hgb (2) Acute on chronic heart failure with preserved ejection fraction: pt w/ chronic valvular/ R HF and presenting here w/ volume overload; pulmonary edema; low threshold to repeat TTE if not already planned>>aggressive hd to manage volume (3) Acute pulmonary edema: improved after aggressive HD but still hypoxic, no longer needing bipap; 02 needs trending down; follow clinically per primary team Subjective used pumps ON on legs > edema down further. still occasional pink tinged sputum and easy bruising. breathing improved - pt feeling well, requests aggressive (for her) uf target of 3L and will see how she does. no N, no worsened sob; tolerating po; feeling stronger. Review of Systems Review of Systems: All systems reviewed & are unremarkable except as noted in HPI & below Physical Exam Constitutional: well developed, well nourished and + obese on 02 2L Eyes: EOM intact bilaterally ENMT: Ears: no external ear abnormality Nose: no external nose abnormality Mouth: + dry oral mucous membranes Neck: no nuchal rigidity Respiratory: normal respiratory effort; no labored breathing Auscultation: + diminished lung sounds and + crackles (about 2/[address] up posteriorly - her baseline); no wheezes Cardiovascular: Rate/Rhythm: regular rate and regular rhythm Heart Sounds: + murmur Extremities: + edema (at most 1+) Gastrointestinal (Abdomen): Inspection/Auscultation: normal bowel sounds P ercussion/Palpation: abdomen soft; abdomen nontender Musculoskeletal: Extremities: strength 5/5 throughout Skin: no rashes, warm and dry Neurologic: wilson, fluent speech, maneuver readily for exam Psychiatric: A+Ox3, euthymic affect Insight: good insight Judgement: good judgement Results & Data Vital Signs (Past 12 Hours) Vital Signs Temp Pulse Pulse Resp BP Pulse Ox 04/16/19 06:53 36.5 C 60 18 93/56 L 97 04/16/19 03:07 36.9 C 58 L 19 107/62 95 04/15/19 22:54 37.1 C 67 17 102/67 97 04/15/19 22:36 72 24 99 Laboratory Results Abnormal lab results 04/15/19 04/16/19 Range/Units 10:11 09:00 RBC 4.04 L (4.2-5.4) M/uL Hgb 11.6 L (12.0-16.0) g/dL Hct 34.9 L (37-47) % Lymph # (Auto) 0.88 L (1.2-3.4) K/uL Gilliam # (Auto) 0.95 H (0.11-0.59) K/uL Procalcitonin 0.86 H (0-0.5) ng/ml
--- NOTE | 2019-04-16 15:05 | Hospitalist Progress Note ---
Date of Service April 16, 2019 Assessment & Plan (1) Acute hypoxemic respiratory failure: Secondary to ESRD on Hemodialysis / Acute on chronic heart failure with preserved ejection fraction / hx valvular heart disease (severe mitral regurgitation; moderate aortic/tricuspid regurgitation) (She has been followed by Dr. Selene Napoles of interventional cardiology / structural heart [place] [facility] [place] most recent follow-up visit in February 2019. Transesophageal echocardiogram performed at that time was interpreted as moderate by ALEC. Therefore it was felt that no percutaneous intervention of the mitral regurgitation.) ESRD on Hemodialysis ESRD on Hemodialysis 88 y/o F who had emergent Hemodialysis in ICU for 3 hrs on initial day of admission day 04/14/19 when she was admitted with pulmonary edema -2.4 liters of fluid removed on dialysis on 04/14/19 which improved respiratory status and patient was weaned off BIPAP -3 liters of fluid removed on dialysis on 04/15/19 -2.8 liters of fluid removed on dialysis on 04/16/19 Hemoptysis likely from Pulmonary Edema, secondary to CHF CT chest: 1. Scattered patchy groundglass airspace opacities most pronounced within the right upper lobe. This could be due to an atypical pneumonia or developing pulmonary edema. 2. Mild cardiomegaly and trace bilateral pleural effusions. 3. Moderate hiatus hernia. 4. Additional findings as described above. - monitor and treat volume status Atrial fibrillation: -Continue Amiodarone (She had previously been on sotalol for rhythm control, but in November 2018 she had breakthrough atrial fibrillation prompting transition to amiodarone. She is not on anticoagulation due to multiple severe bleeding complications in the past.) -Her most recent visit with interventional cardiology, implantation of the Watchman percutaneous left atrial appendage occlusion device was recommended. This had actually tentatively been scheduled, but the patient canceled that on 03/18/2019 due to concerns that she felt the risks of procedure outweigh the potential benefits. 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 Heparin subcu HELD due to hemoptysis, used SCDs Conditional CODE STATUS (okay with intubation; no CPR) Subjective Patient is post dialysis session on 04/16/19. Patient with atrial fibrillation with the heart rate in low 100s. Patient denies chest pain. and denies palpitations. she is comfortable and not is distress. no abdomen pain. no vomiting. blood pressure around 90/60. patient denies lightheadedness of dizziness Physical Exam Constitutional: comfortable Eyes: PERRL, conjunctivae normal, anicteric sclerae EOM intact bilaterally ENMT: external ear and nose normal, oropharynx normal Neck: trachea midline, no thyromegaly normal visual inspection Respiratory: normal respiratory effort Cardiovascular: Rate/Rhythm: + tachycardic and + irregularly irregular Gastrointestinal (Abdomen): normal bowel sounds, soft, nontender, no hepatosplenomegaly Musculoskeletal: Head/Neck/Chest: normocephalic and head atraumatic Neurologic: PERRL, EOMI, accommodation nl, no face palsy, no dysarthria CN's II-XI intact bilaterally Psychiatric: A+Ox3, euthymic affect Results & Data Vital Signs (Past 12 Hours) Vital Signs Temp Pulse Pulse Pulse Resp BP BP 04/16/19 14:28 36.9 C 96 H 97/57 L 04/16/19 13:51 96 H 97/57 L 04/16/19 13:43 95 H 82/46 L 04/16/19 13:21 93 H 89/42 L 04/16/19 13:02 100 H 93/49 L 04/16/19 12:40 94 H 95/61 L 04/16/19 12:20 92 H 80/51 L 04/16/19 12:00 91 H 86/50 L 04/16/19 11:42 100 H 86/45 L 04/16/19 11:40 95 H 22 86/45 L 04/16/19 11:22 98 H 91/55 L 04/16/19 11:00 98 H 91/55 L 04/16/19 10:40 89 99/49 L 04/16/19 10:20 98 H 91/49 L 04/16/19 10:00 89 97/57 L 04/16/19 09:45 36.9 C 92 H 04/16/19 06:53 36.5 C 60 18 93/56 L 04/16/19 03:07 36.9 C 58 L 19 107/62 Pulse Ox 04/16/19 14:28 04/16/19 13:51 04/16/19 13:43 04/16/19 13:21 04/16/19 13:02 04/16/19 12:40 04/16/19 12:20 04/16/19 12:00 04/16/19 11:42 04/16/19 11:40 2 L 04/16/19 11:22 04/16/19 11:00 04/16/19 10:40 04/16/19 10:20 04/16/19 10:00 04/16/19 09:45 04/16/19 06:53 97 04/16/19 03:07 95
--- NOTE | 2019-04-16 18:32 | Cardiology Progress Note ---
Date of Service April 16, 2019 Assessment & Plan (1) Acute on chronic heart failure with preserved ejection fraction: (2) Mitral insufficiency: (3) Tricuspid regurgitation: (4) Atrial fibrillation: (5) ESRD on dialysis: Continue ASA and amiodarone for AF. Has not tolerated additional med ication for rate control due to low BP HD is helping with volume. Knee high SCDs for DVT prophylaxis. Subjective CC: follow up shortness of breath Subjective: Patient comfortable. Edema and SOB improved. Had 2.8 L of fluid removed with HD today. Pt reverted to rate controlled AF at about 8 am this morning. She is not aware she is in AF from a symptom standpoint, I informed her about it. Physical Exam Constitutional: no acute distress Respiratory: no respiratory distress and no retractions Auscultation: + diminished lung sounds (mild decreased BS at bases) Cardiovascular: Extremities: + edema (improved in ankles and feet significantly compared to admission) Neurologic: PERRL, EOMI, accommodation nl, no face palsy, no dysarthria Results & Data Vital Signs (Past 12 Hours) Vital Signs Temp Pulse Pulse Pulse Resp BP BP 04/16/19 15:34 36.6 C 100 H 17 04/16/19 14:28 36.9 C 96 H 97/57 L 04/16/19 13:51 96 H 97/57 L 04/16/19 13:43 95 H 82/46 L 04/16/19 13:21 93 H 89/42 L 04/16/19 13:02 100 H 93/49 L 04/16/19 12:40 94 H 95/61 L 04/16/19 12:20 92 H 80/51 L 04/16/19 12:00 91 H 86/50 L 04/16/19 11:42 100 H 86/45 L 04/16/19 11:40 95 H 22 86/45 L 04/16/19 11:22 98 H 91/55 L 04/16/19 11:00 98 H 91/55 L 04/16/19 10:40 89 99/49 L 04/16/19 10:20 98 H 91/49 L 04/16/19 10:00 89 97/57 L 04/16/19 09:45 36.9 C 92 H 04/16/19 06:53 36.5 C 60 18 93/56 L BP Pulse Ox 04/16/19 15:34 85/42 L 98 04/16/19 14:28 04/16/19 13:51 04/16/19 13:43 04/16/19 13:21 04/16/19 13:02 04/16/19 12:40 04/16/19 12:20 04/16/19 12:00 04/16/19 11:42 04/16/19 11:40 2 L 04/16/19 11:22 04/16/19 11:00 04/16/19 10:40 04/16/19 10:20 04/16/19 10:00 04/16/19 09:45 04/16/19 06:53 97
[2019-04-16] MEDS: ASPIRIN 81 MG ECTAB PO SCH (21:10)
[2019-04-17 06:11] LABS: Hematocrit (blood only) 37.4 % (37-47); Hemoglobin 12.5 g/dL (12.0-16.0); Mean Corpuscular Hgb Conc 33.4 g/dL (32-36); Mean Corpuscular Volume 86.4 fL (80-100); Mean Platelet Volume 10.4 fL (7.4-10.4); Platelet Count 201 K/uL (130-400); RDW Coefficient of Variation 14.1 % (11.5-14.5); RDW Standard Deviation 44.8 fL (36.4-46.3); Red Blood Count 4.33 M/uL (4.2-5.4); White Blood Count 7.73 K/uL (4.8-10.8)
[2019-04-17] MEDS: LEVOTHYROXINE SODIUM 100 MCG TABLET PO SCH (06:11)
[2019-04-17 06:39] LABS: Albumin Level 3.2 gm/dl (3.4-5.0); BUN Creatinine Ratio 12.9 (10-20); Calcium 9.4 mg/dl (8.5-10.1); Est GFR (African American) 18.7; Est GFR (Non-African American) 16.1; Potassium 3.7 mmol/L (3.5-5.1)
[2019-04-17 06:42] LABS: Albumin Globulin Ratio 0.9 (0.9-2); Bilirubin,Total 0.6 mg/dl (0.2-1); Globulin 3.7 gm/dl (2.5-4.0); Total Protein 6.9 gm/dl (6.4-8.2)
[2019-04-17] MEDS: SEVELAMER HCL 800 MG TABLET PO SCH ×2 (07:37→11:40)
[2019-04-17] MEDS: CHOLECALCIFEROL 1,000 UNITS TAB PO SCH (07:37)
[2019-04-17] MEDS: DOCUSATE SODIUM 100 MG CAP PO SCH (07:37)
[2019-04-17] MEDS: AMIODARONE 200 MG TAB PO SCH (07:37)
[2019-04-17] MEDS: PANTOprazole 40 MG TAB PO SCH (07:38)
--- NOTE | 2019-04-17 11:45 | Hospitalist Progress Note ---
Date of Service April 17, 2019 Assessment & Plan (1) Acute hypoxemic respiratory failure: Secondary to ESRD on Hemodialysis / Acute on chronic heart failure with preserved ejection fraction / hx valvular heart disease (severe mitral regurgitation; moderate aortic/tricuspid regurgitation) (She has been followed by Dr. Selene Napoles of interventional cardiology / structural heart disease / valve clinic at [facility] [place] with most recent follow-up visit in February 2019. Transesophageal echocardiogram performed at that time was interpreted as moderate by ALEC. Therefore it was felt that no percutaneous intervention of the mitral regurgitation.) -hypoxia has resolved as of 04/17/19 ESRD on Hemodialysis 88 y/o F who had emergent Hemodialysis in ICU for 3 hrs on initial day of admission day 04/14/19 when she was admitted with pulmonary edema -2.4 liters of fluid removed on dialysis on 04/14/19 which improved respiratory status and patient was weaned off BIPAP -3 liters of fluid removed on dialysis on 04/15/19 -2.8 liters of fluid removed on dialysis on 04/16/19 -resume outpatient dialysis session which is usually Sunday and next dialysis session is Sunday04/18/19 patient has had multiple dialysis sessions in the hospital for volume overload and outpatient dialysis session should adjust accordingly Hemoptysis likely from Pulmonary Edema, secondary to CHF CT chest: 1. Scattered patchy groundglass airspace opacities most pronounced within the right upper lobe. This could be due to an atypical pneumonia or developing pulmonary edema. 2. Mild cardiomegaly and trace bilateral pleural effusions. 3. Moderate hiatus hernia. 4. Additional findings as described above. - hemoptysis has resolved, no fever suggestive of pneumonia -follow up X ray with primary care doctor Atrial fibrillation: -Continue Amiodarone (She had previously been on sotalol for rhythm control, but in November 2018 she had breakthrough atrial fibrillation prompting transition to amiodarone. She is not on anticoagulation due to multiple severe bleeding complications in the past.) -Her most recent visit with interventional cardiology, implantation of the Watchman percutaneous left atrial appendage occlusion device was recommended. This had actually tentatively been scheduled, but the patient canceled that on 03/18/2019 due to concerns that she felt the risks of procedure outweigh the po tential benefits. 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 Tabares as heart rate is controlled, outpatient cardiology follow up NICKY as per records COPD/restrictive lung disease as per records -at baseline patient uses 2 liter/min of oxygen at night Hypothyroidism -continue home dose Levoythroxine chronic anemia secondary to ESRD, hemoglobin at baseline myasthenia gravis, currently in remission DVT prophylaxis. Heparin subcu HELD due to hemoptysis, used SCDs Conditional CODE STATUS (okay with intubation; no CPR) Discharge Diagnosis Acute hypoxemic respiratory failure with hypoxia (resolved); ESRD on Hemodialysis; Acute on chronic heart failure with preserved ejection fraction; hx valvular heart disease (severe mitral regurgitation; moderate aortic/tricuspid regurgitation), Atrial fibrillation, Hemoptysis likely from Pulmonary Edema Discharge Instructions Patient is discharge to home resume outpatient dialysis session which is usually Sunday and next dialysis session is Sunday04/18/19 Of note, patient has had multiple dialysis sessions in the hospital for volume overload and outpatient dialysis session should adjust accordingly (88 y/o F who had emergent Hemodialysis in ICU for 3 hrs on initial day of admission day 04/14/19 when she was admitted with pulmonary edema -2.4 liters of fluid removed on dialysis on 04/14/19 which improved respiratory status and patient was weaned off BIPAP -3 liters of fluid removed on dialysis on 04/15/19 -2.8 liters of fluid removed on dialysis on 04/16/19) Patient also in atrial fibrillation that is rate controlled Patient should have followup Chest X ray with primary care doctor Follow up with 04/21/2019 1:00 PM Provider Irish Crowley MD Department Family Practice [facility] 04/22/2019 10:45 AM Provider Luci Delgado DPM Department Podiatry [facility] 05/19/2019 1:00 PM Provider Pacer Clinic [facility] [place] Department Cardiology, [facility] 05/19/2019 1:30 PM Provider Alla Velasco PA-C Department Cardiology, [facility] Subjective Patient was able to have oxygen nasal cannula titrated off. Saturating well on room air. some residual mild crackles on exam. continues to be with atrial fibrillation. heart rate controlled. patient denies chest pain, or palpitations. no lightheadedness. no dizziness. discharge plans discussed at length with patient and her son at bedside Physical Exam Constitutional: comfortable Eyes: PERRL, conjunctivae normal, anicteric sclerae EOM intact bilaterally ENMT: external ear and nose normal, oropharynx normal Neck: trachea midline, no thyromegaly normal visual inspection Respiratory: normal respiratory effort Auscultation: + crackles (mild) Cardiovascular: Rate/Rhythm: regular rhythm and + tachycardic Gastrointestinal (Abdomen): normal bowel sounds, soft, nontender, no hepatosplenomegaly Musculoskeletal: Head/Neck/Chest: normocephalic and head atraumatic Neurologic: PERRL, EOMI, accommodation nl, no face palsy, no dysarthria CN's II-XI intact bilaterally Psychiatric: A+Ox3, euthymic affect Results & Data Vital Signs (Past 12 Hours) Vital Signs Temp Pulse Pulse Resp BP Pulse Ox 04/17/19 08:22 88 04/17/19 07:18 36.3 C L 93 H 19 97/64 L 98 04/17/19 03:29 36.6 C 91 H 21 114/81 98 04/17/19 00:14 88 04/16/19 23:50 36.2 C L 107 H 15 86/50 L 97
--- NOTE | 2019-04-17 11:52 | Discharge Summary ---
Date of Service April 17, 2019 Admission HPI Per Admitting Provider History obtained from patient, family, and records. 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 Recent confinement November 2018 for decompensated heart failure. Watchman device recommended by [facility] storage facility rental clerk doing February 2019 outpatient visit. Patient still contemplating decision. The last 3 days, patient heart rate noted to be higher than usual, 100-110s. As per son, patient SBP 120s which is high for patient's usual low blood pressures. Patient denies unusual stress/anxiety/dietary indiscretion. Compliant with home meds and scheduled hemodialysis. Denies chest pain, cough symptoms. Legs increasingly noted to be more swollen. Patient brought to the ER with worsening shortness of breath, fluid retention issues. At the ER, patient noted to be in respiratory distress. BiPAP initiated. Lasix, Zaroxolyn, Nitro , Morphine administered at the ER. 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 Admission Exam Per Admitting Provider GENERAL: Pleasant, slightly uncomfortable, minimal respiratory distress, obese SKIN: Sallow , warm HEENT: Pale palpebral conjunctivae, no ptosis, dry buccal mucosa, BiPAP in place NECK : Supple, short, no tenderness CHEST : Bilateral crackles, expiratory wheezes , no tenderness HEART : RRR, systolic murmur ABDOMEN: Some distention, nontender EXTREMITIES : Bilateral LE swelling with leg wrappings noted, no LE tenderness, no other conspicuous deformities noted NEUROLOGIC : Coherent, no facial asymmetry, gait and stance not assessed Principal Diagnosis Acute hypoxemic respiratory failure with hypoxia (resolved); ESRD on Hemodialysis; Acute on chronic heart failure with preserved ejection fraction; hx valvular heart disease (severe mitral regurgitation; moderate aortic/tricuspid regurgitation), Atrial fibrillation, Hemoptysis likely from Pulmonary Edema Discharge Exam Constitutional comfortable Eyes PERRL, conjunctivae normal, anicteric sclerae EOM intact bilaterally ENMT external ear and nose normal, oropharynx normal Neck trachea midline, no thyromegaly normal visual inspection Respiratory normal respiratory effort Auscultation: + crackles (mild) Cardiovascular Rate/Rhythm: regular rate and + irregularly irregular Gastrointestinal (Abdomen) normal bowel sounds, soft, nontender, no hepatosplenomegaly Musculoskeletal Head/Neck/Chest: normocephalic and head atraumatic Neurologic PERRL, EOMI, accommodation nl, no face palsy, no dysarthria CN's II-XI intact bilaterally Psychiatric A+Ox3, euthymic affect Discharge Data Allergies Allergy/AdvReac Type Severity Reaction Status Date / Time naproxen Allergy Unknown Black Verified 04/14/19 00:54 stool/bleeding. gabapentin AdvReac Severe drug Verified 04/14/19 00:54 induced lupus codeine AdvReac Unknown GASTRIC Verified 04/14/19 00:54 UPSET methocarbamol AdvReac Unknown Nausea/Vomi Verified 04/14/19 00:54 ting Tjbxoyg-Tmy-Hca Reductase AdvReac Unknown MUSCLE Verified 04/14/19 00:54 Inhibitor WEAKNESS Consultations 04/14/19 01:24 Consult Nephrology Stat 04/14/19 01:44 ED Decision to Admit Stat 04/14/19 03:09 Consult Cardiology Routine Consult Case Management - Discharge Planning Routine Consult Coordinate Measuring Equipment Operator Routine Ordered Studies 04/14/19 03:09 US venous doppler LE BI Urgent 04/14/19 20:39 CT chest wo con Urgent Hospital Course (1) Acute hypoxemic respiratory failure: Secondary to ESRD on Hemodialysis / Acute on chronic heart failure with preserved ejection fraction / hx valvular heart disease (severe mitral regurgitation; moderate aortic/tricuspid regurgitation) (She has been followed by Dr. Selene Napoles of interventional cardiology / structural heart disease / valve clinic at [facility] with most recent follow-up visit in February 2019. Transesophageal echocardiogram performed at that time was interpreted as moderate by ALEC. Therefore it was felt that no percutaneous intervention of the mitral regurgitation.) -hypoxia has resolved as of 04/17/19 ESRD on Hemodialysis 88 y/o F who had emergent Hemodialysis in ICU for 3 hrs on initial day of admission day 04/14/19 when she was admitted with pulmonary edema -2.4 liters of fluid removed on dialysis on 04/14/19 which improved respiratory s tatus and patient was weaned off BIPAP -3 liters of fluid removed on dialysis on 04/15/19 -2.8 liters of fluid removed on dialysis on 04/16/19 -resume outpatient dialysis session which is usually Sunday and next dialysis session is Sunday04/18/19 patient has had multiple dialysis sessions in the hospital for volume overload and outpatient dialysis session should adjust accordingly Hemoptysis likely from Pulmonary Edema, secondary to CHF CT chest: 1. Scattered patchy groundglass airspace opacities most pronounced within the right upper lobe. This could be due to an atypical pneumonia or developing pulmonary edema. 2. Mild cardiomegaly and trace bilateral pleural effusions. 3. Moderate hiatus hernia. 4. Additional findings as described above. - hemoptysis has resolved, no fever suggestive of pneumonia -follow up X ray with primary care doctor Atrial fibrillation: -Continue Amiodarone (She had previously been on sotalol for rhythm control, but in November 2018 she had breakthrough atrial fibrillation prompting transition to amiodarone. She is not on anticoagulation due to multiple severe bleeding complications in the past.) -Her most recent visit with interventional cardiology, implantation of the Watchman percutaneous left atrial appendage occlusion device was recommended. This had actually tentatively been scheduled, but the patient canceled that on 03/18/2019 due to concerns that she felt the risks of procedure outweigh the potential benefits. 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 Tabares as heart rate is controlled, outpatient cardiology follow up [place] as per records COPD/restrictive lung disease as per records -at baseline patient uses 2 liter/min of oxygen at night Hypothyroidism -continue home dose Levoythroxine chronic anemia secondary to ESRD, hemoglobin at baseline myasthenia gravis, currently in remission DVT prophylaxis. Heparin subcu HELD due to hemoptysis, used SCDs Conditional CODE STATUS (okay with intubation; no CPR) Discharge Diagnosis Acute hypoxemic respiratory failure with hypoxia (resolved); ESRD on Hemodialysis; Acute on chronic heart failure with preserved ejection fraction; hx valvular heart disease (severe mitral regurgitation; moderate aorti c/tricuspid regurgitation), Atrial fibrillation, Hemoptysis likely from Pulmonary Edema Discharge Instructions Patient is discharge to home resume outpatient dialysis session which is usually Sunday and next dialysis session is Sunday04/18/19 Of note, patient has had multiple dialysis sessions in the hospital for volume overload and outpatient dialysis session should adjust accordingly (88 y/o F who had emergent Hemodialysis in ICU for 3 hrs on initial day of admission day 04/14/19 when she was admitted with pulmonary edema -2.4 liters of fluid removed on dialysis on 04/14/19 which improved respiratory status and patient was weaned off BIPAP -3 liters of fluid removed on dialysis on 04/15/19 -2.8 liters of fluid removed on dialysis on 04/16/19) Patient also in atrial fibrillation that is rate controlled Patient should have followup Chest X ray with primary care doctor Follow up with 04/21/2019 1:00 PM Provider Irish Crowley MD Department Family Practice [facility] 04/22/2019 10:45 AM Provider Luci Delgado DPM Department Podiatry [facility] 05/19/2019 1:00 PM Provider Pacer Clinic [facility] Department Cardiology, [facility] 05/19/2019 1:30 PM Provider Alla Velasco PA-C Department Cardiology, [facility] Total Time Total Time Spent Total Time Spent (In Minutes): 40 minutes Total Time Includes: Examination of the Patient, Discharge Planning, Medication Reconciliation and Communication With Other Providers Discharge Plan Discharge Items Patient Disposition: Home - Self-Care Reason For Visit: RESP FAILURE Discharge Diagnosis: Acute hypoxemic respiratory failure with hypoxia (resolved); ESRD on Hemodialysis; Acute on chronic heart failure with preserved ejection fraction; hx valvular heart disease (severe mitral regurgitation; moderate aortic/tricuspid regurgitation), Atrial fibrillation, Hemoptysis likely from Pulmonary Edema Condition: Good Discharge Goals: Improve disease control Activity: Resume your previous activity Non-emergency contact: Primary Care Provider and Repairer And Checker Call non-emergency contact if: you have any medication questions, your symptoms worsen and your temperature is above 101 Follow-up/Referrals: Irish Crowley MD [Primary Care Provider] - Diet: Dialysis Renal and Heart Healthy Add Provider Instructions: Patient is discharge to home resume outpatient dialysis session which is usually Sunday and next dialysis session is Sunday04/18/19 Of note, patient has had multiple dialysis sessions in the hospital for volume overload and outpatient dialysis session should adjust accordingly (88 y/o F who had emergent Hemodialysis in ICU for 3 hrs on initial day of admission day 04/14/19 when she was admitted with pulmonary edema -2.4 liters of fluid removed on dialysis on 04/14/19 which improved respiratory status and patient was weaned off BIPAP -3 liters of fluid removed on dialysis on 04/15/19 -2.8 liters of fluid removed on dialysis on 04/16/19) Patient also in atrial fibrillation that is rate controlled Patient should have followup Chest X ray with primary care doctor Follow up with 04/21/2019 1:00 PM Provider Irish Crowley MD Department Family Practice [facility] 04/22/2019 10:45 AM Provider Luci Delgado DPM Department Podiatry [facility] 05/19/2019 1:00 PM Provider Pacer Clinic [facility] Department Cardiology, [facility] 05/19/2019 1:30 PM Provider Alla Velasco PA-C Department Cardiology, [facility] Prescriptions: New sevelamer HCl [Renagel] 800 mg Tablet 800 mg PO TIDM 30 Days Qty: 30 RF: 0 Continued amiodarone 200 mg tablet 200 mg PO DAILY RF: 0 cholecalciferol (vitamin D3) [Vitamin D3] 1,000 unit Tablet 1,000 unit PO DAILY RF: 0 levothyroxine [Synthroid] 100 mcg tablet 100 mcg PO DAILY RF: 0 pantoprazole 40 mg tablet,delayed release (DR/EC) 40 mg PO DAILY RF: 0 aspirin [Aspirin Childrens] 81 mg Tablet,Chewable 81 mg PO HS RF: 0 docusate sodium [Colace] 100 mg Capsule 100 mg PO DAILY RF: 0 sennosides [Senna Laxative] 8.6 mg Tablet 8.6 mg PO DAILY PRN (Reason: Constipation) RF: 0 midodrine 5 mg Tablet 5 mg PO DIRECTED RF: 0 Stand-Alone Forms: [facility] Discharge Orders: Discharge Order (Routine); Ordered 04/17/19 Ordered By: Hilario Gage Admission Data Admit Date/Time: 04/14/19 02:17 Attending Provider: Hilario Gage Admit Provider: Michel Fajardo Primary Care Provider: Irish Crowley Other Providers: Fred Shea ; Michel Fajardo ; Brian Quiñones ; Inderjit Ramirez Service: Telemetry
--- NOTE | 2019-04-26 09:55 | Critical Care Consultation ---
Date of Consultation April 26, 2019 Supervising Physician Co-Signing Physician Notes This is a written administrative note. Per records finishing tunnel operator was consulted overnight, prior to evaluation patient was transferred by primary service to telemetry. History of Present Illness Attending Physician: Hilario Gage MD Allergies Allergy/AdvReac Type Severity Reaction Status Date / Time naproxen Allergy Unknown Black Verified 04/14/19 00:54 stool/bleeding. gabapentin AdvReac Severe drug Verified 04/14/19 00:54 induced lupus codeine AdvReac Unknown GASTRIC Verified 04/14/19 00:54 UPSET methocarbamol AdvReac Unknown Nausea/Vomi Verified 04/14/19 00:54 ting Gxodhry-Zec-Pyn Reductase AdvReac Unknown MUSCLE Verified 04/14/19 00:54 Inhibitor WEAKNESS Home Medications Home Medications Medication Instructions Recorded Confirmed Type aspirin [Aspirin Childrens] 81 mg PO HS 08/20/18 04/14/19 History levothyroxine [Synthroid] 100 mcg PO DAILY 08/20/18 04/14/19 History pantoprazole 40 mg PO DAILY 08/20/18 04/14/19 History docusate sodium [Colace] 100 mg PO DAILY 12/03/18 04/14/19 History midodrine 5 mg PO DIRECTED 12/03/18 04/14/19 History sennosides [Senna Laxative] 8.6 mg PO DAILY PRN 12/03/18 04/14/19 History amiodarone 200 mg PO DAILY 04/14/19 04/14/19 History cholecalciferol (vitamin D3) 1,000 unit PO DAILY 04/14/19 04/14/19 History [Vitamin D3] sevelamer HCl [Renagel] 800 mg PO TIDM 30 Days #30 tab 04/17/19 Rx Patient History Medical History Anemia Hyponatremia Elevated troponin Hypotension Tricuspid regurgitation Mitral insufficiency COPD (chronic obstructive pulmonary disease) Pulmonary edema Acute on chronic heart failure with preserved ejection fraction Acute decompensated heart failure on the basis of mixed valvular heart disease with history of moderate to severe mitral insufficiency, severe tricuspid insufficiency, moderate aortic insufficiency. 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) Obstructive type of ventilatory defect with mild restriction which may be related to patient's morbid obesity (per 2015 PFTs) Morbid obesity (Chronic) CKD (chronic kidney disease), stage III (Chronic) Gout (Chronic) Pulmonary HTN (Chronic) Myasthenia gravis (Chronic) Subacute cutaneous lupus erythematosus (Chronic) Acute on chronic diastolic HF (heart failure) (Acute) In setting of mixed valvular disease Hypothyroidism (Chronic) Pacemaker (Chronic) Atrial fibrillation (Chronic) on anticoaguation Congestive heart failure Surgical History H/O: hysterectomy (Resolved) History of tonsillectomy (Resolved) History of appendectomy (Resolved) History of permanent cardiac pacemaker placement (Resolved) Family History Other Heart disease Stroke Social History Preferred Language: [place] Communication Ability: Effective Visual Impairment: No Limitations Professor Of Chemistry Required: No Beliefs That Will Affect Care: None marital status: / Current Living Situation: Alone current occupational status: retired Other Information That Helps Us Care for You: No Feels Safe at Home: Yes Safety Concerns: Feels Safe At This Time Smoking Status: Never smoker Second Hand Exposure: No Hx Alcohol Use: No Hx Substance Use: No
--- NOTE | 2019-04-30 15:11 | Coding Query ---
CONGESTIVE HEART FAILURE To Promote full compliance with coding requirements relating to patient care, physician participation is requested in all cases of beauty sales advisor uncertainty. Please assist us with the following questions. A diagnosis of Congestive Heart Failure is documented in the patient's medical record. To accurately code this diagnosis and to compare patient severity, we ask that you specify the type of heart failure by placing an X within the parenthesis (x). SYSTOLIC HEART FAILURE (x ) Acute ( ) Chronic ( ) Acute on Chronic ( ) Rheumatic ( ) Unknown DIASTOLIC HEART FAILURE ( ) Acute ( ) Chronic ( ) Acute on Chronic ( ) Rheumatic ( ) Unknown COMBINED SYSTOLIC AND DIASTOLIC HEART FAILURE ( ) Acute ( ) Chronic ( ) Acute on Chronic ( ) Rheumatic ( ) Unknown Was the CHF Present On Admission? Please check the appropriate box: ( x ) Present on Admission ( ) Not Present On Admission ( ) Clinically undetermined Thank you Keaynna WARD
--- NOTE | 2019-04-30 17:57 | Hospitalist Progress Note ---
Date of Service April 30, 2019 Subjective correction to the communication that patient has acute on chronic DIASTOLIC congestive heart failure. congestive heart failure present on admission
== END 2019-04-17 13:27 | disposition home or self-care (01) | DRG 291 ==
LOC: ED 22:59 → 1E 04-14 02:17 → SUATTDRO 04-14 02:17 → 1E 04-14 02:33 → 2E 04-14 11:19

== ENCOUNTER 2019-12-22 15:50 | Inpatient (IN) ==
--- NOTE | 2019-12-22 16:53 | XRay Report ---
XR chest 1V portable CLINICAL HISTORY: 89 years-old Female presenting with SNEED. TECHNIQUE: Portable upright AP view of the chest was obtained. COMPARISON: 04/14/2019. FINDINGS: Left subclavian pacer with leads to the right atrium and right ventricular apex. Tunneled right inter nal jugular dual lumen catheter terminates at the lower SVC. Atherosclerosis of the aortic arch. Card iac silhouette moderately enlarged. Pulmonary vasculature is only mildly prominent. Heterogeneity of lung parenchyma. Reticular opacities at the right lung base. No other focal opacity. No large effusio n or pneumothorax. Osteopenia suspected. Degenerative changes of the thoracic spine. Upper abdomen no rmal. IMPRESSION: 1. Cardiomegaly with mild volume overload. No advanced congestive change or pulmonary edema. 2. Right basilar scarring suspected. ACT 112: Negative or not required by law. Electronically signed by: Zhang Duffy M.D. 12/22/2019 4:52 PM
[2019-12-22 17:17] LABS: Basophils # (auto) 0.03 K/uL (0-0.2); Basophils % (auto) 0.4 %; Eosinophils # (auto) 0.06 K/uL (0-0.5); Eosinophils % (auto) 0.8 %; Hematocrit (blood only) 33.4 % (37-47); Hemoglobin 11.1 g/dL (12.0-16.0); Immature Granulocytes # (auto) 0.02 K/uL (0.00-0.02); Immature Granulocytes % (auto) 0.3 %; Lymphocytes # (auto) 0.67 K/uL (1.2-3.4); Lymphocytes % (auto) 9.4 %; Mean Corpuscular Hemoglobin 29.3 pg (25-34); Mean Corpuscular Hgb Conc 33.2 g/dL (32-36); Mean Corpuscular Volume 88.1 fL (80-100); Monocytes # (auto) 0.95 K/uL (0.11-0.59); Monocytes % (auto) 13.3 %; Neutrophils # (auto) 5.39 K/uL (1.4-6.5); Neutrophils % (auto) 75.8 %; Platelet Count 265 K/uL (130-400); RDW Coefficient of Variation 14.1 % (11.5-14.5); RDW Standard Deviation 45.6 fL (36.4-46.3); Red Blood Count 3.79 M/uL (4.2-5.4); White Blood Count 7.12 K/uL (4.8-10.8)
[2019-12-22 17:27] LABS: INR 1.1 (0.9-1.1); Partial Thromboplastin Ratio 1.2; Partial Thromboplastin Time 33.5 Seconds (21.0-31.0); Prothrombin Time 10.8 Seconds (9.0-12.0)
[2019-12-22 17:34] LABS: Alanine Aminotransferase 36 U/L (12-78); Albumin Level 3.1 gm/dl (3.4-5.0); Aspartate Aminotransferase 30 U/L (15-37); Blood Urea Nitrogen 27 mg/dl (7-18); Calcium 9.1 mg/dl (8.5-10.1); Carbon Dioxide 26 mmol/L (21-32); Chloride 95 mmol/L (98-107); Glucose 90 mg/dl (70-99); Magnesium 1.9 mg/dl (1.8-2.4); Potassium 3.5 mmol/L (3.5-5.1); Sodium 131 mmol/L (136-145)
[2019-12-22 17:45] LABS: Albumin Globulin Ratio 0.7 (0.9-2); Alkaline Phosphatase 73 U/L (45-117); Bilirubin,Total 0.5 mg/dl (0.2-1); Globulin 4.7 gm/dl (2.5-4.0); NT Pro B Type Natriuretic Pept 7714 pg/ml (0-1800); Total Protein 7.8 gm/dl (6.4-8.2); Troponin I 0.038 ng/ml (0-0.045)
--- NOTE | 2019-12-22 19:06 | History & Physical Report ---
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 Pacemaker interrogation in the clinic remain unremarkable (3) ESRD on dialysis: Has a dialysis today Chest x-ray is showing mild CHF Will not give any treatment for the right (4) COPD (chronic obstructive pulmonary disease): No acute exacerbation (5) Acute on chronic heart failure with preserved ejection fraction: Chest x-ray is showing mild congestive changes with BNP of 7714 Has had dialysis today Will need dialysis for worsening CHF Has multiple valvular heart disease, likely causing atrial fibrillation History of myasthenia gravis-not acute Hypothyroidism-we will continue supplemental Synthroid Other medical condition remained stable DVT prophylaxis Subcu heparin CODE STATUS Initial discussion with the patient supported to have full code but later on the POA and the patient changed her mind and was put for DNR History of Present Illness Chief Complaint: Shortness of breath with minimal exertion since Sunday last Primary Care Provider: Raul Vargas DO She is an 89-year-old female with significant past medical history of chronic diastolic CHF secondary to valvular heart disease, proximal atrial fibrillation not on any anticoagulation due to bleeding, tacky-xi syndrome status post pacemaker, end-stage renal disease on hemodialysis apparently has been complaining of shortness of breath with minimal exertion since Sunday last. She did not have any chest pain and/or palpitation but noted to have a very high heart rate during this episodes. She went to see her data analyst this afternoon and was sent in from the clinic for further evaluation and management of her A. fib with RVR. Denies any symptoms in the emergency room, no chest pain and/or palpitation, no abdominal pain nausea or vomiting, no problem with urine or bowel habit, no fever and chills, no numbness or and/or tingling involving any of the extrem ities. Her heart rate noted to be around 97 in the emergency room and EKG has been pending. Case discussed with the on-call data analyst by the ER physician and was advised to admit the patient for possible cardioversion tomorrow morning Allergies Allergy/AdvReac Type Severity Reaction Status Date / Time naproxen Allergy Unknown Black Verified 12/22/19 17:26 stool/bleeding. 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 codeine AdvReac Unknown GASTRIC Verified 12/22/19 17:26 UPSET methocarbamol AdvReac Unknown Nausea/Vomi Verified 12/22/19 17:26 ting Sxvqnnd-Sac-Coc Reductase AdvReac Unknown MUSCLE Verified 12/22/19 17:26 Inhibitor WEAKNESS Home Medications Home Medications Medication Instructions Recorded Confirmed Type aspirin [Aspirin Childrens] 81 mg PO HS 08/20/18 12/22/19 History levothyroxine [Synthroid] 100 mcg PO DAILY 08/20/18 12/22/19 History pantoprazole 40 mg PO DAILY 08/20/18 12/22/19 History docusate sodium [Colace] 100 mg PO DAILY 12/03/18 12/22/19 History midodrine 5 mg PO DIRECTED 12/03/18 12/22/19 History sennosides [Senna Laxative] 8.6 mg PO DAILY PRN 12/03/18 12/22/19 History amiodarone 200 mg PO DAILY 04/14/19 12/22/19 History cholecalciferol (vitamin D3) 1,000 unit PO DAILY 04/14/19 12/22/19 History [Vitamin D3] B complex with C 20-folic acid 1 mg PO DAILY 12/22/19 12/22/19 History [Triphrocaps] cinacalcet [Sensipar] 0 mg PO DAILY 12/22/19 12/22/19 History lorazepam 0.5 mg PO DAILY PRN 12/22/19 12/22/19 History sod phos di, mono-K phos mono 0 tab PO DAILY 12/22/19 12/22/19 History [Phospha 250 Neutral] tramadol 50 mg PO Q8H PRN 12/22/19 12/22/19 History zinc sulfate 50 mg PO DAILY 12/22/19 12/22/19 History Past Med/Surg History Social History Preferred Language: Nepalese Communication Ability: Effective Visual Impairment: No Limitations Pump Operator Required: No Beliefs That Will Affect Care: Baptist Baptist Beliefs: Evangelical marital status: / Current Living Situation: Alone current occupational status: retired Other Information That Helps Us Care for You: No Feels Safe at Home: Yes Safety Concerns: Feels Safe At This Time Smoking Status: Never smoker Second Hand Exposure: No ; Hx Alcohol Use: Yes Alcohol type: wine Hx Substance Use: No Review of Systems Review of Systems: All systems reviewed & are unremarkable except as noted in HPI & below Physical Exam Physical Exam: Lying in bed comfortably Constitutional: well developed and well nourished; no acute distress and not ill appearing Eyes: PERRL, conjunctivae normal, anicteric sclerae ENMT: external ear and nose normal, oropharynx normal Neck: trachea midline, no thyromegaly Respiratory: normal respiratory effort; no respiratory distress Auscultation: lungs clear to auscultation bilaterally Has the port for dialysis on the right upper chest Cardiovascular: Rate/Rhythm: regular rate and regular rhythm Heart Sounds: + murmur Gastrointestinal (Abdomen): Inspection/Auscultation: abdomen normal to inspection and normal bowel sounds; abdomen not distended Musculoskeletal: No acute arthritis in any joints Neurologic: moves all extremities; no focal motor deficits Lymphatic: no cervical or axillary lymphadenopathy Results & Data Vital Signs (Past 12 Hours) Vital Signs Temp Pulse Resp BP Pulse Ox 12/22/19 18:31 85 20 95 12/22/19 18:30 91 H 19 101/67 95 12/22/19 18:05 91 H 19 91/63 L 94 12/22/19 18:01 94 H 18 95 12/22/19 18:00 89 17 96 12/22/19 17:31 89 20 95 12/22/19 17:30 89 22 99/74 L 93 12/22/19 17:01 93 H 22 12/22/19 17:00 90 18 118/73 12/22/19 16:44 90 20 96 12/22/19 16:30 85 19 104/69 95 12/22/19 16:17 36.6 C 99 H 20 92/50 L 94 Laboratory Results Short CBC 12/22/19 Range/Units 17:02 WBC 7.12 (4.8-10.8) K/uL Hgb 11.1 L (12.0-16.0) g/dL Hct 33.4 L (37-47) % Plt Count 265 (130-400) K/uL BMP 12/22/19 17:02 Sodium 131 L Potassium 3.5 Chloride 95 L Carbon Dioxide 26 BUN 27 H Creatinine 1.78 H Glucose 90 Calcium 9.1 Cardiac Enzymes 12/22/19 Range/Units 17:02 Troponin I 0.038 (0-0.045) ng/ml Liver Function 12/22/19 Range/Units 17:02 Total Bilirubin 0.5 (0.2-1) mg/dl AST 30 (15-37) U/L ALT 36 (12-78) U/L Alkaline Phosphatase 73 (45-117) U/L Albumin 3.1 L (3.4-5.0) gm/dl Medications Administered Current Inpatient Medications Amiodarone HCl (Cordarone) 200 mg PO DAILY MILDRED Stop: 01/22/20 08:59 Aspirin (Ecotrin Ectab) 81 mg PO HS MILDRED Stop: 01/21/20 20:59 Docusate Sodium (Colace) 100 mg PO DAILY MILDRED Stop: 01/22/20 08:59 Heparin Sodium (Porcine) (Heparin Sodium (Porcine)) 5,000 units SQ Q12 MILDRED Stop: 01/21/20 20:59 Levothyroxine Sodium (Synthroid) 100 mcg PO DAILYBB MILDRED Stop: 01/22/20 06:29 Lorazepam (Ativan) 0.5 mg PO DAILY PRN PRN Reason: Anxiety Stop: 01/21/20 19:39 Midodrine (Proamatine) 5 mg PO DIRECTED MILDRED Stop: 01/21/20 19:39 Pantoprazole Sodium (Protonix) 40 mg PO DAILY MILDRED Stop: 01/22/20 08:59 Sennosides (Senokot) 8.6 mg PO DAILY PRN PRN Reason: Constipation Stop: 01/21/20 19:39 Tramadol HCl (Ultram) 50 mg PO Q8H PRN PRN Reason: Pain Stop: 01/21/20 19:39 Vitamin B Complex/Folic Acid (Nephrocaps) 1 cap PO DAILY MILDRED Stop: 01/22/20 08:59 Vitamin D (Vitamin D3) 1,000 units PO DAILY MILDRED Stop: 01/22/20 08:59 Zinc Sulfate (Zinc Sulfate) 220 mg PO DAILY MILDRED Stop: 01/22/20 08:59 Code Status & VTE Plan VTE Prophylaxis Plan VTE Prophylaxis will be ordered: Yes
[2019-12-22] MEDS ORDERED: TRAMADOL HCL 50 MG TABLET PO PRN (19:40)
[2019-12-22] MEDS ORDERED: MIDODRINE HCL 2.5 MG TAB PO PRN (19:40)
[2019-12-22] MEDS ORDERED: SENNA 8.6 MG TAB PO PRN (19:40)
[2019-12-22] MEDS ORDERED: LORazepam 0.5 MG TAB PO PRN (19:40)
[2019-12-22] MEDS ORDERED: POTASSIUM CHLORIDE 20 MEQ TABCR PO STA (19:59)
[2019-12-22] MEDS ORDERED: ASPIRIN 81 MG ECTAB PO SCH (21:00)
[2019-12-22] MEDS: HEPARIN SOD 5,000 UNIT/0.5 ML VIAL SQ SCH (21:01)
--- NOTE | 2019-12-22 22:34 | Emergency Department Note ---
Entered by Maryellen Faustin acting as a scribe for History of Present Illness General Chief complaint: Arrhythmia/Palpitations Stated complaint: SHORT OF BREATH - AFIB Time Seen by Provider: 12/22/19 16:22 History of Present Illness Provider complaint: shortness of breath Onset (ago): hour(s) 7 Severity: similar to prior episodes (of fluid overload) Pain Consistency: + constant Maximum Pain Intensity: 0 Quality: + other (shortness of breath) Exacerbated By: + movement and + other (lying flat) Associated symptoms: + denies other symptoms (runny nose, leg pain, recent travel) and + other (been in Afib for 9-10 hours, 4 hour dialysis today went well, below target weight, less fluid intake, taking all medication, shoulder bursa); no cough The patient is an 89 year old female who presents to the ED with constant shortness of breath that started 7 hours ago. The patient notes that her shortness of breath is exacerbated by movement and lying flat. The patient states that she usually wears 2L of oxygen at night and she sleeps on an incline. The patient states that she had an appointment this morning with her pacemaker formulation technician who told her that she has been in Afib for approximately 9- 10 hours. The patient notes that she normally does not have shortness of breath when she is in Afib. The patient states that she had a 4 hours dialysis appointment this morning which went well, but she did not have blood work done. The patients son states that her shortness of breath is similar to prior episodes of fluid overload. However, the patients son states that she is actually below her target weight and has not been drinking as much water as usual. The patient reports to be taking all of her medication as prescribed. Per son, the patient had severe shoulder pain and could not move her arm 4 days ago secondary to a bursa. Per son, the patient had this drained and there was a lot of blood in the fluid. Per son, the results should be in [facility] system. The patient states that she has plans to follow up with orthopedics tomorrow. The patient denies cough, runny nose, leg pain and recent travel. Home Medications Home Medications Medication Instructions Recorded Confirmed Type aspirin [Aspirin Childrens] 81 mg PO HS 08/20/18 12/22/19 History levothyroxine [Synthroid] 100 mcg PO DAILY 08/20/18 12/22/19 History pantoprazole 40 mg PO DAILY 08/20/18 12/22/19 History docusate sodium [Colace] 100 mg PO DAILY 12/03/18 12/22/19 History midodrine 5 mg PO DIRECTED 12/03/18 12/22/19 History sennosides [Senna Laxative] 8.6 mg PO DAILY PRN 12/03/18 12/22/19 History amiodarone 200 mg PO DAILY 04/14/19 12/22/19 History cholecalciferol (vitamin D3) 1,000 unit PO DAILY 04/14/19 12/22/19 History [Vitamin D3] B complex with C 20-folic acid 1 mg PO DAILY 12/22/19 12/22/19 History [Triphrocaps] cinacalcet [Sensipar] 0 mg PO DAILY 12/22/19 12/22/19 History lorazepam 0.5 mg PO DAILY PRN 12/22/19 12/22/19 History sod phos di, mono-K phos mono 0 tab PO DAILY 12/22/19 12/22/19 History [Phospha 250 Neutral] tramadol 50 mg PO Q8H PRN 12/22/19 12/22/19 History zinc sulfate 50 mg PO DAILY 12/22/19 12/22/19 History Allergies Allergy/AdvReac Type Severity Reaction Status Date / Time naproxen Allergy Unknown Black Verified 12/22/19 17:26 stool/bleeding. 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 codeine AdvReac Unknown GASTRIC Verified 12/22/19 17:26 UPSET methocarbamol AdvReac Unknown Nausea/Vomi Verified 12/22/19 17:26 ting Urojrpa-Kgp-Bpk Reductase AdvReac Unknown MUSCLE Verified 12/22/19 17:26 Inhibitor WEAKNESS Past Med/Surg History Social History Preferred Language: [place] Citizen Communication Ability: Effective Visual Impairment: No Limitations Csr Required: No Beliefs That Will Affect Care: Mandaeism Mandaeism Beliefs: Hinduism marital status: / Current Living Situation: Alone current occupational status: retired Other Information That Helps Us Care for You: No Feels Safe at Home: Yes Safety Concerns: Feels Safe At This Time Smoking Status: Never smoker Second Hand Exposure: No ; Hx Alcohol Use: Yes Alcohol type: wine Hx Substance Use: No Review of Systems See HPI for pertinent positives & negatives. and A total of 10 systems reviewed and were otherwise negative Physical Exam Vital Signs Vital Signs - 24 hr 12/22/19 16:17 12/22/19 16:30 12/22/19 16:44 Temperature 36.6 C Temperature Source Oral Pulse Rate 99 H 85 90 Pulse Rate from SpO2 Sensor 85 89 Respiratory Rate 20 19 20 Respiratory Effort / Characteristics Non-Labored Respiratory Depth Normal Blood Pressure 92/50 L 104/69 Blood Pressure Mean 64 76 Blood Pressure Position Sitting Pulse Oximetry 94 95 96 Oxygen Delivery Method Room Air Sepsis Recent Fever Within 48 Hours No Sepsis Action Taken by Nursing No Action Required 12/22/19 17:00 12/22/19 17:01 12/22/19 17:30 Temperature Temperature Source Pulse Rate 90 93 H 89 Pulse Rate from SpO2 Sensor 93 H Respiratory Rate 18 22 22 Respiratory Effort / Characteristics Respiratory Depth Blood Pressure 118/73 99/74 L Blood Pressure Mean 88 80 Blood Pressure Position Pulse Oximetry 93 Oxygen Delivery Method Sepsis Recent Fever Within 48 Hours Sepsis Action Taken by Nursing 12/22/19 17:31 12/22/19 18:00 12/22/19 18:01 Temperature Temperature Source Pulse Rate 89 89 94 H Pulse Rate from SpO2 Sensor 87 90 95 H Respiratory Rate 20 17 18 Respiratory Effort / Characteristics Respiratory Depth Blood Pressure Blood Pressure Mean Blood Pressure Position Pulse Oximetry 95 96 95 Oxygen Delivery Method Sepsis Recent Fever Within 48 Hours Sepsis Action Taken by Nursing 12/22/19 18:05 12/22/19 18:30 12/22/19 18:31 Temperature Temperature Source Pulse Rate 91 H 91 H 85 Pulse Rate from SpO2 Sensor 101 H 89 86 Respiratory Rate 19 19 20 Respiratory Effort / Characteristics Respiratory Depth Blood Pressure 91/63 L 101/67 Blood Pressure Mean 67 80 Blood Pressure Position Pulse Oximetry 94 95 95 Oxygen Delivery Method Sepsis Recent Fever Within 48 Hours Sepsis Action Taken by Nursing GENERAL: Awake, alert, well-appearing, in no distress HENT: Normocephalic, atraumatic. EYES: Normal conjunctiva. Sclera non-icteric. RESPIRATORY: Clear to auscultation. No wheezes. Normal respiratory effort. CARDIAC: Irregular rhythm, tachycardic rate. Extremities warm and well perfused. MUSCULOSKELETAL: Atraumatic. Chest examination reveals no tenderness. Right upper chest wall dialysis catheter, left sided pacemaker noted. LOWER EXTREMITIES: Calves are equal size bilaterally and non-tender. 2+ lower extremity edema. NEURO: Normal sensorium. No sensory or motor deficits noted. No facial droop. SKIN: Warm and dry. No jaundice noted. Course Course 1625: Past medical records reviewed. The patient was evaluated in room A04B. A complete history and physical exam was performed. 1754: I updated the patient on the test results and plan for admission. She verbally agrees and understands. 1812: I discussed the patient's case with Dr. Dorita Dill, Hospitalist. He will evaluate the patient for further management. Consultations Consultation #1: I discussed the patient's case with Dr. Dorita Dill, Hospitalist. He will evaluate the patient for further management. Time: 18:13 Administered Medications Aspirin (Ecotrin Ectab) 81 mg PO HS MILDRED Stop: 01/21/20 20:59 Last Admin: 12/22/19 20:41 Dose: 81 mg Documented by: [id number] Heparin Sodium (Porcine) (Heparin Sodium (Porcine)) 5,000 units SQ Q12 MILDRED Stop: 01/21/20 20:59 Last Admin: 12/22/19 21:01 Dose: 5,000 units Documented by: [id number] Cosigned by: [id number] Discontinued Medications Potassium Chloride (Klor-Con M20) 40 meq PO NOW STA Stop: 12/22/19 20:00 Last Admin: 12/22/19 20:40 Dose: 40 meq Documented by: [id number] Medical Decision Making Differential Diagnosis Differential diagnosis: Etiologies such as infections, reactive airway disease, COPD, pneumonia, pleural effusion, pulmonary edema, ARDS, pneumothorax, CHF, cardiac ischemia, cardiac tamponade, dysrhythmia, anemia, pulmonary embolism, musculoskeletal, gastrointestinal process, as well as others were entertained. Medical Records Attestation: I reviewed the patient's medical records. Home Medications Current Medication List: was personally reviewed by me Laboratory Data Attestation: I reviewed the patient's lab results. Result diagrams: 12/22/19 17:02 12/22/19 17: Lab Results 12/22/19 12/22/19 12/22/19 Range/Units 17:02 17: 17: WBC 7.12 (4.8-10.8) K/uL RBC 3.79 L (4.2-5.4) M/uL Hgb 11.1 L (12.0-16.0) g/dL Hct 33.4 L (37-47) % MCV 88.1 (80-100) fL MCH 29.3 (25-34) pg MCHC 33.2 (32-36) g/dL RDW Std Deviation 45.6 (36.4-46.3) fL RDW Coeff of Cornel 14.1 (11.5-14.5) % Plt Count 265 (130-400) K/uL MPV 10.0 (7.4-10.4) fL Immature Gran % (Auto) 0.3 % Neut % (Auto) 75.8 % Lymph % (Auto) 9.4 % Garrard % (Auto) 13.3 % Eos % (Auto) 0.8 % Baso % (Auto) 0.4 % Immature Gran # (Auto) 0.02 (0.00-0.02) K/uL Neut # (Auto) 5.39 (1.4-6.5) K/uL Lymph # (Auto) 0.67 L (1.2-3.4) K/uL Garrard # (Auto) 0.95 H (0.11-0.59) K/uL Eos # (Auto) 0.06 (0-0.5) K/uL Baso # (Auto) 0.03 (0-0.2) K/uL PT 10.8 (9.0-12.0) Seconds INR 1.1 (0.9-1.1) APTT 33.5 H (21.0-31.0) Seconds PTT Ratio 1.2 Sodium 131 L (136-145) mmol/L Potassium 3.5 (3.5-5.1) mmol/L Chloride 95 L (98-107) mmol/L Carbon Dioxide 26 (21-32) mmol/L Anion Gap 9.0 (3-11) BUN 27 H (7-18) mg/dl Creatinine 1.78 H (0.6-1.2) mg/dl Est Cr Clr Drug Dosing Not Reportable Est GFR ( Amer) 29.0 Est GFR (Non-Af Amer) 25.0 BUN/Creatinine Ratio 15.0 (10-20) Glucose 90 (70-99) mg/dl Calcium 9.1 (8.5-10.1) mg/dl Magnesium 1.9 (1.8-2.4) mg/dl Total Bilirubin 0.5 (0.2-1) mg/dl AST 30 (15-37) U/L ALT 36 (12-78) U/L Alkaline Phosphatase 73 (45-117) U/L Troponin I 0.038 (0-0.045) ng/ml NT-Pro-B Natriuret Pep 7714 H (0-1800) pg/ml Total Protein 7.8 (6.4-8.2) gm/dl Albumin 3.1 L (3.4-5.0) gm/dl Globulin 4.7 H (2.5-4.0) gm/dl Albumin/Globulin Ratio 0.7 L (0.9-2) TSH 1.710 (0.300-4.500) uIu/ml Imaging Data Radiologist's Impression: Radiology results as stated below per my review and the radiologist's interpretation: XR chest 1V portable CLINICAL HISTORY: 89 years-old Female presenting with SNEED. TECHNIQUE: Portable upright AP view of the chest was obtained. COMPARISON: 04/14/2019. FINDINGS: Left subclavian pacer with leads to the right atrium and right ventricular apex. Tunneled right internal jugular dual lumen catheter terminates at the lower SVC. Atherosclerosis of the aortic arch. Cardiac silhouette moderately enlarged. Pulmonary vasculature is only mildly prominent. Heterogeneity of lung parenchyma. Reticular opacities at the right lung base. No other focal opacity. No large effusion or pneumothorax. Osteopenia suspected. Degenerative changes of the thoracic spine. Upper abdomen normal. IMPRESSION: 1. Cardiomegaly with mild volume overload. No advanced congestive change or pulmonary edema. 2. Right basilar scarring suspected. ACT 112: Negative or not required by law. Electronically signed by: Zhang Duffy M.D. 12/22/2019 4:52 PM ECG Data Attestation: I personally reviewed and interpreted this ECG as follows: Indication: + SOB/dyspnea Rate (beats per minute): 92 Rhythm: + atrial flutter ECG [place]iota: + Normal ECG ST segments: no ST depression and no ST elevation ECG Findings: + PVCs Blood Pressure Blood Pressure Findings: Normal blood pressure Blood Pressure Disposition: did not require urgent referral MDM Narrative Patient is an 89-year-old female with a past medical history including diastolic heart failure, valvular disease, COPD/restrictive lung disease, ESRD on hemodialysis, chronic anemia, and myasthenia presenting today referred from the outpatient clinic where she was presenting for increased shortness of breath. Patient was referred from the outpatient clinic where she was found to be in atrial fibrillation. Does appear the patient has a history of this is currently on amiodarone. Due to multiple issues with bleeding in the past has not been maintained on anticoagulation. Patient does have also have a pacemaker for tachybradycardia syndrome. Just today significantly short of breath and dyspneic with any exertion. Going to the bathroom with his walker across the r oom becomes a struggle. No syncope. Comfortable at rest. States that her weight and dialysis has been going well she does not believe she is fluid overloaded. No flu symptoms. Denies significant pain. Did have recent drainage of a right shoulder bursitis but this is improving. Crystal diseases indicated on the culture results. Chest x-ray here today with mild congestive change without evidence of pulmonary edema. Mild anemia is noted without leukocytosis. Renal function is somewhat improved. Mild chronic hyponatremia. Believe patient is likely symptomatic secondary to her persistent atrial flutter versus atrial fibrillation she is experiencing. Given her underlying cardiac disease does not have much reserve and this is giving her exertional symptoms. Reviewing the outpatient notes and phone encounters believe that admission is very reasonable given her symptomatology possible evaluation with further evaluation by cardiology. Discussed with the hospitalist and cardiology. Impression & Plan Dyspnea on exertion, Atrial flutter Discharge Plan Visit Data *Final* Discharge Date/Time: 12/22/19 19:21 Chief Complaint: Arrhythmia/Palpitations Stated Complaint: SHORT OF BREATH - AFIB ED Provider: Pepe Pereira Discharge Problem: Dyspnea on exertion, Atrial flutter Patient Disposition: Admitted As Inpatient Discharge Instructions Interventions: ED Discharge Assessment Last Done: 12/22/19 19:21 Discharge Problem: Atrial flutter Qualifiers: Atrial flutter type: unspecified Qualified Code(s): I48.92 - Unspecified atrial flutter The scribe's documentation has been prepared under my direction and personally reviewed by me in its entirety. I confirm that the note above accurately ref lects all work, treatment, procedures, and medical decision making performed by me.
[2019-12-23] MEDS ORDERED: LEVOTHYROXINE SODIUM 100 MCG TABLET PO SCH (06:30)
[2019-12-23] MEDS ORDERED: DOCUSATE SODIUM 100 MG CAP PO SCH (09:00)
[2019-12-23] MEDS ORDERED: AMIODARONE 200 MG TAB PO SCH ×2 (09:00→17:00)
[2019-12-23] MEDS ORDERED: CINACALCET PO SCH (09:00)
[2019-12-23] MEDS ORDERED: ZINC SULFATE 220 MG CAPSULE PO SCH (09:00)
[2019-12-23] MEDS ORDERED: POT PHOSPHATE MONOBASIC W/ SOD TAB PO SCH (09:00)
[2019-12-23] MEDS ORDERED: CHOLECALCIFEROL 1,000 UNITS 25 MCG TAB PO SCH (09:00)
[2019-12-23] MEDS ORDERED: PANTOprazole 40 MG TAB PO SCH (09:00)
[2019-12-23] MEDS ORDERED: NEPHROCAPS PO SCH (09:00)
[2019-12-23] MEDS ORDERED: AMIODARONE 200 MG TAB PO STA (09:16)
[2019-12-23] MEDS: HEPARIN SOD 5,000 UNIT/0.5 ML VIAL SQ SCH (09:53)
--- NOTE | 2019-12-23 12:43 | Cardiology Consultation ---
Date of Consultation December 23, 2019 Assessment & Plan (1) Atrial fibrillation with RVR: Patient in the past and currently poorly tolerant of atrial fibrillation. She has however spontaneously converted to sinus rhythm overnight. Plan: Additional amiodarone 40 mg p.o. this morning then increase dosing to 200 mg twice per day. 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 2.Paroxysmal atrial fibrillation controlled in sinus/paced with amiodarone. 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 4.Obstructive lung disease with sleep apnea. 5.Restrictive lung disease. 6.Kyphoscoliosis. 7.Acute small-bowel obstruction, 06/28/2018. 8.Hospitalization after last clinic visit on 08/20/2018 with decompensated multifactorial heart failure, acute renal insufficiency, ultimately came under control with dialysis therapy. 9. Rehospitalization December 03, 2018 with marked volume overload paroxysmal atrial fibrillation, hypotension once again responsive to cautious dialysis initiation of amiodarone therapy 10. End-stage renal disease hemodialysis dependent Patient presented yesterday having lapsed into atrial fibrillation acutely. Niki zuleta was aware of marked dyspnea and fatigue with exertion. She presented to the outpatient cardiology office for atrial fibrillation was confirmed on pacemaker interrogation. She notes no chest pain or shortness of breath she was hospitalized with anticipation of possible synchronized electrical cardioversion versus further arrhythmic control. On examination this morning patient has not returned to atrial pacing, resolve atrial fibrillation. No acute complaints. No dizziness or lightheadedness. Has been taking medications as prescribed. Potassium level was borderline low on presentation Allergies Allergy/AdvReac Type Severity Reaction Status Date / Time naproxen Allergy Unknown Black Verified 12/22/19 17:26 stool/bleeding. 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 codeine AdvReac Unknown GASTRIC Verified 12/22/19 17:26 UPSET methocarbamol AdvReac Unknown Nausea/Vomi Verified 12/22/19 17:26 ting Armvyvr-Dli-Jkh Reductase AdvReac Unknown MUSCLE Verified 12/22/19 17:26 Inhibitor WEAKNESS Home Medications Home Medications Medication Instructions Recorded Confirmed Type aspirin [Aspirin Childrens] 81 mg PO HS 08/20/18 12/22/19 History levothyroxine [Synthroid] 100 mcg PO DAILY 08/20/18 12/22/19 History pantoprazole 40 mg PO DAILY 08/20/18 12/22/19 History docusate sodium [Colace] 100 mg PO DAILY 12/03/18 12/22/19 History midodrine 5 mg PO DIRECTED 12/03/18 12/22/19 History sennosides [Senna Laxative] 8.6 mg PO DAILY PRN 12/03/18 12/22/19 History amiodarone 200 mg PO DAILY 04/14/19 12/22/19 History cholecalciferol (vitamin D3) 1,000 unit PO DAILY 04/14/19 12/22/19 History [Vitamin D3] B complex with C 20-folic acid 1 mg PO DAILY 12/22/19 12/22/19 History [Triphrocaps] cinacalcet [Sensipar] 0 mg PO DAILY 12/22/19 12/22/19 History lorazepam 0.5 mg PO DAILY PRN 12/22/19 12/22/19 History sod phos di, mono-K phos mono 0 tab PO DAILY 12/22/19 12/22/19 History [Phospha 250 Neutral] tramadol 50 mg PO Q8H PRN 12/22/19 12/22/19 History zinc sulfate 50 mg PO DAILY 12/22/19 12/22/19 History Patient History Medical History Acute hypotension (Acute) Acute kidney injury superimposed on chronic kidney disease (Acute) Acute on chronic diastolic HF (heart failure) (Acute) In setting of mixed valvular disease Acute on chronic heart failure with preserved ejection fraction Acute decompensated heart failure on the basis of mixed valvular heart disease with history of moderate to severe mitral insufficiency, severe tricuspid insufficiency, moderate aortic insufficiency. 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) Obstructive type of ventilatory defect with mild restriction which may be related to patient's morbid obesity (per 2014 PFTs) Morbid obesity (Chronic) Myasthenia gravis (Chronic) Pacemaker (Chronic) Paroxysmal atrial fibrillation Pulmonary edema Pulmonary HTN (Chronic) SBO (small bowel obstruction) (Resolved) Shortness of breath (Acute) 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 Tricuspid regurgitation Valvular heart disease Surgical History H/O: hysterectomy (Resolved) History of appendectomy (Resolved) History of permanent cardiac pacemaker placement (Resolved) History of tonsillectomy (Resolved) Family History Other Heart disease Stroke Social History Preferred Language: Wolof Communication Ability: Effective Visual Impairment: No Limitations 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 Required: No Beliefs That Will Affect Care: Synagogue Synagogue Beliefs: Anabaptism marital status: / Current Living Situation: Alone current occupational status: retired Other Information That Helps Us Care for You: No Feels Safe at Home: Yes Safety Concerns: Feels Safe At This Time Smoking Status: Never smoker Second Hand Exposure: No ; Hx Alcohol Use: Yes Alcohol type: wine Hx Substance Use: No Physical Exam Constitutional: WD/WN, vitals as above Eyes: PERRL, conjunctivae normal, anicteric sclerae ENMT: external ear and nose normal, oropharynx normal Neck: trachea midline, no thyromegaly Respiratory: normal respiratory effort; no respiratory distress Auscultation: + diminished lung sounds Cardiovascular: Rate/Rhythm: regular rate and regular rhythm Heart Sounds: normal S1, normal S2 and + murmur (Grade 2/6 systolic at apex); no gallop Palpation: normal PMI Vessels: normal carotid upstroke and radial pulses present; no JVD and no carotid bruit Extremities: + edema (Trace) Gastrointestinal (Abdomen): normal bowel sounds, soft, nontender, no hepatosplenomegaly Musculoskeletal: no cyanosis or clubbing, extremities motor strength 5/5 Skin: no rashes, warm and dry Neurologic: PERRL, EOMI, accommodation nl, no face palsy, no dysarthria Psychiatric: A+Ox3, euthymic affect Results & Data ([facility]) Vital Signs (Past 12 Hours) Vital Signs Temp Pulse Pulse Resp BP Pulse Ox 12/23/19 11:15 36.7 C 60 18 114/61 96 12/23/19 07:48 36.5 C 81 20 95/51 L 97 12/23/19 07:10 93 H 12/23/19 04:21 36.6 C 84 18 86/58 L 96 Laboratory Results Laboratory Results - last 24 hr 12/22/19 12/22/19 12/22/19 17:02 17:02 17:02 WBC 7.12 RBC 3.79 L Hgb 11.1 L Hct 33.4 L MCV 88.1 MCH 29.3 MCHC 33.2 RDW Std Deviation 45.6 RDW Coeff of Cornel 14.1 Plt Count 265 MPV 10.0 Immature Gran % (Auto) 0.3 Neut % (Auto) 75.8 Lymph % (Auto) 9.4 Luna % (Auto) 13.3 Eos % (Auto) 0.8 Baso % (Auto) 0.4 Immature Gran # (Auto) 0.02 Neut # (Auto) 5.39 Lymph # (Auto) 0.67 L Luna # (Auto) 0.95 H Eos # (Auto) 0.06 Baso # (Auto) 0.03 PT 10.8 INR 1.1 APTT 33.5 H PTT Ratio 1.2 Sodium 131 L Potassium 3.5 Chloride 95 L Carbon Dioxide 26 Anion Gap 9.0 BUN 27 H Creatinine 1.78 H Est Cr Clr Drug Dosing Not Reportable Est GFR ( Amer) 29.0 Est GFR (Non-Af Amer) 25.0 BUN/Creatinine Ratio 15.0 Glucose 90 Calcium 9.1 Magnesium 1.9 Total Bilirubin 0.5 AST 30 ALT 36 Alkaline Phosphatase 73 Troponin I 0.038 NT-Pro-B Natriuret Pep 7714 H Total Protein 7.8 Albumin 3.1 L Globulin 4.7 H Albumin/Globulin Ratio 0.7 L TSH 1.710 Nasal Screen MRSA (PCR) 12/22/19 19:45 WBC RBC Hgb Hct MCV MCH MCHC RDW Std Deviation RDW Coeff of Cornel Plt Count MPV Immature Gran % (Auto) Neut % (Auto) Lymph % (Auto) Luna % (Auto) Eos % (Auto) Baso % (Auto) Immature Gran # (Auto) Neut # (Auto) Lymph # (Auto) Luna # (Auto) Eos # (Auto) Baso # (Auto) PT INR APTT PTT Ratio Sodium Potassium Chloride Carbon Dioxide Anion Gap BUN Creatinine Est Cr Clr Drug Dosing Est GFR ( Amer) Est GFR (Non-Af Amer) BUN/Creatinine Ratio Glucose Calcium Magnesium Total Bilirubin AST ALT Alkaline Phosphatase Troponin I NT-Pro-B Natriuret Pep Total Protein Albumin Globulin Albumin/Globulin Ratio TSH Nasal Screen MRSA (PCR) Negative
[2019-12-23 15:21] VITALS: BP 101/54; TEMP 98.4; O2SAT 97
[2019-12-23 18:09] VITALS: PULSE 67
--- NOTE | 2019-12-23 20:58 | Electrocardiogram Report ---
Test Reason : Blood Pressure : / mmHG Vent. Rate : 092 BPM Atrial Rate : 264 BPM P-R Int : 000 ms QRS Dur : 100 ms QT Int : 350 ms P-R-T Axes : 000 -14 044 degrees QTc Int : 432 ms Atrial flutter with variable A-V block with occasional ventricular-paced complexes Nonspecific T wave abnormality Abnormal ECG When compared with ECG of 16-APR-2019 13:55, Occasional ventricular paced complexes are now present Confirmed by Joe Zimmerman ([id number]) on 12/23/2019 8:57:28 PM Referred By: REFERRED SELF Confirmed By:Joe Zimmerman
--- NOTE | 2019-12-28 19:31 | Discharge Summary ---
Date of Service December 23, 2019 Admission HPI Per Admitting Provider She is an 89-year-old female with significant past medical history of chronic diastolic CHF secondary to valvular heart disease, proximal atrial fibrillation not on any anticoagulation due to bleeding, tacky-xi syndrome status post pacemaker, end-stage renal disease on hemodialysis apparently has been complaining of shortness of breath with minimal exertion since Sunday last. She did not have any chest pain and/or palpitation but noted to have a very high heart rate during this episodes. She went to see her copper plater this afternoon and was sent in from the clinic for further evaluation and management of her A. fib with RVR. Denies any symptoms in the emergency room, no chest pain and/or palpitation, no abdominal pain nausea or vomiting, no problem with urine or bowel habit, no fever and chills, no numbness or and/or tingling involving any of the extremities. Her heart rate noted to be around 97 in the emergency room and EKG has been pending. Case discussed with the on-call copper plater by the ER physician and was advised to admit the patient for possible cardioversion tomorrow morning Admission Exam Per Admitting Provider Physical Exam: Lying in bed comfortably Constitutional: well developed and well nourished; no acute distress and not ill appearing Eyes: PERRL, conjunctivae normal, anicteric sclerae ENMT: external ear and nose normal, oropharynx normal Neck: trachea midline, no thyromegaly Respiratory: normal respiratory effort; no respiratory distress Auscultation: lungs clear to auscultation bilaterally Has the port for dialysis on the right upper chest Cardiovascular: Rate/Rhythm: regular rate and regular rhythm Heart Sounds: + murmur Gastrointestinal (Abdomen): Inspection/Auscultation: abdomen normal to inspection and normal bowel sounds; abdomen not distended Musculoskeletal: No acute arthritis in any joints Neurologic: moves all extremities; no focal motor deficits Lymphatic: no cervical or axillary lymphadenopathy Principal Diagnosis Afib w/ RVR Discharge Exam Physical Exam: Elderly female sitting up in bed in NAD Constitutional: well developed and well nourished; no acute distress and not ill appearing Eyes: PERRL, EOMI,conjunctivae normal, anicteric sclerae ENMT: external ear and nose normal, oropharynx normal Neck: trachea midline, no thyromegaly Respiratory: normal respiratory effort; no respiratory distress Auscultation: lungs clear to auscultation bilaterally Has the port for dialysis at the right upper chest Cardiovascular: Rate/Rhythm: regular rate and regular rhythm Heart Sounds: + murmur Gastrointestinal (Abdomen): Inspection/Auscultation: abdomen normal to inspection and normal bowel sounds; abdomen not distended Musculoskeletal: No acute arthritis in any joints, moves extremities spontaneously Neurologic: alert and oriented x3, speech fluent, no facial asymmetry, moves all 4 extremities Discharge Data Allergies Allergy/AdvReac Type Severity Reaction Status Date / Time naproxen Allergy Unknown Black Verified 12/22/19 17:26 stool/bleeding. 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 codeine AdvReac Unknown GASTRIC Verified 12/22/19 17:26 UPSET methocarbamol AdvReac Unknown Nausea/Vomi Verified 12/22/19 17:26 ting Ilvdixs-Oby-Kev Reductase AdvReac Unknown MUSCLE Verified 12/22/19 17:26 Inhibitor WEAKNESS Consultations 12/22/19 18:18 ED Decision to Admit Stat 12/22/19 18:55 Consult Cardiology Routine Procedures Performed Operation Date: 12/23/19 12:00 <No data on this case meets the specified criteria> Hospital Course (1) Atrial fibrillation with RVR: Noted to have more shortness of breath with minimal exertion associated with tachycardia Was seen in the clinic with Afib with RVR and was sent in for further evaluation to the emergency Heart rate remained reasonable in the emergency room Consulted cardiology for possible cardioversion, however pt spontaneously converted to sinus rhythm overnight Borderline hypokalemic (should have potassium re-checked in 1 week) Amiodarone increased to 200 mg BID by cardiology (2) Tachy-xi syndrome: History of tachybradycardia syndrome status post pacemaker Pacemaker interrogation in the clinic remain unremarkable (3) ESRD on dialysis: Had a dialysis yesterday Chest x-ray is showing mild CHF (4) COPD (chronic obstructive pulmonary disease): No acute exacerbation (5) Acute on chronic heart failure with preserved ejection fraction: Chest x-ray is showing mild congestive changes with BNP of 7714 - had dialysis yesterday - cont. dialysis for worsening CHF Has multiple valvular heart disease, likely causing atrial fibrillation History of myasthenia gravis-not acute Hypothyroidism-we will continue supplemental Synthroid Other medical condition remained stable Total Time Total Time Spent Total Time Spent (In Minutes): 40 Total Time Includes: Examination of the Patient, Discharge Planning, Medication Reconciliation and Communication With Other Providers Discharge Plan Discharge Items Patient Disposition: Home - Self-Care Reason For Visit: AF WITH RVR,ESRD Discharge Diagnosis: Afib w/ RVR Activity: Resume your previous activity Activity Comment: as tolerated Non-emergency contact: Primary Care Provider and Manager Technical Training Call non-emergency contact if: you have any medication questions and your symptoms worsen Follow-up/Referrals: Raul Vargas DO [Primary Care Provider] - 12/29/19 1:10 pm (please arrive by 1255 for 12/29 appointment) Diet: Dialysis Renal and Heart Healthy Addtl Attending Provider Instructions: Start taking amiodarone 200 mg twice a day, instead of daily. You will need to follow up with your copper plater, you will be called about the appointment. Your potassium was borderline low while in the hospital, you should have your blood work done (BMP) within 1 week to check your potassium level and your kidney function. This can be arranged by any of your health care providers (primary care doctor, copper plater, or assembler show motor). Pending Studies at Discharge: No Stand-Alone Forms: My Oxyntix, Smoking Cessation Medications and DC Order Prescriptions: Continued cholecalciferol (vitamin D3) [Vitamin D3] 1,000 unit Tablet 1,000 unit PO DAILY RF: 0 levothyroxine [Synthroid] 100 mcg tablet 100 mcg PO DAILY RF: 0 pantoprazole 40 mg tablet,delayed release (DR/EC) 40 mg PO DAILY RF: 0 aspirin [Aspirin Childrens] 81 mg Tablet,Chewable 81 mg PO HS RF: 0 docusate sodium [Colace] 100 mg Capsule 100 mg PO DAILY RF: 0 sennosides [Senna Laxative] 8.6 mg Tablet 8.6 mg PO DAILY PRN (Reason: Constipation) RF: 0 midodrine 5 mg Tablet 5 mg PO DIRECTED RF: 0 tramadol 50 mg Tablet 50 mg PO Q8H PRN (Reason: Pain) RF: 0 lorazepam 0.5 mg tablet 0.5 mg PO DAILY PRN (Reason: Anxiety) RF: 0 Phospha 250 Neutral 250 mg Tablet 0 tab PO DAILY RF: 0 cinacalcet [Sensipar] 30 mg Tablet 0 mg PO DAILY RF: 0 zinc sulfate 220 (50) mg capsule 50 mg PO DAILY RF: 0 Triphrocaps 1 mg capsule 1 mg PO DAILY RF: 0 Changed amiodarone 200 mg tablet 200 mg PO BID Qty: 0 RF: 0 Discharge Orders: Discharge Order (Routine); Ordered 12/23/19 Ordered By: Rishi Villeda Admission Data Admit Date/Time: 12/22/19 18:55 Attending Provider: Rishi Villeda Admit Provider: Jackie Chappell Primary Care Provider: Raul Vargas Other Providers: Brian Quiñones Other Interventions: Discharge Summary Assessment (RN) Last Done: 12/23/19 16:54 DC Date/Time DO NOT enter until pt leaves facility: 12/23/19 17:54
== END 2019-12-23 17:54 | disposition home or self-care (01) | DRG 308 ==
LOC: ED 15:50 → 2E 18:55 → SUATTDRO 18:55 → 2E 19:21

== ENCOUNTER 2020-05-26 12:29 | Inpatient (IN) ==
[2020-05-26 13:16] LABS: Eosinophils # (auto) 0.01 K/uL (0-0.5); Eosinophils % (auto) 0.1 %; Hematocrit (blood only) 37.4 % (37-47); Hemoglobin 12.3 g/dL (12.0-16.0); Immature Granulocytes # (auto) 0.01 K/uL (0.00-0.02); Immature Granulocytes % (auto) 0.1 %; Lymphocytes # (auto) 0.44 K/uL (1.2-3.4); Mean Corpuscular Hemoglobin 30.1 pg (25-34); Mean Corpuscular Hgb Conc 32.9 g/dL (32-36); Mean Corpuscular Volume 91.4 fL (80-100); Mean Platelet Volume 10.7 fL (7.4-10.4); Monocytes # (auto) 0.68 K/uL (0.11-0.59); Monocytes % (auto) 7.8 %; Platelet Count 160 K/uL (130-400); RDW Coefficient of Variation 17.5 % (11.5-14.5); RDW Standard Deviation 56.8 fL (36.4-46.3); Red Blood Count 4.09 M/uL (4.2-5.4); White Blood Count 8.74 K/uL (4.8-10.8)
[2020-05-26 13:31] LABS: INR 1.1 (0.9-1.1); Partial Thromboplastin Time 27.8 Seconds (21.0-31.0); Prothrombin Time 11.8 Seconds (9.0-12.0)
--- NOTE | 2020-05-26 13:32 | XRay Report ---
XR chest 1V portable HISTORY: 89 years-old Female Dyspnea acute shortness of breath COMPARISON: Chest radiograph 12/22/2019 TECHNIQUE: Portable AP view of the chest FINDINGS: Cardiac silhouette is enlarged, unchanged. Calcified plaque of the thoracic aortic arch pulmonary vas cular congestion with interstitial coarsening. Right sided dual-lumen hemodialysis catheter is unchan ged. Left subclavian pacer. Small pleural effusions with mild bibasilar opacities. Degenerative orlando es of the shoulders and spine. IMPRESSION: 1. Cardiomegaly with pulmonary vascular congestion and interstitial coarsening suggestive of pulmonar y edema. 2. Small pleural effusions with bibasilar opacities suggestive of probable atelectasis. ACT 112: Negative or not required by law. The above report was generated using voice recognition software. It may contain grammatical, syntax o r spelling errors. Electronically signed by: Gael Palmer M.D. 05/26/2020 1:31 PM
[2020-05-26 13:44] LABS: Albumin Level 3.4 gm/dl (3.4-5.0); Aspartate Aminotransferase 27 U/L (15-37); BUN Creatinine Ratio 8.8 (10-20); Blood Urea Nitrogen 20 mg/dl (7-18); Calcium 8.4 mg/dl (8.5-10.1); Carbon Dioxide 25 mmol/L (21-32); Chloride 94 mmol/L (98-107); Est GFR (African American) 21.4; Est GFR (Non-African American) 18.5; Glucose 73 mg/dl (70-99); Magnesium 2.2 mg/dl (1.8-2.4); Potassium 3.5 mmol/L (3.5-5.1); Sodium 131 mmol/L (136-145)
[2020-05-26 13:51] LABS: Alanine Aminotransferase 53 U/L (12-78); Albumin Globulin Ratio 0.9 (0.9-2); Alkaline Phosphatase 76 U/L (45-117); Globulin 3.6 gm/dl (2.5-4.0); Troponin I 0.073 ng/ml (0-0.045)
--- NOTE | 2020-05-26 14:05 | CT Scan Report ---
CT SCAN OF THE BRAIN WITHOUT IV CONTRAST CLINICAL HISTORY: Generalized weakness. COMPARISON STUDY: CT of the brain dated 06/04/2015. TECHNIQUE: Unenhanced axial CT scan of the brain is performed from the vertex to the skull base. A do se lowering technique was utilized adhering to the principles of ALARA. CT DOSE: 638.56 mGycm FINDINGS: Brain parenchyma: There are age-related involutional changes noting mild/moderate subcortical and pe riventricular microangiopathic change. There is no hemorrhage, mass effect, or evidence of acute terr itorial ischemia by CT criteria. Peña-white matter differentiation is preserved. No extra-axial fluid collection is seen. Ventricles, sulci, cisterns: Prominent secondary to involutional change. Intracranial vasculature: There is atherosclerotic calcification of the cavernous carotid and vertebr al arteries. Calvarium: Unremarkable. Sinuses and mastoids: The visualized paranasal sinuses are clear. There are small bilateral mastoid e ffusions. Orbits: The bony orbits are grossly intact. There are bilateral ocular lens implants. IMPRESSION: There is no hemorrhage, mass effect, or evidence of acute territorial ischemia by CT felipe hernandez. ACT 112: Negative or not required by law. Electronically signed by: Hi Ring M.D. 05/26/2020 2:04 PM
--- NOTE | 2020-05-26 14:07 | Electrocardiogram Report ---
Test Reason : Blood Pressure : / mmHG Vent. Rate : 066 BPM Atrial Rate : 066 BPM P-R Int : 206 ms QRS Dur : 108 ms QT Int : 480 ms P-R-T Axes : 059 010 -50 degrees QTc Int : 503 ms Poor data quality, interpretation may be adversely affected Sinus rhythm with occasional ventricular-paced complexes Prolonged QT Abnormal ECG When compared with ECG of 22-DEC-2019 16:27, Vent. rate has decreased BY 26 BPM Confirmed by Tico Crooks ([id number]) on 05/26/2020 2:06:34 PM Referred By: REFERRED SELF Confirmed By:Tico Crooks
[2020-05-26 15:26] LABS: Appearance Urine Cloudy (Clear); Bacteria Urine Automated Negative (Negative); Blood Urine Trace (Negative); Color Urine Dark Yellow; Epithelial Cell Urine Auto >30 /lpf (0-5); Glucose Urine UA Negative (Negative); Ketones Urine Trace (Negative); Leukocyte Esterase Urine 2+ (Negative); Nitrite Urine Positive (Negative); Protein Urine 2+ (Negative); Specific Gravity Urine 1.022 (1.000-1.030); Urobilinogen Urine Negative (Negative); WBC Urine Automated >30 /hpf (0-5)
--- NOTE | 2020-05-26 15:27 | Emergency Department Note ---
Impression & Plan Weakness, Pulmonary edema, Acute UTI (urinary tract infection) ED Provider Note NAME: HECTOR FRANCES AGE: 89 SEX: F : 1930 ARRIVES VIA: Walk-In INFORMANT: Patient, ED PROVIDER(S): Tico Khan DO CHIEF COMPLAINT: Generalized weakness HPI: The patient is an 89-year-old female who presented to the emergency department with her family member for an evaluation of generalized weakness. The patient is been having ongoing symptoms for quite some time but they became much worse last week. The patient has a history of dialysis and had her most recent course of dialysis today. She denies having any chest pain but does complain of some shortness of breath especially with exertion. She is been having difficulty swallowing and her family members concerned that she is not eating or drinking well. She is also been noticing some double vision and has a history of myasthenia gravis. She is unsure if this is consistent with her previous episodes of myasthenia. She denies having any fever but has had lower extremity swelling which is not new for her. She had basic laboratory studies done through her primary care physician but when they called today to have a repeat evaluation because her symptoms were not improving she was sent to the emergency department for further evaluation. ROS: See above HPI for pertinent positives & negatives. A total of 10 systems reviewed and were otherwise negative. PAST MEDICAL HISTORY: See Below PAST SURGICAL HISTORY: See Below FAMILY HISTORY: See Below SOCIAL HISTORY: See Below HOME MEDICATIONS: See Below ALLERGIES: See Below VITALS: See Below PHYSICAL EXAMINATION: GENERAL: Patient is awake but somewhat listless appearing. She does not appear to be uncomfortable. EYES: The conjunctivae are clear. The pupils are round and reactive. EARS, NOSE, MOUTH AND THROAT: The nose is without any evidence of any deformity. Mucous membranes are moist. Tongue is midline. NECK: The neck is nontender and supple. RESPIRATORY: Shallow respirations were noted. There were rales noted throughout. CARDIOVASCULAR: Regular rate and rhythm was noted to auscultation. There was a systolic murmur to auscultation. GASTROINTESTINAL: The abdomen is soft. Abdomen is nontender. MUSCULOSKELETAL/EXTREMITIES: There is no evidence of gross deformity full range of motion is noted in the hips and shoulders. SKIN: There is no obvious evidence of any rash. Pedal edema was noted bilaterally. There was a dialysis catheter in the right chest wall. NEUROLOGIC: Patient is awake alert and oriented x3. Strength was diminished but symmetric bilaterally. MEDICAL DECISION MAKING: The patient is an 89-year-old female who presented to the emergency department for an evaluation of generalized weakness. The patient has a history of end- stage renal disease but also has a history of myasthenia gravis. She is been having difficulty swallowing. She states that this does not completely feel like her previous episodes of myasthenia in the past. She had outpatient studies done but did not have any definite answer so she presented to the emergency department with her family member for an evaluation. I discussed the patient's laboratory and radiographic studies with her and her family member. Because of her findings I also [facility] They have agreed to evaluate the patient in the emergency department for further management and disposition. The patient was also treated with an antibiotic for presumed urinary tract infection noted on urinalysis. Triage Nursing notes reviewed. Prior medical records reviewed Vital Signs: reviewed and remarkable for no significant abnormalities Differential diagnosis: Infection, dehydration, metabolic abnormality, hypo/hyperglycemia, electrolyte disturbance, anemia, hypoxia, cardiac sources, intracerebral event, toxicologic, neurologic, as well as other pathologies. ER treatment provided: See below Diagnostics interpreted by me: ECG: EKG was obtained in the emergency department. My interpretation is sinus rhythm at 66 bpm. Some ventricular paced as well as atrial sensed paced beats were noted. Lateral ST depressions were noted. This was compared to a tracing from December 222019. No significant changes were noted. Cardiac Monitoring: An order was placed for continuous cardiac monitoring. The monitor shows a rate of 85 with sinus rhythm. Laboratory studies: As stated above and show below. Imaging studies: See below Consultation(s): 1545: I discussed this case with Tawnya who was on-call for the [facility] group. They will evaluate the patient in the emergency department for further management and disposition. ED COURSE: Procedures: none PDMP:reviewed and no issues Critical Care: None Past Med/Surg History Medical History Acute hypotension (Acute) Acute kidney injury superimposed on chronic kidney disease (Acute) Acute on chronic diastolic HF (heart failure) (Acute) In setting of mixed valvular disease Acute on chronic heart failure with preserved ejection fraction Acute decompensated heart failure on the basis of mixed valvular heart disease with history of moderate to severe mitral insufficiency, severe tricuspid insufficiency, moderate aortic insufficiency. 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) Obstructive type of ventilatory defect with mild restriction which may be related to patient's morbid obesity (per 2015 PFTs) Morbid obesity (Chronic) Myasthenia gravis (Chronic) Pacemaker (Chronic) Paroxysmal atrial fibrillation Pulmonary edema Pulmonary HTN (Chronic) SBO (small bowel obstruction) (Resolved) Shortness of breath (Acute) 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 Tricuspid regurgitation Valvular heart disease Surgical History H/O: hysterectomy (Resolved) History of appendectomy (Resolved) History of permanent cardiac pacemaker placement (Resolved) History of tonsillectomy (Resolved) Family History Other Heart disease Stroke Social History Smoking Status: Never smoker Second Hand Exposure: No; Hx Alcohol Use: Yes Alcohol type: wine Hx Substance Use: No Preferred Language: Greenlandic Communication Ability: Effective Visual Impairment: No Limitations Rn Acute Required: No Beliefs That Will Affect Care: Buddhism Buddhism Beliefs: Judaism marital status: / Current Living Situation: Alone current occupational status: retired Feels Safe at Home: Yes Allergies Allergies Allergy/AdvReac Type Severity Reaction Status Date / Time naproxen Allergy Unknown Black Verified 12/22/19 17:26 stool/bleeding. 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 codeine AdvReac Unknown GASTRIC Verified 12/22/19 17:26 UPSET methocarbamol AdvReac Unknown Nausea/Vomi Verified 12/22/19 17:26 ting [id number] Reductase AdvReac Unknown MUSCLE Verified 12/22/19 17:26 Inhibitor WEAKNESS Home Meds Home Medications Medication Instructions Recorded Confirmed aspirin [Aspirin Childrens] 81 mg PO HS 08/20/18 05/26/20 levothyroxine [Synthroid] 100 mcg PO DAILY 08/20/18 05/26/20 docusate sodium [Colace] 100 mg PO DAILY 12/03/18 05/26/20 midodrine 5 mg PO DIRECTED 12/03/18 05/26/20 sennosides [Senna Laxative] 8.6 mg PO DAILY PRN 12/03/18 05/26/20 cholecalciferol (vitamin D3) 1,000 unit PO DAILY 04/14/19 05/26/20 [Vitamin D3] Phospha 250 Neutral 0 tab PO DAILY 12/22/19 05/26/20 Triphrocaps 1 mg PO DAILY 12/22/19 05/26/20 cinacalcet [Sensipar] 30 mg PO Q2D 12/22/19 05/26/20 lorazepam 0.5 mg PO DAILY PRN 12/22/19 05/26/20 tramadol 50 mg PO Q8H PRN 12/22/19 05/26/20 zinc sulfate 50 mg PO DAILY 12/22/19 05/26/20 melatonin 10 mg PO HS PRN 05/26/20 05/26/20 Previous Rx's Medication Instructions Recorded amiodarone 200 mg PO BID #0 tab 12/23/19 Results & Data (ED) Vital Signs Vital Signs - 24 hr 05/26/20 12:42 05/26/20 12:52 05/26/20 13:15 Temperature 36.5 C Temperature Source Oral Pulse Rate 65 Pulse Rate [Apical] Pulse Rate from SpO2 Sensor Pulse Rhythm Regular Pulse Strength Normal Respiratory Rate 20 Respiratory Effort / Characteristics Non-Labored Spontaneous Respiratory Depth Normal Normal Respiratory Pattern Regular Regular Blood Pressure 92/61 L Blood Pressure [Left Arm] Blood Pressure Mean 71 Blood Pressure Mean [Left Arm] Blood Pressure Position Sitting Pulse Oximetry 96 95 93 Oxygen Delivery Method Room Air Room Air Room Air Sepsis Recent Fever Within 48 Hours No Sepsis New/Unexplained Change in Mental Status N/A Sepsis Action Taken by Nursing No Action Required 05/26/20 13:37 05/26/20 14:13 Temperature Temperature Source Pulse Rate 69 Pulse Rate [Apical] 65 Pulse Rate from SpO2 Sensor 69 Pulse Rhythm Pulse Strength Respiratory Rate 20 21 Respiratory Effort / Characteristics Respiratory Depth Respiratory Pattern Blood Pressure 103/68 Blood Pressure [Left Arm] 92/59 L Blood Pressure Mean 78 Blood Pressure Mean [Left Arm] 70 Blood Pressure Position Pulse Oximetry 92 94 Oxygen Delivery Method Room Air Room Air Sepsis Recent Fever Within 48 Hours Sepsis New/Unexplained Change in Mental Status Sepsis Action Taken by Usp Medications Current Medication List: was personally reviewed by me Laboratory Data Attestation: I reviewed the patient's lab results. Result diagrams: 05/26/20 13:05 05/26/20 13:05 Lab Results 05/26/20 05/26/20 05/26/20 Range/Units 13:05 13:05 13:05 WBC 8.74 (4.8-10.8) K/uL RBC 4.09 L (4.2-5.4) M/uL Hgb 12.3 (12.0-16.0) g/dL Hct 37.4 (37-47) % MCV 91.4 (80-100) fL MCH 30.1 (25-34) pg MCHC 32.9 (32-36) g/dL RDW Std Deviation 56.8 H (36.4-46.3) fL RDW Coeff of Cornel 17.5 H (11.5-14.5) % Plt Count 160 (130-400) K/uL MPV 10.7 H (7.4-10.4) fL Immature Gran % (Auto) 0.1 % Neut % (Auto) 87.0 % Lymph % (Auto) 5.0 % Mcmullen % (Auto) 7.8 % Eos % (Auto) 0.1 % Baso % (Auto) 0.0 % Neut # (Auto) 7.60 H (1.4-6.5) K/uL Lymph # (Auto) 0.44 L (1.2-3.4) K/uL Mcmullen # (Auto) 0.68 H (0.11-0.59) K/uL Eos # (Auto) 0.01 (0-0.5) K/uL Baso # (Auto) 0.00 (0-0.2) K/uL Immature Gran # (Auto) 0.01 (0.00-0.02) K/uL PT 11.8 (9.0-12.0) Seconds INR 1.1 (0.9-1.1) APTT 27.8 (21.0-31.0) Seconds PTT Ratio 1.0 Sodium 131 L (136-145) mmol/L Potassium 3.5 (3.5-5.1) mmol/L Chloride 94 L (98-107) mmol/L Carbon Dioxide 25 (21-32) mmol/L Anion Gap 12.0 H (3-11) BUN 20 H (7-18) mg/dl Creatinine 2.29 H (0.6-1.2) mg/dl Est Cr Clr Drug Dosing Not Reportable Est GFR ( Amer) 21.4 Est GFR (Non-Af Amer) 18.5 BUN/Creatinine Ratio 8.8 L (10-20) Glucose 73 (70-99) mg/dl Calcium 8.4 L (8.5-10.1) mg/dl Magnesium 2.2 (1.8-2.4) mg/dl Total Bilirubin 1.0 (0.2-1) mg/dl AST 27 (15-37) U/L ALT 53 (12-78) U/L Alkaline Phosphatase 76 (45-117) U/L Troponin I 0.073 H* (0-0.045) ng/ml Total Protein 7.0 (6.4-8.2) gm/dl Albumin 3.4 (3.4-5.0) gm/dl Globulin 3.6 (2.5-4.0) gm/dl Albumin/Globulin Ratio 0.9 (0.9-2) Urine Color Urine Appearance (Clear) Urine pH (4.5-7.5) Ur Specific Simla (1.000-1.030) Urine Protein (Negative) Urine Glucose (UA) (Negative) Urine Ketones (Negative) Urine Blood (Negative) Urine Nitrite (Negative) Urine Bilirubin (Negative) Urine Urobilinogen (Negative) Ur Leukocyte Esterase (Negative) Urine WBC (Auto) (0-5) /hpf Urine RBC (Auto) (0-4) /hpf U Hyaline Cast (Auto) (0-5) /lpf U Epithel Cells (Auto) (0-5) /lpf Urine Bacteria (Auto) (Negative) Urine Yeast (None Prsent) 05/26/20 Range/Units 15:10 WBC (4.8-10.8) K/uL RBC (4.2-5.4) M/uL Hgb (12.0-16.0) g/dL Hct (37-47) % MCV (80-100) fL MCH (25-34) pg MCHC (32-36) g/dL RDW Std Deviation (36.4-46.3) fL RDW Coeff of Cornel (11.5-14.5) % Plt Count (130-400) K/uL MPV (7.4-10.4) fL Immature Gran % (Auto) % Neut % (Auto) % Lymph % (Auto) % Mcmullen % (Auto) % Eos % (Auto) % Baso % (Auto) % Neut # (Auto) (1.4-6.5) K/uL Lymph # (Auto) (1.2-3.4) K/uL Mcmullen # (Auto) (0.11-0.59) K/uL Eos # (Auto) (0-0.5) K/uL Baso # (Auto) (0-0.2) K/uL Immature Gran # (Auto) (0.00-0.02) K/uL PT (9.0-12.0) Seconds INR (0.9-1.1) APTT (21.0-31.0) Seconds PTT Ratio Sodium (136-145) mmol/L Potassium (3.5-5.1) mmol/L Chloride (98-107) mmol/L Carbon Dioxide (21-32) mmol/L Anion Gap (3-11) BUN (7-18) mg/dl Creatinine (0.6-1.2) mg/dl Est Cr Clr Drug Dosing Est GFR ( Amer) Est GFR (Non-Af Amer) BUN/Creatinine Ratio (10-20) Glucose (70-99) mg/dl Calcium (8.5-10.1) mg/dl Magnesium (1.8-2.4) mg/dl Total Bilirubin (0.2-1) mg/dl AST (15-37) U/L ALT (12-78) U/L Alkaline Phosphatase (45-117) U/L Troponin I (0-0.045) ng/ml Total Protein (6.4-8.2) gm/dl Albumin (3.4-5.0) gm/dl Globulin (2.5-4.0) gm/dl Albumin/Globulin Ratio (0.9-2) Urine Color Dark Yellow Urine Appearance Cloudy A (Clear) Urine pH 5.0 (4.5-7.5) Ur Specific Simla 1.022 (1.000-1.030) Urine Protein 2+ H (Negative) Urine Glucose (UA) Negative (Negative) Urine Ketones Trace H (Negative) Urine Blood Trace H (Negative) Urine Nitrite Positive A (Negative) Urine Bilirubin Negative (Negative) Urine Urobilinogen Negative (Negative) Ur Leukocyte Esterase 2+ H (Negative) Urine WBC (Auto) >30 H (0-5) /hpf Urine RBC (Auto) 10-30 H (0-4) /hpf U Hyaline Cast (Auto) 10-30 H (0-5) /lpf U Epithel Cells (Auto) >30 H (0-5) /lpf Urine Bacteria (Auto) Negative (Negative) Urine Yeast Present A (None Prsent) Imaging Data Radiologist's Impression: CT SCAN OF THE BRAIN WITHOUT IV CONTRAST CLINICAL HISTORY: Generalized weakness. COMPARISON STUDY: CT of the brain dated 06/04/2015. TECHNIQUE: Unenhanced axial CT scan of the brain is performed from the vertex to the skull base. A dose lowering technique was utilized adhering to the principles of ALARA. CT DOSE: 638.56 mGycm FINDINGS: Brain parenchyma: There are age-related involutional changes noting mild/moderate subcortical and periventricular microangiopathic change. There is no hemorrhage, mass effect, or evidence of acute territorial ischemia by CT criteria. Peña-white matter differentiation is preserved. No extra-axial fluid collection is seen. Ventricles, sulci, cisterns: Prominent secondary to involutional change. Intracranial vasculature: There is atherosclerotic calcification of the cavernous carotid and vertebral arteries. Calvarium: Unremarkable. Sinuses and mastoids: The visualized paranasal sinuses are clear. There are s mall bilateral mastoid effusions. Orbits: The bony orbits are grossly intact. There are bilateral ocular lens implants. IMPRESSION: There is no hemorrhage, mass effect, or evidence of acute territo rial ischemia by CT criteria. ACT 112: Negative or not required by law. Electronically signed by: Hi Ring M.D. 05/26/2020 2:04 PM Dictated: 05/26/20 1354 Transcribed: 05/26/20 1400 XR chest 1V portable HISTORY: 89 years-old Female Dyspnea acute shortness of breath COMPARISON: Chest radiograph 12/22/2019 TECHNIQUE: Portable AP view of the chest FINDINGS: Cardiac silhouette is enlarged, unchanged. Calcified plaque of the thoracic aortic arch pulmonary vascular congestion with interstitial coarsening. Right sided dual-lumen hemodialysis catheter is unchanged. Left subclavian pacer. Small pleural effusions with mild bibasilar opacities. Degenerative changes of the shoulders and spine. IMPRESSION: 1. Cardiomegaly with pulmonary vascular congestion and interstitial coarsening suggestive of pulmonary edema. 2. Small pleural effusions with bibasilar opacities suggestive of probable atelectasis. ACT 112: Negative or not required by law. The above report was generated using voice recognition software. It may contain grammatical, syntax or spelling errors. Electronically signed by: Gael Palmer M.D. 05/26/2020 1:31 PM Dictated: 05/26/20 1330 Transcribed: 05/26/20 1330 Blood Pressure Blood Pressure Findings: Normal blood pressure Discharge Plan Visit Data Chief Complaint: Shortness of Breath/Dyspnea Stated Complaint: WEAKNESS, SHORT OF BREATH ED Provider: Tico Khan Discharge Problem: Weakness, Pulmonary edema, Acute UTI (urinary tract infection) Patient Disposition: Being Evaluated by Hospitalist Condition: Good Forms Stand Alone Forms: My [facility] [employer] Prescriptions Prescriptions: No Action cholecalciferol (vitamin D3) [Vitamin D3] 1,000 unit Tablet 1,000 unit PO DAILY RF: 0 levothyroxine [Synthroid] 100 mcg tablet 100 mcg PO DAILY RF: 0 aspirin [Aspirin Childrens] 81 mg Tablet,Chewable 81 mg PO HS RF: 0 docusate sodium [Colace] 100 mg Capsule 100 mg PO DAILY RF: 0 sennosides [Senna Laxative] 8.6 mg Tablet 8.6 mg PO DAILY PRN (Reason: Constipation) RF: 0 midodrine 5 mg Tablet 5 mg PO DIRECTED RF: 0 tramadol 50 mg Tablet 50 mg PO Q8H PRN (Reason: Pain) RF: 0 lorazepam 0.5 mg tablet 0.5 mg PO DAILY PRN (Reason: Anxiety) RF: 0 Phospha 250 Neutral 250 mg Tablet 0 tab PO DAILY RF: 0 cinacalcet [Sensipar] 30 mg Tablet 30 mg PO Q2D RF: 0 zinc sulfate 220 (50) mg capsule 50 mg PO DAILY RF: 0 Triphrocaps 1 mg capsule 1 mg PO DAILY RF: 0 amiodarone 200 mg tablet 200 mg PO BID Qty: 0 RF: 0 melatonin 10 mg Tablet 10 mg PO HS PRN (Reason: Sleep) RF: 0 Referrals Referrals: Raul Vargas DO [Primary Care Provider] -
[2020-05-26 15:43] LABS: Bilirubin Urine Negative (Negative); Ictotest Urine Negative (Negative)
[2020-05-26] MEDS ORDERED: cefTRIAXone SODIUM 1,000 MG/50 ML BAG IV STA (15:46)
--- NOTE | 2020-05-26 16:36 | History & Physical Report ---
Date of Service May 26, 2020 Assessment & Plan (1) Weakness: Unintentional Weight Loss -This is a patient who is on dialysis and also pacemaker and problems with eating. She is brought in to the ED on 05/26/2020 by her son Josef [phone] who reports that over period of time, her mother has had progressive weight loss with poor oral appetitite and has trouble with eating the food such as feeling reflux symptoms. However, patient is not on protonic at home currently. no abdomen pain. no vomiting. They also had outpatient plans for gastroenterology evaluation but this has not been done yet. -Her son feels that while the above symptoms have been ongoing, he feels that his mother also having more weakness of her strength and in past several days, she does not have strength to feed herself with her own hands. Review of outpatient EPIC notes that there have been communication with outpatient providers and Dr. Driscoll questioning whether patient has flair-up of myasthenia gravis. -05/26/2020: On my exam patient appeared have no deficits of extraoccular eye movements and appears to be able to sustain with with moving her gaze to an upward position and keeping that steady, no tongue deviations, and able to move her hands with strong hand sound person -Patient passed the dysphagia screening as per nurse -allow advance to clear liquid diet, started pantoprazole IV 40 mg BID, NPO after midnight, request gastroenterology consult to evaluate with direct visualization with upper EGD, formal speech and swallow evaluation, maintain aspiration precautions -P/OT evaluations -start solumedrol 40 mg IV BID, request neurology consult to rule out myasthenia gravis flare (2) ESRD on dialysis: -Patient is on dialysis through perm cath every Sunday, Sunday, Sunday. As per her son, she was at dialysis earlier today on Sunday05/26/2020 but did not have a fully complete dialysis session. There are some mild crackles on lung exam but patient breathing on room air. -nephrology consultation to manage dialysis as inpatient while being evaluated -home medication of sensipar and Triprhocaps (3) Hypothyroidism: -outpatient medication of levothyroxine is 100 mcg daily -TSH elevated as 6.7 but free T4 is not low (free T4 1.7 is mildly elevated) -will obtain total T4 and free T3 levels and total T3 levels -continue current outpatient levothyroxine 100 mcg daily for now while considering thyroid medication adjustments in the future - it is possible that amiodarone could be contributing to changes in thyroid function labs (4) Tachy-xi syndrome: Presence of Pacemaker Paroxysmal Atrial Fibrillation -Patient has sinus bradycardia on exam and by admission EKG. -patient's son also reports that patient's pacemaker is at end of battery life. Patient denies chest pain or palpitations or fevers. -monitor on telemetry -cardiology consult in case of any interventions that can be done for the pacemaker while inpatient -continue amiodarone 200 mg BID as per home dose for now Code Status: DNR/DNI son Josef [phone] DVT prophylaxis: heparin subcutaneous q12 hours History of Present Illness This is a patient who is on dialysis and also pacemaker and problems with eating. She is brought in to the ED by her son Josef [phone] who reports that over period of time, her mother has had progressive weight loss with poor oral appetitite and has trouble with eating the food such as feeling reflux symptoms. However, patient is not on protonic at home currently. no abdomen pain. no vomiting. They also had outpatient plans for gastroenterology evaluation but this has not been done yet. Her son feels that while the above symptoms have been ongoing, he feels that his mother also having more weakness of her strength and in past several days, she does not have strength to feed herself with her own hands. Review of outpatient EPIC notes that there have been communication with outpatient providers and Dr. Driscoll questioning whether patient has flair-up of myasthenia gravis. On my exam patient appeared have no deficits of extraoccular eye movements and appears to be able to sustain with with moving her gaze to an upward position and keeping that steady, no tongue deviations, and able to move her hands with strong hand sound person Patient passed the dysphagia screening as per nurse Patient is on dialysis through perm cath every Sunday, Sunday, Sunday. As per her son, she was at dialysis earlier today on Sunday05/26/2020 but did not have a fully complete dialysis session. There are some mild crackles on lung exam but patient breathing on room air. In addition, patient's son also reports that patient's pacemaker is at end of battery life. Patient has sinus bradycardia on exam and by admission EKG. Patient denies chest pain or palpitations or fevers. Family of mother with strokes and father with cancer Primary Care Provider: Raul Vargas DO Allergies Allergy/AdvReac Type Severity Reaction Status Date / Time naproxen Allergy Unknown Black Verified 12/22/19 17:26 stool/bleeding. 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 codeine AdvReac Unknown GASTRIC Verified 12/22/19 17:26 UPSET methocarbamol AdvReac Unknown Nausea/Vomi Verified 12/22/19 17:26 ting Pdcovbo-Nwn-Sxs Reductase AdvReac Unknown MUSCLE Verified 12/22/19 17:26 Inhibitor WEAKNESS Home Medications Home Medications Medication Instructions Recorded Confirmed Type aspirin [Aspirin Childrens] 81 mg PO HS 08/20/18 05/26/20 History levothyroxine [Synthroid] 100 mcg PO DAILY 08/20/18 05/26/20 History docusate sodium [Colace] 100 mg PO DAILY 12/03/18 05/26/20 History midodrine 5 mg PO DIRECTED 12/03/18 05/26/20 History sennosides [Senna Laxative] 8.6 mg PO DAILY PRN 12/03/18 05/26/20 History cholecalciferol (vitamin D3) 1,000 unit PO DAILY 04/14/19 05/26/20 History [Vitamin D3] Phospha 250 Neutral 0 tab PO DAILY 12/22/19 05/26/20 History Triphrocaps 1 mg PO DAILY 12/22/19 05/26/20 History cinacalcet [Sensipar] 30 mg PO Q2D 12/22/19 05/26/20 History lorazepam 0.5 mg PO DAILY PRN 12/22/19 05/26/20 History tramadol 50 mg PO Q8H PRN 12/22/19 05/26/20 History zinc sulfate 50 mg PO DAILY 12/22/19 05/26/20 History amiodarone 200 mg PO BID #0 tab 12/23/19 05/26/20 Rx melatonin 10 mg PO HS PRN 05/26/20 05/26/20 History Past Med/Surg History Medical History Acute hypotension (Acute) Acute kidney injury superimposed on chronic kidney disease (Acute) Acute on chronic diastolic HF (heart failure) (Acute) In setting of mixed valvular disease Acute on chronic heart failure with preserved ejection fraction Acute decompensated heart failure on the basis of mixed valvular heart disease with history of moderate to severe mitral insufficiency, severe tricuspid insufficiency, moderate aortic insufficiency. 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) Obstructive type of ventilatory defect with mild restriction which may be related to patient's morbid obesity (per 2015 PFTs) Morbid obesity (Chronic) Myasthenia gravis (Chronic) Pacemaker (Chronic) Paroxysmal atrial fibrillation Pulmonary edema Pulmonary HTN (Chronic) SBO (small bowel obstruction) (Resolved) Shortness of breath (Acute) 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 Tricuspid regurgitation Valvular heart disease Surgical History H/O: hysterectomy (Resolved) History of appendectomy (Resolved) History of permanent cardiac pacemaker placement (Resolved) History of tonsillectomy (Resolved) Family History Other Heart disease Stroke Social History Smoking Status: Never smoker Second Hand Exposure: No; Do You Dip or Chew Tobacco: No; Tobacco Cessation Education Requested by Patient: No Hx Alcohol Use: No Hx Substance Use: No Preferred Language: Indonesian Communication Ability: Effective Visual Impairment: No Limitations Cash Applications Specialist Required: No Beliefs That Will Affect Care: None marital status: / Current Living Situation: Alone current occupational status: retired Other Information That Helps Us Care for You: No Feels Safe at Home: Yes Safety Concerns: Feels Safe At This Time Review of Systems Review of Systems: All systems reviewed & are unremarkable except as noted in Subjective Physical Exam Constitutional: comfortable Eyes: PERRL, conjunctivae normal, anicteric sclerae EOM intact bilaterally ENMT: external ear and nose normal, oropharynx normal Neck: trachea midline, no thyromegaly normal visual inspection Respiratory: Auscultation: + crackles Cardiovascular: Rate/Rhythm: + bradycardic Gastrointestinal (Abdomen): normal bowel sounds, soft, nontender, no hepatosplenomegaly Musculoskeletal: Head/Neck/Chest: normocephalic Neurologic: PERRL, EOMI, accommodation nl, no face palsy, no dysarthria on my exam patient appeared have no deficits of extraoccular eye movements and appears to be able to sustain with with moving her gaze to an upward position and keeping that steady, no tongue deviations, and able to move her hands with strong hand sound person Psychiatric: A+Ox3, euthymic affect Results & Data Results & Data ([facility]) Vital Signs (Past 12 Hours) Vital Signs Temp Pulse Pulse Resp BP BP Pulse Ox 05/26/20 15:00 98/73 L 90 05/26/20 14:31 65 22 92 05/26/20 14:14 67 20 93 05/26/20 14:13 69 21 103/68 94 05/26/20 13:37 65 20 92/59 L 92 05/26/20 13:15 93 05/26/20 12:52 95 05/26/20 12:42 36.5 C 65 20 92/61 L 96
[2020-05-26 17:24] LABS: Phosphorus 3.4 mg/dl (2.5-4.9); Thyroid Stimulating Hormone 6.73 uIu/ml (0.300-4.500)
[2020-05-26] MEDS ORDERED: MELATONIN 3 MG TAB PO PRN (17:38)
[2020-05-26 17:39] LABS: T4 Free Thyroxine 1.7 ng/dl (0.8-1.6)
[2020-05-26] MEDS ORDERED: MULTI-VITAMIN INFUSION 10 ML, THIAMINE HCL 100 MG, FOLIC ACID 1 MG in SODIUM CHLORIDE 0... IV ONE (18:00)
[2020-05-26] MEDS: methylPREDNISolone 40 MG in SYRINGE 0 ML IV SCH (18:33)
[2020-05-26] MEDS ORDERED: D5W AND 1/2NSS 1,000 ML IV SCH (19:00)
[2020-05-26 19:58] LABS: T4 Thyroxine 6.9 mcg/dl (4.5-10.9)
[2020-05-26 19:59] LABS: T3 Free 1.23 pg/ml (2.3-4.2); T3 Total 0.28 ng/ml (0.60-1.81)
[2020-05-26 20:04] LABS: Folate (Folic Acid) > 24.00 ng/ml (>5.38); Vitamin B12 1456 pg/ml (211-911)
[2020-05-26] MEDS: TRAMADOL HCL 50 MG TABLET PO PRN (20:11)
[2020-05-26] MEDS: AMIODARONE 200 MG TAB PO SCH (20:12)
[2020-05-26] MEDS: LORazepam 0.5 MG TAB PO PRN (20:12)
[2020-05-26] MEDS: PANTOprazole 40 MG in SYRINGE 0 ML IV SCH (20:12)
[2020-05-26] MEDS: ASPIRIN 81 MG ECTAB PO SCH (20:12)
[2020-05-26] MEDS: HEPARIN SOD 5,000 UNIT/0.5 ML VIAL SQ SCH (20:13)
[2020-05-27] MEDS: methylPREDNISolone 40 MG in SYRINGE 0 ML IV SCH ×2 (06:09→17:01)
[2020-05-27] MEDS ORDERED: LEVOTHYROXINE SODIUM 100 MCG TABLET PO SCH (06:30)
[2020-05-27 07:13] LABS: Hemoglobin 12.1 g/dL (12.0-16.0); Immature Granulocytes # (auto) 0.01 K/uL (0.00-0.02); Immature Granulocytes % (auto) 0.2 %; Lymphocytes # (auto) 0.44 K/uL (1.2-3.4); Lymphocytes % (auto) 9.2 %; Mean Corpuscular Hgb Conc 32.7 g/dL (32-36); Mean Corpuscular Volume 91.6 fL (80-100); Mean Platelet Volume 11.5 fL (7.4-10.4); Monocytes # (auto) 0.37 K/uL (0.11-0.59); Monocytes % (auto) 7.8 %; Neutrophils # (auto) 3.95 K/uL (1.4-6.5); Neutrophils % (auto) 82.8 %; Platelet Count 170 K/uL (130-400); RDW Coefficient of Variation 17.7 % (11.5-14.5); RDW Standard Deviation 57.4 fL (36.4-46.3); Red Blood Count 4.04 M/uL (4.2-5.4); White Blood Count 4.77 K/uL (4.8-10.8)
[2020-05-27 07:43] LABS: Albumin Level 3.2 gm/dl (3.4-5.0); BUN Creatinine Ratio 11.4 (10-20); Calcium 8.3 mg/dl (8.5-10.1); Est GFR (African American) 15.2; Est GFR (Non-African American) 13.1; Potassium 3.7 mmol/L (3.5-5.1)
[2020-05-27 07:55] LABS: Bilirubin,Total 0.8 mg/dl (0.2-1); Globulin 3.1 gm/dl (2.5-4.0); Total Protein 6.3 gm/dl (6.4-8.2); Troponin I 0.076 ng/ml (0-0.045)
[2020-05-27] MEDS: TRAMADOL HCL 50 MG TABLET PO PRN ×2 (08:16→20:15)
[2020-05-27] MEDS: HEPARIN SOD 5,000 UNIT/0.5 ML VIAL SQ SCH ×2 (08:18→20:14)
[2020-05-27] MEDS: CHOLECALCIFEROL 1,000 UNITS 25 MCG TAB PO SCH (08:18)
[2020-05-27] MEDS: AMIODARONE 200 MG TAB PO SCH ×2 (08:18→20:14)
[2020-05-27] MEDS: NEPHROCAPS PO SCH (08:19)
[2020-05-27] MEDS: PANTOprazole 40 MG in SYRINGE 0 ML IV SCH ×2 (08:19→20:14)
--- NOTE | 2020-05-27 08:48 | Cardiology Consultation ---
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 Although her pacemaker has reached end-of-life there is still plenty of safety margin on the battery. On telemetry she is mostly sinus rhythm with heart rate in the 70s. Last evening while sleeping she did have a paced rhythm in the 60s. Her pacemaker is currently sent for a VVI mode at a rate of 65. So I think the pacemaker still functioning appropriately. Her symptoms may be related to her myasthenia, GI, or end-stage kidney disease. Before we would put her through an elective surg alek with anesthesia the could worsen her myasthenia, I think it is best that we work out these other things first with the idea that her pacemaker can be upgraded electively in the near future. The patient has been on amiodarone for paroxysmal atrial arrhythmias. I do note that her TSH level is elevated on admission with a low T3 level. 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 I have increased her levothyroxine from 100 mcg to 125 mcg daily. 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 She had been doing well until recently she had unexpected weight loss, loss of appetite, weakness and in general just not feeling well. She has a permanent pacemaker for tachybradycardia syndrome that was interrogated yesterday and the battery was found to be end-of-life with plenty of safety margin for an elective upgrade. She is followed by neurology and with the above symptoms they felt that she should come to the hospital as it may be an exacerbation of her myasthenia gravis. She currently has no cardiac symptoms. 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 2.Paroxysmal atrial fibrillation controlled with amiodarone. 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 4.Obstructive lung disease with sleep apnea. 5.Restrictive lung disease. 6.Kyphoscoliosis. 7.Acute small-bowel obstruction, 06/28/2018. 8.Hospitalization 08/20/2018 with decompensated multifactorial heart failure, acute renal insufficiency, ultimately came under control with dialysis therapy. 9. Rehospitalization December 03, 2018 with marked volume overload paroxysmal atrial fibrillation, hypotension once again responsive to cautious dialysis initiation of amiodarone therapy 10. End-stage renal disease hemodialysis dependent Allergies Allergy/AdvReac Type Severity Reaction Status Date / Time naproxen Allergy Unknown Black Verified 12/22/19 17:26 stool/bleeding. 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 codeine AdvReac Unknown GASTRIC Verified 12/22/19 17:26 UPSET methocarbamol AdvReac Unknown Nausea/Vomi Verified 12/22/19 17:26 ting Xeasuan-Mqg-Ibz Reductase AdvReac Unknown MUSCLE Verified 12/22/19 17:26 Inhibitor WEAKNESS Home Medications Home Medications Medication Instructions Recorded Confirmed Type aspirin [Aspirin Childrens] 81 mg PO HS 08/20/18 05/26/20 History levothyroxine [Synthroid] 100 mcg PO DAILY 08/20/18 05/26/20 History docusate sodium [Colace] 100 mg PO DAILY 12/03/18 05/26/20 History midodrine 5 mg PO DIRECTED 12/03/18 05/26/20 History sennosides [Senna Laxative] 8.6 mg PO DAILY PRN 12/03/18 05/26/20 History cholecalciferol (vitamin D3) 1,000 unit PO DAILY 04/14/19 05/26/20 History [Vitamin D3] Phospha 250 Neutral 0 tab PO DAILY 12/22/19 05/26/20 History Triphrocaps 1 mg PO DAILY 12/22/19 05/26/20 History cinacalcet [Sensipar] 30 mg PO Q2D 12/22/19 05/26/20 History lorazepam 0.5 mg PO DAILY PRN 12/22/19 05/26/20 History tramadol 50 mg PO Q8H PRN 12/22/19 05/26/20 History zinc sulfate 50 mg PO DAILY 12/22/19 05/26/20 History amiodarone 200 mg PO BID #0 tab 12/23/19 05/26/20 Rx melatonin 10 mg PO HS PRN 05/26/20 05/26/20 History Patient History Medical History Acute hypotension (Acute) Acute kidney injury superimposed on chronic kidney disease (Acute) Acute on chronic diastolic HF (heart failure) (Acute) In setting of mixed valvular disease Acute on chronic heart failure with preserved ejection fraction Acute decompensated heart failure on the basis of mixed valvular heart disease with history of moderate to severe mitral insufficiency, severe tricuspid insufficiency, moderate aortic insufficiency. 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) Obstructive type of ventilatory defect with mild restriction which may be related to patient's morbid obesity (per 2015 PFTs) Morbid obesity (Chronic) Myasthenia gravis (Chronic) Pacemaker (Chronic) Paroxysmal atrial fibrillation Pulmonary edema Pulmonary HTN (Chronic) SBO (small bowel obstruction) (Resolved) Shortness of breath (Acute) 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 Tricuspid regurgitation Valvular heart disease Surgical History H/O: hysterectomy (Resolved) History of appendectomy (Resolved) History of permanent cardiac pacemaker placement (Resolved) History of tonsillectomy (Resolved) Family History Other Heart disease Stroke Social History Smoking Status: Never smoker Second Hand Exposure: No; Hx Alcohol Use: No Hx Substance Use: No Preferred Language: Haitian Communication Ability: Effective Visual Impairment: No Limitations Art Framing Manager Required: No Beliefs That Will Affect Care: None marital status: / Current Living Situation: Alone current occupational status: retired Feels Safe at Home: Yes Review of Systems Review of Systems: All systems reviewed & are unremarkable except as noted in HPI & below Nothing additional to add Physical Exam Physical Exam: General: no acute distress and stated age Head: normocephalic, no masses, lesions, tenderness or abnormalities Eyes: conjunctiva are pink and non-injected, sclera clear Neck: Wearing a neck brace due to compression fractures and myasthenia Chest: normal shape and normal respiratory effort Lungs: clear to auscultation and percussion Cardiac Exam: - regular rate & rhythm, no murmurs gallops or rubs - normal S1, normal S2 Pulses: 2(+) throughout Abdomen: abdomen soft, non-tender, no abnormal masses and no hepatosplenomegaly Musculoskeletal: no gait disturbance, no joint inflammation, no deforming arthritis Extremities: Wearing gloves on her hands due to history of Gutierrez Neuro: grossly normal exam Results & Data ([facility]) Vital Signs (Past 12 Hours) Vital Signs Temp Pulse Pulse Resp BP Pulse Ox 05/27/20 07:57 36.5 C 88 18 95/54 L 98 05/27/20 03:42 36.7 C 71 17 82/56 L 99 05/26/20 23:31 36.5 C 68 16 90/60 L 97 05/26/20 22:20 69 Laboratory Results Laboratory Results - last 24 hr 05/26/20 05/26/20 05/26/20 13:05 13:05 13:05 WBC 8.74 RBC 4.09 L Hgb 12.3 Hct 37.4 MCV 91.4 MCH 30.1 MCHC 32.9 RDW Std Deviation 56.8 H RDW Coeff of Cornel 17.5 H Plt Count 160 MPV 10.7 H Immature Gran % (Auto) 0.1 Neut % (Auto) 87.0 Lymph % (Auto) 5.0 [place] % (Auto) 7.8 Eos % (Auto) 0.1 Baso % (Auto) 0.0 Neut # (Auto) 7.60 H Lymph # (Auto) 0.44 L [place] # (Auto) 0.68 H Eos # (Auto) 0.01 Baso # (Auto) 0.00 Immature Gran # (Auto) 0.01 PT 11.8 INR 1.1 APTT 27.8 PTT Ratio 1.0 Sodium 131 L Potassium 3.5 Chloride 94 L Carbon Dioxide 25 Anion Gap 12.0 H BUN 20 H Creatinine 2.29 H Est Cr Clr Drug Dosing Not Reportable Est GFR ( Amer) 21.4 Est GFR (Non-Af Amer) 18.5 BUN/Creatinine Ratio 8.8 L Glucose 73 POC Glucose Calcium 8.4 L Phosphorus Magnesium 2.2 Total Bilirubin 1.0 AST 27 ALT 53 Alkaline Phosphatase 76 Troponin I 0.073 H* Total Protein 7.0 Albumin 3.4 Globulin 3.6 Albumin/Globulin Ratio 0.9 Vitamin B12 Folate TSH Free T4 Thyroxine (T4) Free T3 Total T3 Urine Color Urine Appearance Urine pH Ur Specific [place] Urine Protein Urine Glucose (UA) Urine Ketones Urine Blood Urine Nitrite Urine Bilirubin Urine Urobilinogen Ur Leukocyte Esterase Urine WBC (Auto) Urine RBC (Auto) U Hyaline Cast (Auto) U Epithel Cells (Auto) Urine Bacteria (Auto) Urine Yeast Nasal Screen MRSA (PCR) Blood Type Antibody Screen 05/26/20 05/26/20 05/26/20 13:05 15:10 18:00 WBC RBC Hgb Hct MCV MCH MCHC RDW Std Deviation RDW Coeff of Cornel Plt Count MPV Immature Gran % (Auto) Neut % (Auto) Lymph % (Auto) [place] % (Auto) Eos % (Auto) Baso % (Auto) Neut # (Auto) Lymph # (Auto) [place] # (Auto) Eos # (Auto) Baso # (Auto) Immature Gran # (Auto) PT INR APTT PTT Ratio Sodium Potassium Chloride Carbon Dioxide Anion Gap BUN Creatinine Est Cr Clr Drug Dosing Est GFR ( Amer) Est GFR (Non-Af Amer) BUN/Creatinine Ratio Glucose POC Glucose Calcium Phosphorus 3.4 Magnesium Total Bilirubin AST ALT Alkaline Phosphatase Troponin I Total Protein Albumin Globulin Albumin/Globulin Ratio Vitamin B12 Folate TSH 6.730 H Free T4 1.70 H Thyroxine (T4) Free T3 Total T3 Urine Color Dark Yellow Urine Appearance Cloudy A Urine pH 5.0 Ur Specific [place] 1.022 Urine Protein 2+ H Urine Glucose (UA) Negative Urine Ketones Trace H Urine Blood Trace H Urine Nitrite Positive A Urine Bilirubin Negative Urine Urobilinogen Negative Ur Leukocyte Esterase 2+ H Urine WBC (Auto) >30 H Urine RBC (Auto) 10-30 H U Hyaline Cast (Auto) 10-30 H U Epithel Cells (Auto) >30 H Urine Bacteria (Auto) Negative Urine Yeast Present A Nasal Screen MRSA (PCR) Negative Blood Type Antibody Screen 05/26/20 05/26/20 05/26/20 19:08 19:08 19:08 WBC RBC Hgb Hct MCV MCH MCHC RDW Std Deviation RDW Coeff of [place]el Plt Count MPV Immature Gran % (Auto) Neut % (Auto) Lymph % (Auto) [place] % (Auto) Eos % (Auto) Baso % (Auto) Neut # (Auto) Lymph # (Auto) [place] # (Auto) Eos # (Auto) Baso # (Auto) Immature Gran # (Auto) PT INR APTT PTT Ratio Sodium Potassium Chloride Carbon Dioxide Anion Gap BUN Creatinine Est Cr Clr Drug Dosing Est GFR ( Amer) Est GFR (Non-Af Amer) BUN/Creatinine Ratio Glucose POC Glucose Calcium Phosphorus Magnesium Total Bilirubin AST ALT Alkaline Phosphatase Troponin I 0.080 H* Total Protein Albumin Globulin Albumin/Globulin Ratio Vitamin B12 1456 H Folate > 24.00 TSH Free T4 Thyroxine (T4) 6.9 Free T3 1.23 L Total T3 0.28 L Urine Color Urine Appearance Urine pH Ur Specific [place] Urine Protein Urine Glucose (UA) Urine Ketones Urine Blood Urine Nitrite Urine Bilirubin Urine Urobilinogen Ur Leukocyte Esterase Urine WBC (Auto) Urine RBC (Auto) U Hyaline Cast (Auto) U Epithel Cells (Auto) Urine Bacteria (Auto) Urine Yeast Nasal Screen MRSA (PCR) Blood Type Antibody Screen 05/26/20 05/27/20 05/27/20 20:26 06:06 06:27 WBC RBC Hgb Hct MCV MCH MCHC RDW Std Deviation RDW Coeff of [place]el Plt Count MPV Immature Gran % (Auto) Neut % (Auto) Lymph % (Auto) [place] % (Auto) Eos % (Auto) Baso % (Auto) Neut # (Auto) Lymph # (Auto) [place] # (Auto) Eos # (Auto) Baso # (Auto) Immature Gran # (Auto) PT INR APTT PTT Ratio Sodium Potassium Chloride Carbon Dioxide Anion Gap BUN Creatinine Est Cr Clr Drug Dosing Est GFR ( Amer) Est GFR (Non-Af Amer) BUN/Creatinine Ratio Glucose POC Glucose 101 H 97 Calcium Phosphorus Magnesium Total Bilirubin AST ALT Alkaline Phosphatase Troponin I Total Protein Albumin Globulin Albumin/Globulin Ratio Vitamin B12 Folate TSH Free T4 Thyroxine (T4) Free T3 Total T3 Urine Color Urine Appearance Urine pH Ur Specific [place] Urine Protein Urine Glucose (UA) Urine Ketones Urine Blood Urine Nitrite Urine Bilirubin Urine Urobilinogen Ur Leukocyte Esterase Urine WBC (Auto) Urine RBC (Auto) U Hyaline Cast (Auto) U Epithel Cells (Auto) Urine Bacteria (Auto) Urine Yeast Nasal Screen MRSA (PCR) Blood Type A Positive Antibody Screen NEGATIVE 05/27/20 05/27/20 06:27 06:27 WBC 4.77 L RBC 4.04 L Hgb 12.1 Hct 37.0 MCV 91.6 MCH 30.0 MCHC 32.7 RDW Std Deviation 57.4 H RDW Coeff of Cornel 17.7 H Plt Count 170 MPV 11.5 H Immature Gran % (Auto) 0.2 Neut % (Auto) 82.8 Lymph % (Auto) 9.2 [place] % (Auto) 7.8 Eos % (Auto) 0.0 Baso % (Auto) 0.0 Neut # (Auto) 3.95 Lymph # (Auto) 0.44 L [place] # (Auto) 0.37 Eos # (Auto) 0.00 Baso # (Auto) 0.00 Immature Gran # (Auto) 0.01 PT INR APTT PTT Ratio Sodium 130 L Potassium 3.7 Chloride 94 L Carbon Dioxide 20 L Anion Gap 16.0 H BUN 35 H D Creatinine 3.04 H D Est Cr Clr Drug Dosing 10.0 Est GFR ( Amer) 15.2 Est GFR (Non-Af Amer) 13.1 BUN/Creatinine Ratio 11.4 Glucose 83 POC Glucose Calcium 8.3 L Phosphorus Magnesium Total Bilirubin 0.8 AST 25 ALT 49 Alkaline Phosphatase 68 Troponin I 0.076 H* Total Protein 6.3 L Albumin 3.2 L Globulin 3.1 Albumin/Globulin Ratio 1.0 Vitamin B12 Folate TSH Free T4 Thyroxine (T4) Free T3 Total T3 Urine Color Urine Appearance Urine pH Ur Specific [place] Urine Protein Urine Glucose (UA) Urine Ketones Urine Blood Urine Nitrite Urine Bilirubin Urine Urobilinogen Ur Leukocyte Esterase Urine WBC (Auto) Urine RBC (Auto) U Hyaline Cast (Auto) U Epithel Cells (Auto) Urine Bacteria (Auto) Urine Yeast Nasal Screen MRSA (PCR) Blood Type Antibody Screen Medications Administered Current Inpatient Medications Amiodarone HCl (Cordarone) 200 mg PO BID [facility] Stop: 06/25/20 20:59 Last Admin: 05/27/20 08:18 Dose: 200 mg Documented by: Aspirin (Ecotrin Ectab) 81 mg PO HS [place] Stop: 06/25/20 20:59 Last Admin: 05/26/20 20:12 Dose: 81 mg Documented by: Heparin Sodium (Porcine) (Heparin Sodium (Porcine)) 5,000 units SQ Q12 [place] Stop: 06/25/20 20:59 Last Admin: 05/27/20 08:18 Dose: 5,000 units Documented by: Pantoprazole Sodium 40 mg/ (Syringe) 10 mls @ 5 mls/min IV BID [place] Stop: 06/25/20 20:59 Last Admin: 05/27/20 08:19 Dose: 5 mls/min Documented by: Ceftriaxone Sodium 1,000 mg/ (Dextrose) 50 mls @ 100 mls/hr IV Q24H [facility]; Protocol Stop: 06/01/20 15:59 Methylprednisolone 40 mg/ (Syringe) 0.64 mls @ 1.5 mls/min IV Q12H [facility] Stop: 06/25/20 17:59 Last Admin: 05/27/20 06:09 Dose: 1.5 mls/min Documented by: Levothyroxine Sodium (Synthroid) 100 mcg PO DAILYBB [facility] Stop: 06/26/20 06:29 Last Admin: 05/27/20 06:09 Dose: 100 mcg Documented by: Lorazepam (Ativan) 0.5 mg PO DAILY PRN PRN Reason: Anxiety Stop: 06/25/20 16:44 Last Admin: 05/26/20 20:12 Dose: 0.5 mg Documented by: Melatonin (Melatonin) 9 mg PO HSZ PRN PRN Reason: Sleep Stop: 06/25/20 17:37 Midodrine (Proamatine) 5 mg PO [id number] [facility] Stop: 06/27/20 05:59 Miscellaneous (Order Awaiting Action) 1 ea N/A QS [facility] Stop: 06/26/20 00:00 Last Admin: 05/27/20 08:09 Dose: Not Given Documented by: Tramadol HCl (Ultram) 50 mg PO Q12H PRN PRN Reason: Pain Stop: 06/25/20 19:44 Last Admin: 05/27/20 08:16 Dose: 50 mg Documented by: Vitamin B Complex/Folic Acid (Nephrocaps) 1 cap PO DAILY [place] Stop: 06/26/20 08:59 Last Admin: 05/27/20 08:19 Dose: 1 cap Documented by: Vitamin D (Vitamin D3) 1,000 units PO DAILY [place] Stop: 06/26/20 08:59 Last Admin: 05/27/20 08:18 Dose: 1,000 units Documented by: Zinc Sulfate (Zinc Sulfate) 220 mg PO DAILY [place] Stop: 06/26/20 08:59 Last Admin: 05/27/20 08:19 Dose: Not Given Documented by: (1) CKD (chronic kidney disease) Chronic kidney disease stage: unspecified stage Qualified Code(s): N18.9 - Chronic kidney disease, unspecified
[2020-05-27] MEDS ORDERED: ZINC SULFATE 220 MG CAPSULE PO SCH (09:00)
--- NOTE | 2020-05-27 10:49 | Nephrology Consultation ---
Date of Consultation May 27, 2020 Assessment & Plan (1) ESRD on dialysis: Patient with ESRD on dialysis Sunday using a PermCath. Her last dialysis was yesterday. Electrolytes are stable and no signs of volume overload. No indication for dialysis today. -We will dialyze her tomorrow for 3-1/2 hours, blood flow 300, dialysate flow 600 and no UF. (2) Hyponatremia: Likely due to volume overload. Continue fluid restriction of 1200 mL daily. 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 We will follow-up on urine cultures. Patient is getting antibiotics per primary team. History of Present Illness Reason for Consultation: ESRD Requesting Physician: Hilario Gage MD Attending Physician: Hilario Gage MD History of Present Illness This is 89-year-old female with history of valvular heart disease including moderate to severe mitral and tricuspid insufficiency, A. fib on amiodarone, permanent pacemaker for tachybradycardia syndrome, myasthenia gravis and ESRD on dialysis Sunday. She has been on dialysis for the past 2 years which was initially started mainly for volume management. She is dialyzed using a right PermCath. Dialysis has been going well but for the past week also she has not been eating or drinking well due to poor appetite. They have barely taken off any fluid for the past 1 week. She completed her dialysis treatment yesterday but came to the hospital after dialysis due to worsening weakness. She was found to have bradycardia and pacemaker interrogation apparently showed end-of-life battery. She denies any shortness of breath. She has chronic back pain and neck pain from scoliosis and vertebral compression fractures. She has chronic leg edema and uses compression boots at home. Son was at the bedside. Allergies Allergy/AdvReac Type Severity Reaction Status Date / Time naproxen Allergy Unknown Black Verified 12/22/19 17:26 stool/bleeding. 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 codeine AdvReac Unknown GASTRIC Verified 12/22/19 17:26 UPSET methocarbamol AdvReac Unknown Nausea/Vomi Verified 12/22/19 17:26 ting [id number]-[id number]-Vpp Reductase AdvReac Unknown MUSCLE Verified 12/22/19 17:26 Inhibitor WEAKNESS Home Medications Home Medications Medication Instructions Recorded Confirmed Type aspirin [Aspirin Childrens] 81 mg PO HS 08/20/18 05/26/20 History levothyroxine [Synthroid] 100 mcg PO DAILY 08/20/18 05/26/20 History docusate sodium [Colace] 100 mg PO DAILY 12/03/18 05/26/20 History midodrine 5 mg PO DIRECTED 12/03/18 05/26/20 History sennosides [Senna Laxative] 8.6 mg PO DAILY PRN 12/03/18 05/26/20 History cholecalciferol (vitamin D3) 1,000 unit PO DAILY 04/14/19 05/26/20 History [Vitamin D3] Phospha 250 Neutral 0 tab PO DAILY 12/22/19 05/26/20 History Triphrocaps 1 mg PO DAILY 12/22/19 05/26/20 History cinacalcet [Sensipar] 30 mg PO Q2D 12/22/19 05/26/20 History lorazepam 0.5 mg PO DAILY PRN 12/22/19 05/26/20 History tramadol 50 mg PO Q8H PRN 12/22/19 05/26/20 History zinc sulfate 50 mg PO DAILY 12/22/19 05/26/20 History amiodarone 200 mg PO BID #0 tab 12/23/19 05/26/20 Rx melatonin 10 mg PO HS PRN 05/26/20 05/26/20 History Patient History Medical History Acute hypotension (Acute) Acute kidney injury superimposed on chronic kidney disease (Acute) Acute on chronic diastolic HF (heart failure) (Acute) In setting of mixed valvular disease Acute on chronic heart failure with preserved ejection fraction Acute decompensated heart failure on the basis of mixed valvular heart disease with history of moderate to severe mitral insufficiency, severe tricuspid insufficiency, moderate aortic insufficiency. 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) Obstructive type of ventilatory defect with mild restriction which may be related to patient's morbid obesity (per 2015 PFTs) Morbid obesity (Chronic) Myasthenia gravis (Chronic) Pacemaker (Chronic) Paroxysmal atrial fibrillation Pulmonary edema Pulmonary HTN (Chronic) SBO (small bowel obstruction) (Resolved) Shortness of breath (Acute) 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 Tricuspid regurgitation Valvular heart disease Surgical History H/O: hysterectomy (Resolved) History of appendectomy (Resolved) History of permanent cardiac pacemaker placement (Resolved) History of tonsillectomy (Resolved) Family History Other Heart disease Stroke Social History Smoking Status: Never smoker Second Hand Exposure: No; Do You Dip or Chew Tobacco: No; Tobacco Cessation Education Requested by Patient: No Hx Alcohol Use: No Hx Substance Use: No Preferred Language: Danish Communication Ability: Effective Visual Impairment: No Limitations Soccer Referee Required: No Beliefs That Will Affect Care: None marital status: / Current Living Situation: Alone current occupational status: retired Other Information That Helps Us Care for You: No Feels Safe at Home: Yes Safety Concerns: Feels Safe At This Time Review of Systems Review of Systems: All systems reviewed & are unremarkable except as noted in HPI & below Physical Exam Physical Exam: General exam: Appears comfortable, no acute distress HEENT: Pupils are equal and reactive to light Neck: She is wearing a neck collar Respiratory system: Crackles bilaterally. Gastrointestinal: Abdomen is soft, non distended, non tender, bowel sounds are present CVS: Regular rate and rhythm. No murmurs, rubs or gallops Musculoskeletal: No joint or muscle tenderness Extremities: Non tender, she is wearing boots Neuro: Oriented, no tremors, no focal neurological deficits Skin: No rashes Results & Data Vital Signs (Past 12 Hours) Vital Signs Temp Pulse Pulse Resp BP Pulse Ox 05/27/20 07:57 36.5 C 88 18 95/54 L 98 05/27/20 07:11 66 05/27/20 03:42 36.7 C 71 17 82/56 L 99 05/26/20 23:31 36.5 C 68 16 90/60 L 97 Laboratory Results 05/27/20 06:27 05/26/20 05/26/20 05/26/20 13:05 13:05 13:05 WBC 8.74 RBC 4.09 L MCV 91.4 MCH 30.1 MCHC 32.9 RDW Std Deviation 56.8 H RDW Coeff of [place] 17.5 H Plt Count 160 MPV 10.7 H Phosphorus 3.4 Albumin 3.4 05/27/20 05/27/20 06:27 06:27 WBC 4.77 L RBC 4.04 L MCV 91.6 MCH 30.0 MCHC 32.7 RDW Std Deviation 57.4 H RDW Coeff of Cornel 17.7 H Plt Count 170 MPV 11.5 H Phosphorus Albumin 3.2 L
--- NOTE | 2020-05-27 11:36 | Gastrointestinal Consultation ---
Date of Consultation May 27, 2020 Assessment & Plan (1) Weakness: (2) Dysphagia: (3) Weight loss: Pt is a 89 y/o female admitted progressive weakness suspected to be multifactorial (ESRD on HD, UTI, amiodarone induce hypothyroidism, myasthenia gravis); currently seen by GI for dysphagia and progressive weight loss. - Pt and son hesitant on having any invasive/procedures require sedation including endoscopic workup. - Would recommend ST eval and perhaps swallow study - No recent abd imaging studies available, recommend obtaining CT abd/pelvis to r/o intraabd masses/malignancies which may contribute to weight loss - Keep Protonix 40mg BID - If pt and family eventually agreeable to endoscopic workup, would plan on outpt EGD eval - GI to sign off; pls recall prn Supervising Physician Co-Signing Physician Notes I performed a history and physical examination of the patient today, including specifically on physical exam - soft abdomen. I have discussed the patient's management with the advanced practitioner. Please refer to the nurse practitioner's note for the documented findings and plan of care. EGD is gold standard in view of alarm symptom. Patient and son declined EGD for now. Alternative is esophagogram. Recall GI if needed. History of Present Illness Reason for Consultation: Dysphagia , weight loss Requesting Physician: Dr. Hilario Gage Attending Physician: Dr. 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 Acute symptoms suspected to be multifactorial - UTI, amiodarone induced hypothyrodism, myasthenia gravis exacerbation. GI consulted for pt's issues w dysphagia and weight loss. She had seen AYANA Murray in GI clinic for these issues just 1 month ago. Then son reports pt was having issues w changes in taste and thus having decreased appetite. This seems to be resolved after she started to chew gum, and per son (Josef), he saw dramatic increase in pt's appetite. However in last couple of weeks pt started to have difficulty swallowing pills and regurgitation of foods after small amts. She had mild nausea. Denies abd pain, or changes in bowel habits. She seems to feel food getting caught up in sternal notch level. Pt recalled having swallow study done years ago but cannot tell me results Last EGD in 2018 noted for NGT removal - large hernia, antral ulcer. Last Colonoscopy in 2011 - diverticulosis on L side of colon Allergies Allergy/AdvReac Type Severity Reaction Status Date / Time naproxen Allergy Unknown Black Verified 12/22/19 17:26 stool/bleeding. 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 codeine AdvReac Unknown GASTRIC Verified 12/22/19 17:26 UPSET methocarbamol AdvReac Unknown Nausea/Vomi Verified 12/22/19 17:26 ting [id number] Reductase AdvReac Unknown MUSCLE Verified 12/22/19 17:26 Inhibitor WEAKNESS Home Medications Home Medications Medication Instructions Recorded Confirmed Type aspirin [Aspirin Childrens] 81 mg PO HS 08/20/18 05/26/20 History levothyroxine [Synthroid] 100 mcg PO DAILY 08/20/18 05/26/20 History docusate sodium [Colace] 100 mg PO DAILY 12/03/18 05/26/20 History midodrine 5 mg PO DIRECTED 12/03/18 05/26/20 History sennosides [Senna Laxative] 8.6 mg PO DAILY PRN 12/03/18 05/26/20 History cholecalciferol (vitamin D3) 1,000 unit PO DAILY 04/14/19 05/26/20 History [Vitamin D3] Phospha 250 Neutral 0 tab PO DAILY 12/22/19 05/26/20 History Triphrocaps 1 mg PO DAILY 12/22/19 05/26/20 History cinacalcet [Sensipar] 30 mg PO Q2D 12/22/19 05/26/20 History lorazepam 0.5 mg PO DAILY PRN 12/22/19 05/26/20 History tramadol 50 mg PO Q8H PRN 12/22/19 05/26/20 History zinc sulfate 50 mg PO DAILY 12/22/19 05/26/20 History amiodarone 200 mg PO BID #0 tab 12/23/19 05/26/20 Rx melatonin 10 mg PO HS PRN 05/26/20 05/26/20 History Patient History Medical History Acute hypotension (Acute) Acute kidney injury superimposed on chronic kidney disease (Acute) Acute on chronic diastolic HF (heart failure) (Acute) In setting of mixed valvular disease Acute on chronic heart failure with preserved ejection fraction Acute decompensated heart failure on the basis of mixed valvular heart disease with history of moderate to severe mitral insufficiency, severe tricuspid insufficiency, moderate aortic insufficiency. 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) Obstructive type of ventilatory defect with mild restriction which may be related to patient's morbid obesity (per 2015 PFTs) Morbid obesity (Chronic) Myasthenia gravis (Chronic) Pacemaker (Chronic) Paroxysmal atrial fibrillation Pulmonary edema Pulmonary HTN (Chronic) SBO (small bowel obstruction) (Resolved) Shortness of breath (Acute) 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 Tricuspid regurgitation Valvular heart disease Surgical History H/O: hysterectomy (Resolved) History of appendectomy (Resolved) History of permanent cardiac pacemaker placement (Resolved) History of tonsillectomy (Resolved) Family History Other Heart disease Stroke Social History Smoking Status: Never smoker Second Hand Exposure: No; Do You Dip or Chew Tobacco: No; Tobacco Cessation Education Requested by Patient: No Hx Alcohol Use: No Hx Substance Use: No Preferred Language: Spanish Communication Ability: Effective Visual Impairment: No Limitations [employer] Consultant Required: No Beliefs That Will Affect Care: None marital status: / Current Living Situation: Alone current occupational status: retired Other Information That Helps Us Care for You: No Feels Safe at Home: Yes Safety Concerns: Feels Safe At This Time Review of Systems Review of Systems: All systems reviewed & are unremarkable except as noted in HPI & below Physical Exam Constitutional: + ill appearing, well groomed, cooperative and comfortable Eyes: PERRL, conjunctivae normal, anicteric sclerae ENMT: external ear and nose normal, oropharynx normal Respiratory: normal respiratory effort, lungs clear to auscultation Cardiovascular: RRR, no murmur, no edema Gastrointestinal (Abdomen): normal bowel sounds, soft, nontender, no hepatosplenomegaly Skin: no rashes, warm and dry no jaundice Psychiatric: A+Ox3, euthymic affect Lymphatic: no lymphedema Results & Data ([facility]) Vital Signs (Past 12 Hours) Vital Signs Temp Pulse Pulse Resp BP Pulse Ox 05/27/20 07:57 36.5 C 88 18 95/54 L 98 05/27/20 07:11 66 05/27/20 03:42 36.7 C 71 17 82/56 L 99
--- NOTE | 2020-05-27 12:39 | Hospitalist Progress Note ---
Date of Service May 27, 2020 Assessment & Plan (1) Weakness: Unintentional Weight Loss -This is a patient who is on dialysis and also pacemaker and problems with eating. She is brought in to the ED on 05/26/2020 by her son Josef [phone] who reports that over period of time, her mother has had progressive weight loss with poor oral appetitite and has trouble with eating the food such as feeling reflux symptoms. However, patient is not on protonic at home currently. no abdomen pain. no vomiting. They also had outpatient plans for gastroenterology evaluation but this has not been done yet. -Her son feels that while the above symptoms have been ongoing, he feels that his mother also having more weakness of her strength and in past several days, she does not have strength to feed herself with her own hands. Review of outpatient EPIC notes that there have been communication with outpatient providers and Dr. Driscoll questioning whether patient has flair-up of myasthenia gravis. -05/26/2020: On my exam patient appeared have no deficits of extraoccular eye movements and appears to be able to sustain with with moving her gaze to an upward position and keeping that steady, no tongue deviations, and able to move her hands with strong hand agricultural chemist -Patient passed the dysphagia screening as per nurse. allow advance to clear liquid diet, started pantoprazole IV 40 mg BID -P/OT evaluations -started solumedrol 40 mg IV BID on 05/26/2020, request neurology consult to rule out myasthenia gravis flare -upper EGD is deferred by patient and her son, -since patient tolerated clear liquid diet on 05/26/2020, start full liquid diet on 05/27/2020 while awaiting formal speech and swallow evaluation and maintain aspiration precautions urinary tract infection unlikely -was started on ceftriaxone by emergency rooom physician on 05/26/2020. no bacteria in the UA, presence of yeast is not significant. continue ceftriaxone for now until urine cultures return but do not think that urine is source of initial complaints of weakness. as dialysis patient, she makes minimal urine (2) ESRD on dialysis: -Patient is on dialysis through perm cath every Sunday, Sunday, Sunday. As per her son, she was at dialysis earlier on Sunday05/26/2020 -home medication of sensipar and Triprhocaps -nephrology planning for dialysis on 05/28/2020 (3) Hypothyroidism: -outpatient medication of levothyroxine is 100 mcg daily -TSH elevated as 6.7 but free T4 is not low (free T4 1.7 is mildly elevated) -total T4 is noraml as 6.9, free T3 levels low as 1.23 and total T3 level low as 0.28 -it is possible that amiodarone could be contributing to changes in thyroid function labs. cardiology increased the home dose levothyroxine 100 mcg daily to be as 125 mcg daily (4) Tachy-xi syndrome: Presence of Pacemaker Paroxysmal Atrial Fibrillation -Patient has sinus bradycardia on exam and by admission EKG. -patient's son also reports that patient's pacemaker is at end of battery life. Patient denies chest pain or palpitations or fevers. -monitor on telemetry -continue amiodarone 200 mg BID as per home dose for now -cardiology consult 05/27/2020 "lthough her pacemaker has reached end-of-life there is still plenty of safety margin on the battery. On telemetry she is mostly sinus rhythm with heart rate in the 70s. Last evening while sleeping she did have a paced rhythm in the 60s. Her pacemaker is currently sent for a VVI mode at a rate of 65. So I think the pacemaker still functioning appropriately. Her symptoms may be related to her myasthenia, GI, or end-stage kidney disease. Before we would put her through an elective surgery with anesthesia the could worsen her myasthenia, I think it is best that we work out these other things first with the idea that her pacemaker can be upgraded electively in the near future. in case of any interventions that can be done for the pacemaker while inpatient" Code Status: DNR/DNI son Bill [phone] DVT prophylaxis: heparin subcutaneous q12 hours Admission and Anticipated Discharge Date Admission Date: May 26, 2020 Subjective Patient generally feels well today. she has been able to eat for herself. her extraoccular movements are unremarkable. her hand agricultural chemist remain strong. her sone also noting that patient taking pills with more ease today. on room air. no chest pain. no dizziness. no vomiting. no palpitations. asymptomatic bradycardia on telemetry Review of Systems Review of Systems: All systems reviewed & are unremarkable except as noted in Subjective Physical Exam Constitutional: comfortable Eyes: PERRL, conjunctivae normal, anicteric sclerae EOM intact bilaterally ENMT: external ear and nose normal, oropharynx normal Neck: trachea midline, no thyromegaly normal visual inspection Respiratory: normal respiratory effort Cardiovascular: Rate/Rhythm: + bradycardic Gastrointestinal (Abdomen): normal bowel sounds, soft, nontender, no hepatosplenomegaly Musculoskeletal: Head/Neck/Chest: normocephalic Neurologic: PERRL, EOMI, accommodation nl, no face palsy, no dysarthria Psychiatric: A+Ox3, euthymic affect Results & Data Results & Data ([facility]) Vital Signs (Past 12 Hours) Vital Signs Temp Pulse Pulse Resp BP Pulse Ox 05/27/20 11:58 37.0 C 78 22 96/56 L 96 05/27/20 07:57 36.5 C 88 18 95/54 L 98 05/27/20 07:11 66 05/27/20 03:42 36.7 C 71 17 82/56 L 99
--- NOTE | 2020-05-27 12:50 | Consultation Report ---
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 Driscoll as well as other multiple medical comorbidities, admitted to the hospital yesterday for failure to thrive. In regards to the patient's myasthenia on review of Dr. Driscoll's previous office visit notes, the patient did not respond well to Mestinon or prednisone in the past and is currently not on disease modifying therapy. She had been stable for several years and was following on a yearly basis. She was brought to the hospital yesterday by recommendations from her primary care provider's office as well as her son. Her symptoms have been ongoing and progressive. She has had progressive weight loss with poor oral intake as well as trouble eating her food. She has had no abdominal pain or vomiting. She does have a consult for Gastroenterology pending. Her son has noticed that the patient's overall weakness has progressed and she is more weak in the last several days which seems to be generalized. She does not have the strength to feed herself with her own hands. She was seen in the ER yesterday and she did pass the dysphagia screen. There was no extraocular muscle abnormalities noted on examination. She was seen on this admission by Cardiology as she does have several cardiac issues. She does have a pacemaker as well as history of atrial fibrillation. She is not on anticoagulation due to history of prior bleed. She is also on amiodarone, which is thought to induce hypothyroidism. So her recent dose of Synthroid was increased from 100 mcg to 125 mcg daily. In regards to her tachybrady syndrome as well as her mixed valvular heart disease, it is believed that she is clinically stable according to Cardiology. Neurology was consulted on admission as the patient does have a diagnosis of myasthenia gravis. ALLERGIES: THE PATIENT IS ALLERGIC TO NAPROXEN, GABAPENTIN, CODEINE, STATINS, AND METHOCARBAMOL. HOME MEDICATIONS: Include aspirin 81 mg daily, Synthroid 100 mcg daily, Colace 100 mg daily, midodrine 5 mg as directed, lorazepam 0.5 mg daily as needed, tramadol 50 mg every 8 hours as needed, zinc 50 mg daily, amiodarone 200 mg twice daily, melatonin 10 mg nightly. PAST MEDICAL HISTORY: Includes chronic kidney disease, paroxysmal atrial fibrillation, acute on chronic heart failure with preserved ejection fraction, anemia, COPD, end-stage renal disease on hemodialysis, hyponatremia, hypotension, hypothyroidism, myasthenia gravis, morbid obesity, history of small-bowel obstruction, and valvular heart disease. SURGICAL HISTORY: She has a history of hysterectomy, appendectomy, permanent cardiac pacemaker placement and tonsillectomy. FAMILY HISTORY: Positive for history of heart disease as well as a history of a stroke. SOCIAL HISTORY: She is a nonsmoker. She is . She is retired. No alcohol use. REVIEW OF SYSTEMS: All systems reviewed and are unremarkable except as noted above in the history of present illness. PHYSICAL EXAMINATION: VITAL SIGNS: Blood pressure 95/54, pulse is 88, respiratory rate 18, temperature is 36.5, O2 sats 98% on 2 liters nasal cannula. EXAM: Constitutional: obese, appears chronically ill Head and Face: normocephalic and atraumatic Neck: wearing a collar Respiratory: normal effort Cardiovascular: normal pulses Abdomen: non distended Skin: no rashes, lesions, or ulcers noted Psychiatric: normal judgement and insight, normal mood and normal affect NEUROLOGIC EXAMINATION: Appearance: no acute distress Orientation: awake, alert and oriented x 3 Mental Status: alert Memory:Ok Attention: normal Knowledge: appropriate Language: no aphasia Speech: speech is clear Cranial Nerves: CN 2 - no visual defect on confrontation and pupils round, equal, reactive to light CN 3, 4, 6 - extra-ocular movements intact and no nystagmus CN 5 - facial sensation intact CN 7 - no facial asymmetry CN 8 - intact hearing CN 9, 10 - palate symmetric CN 11 - good shoulder shrug CN 12 - tongue midline Gait: deferred Coordination: no ataxia with finger to nose testing Sensory: intact to light touch Muscle Tone: normal Muscle exam: INterosseous 4/5 B/L, shoulder abduction 4-/5 B/L, ankle dorsiflexion 5/5, biceps 5/5 Reflexes: Negative rebolledo DIAGNOSTIC TEST AND LABORATORY VALUES: WBC 4.77, hemoglobin 12.1, platelet count is 170. INR is 1.1. Sodium is 130, potassium 3.7, chloride 94, carbon dioxide 20, BUN is 35, creatinine is 3.04, calcium is 8.3. Troponin is 0.076. Vitamin B12 is 1456. Folate is greater than 24. TSH was elevated at 6.73, free T4 was elevated at 1.70, free T3 was decreased at 1.23, total T3 was decreased at 0.28. Urinalysis showed cloudy 2+ protein, trace ketones, trace blood, positive for nitrites, 2+ leukocyte esterase, greater than 30 wbc's. Urine bacteria was negative. Urine yeast was present. IMAGING: Head CT noncontrast showed no hemorrhage, mass effect, or evidence of acute ischemic stroke. There was age related involutional changes suggestive of mild to moderate subcortical and periventricular micropathic changes. Chest x-ray showed cardiomegaly with pulmonary vascular congestion and interstitial coarsening suggestive of pulmonary edema, small pleural effusions with bibasilar opacities suggestive of probable atelectasis. ASSESSMENT AND PLAN: An 89-year-old woman with multiple medical comorbidities including a history of acetylcholine receptor positive myasthenia gravis, not on disease modifying therapy, admitted with progressive generalized weakness and failure to thrive. I am in agreement that overall her generalized weakness is likely multifactorial including amiodarone-induced hypothyroidism, as well as her urinary tract infection and possibly related to the hyponatremia or volume overload. I do not believe this patient is having a myasthenia crisis. On examine her speech is clear and breathing is non labor. EOMI. Interosseous strength is 4/5. She does have weakness with shoulder abduction however both her and her son note shoulder problems. She reportedly had a robust improvement in a short period of time without receiving IVIG or PLEX which would support against a myasthenia gravis exacerbation or crisis. I suspect her underlying myasthenia gravis is likely contributing to some degree in particular to her fatiguable weakness, diplopia, and dysphagia. She has been on Mestinon and Prednisone in the past. Would recommend starting low dose Prednisone 20 mg daily for myasthenia gravis treatment. May titrate dose as tolerated. Agree with PT/OT/SS. Would recommend checking a CK level also. Patient follows with Dr. Driscoll as outpatient and reports missing her apt with him recently. He will take over the hospital service tomorrow. SYLVIA
[2020-05-27] MEDS ORDERED: cefTRIAXone SODIUM 1,000 MG in DEXTROSE 5% 50 ML IV SCH (16:00)
[2020-05-27] MEDS: ASPIRIN 81 MG ECTAB PO SCH (20:14)
[2020-05-27] MEDS: LORazepam 0.5 MG TAB PO PRN (20:15)
[2020-05-28] MEDS: LEVOTHYROXINE SODIUM 125 MCG TABLET PO SCH (05:56)
[2020-05-28] MEDS ORDERED: HEPARIN SOD (PORCINE) 1000 UNIT/ML 10 ML VIAL IV SCH (07:00)
[2020-05-28] MEDS ORDERED: SODIUM CHLORIDE 0.9% 1000ML 1,000 ML IV PRN ×2 (07:00→10:49)
[2020-05-28] MEDS: TRAMADOL HCL 50 MG TABLET PO PRN ×2 (07:31→20:05)
[2020-05-28 08:35] LABS: Albumin Level 3.6 gm/dl (3.4-5.0); BUN Creatinine Ratio 13.9 (10-20); Calcium 8.7 mg/dl (8.5-10.1); Creatinine Clr Calc Pharmacy 7.7 ml/min; Est GFR (African American) 11.1; Est GFR (Non-African American) 9.5; Potassium 4.1 mmol/L (3.5-5.1)
[2020-05-28 08:38] LABS: Albumin Globulin Ratio 1.1 (0.9-2); Bilirubin,Total 0.7 mg/dl (0.2-1); Globulin 3.2 gm/dl (2.5-4.0); Total Protein 6.8 gm/dl (6.4-8.2)
--- NOTE | 2020-05-28 10:17 | Communication Note ---
Date of Service: May 28, 2020 GI short noted: CT abd/pelvis w PO & IV contrast ordered yesterday to r/o intraabdominal masses/malignancy which may be causing weight loss. Met with pt and son (Franklin) today as they were concerned about use of contrast agents with pt's ESRD on Hemodialysis. Explained to pt and son that we can still use contrast agents as long as study is being done prior to hemodialysis. Franklin expressed concern again about pt not able to drink PO contrast. In such case, then we'd recommend at least IV contrasted CT abd/pelvis study which can be done in the near future - pt is currently having issues w back pain and thus we will not proceed today. Speech therapy also planning on video swallow study. Would recommend esophagram/barium swallow study if pt able to tolerate procedure/stand up for exam. If any occult lesion or obstruction is noted on esophagram which may explain her dysphagia then pls recall GI for more urgent EGD evaluation. Currently outpt EGD evaluation is scheduled on 07/09/2020. GI to sign off; pls recall prn.
--- NOTE | 2020-05-28 10:19 | Hospitalist Progress Note ---
Date of Service May 28, 2020 Assessment & Plan (1) Weakness: Unintentional Weight Loss -This is a patient who is on dialysis and also pacemaker and problems with eating. She is brought in to the ED on 05/26/2020 by her son Josef [phone] who reports that over period of time, her mother has had progressive weight loss with poor oral appetitite and has trouble with eating the food such as feeling reflux symptoms. However, patient is not on protonic at home currently. no abdomen pain. no vomiting. They also had outpatient plans for gastroenterology evaluation but this has not been done yet. -Her son feels that while the above symptoms have been ongoing, he feels that his mother also having more weakness of her strength and in past several days, she does not have strength to feed herself with her own hands. Review of outpatient EPIC notes that there have been communication with outpatient providers and Dr. Driscoll questioning whether patient has flair-up of myasthenia gravis. 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 allow advance to clear liquid diet, started pantoprazole IV 40 mg BID -P/OT evaluations -started solumedrol 40 mg IV BID on 05/26/2020, request neurology consult to rule out myasthenia gravis flare -upper EGD is deferred by patient and her son, -since patient tolerated clear liquid diet on 05/26/2020, start full liquid diet on 05/27/2020 while awaiting formal speech and swallow evaluation and maintain aspiration precautions. patient is due for videofluoroscopy as per speech and swallow services on 05/28/2020 urinary tract infection unlikely -was started on ceftriaxone by emergency rooom physician on 05/26/2020. no bacteria in the UA, presence of yeast is not significant. continue ceftriaxone for now until urine cultures return but do not think that urine is source of initial complaints of weakness. as dialysis patient, she makes minimal urine (2) ESRD on dialysis: -Patient is on dialysis through perm cath every Sunday, Sunday, Sunday. As per her son, she was at dialysis earlier on Sunday05/26/2020 -home medication of sensipar and Triprhocaps -nephrology planning for dialysis on 05/28/2020 (3) Hypothyroidism: -outpatient medication of levothyroxine is 100 mcg daily -TSH elevated as 6.7 but free T4 is not low (free T4 1.7 is mildly elevated) -total T4 is normal as 6.9, free T3 levels low as 1.23 and total T3 level low as 0.28 -it is possible that amiodarone could be contributing to changes in thyroid function labs. cardiology increased the home dose levothyroxine 100 mcg daily to be as 125 mcg daily starting on 05/28/2020 (4) Tachy-xi syndrome: Presence of Pacemaker Paroxysmal Atrial Fibrillation -Patient has sinus bradycardia on exam and by admission EKG. -patient's son also reports that patient's pacemaker is at end of battery life. Patient denies chest pain or palpitations or fevers. -monitor on telemetry -continue amiodarone 200 mg BID as per home dose for now -cardiology consult 05/27/2020 "lthough her pacemaker has reached end-of-life there is still plenty of safety margin on the battery. On telemetry she is mostly sinus rhythm with heart rate in the 70s. Last evening while sleeping she did have a paced rhythm in the 60s. Her pacemaker is currently sent for a VVI mode at a rate of 65. So I think the pacemaker still functioning appropriately. Her symptoms may be related to her myasthenia, GI, or end-stage kidney disease. Before we would put her through an elective surgery with anesthesia the could worsen her myasthenia, I think it is best that we work out these other things first with the idea that her pacemaker can be upgraded electively in the near future. 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 patient is due for videofluoroscopy as per speech and swallow services. patient feeling generally comfortable recent back pain improving as per patient no dizziness. no headache. no lightheadedness. no chest pain. breathing on room air. no shortness of breath Review of Systems Review of Systems: All systems reviewed & are unremarkable except as noted in Subjective Physical Exam Constitutional: comfortable Eyes: PERRL, conjunctivae normal, anicteric sclerae EOM intact bilaterally ENMT: external ear and nose normal, oropharynx normal Neck: trachea midline, no thyromegaly normal visual inspection Respiratory: normal respiratory effort Cardiovascular: Rate/Rhythm: + bradycardic Gastrointestinal (Abdomen): normal bowel sounds, soft, nontender, no hepatosplenomegaly Musculoskeletal: Head/Neck/Chest: normocephalic Skin: patient with bilateral lower extremity lymphedema compression device. Neurologic: PERRL, EOMI, accommodation nl, no face palsy, no dysarthria Psychiatric: A+Ox3, euthymic affect Results & Data Results & Data ([facility]) Vital Signs (Past 12 Hours) Vital Signs Temp Pulse Pulse Pulse Resp BP Pulse Ox 05/28/20 07:50 36.4 C L 75 18 93/58 L 94 05/28/20 07:13 76 05/28/20 03:04 36.6 C 71 18 100/67 94 05/27/20 23:24 36.4 C L 68 16 92/65 L 94 05/27/20 22:20 67
--- NOTE | 2020-05-28 10:49 | Nephrology Progress Note ---
Date of Service May 28, 2020 Assessment & Plan (1) ESRD on dialysis: Patient with ESRD on dialysis Sunday using a PermCath. Her last dialysis was yesterday. Electrolytes are stable and no signs of volume overload. No indication for dialysis today. -We will dialyze her today for 3-1/2 hours, blood flow 300, dialysate flow 600 and 1.5 L UF. Will give midodrine 10 mg predialysis (2) Hyponatremia: Likely due to volume overload. Continue fluid restriction of 1200 mL daily. 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 We will follow-up on urine cultures. Patient is getting antibiotics per primary team. Admission and Anticipated Discharge Date Admission Date: May 26, 2020 Subjective She is complaining of severe back pain. No shortness of breath. She is eating better. Son at the bedside Review of Systems Review of Systems: All systems reviewed & are unremarkable except as noted in HPI & below Physical Exam Physical Exam: General exam: Appears comfortable, no acute distress HEENT: Pupils are equal and reactive to light Neck: No JVD, neck is supple trachea is midline Respiratory system: Clear breath sounds bilaterally. Gastrointestinal: Abdomen is soft, non distended, non tender, bowel sounds are present CVS: Regular rate and rhythm. No murmurs, rubs or gallops Musculoskeletal: No joint or muscle tenderness Extremities: Non tender, no edema, peripheral pulses are present Neuro: Oriented, no tremors, no focal neurological deficits Skin: No rashes Access: Right PermCath Results & Data ([facility]) Vital Signs (Past 12 Hours) Vital Signs Temp Pulse Pulse Pulse Resp BP Pulse Ox 05/28/20 07:50 36.4 C L 75 18 93/58 L 94 05/28/20 07:13 76 05/28/20 03:04 36.6 C 71 18 100/67 94 05/27/20 23:24 36.4 C L 68 16 92/65 L 94 Laboratory Results 05/28/20 07:12 05/28/20 07:12 Albumin 3.6
[2020-05-28] MEDS ORDERED: MIDODRINE HCL 10 MG TAB PO ONE (11:00)
[2020-05-28] MEDS: MIDODRINE HCL 2.5 MG TAB PO SCH (11:08)
[2020-05-28] MEDS: HEPARIN SOD (PORCINE) 1000 UNIT/ML 10 ML VIAL IV SCH ×2 (12:32→12:33)
[2020-05-28] MEDS: HEPARIN SOD 5,000 UNIT/0.5 ML VIAL SQ SCH ×2 (13:09→19:56)
[2020-05-28] MEDS: PANTOprazole 40 MG in SYRINGE 0 ML IV SCH (14:07)
[2020-05-28] MEDS: NEPHROCAPS PO SCH (16:07)
[2020-05-28] MEDS: CHOLECALCIFEROL 1,000 UNITS 25 MCG TAB PO SCH (16:07)
[2020-05-28] MEDS: AMIODARONE 200 MG TAB PO SCH ×2 (16:07→19:55)
[2020-05-28] MEDS: predniSONE 20 MG TAB PO SCH (16:07)
[2020-05-28 17:08] LABS: Hepatitis B Surface Ab Quant 152.32 mIU/mL (>or=10mIU/mL Immune); Hepatitis B Surface Antibody Immune
--- NOTE | 2020-05-28 17:08 | Communication Note ---
Date of Service: May 28, 2020 I saw Delfina today in follow-up of Dr. 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 Mestinon really never done anything for extraocular movements and she tolerated the drug poorly but for unclear reasons in the setting of amiodarone therapy, end-stage renal disease on dialysis for about 18 months she suddenly became weak had some dysphasia and was beginning to decline significantly. She was brought to the hospital and received 2 doses a relatively potent Solu-Medrol and has come around remarkably is able to swallow looks good has no significant proximal weakness save for her shoulders proximally which are due to a failed rotator cuff surgery and has no extraocular dysmotility nasality of speech neck flexor weakness etc. and in fact looks pretty much back to the baseline I recall having seen her last about a year ago Dr. Osborne appropriately recommended that she be placed on prednisone 20 mg a day and agree with this. It will not be dialyzed to any extent and hopefully starting a low dose and maintaining it she will have the rarely experience exacerbation of her myasthenia with initiation of steroid therapy I am going to follow her through the weekend as she is apparently going to stay through Sunday and will try to arrange to have her followed up in the office in about 2 weeks after discharge at which point I may even consider putting her on alternate day steroid therapy which hopefully will work and continue to keep her myasthenia under reasonable control Maximo Driscoll MD
[2020-05-28 17:19] LABS: Hepatitis B Surface Antigen Neg (Neg)
[2020-05-28] MEDS: ASPIRIN 81 MG ECTAB PO SCH (19:55)
[2020-05-28] MEDS: PANTOprazole 40 MG TAB PO SCH (19:55)
[2020-05-28] MEDS: LORazepam 0.5 MG TAB PO PRN (20:05)
[2020-05-29] MEDS: LEVOTHYROXINE SODIUM 125 MCG TABLET PO SCH (06:16)
--- NOTE | 2020-05-29 08:52 | Hospitalist Progress Note ---
Date of Service May 29, 2020 Assessment & Plan (1) Weakness: Unintentional Weight Loss -This is a patient who is on dialysis and also pacemaker and problems with eating. She is brought in to the ED on 05/26/2020 by her son Josef [phone] who reports that over period of time, her mother has had progressive weight loss with poor oral appetitite and has trouble with eating the food such as feeling reflux symptoms. However, patient is not on protonic at home currently. no abdomen pain. no vomiting. They also had outpatient plans for gastroenterology evaluation but this has not been done yet. -Her son feels that while the above symptoms have been ongoing, he feels that his mother also having more weakness of her strength and in past several days, she does not have strength to feed herself with her own hands. Review of outpatient EPIC notes that there have been communication with outpatient providers and Dr. Driscoll questioning whether patient has flair-up of myasthenia gravis. 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 allow advance to clear liquid diet, on pantoprazole 40 mg BID -P/OT evaluations -started solumedrol 40 mg IV BID on 05/26/2020, requested neurology consult to rule out myasthenia gravis flare and they deemed this to be unlikely and but allowed for transition from solumedrol to prednisone 20 mg daily starting on 05/28/2020. continue prednisone for now -upper EGD is deferred by patient and her son, -since patient tolerated clear liquid diet on 05/26/2020, start full liquid diet on 05/27/2020 while awaiting formal speech and swallow evaluation and maintain aspiration precautions. patient seems to be tolerating diet well -patient is due for videofluoroscopy and possible barium swallow study as per speech and swallow services has been rescheduled to 05/30/2020 urinary tract infection unlikely -was started on ceftriaxone by emergency rooom physician on 05/26/2020. no bacteria in the UA, presence of yeast is not significant. urine cultures returned as Group B Beta Strep [place] Count >100,000 CFU/ml Sens No Sensitivities to Follow +Mix Urine Plus Low Counts of Other Mixed Reyna -the group b beta strep likely contaminant and ceftriaxone orders stopped on 05/28/2020 (2) ESRD on dialysis: -Patient is on dialysis through perm cath every Sunday, Sunday, Sunday. As per her son, she was at dialysis earlier on Sunday05/26/2020 -home medication of sensipar and Triprhocaps -nephrology completed dialysis as inpatient on 05/28/2020 (3) Hypothyroidism: -outpatient medication of levothyroxine is 100 mcg daily -TSH elevated as 6.7 but free T4 is not low (free T4 1.7 is mildly elevated) -total T4 is normal as 6.9, free T3 levels low as 1.23 and total T3 level low as 0.28 -it is possible that amiodarone could be contributing to changes in thyroid function labs. cardiology increased the home dose levothyroxine 100 mcg daily to be as 125 mcg daily starting on 05/28/2020 (4) Tachy-xi syndrome: Presence of Pacemaker Paroxysmal Atrial Fibrillation -Patient has sinus bradycardia on exam and by admission EKG. -patient's son also reports that patient's pacemaker is at end of battery life. Patient denies chest pain or palpitations or fevers. -monitor on telemetry -continue amiodarone 200 mg BID as per home dose for now -cardiology consult 05/27/2020 "although her pacemaker has reached end-of-life there is still plenty of safety margin on the battery. On telemetry she is mo stly sinus rhythm with heart rate in the 70s. Last evening while sleeping she did have a paced rhythm in the 60s. Her pacemaker is currently sent for a VVI mode at a rate of 65. So I think the pacemaker still functioning appropriately. Her symptoms may be related to her myasthenia, GI, or end-stage kidney disease. Before we would put her through an elective surgery with anesthesia the could w orsen her myasthenia, I think it is best that we work out these other things first with the idea that her pacemaker can be upgraded electively in the near future. in case of any interventions that can be done for the pacemaker while inpatient" -further discuss with cardiology when patient can have the battery exchange since patient so far to date is clinically stable Code Status: DNR/DNI celio Bahena [phone] DVT prophylaxis: heparin subcutaneous q12 hours Admission and Anticipated Discharge Date Admission Date: May 26, 2020 Subjective patient has been tolerating the full liquid diet okay. finished most of the breakfast today. denies vomiting. no choking. no chest pain. breathing comfortably. further discuss with cardiology when patient can have the battery exchange since patient so far to date is clinically stable Review of Systems Review of Systems: All systems reviewed & are unremarkable except as noted in Subjective Physical Exam Constitutional: comfortable Eyes: PERRL, conjunctivae normal, anicteric sclerae EOM intact bilaterally ENMT: external ear and nose normal, oropharynx normal Neck: trachea midline, no thyromegaly normal visual inspection Respiratory: normal respiratory effort Cardiovascular: Rate/Rhythm: regular rate (heart rate in the 70s) Gastrointestinal (Abdomen): normal bowel sounds, soft, nontender, no hepatosplenomegaly Musculoskeletal: Head/Neck/Chest: normocephalic Neurologic: PERRL, EOMI, accommodation nl, no face palsy, no dysarthria Psychiatric: A+Ox3, euthymic affect Results & Data Results & Data ([facility]) Vital Signs (Past 12 Hours) Vital Signs Temp Pulse Pulse Pulse Resp BP BP 05/29/20 07:58 36.6 C 70 18 97/67 L 05/29/20 07:11 72 05/29/20 04:36 36.5 C 67 18 88/54 L 05/28/20 23:47 36.6 C 68 18 86/51 L Pulse Ox 05/29/20 07:58 92 05/29/20 07:11 05/29/20 04:36 99 05/28/20 23:47 99
[2020-05-29] MEDS: PANTOprazole 40 MG TAB PO SCH ×2 (09:05→20:48)
[2020-05-29] MEDS: AMIODARONE 200 MG TAB PO SCH ×2 (09:13→20:48)
[2020-05-29] MEDS: CHOLECALCIFEROL 1,000 UNITS 25 MCG TAB PO SCH (09:13)
[2020-05-29] MEDS: HEPARIN SOD 5,000 UNIT/0.5 ML VIAL SQ SCH ×2 (09:14→20:48)
[2020-05-29] MEDS: NEPHROCAPS PO SCH (09:14)
[2020-05-29] MEDS: predniSONE 20 MG TAB PO SCH (09:14)
--- NOTE | 2020-05-29 10:39 | Nephrology Progress Note ---
Date of Service May 29, 2020 Assessment & Plan (1) ESRD on dialysis: Patient with ESRD on dialysis Sunday using a PermCath. Her last dialysis was yesterday. Electrolytes are stable and no signs of volume overload. No indication for dialysis today. Episode of hypotension at 8pm sunday likely due to combination of Ativan and tramadol and less likely due to dialysis. -She tolerated dialysis well on 05/28/2020. Next dialysis will be Sunday, target UF 1.5 L. Will give midodrine 10 mg predialysis (2) Hyponatremia: Likely due to volume overload. Continue fluid restriction of 1200 mL daily. 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 We will follow-up on urine cultures. Patient is getting antibiotics per primary team. Admission and Anticipated Discharge Date Admission Date: May 26, 2020 Subjective Feels better this morning, denies any shortness of breath or back pain. She tolerated dialysis well yesterday with net UF of 1.5 L. She however had an episode of hypotension around 8 PM after taking Ativan and tramadol. Review of Systems Review of Systems: All systems reviewed & are unremarkable except as noted in HPI & below Physical Exam Physical Exam: General exam: Appears comfortable, no acute distress HEENT: Pupils are equal and reactive to light Neck: No JVD, neck is supple trachea is midline Respiratory system: Clear breath sounds bilaterally. Gastrointestinal: Abdomen is soft, non distended, non tender, bowel sounds are present CVS: Regular rate and rhythm. No murmurs, rubs or gallops Musculoskeletal: No joint or muscle tenderness Extremities: Non tender, legs are wrapped Neuro: Oriented, no tremors, no focal neurological deficits Skin: No rashes Results & Data ([facility]) Vital Signs (Past 12 Hours) Vital Signs Temp Pulse Pulse Pulse Resp BP BP 05/29/20 07:58 36.6 C 70 18 97/67 L 05/29/20 07:11 72 05/29/20 04:36 36.5 C 67 18 88/54 L 05/28/20 23:47 36.6 C 68 18 86/51 L Pulse Ox 05/29/20 07:58 92 05/29/20 07:11 05/29/20 04:36 99 05/28/20 23:47 99 Laboratory Results 05/28/20 07:12
--- NOTE | 2020-05-29 11:19 | Cardiology Progress Note ---
Date of Service May 29, 2020 Assessment & Plan (1) CKD (chronic kidney disease): (2) Pacemaker at end of battery life: (3) Tachy-xi syndrome: (4) Myasthenia gravis: All legal nurse consultant's notes are appreciated. The patient seems to have improved either with just rest in the hospital or the addition of prednisone. Prior to admission, her pacemaker interrogation indicated that her battery life was coming to an end. She is not pacemaker dependent and during the day is in a sinus rhythm. Her pacemaker is most active at night when she is sleeping and has heart rates in the 60s which are appropriate. It would be reasonable to have the pacemaker updated before she is discharged from the hospital. She does have a video swallow tomorrow as well as dialysis. It would also not be unreasonable for her to be discharged and come in electively in the near future to have a pacemaker updated electively. Her and her son are going to talk things over. I will continue to round on her through her hospital stay. Subjective The patient has no new complaints today. She actually feels much improved. The patient's son was with her in the room today. Review of Systems Review of Systems: All systems reviewed & are unremarkable except as noted in HPI & below Nothing additional to add Physical Exam Physical Exam: General: no acute distress and stated age Head: normocephalic, no masses, lesions, tenderness or abnormalities Eyes: conjunctiva are pink and non-injected, sclera clear Neck: supple, no adenopathy, no bruits, normal jugular venous pulse, no hepatojugular reflux Chest: normal shape and normal respiratory effort Lungs: clear to auscultation and percussion Cardiac Exam: - regular rate & rhythm, no murmurs gallops or rubs - normal S1, normal S2 Pulses: 2(+) throughout Abdomen: abdomen soft, non-tender, no abnormal masses and no hepatosplenomegaly Musculoskeletal: no gait disturbance, no joint inflammation, no deforming arthritis Extremities: no edema and no cyanosis Neuro: grossly normal exam Results & Data Vital Signs (Past 12 Hours) Vital Signs Temp Pulse Pulse Pulse Resp BP BP 05/29/20 07:58 36.6 C 70 18 97/67 L 05/29/20 07:11 72 05/29/20 04:36 36.5 C 67 18 88/54 L 05/28/20 23:47 36.6 C 68 18 86/51 L Pulse Ox 05/29/20 07:58 92 05/29/20 07:11 05/29/20 04:36 99 05/28/20 23:47 99 Laboratory Results Laboratory Results - last 24 hr 05/27/20 05/28/20 05/28/20 17:35 11:21 16:24 POC Glucose 119 H Hep Bs Antigen Neg Hep Bs Antibody Immune Hep Bs Antibody, Quant 152.32 SARS-CoV-2 RNA (RT-PCR) NEGATIVE 05/28/20 05/28/20 05/29/20 16:33 20:58 07:35 POC Glucose 89 108 H 116 H Hep Bs Antigen Hep Bs Antibody Hep Bs Antibody, Quant SARS-CoV-2 RNA (RT-PCR) Medications Administered Current Inpatient Medications Amiodarone HCl (Cordarone) 200 mg PO BID [facility] Stop: 06/25/20 20:59 Last Admin: 05/29/20 09:13 Dose: 200 mg Documented by: Aspirin (Ecotrin Ectab) 81 mg PO HS [place] Stop: 06/25/20 20:59 Last Admin: 05/28/20 19:55 Dose: 81 mg Documented by: Heparin Sodium (Porcine) (Heparin Sodium (Porcine)) 5,000 units SQ Q12 [place] Stop: 06/25/20 20:59 Last Admin: 05/29/20 09:14 Dose: 5,000 units Documented by: Levothyroxine Sodium (Synthroid) 125 mcg PO DAILYBB [place] Stop: 06/27/20 06:29 Last Admin: 05/29/20 06:16 Dose: 125 mcg Documented by: Lorazepam (Ativan) 0.5 mg PO DAILY PRN PRN Reason: Anxiety Stop: 06/25/20 16:44 Last Admin: 05/28/20 20:05 Dose: 0.5 mg Documented by: Melatonin (Melatonin) 9 mg PO HSZ PRN PRN Reason: Sleep Stop: 06/25/20 17:37 Midodrine (Proamatine) 5 mg PO MoWeFr@0600 [facility] Stop: 06/27/20 05:59 Last Admin: 05/28/20 11:08 Dose: 5 mg Documented by: Miscellaneous (Order Awaiting Action) 1 ea N/A QS [facility] Stop: 06/26/20 00:00 Last Admin: 05/29/20 08:32 Dose: Not Given Documented by: Pantoprazole Sodium (Protonix) 40 mg PO BID [place] Stop: 06/27/20 20:59 Last Admin: 05/29/20 09:05 Dose: 40 mg Documented by: Prednisone (Prednisone) 20 mg PO DAILY [place] Stop: 06/27/20 08:59 Last Admin: 05/29/20 09:14 Dose: 20 mg Documented by: Tramadol HCl (Ultram) 50 mg PO Q12H PRN PRN Reason: Pain Stop: 06/25/20 19:44 Last Admin: 05/28/20 20:05 Dose: 50 mg Documented by: Vitamin B Complex/Folic Acid (Nephrocaps) 1 cap PO DAILY [place] Stop: 06/26/20 08:59 Last Admin: 05/29/20 09:14 Dose: 1 cap Documented by: Vitamin D (Vitamin D3) 1,000 units PO DAILY [facility] Stop: 06/26/20 08:59 Last Admin: 05/29/20 09:13 Dose: 1,000 units Documented by: (1) CKD (chronic kidney disease) Chronic kidney disease stage: unspecified stage Qualified Code(s): N18.9 - Chronic kidney disease, unspecified
--- NOTE | 2020-05-29 11:44 | Communication Note ---
Date of Service: May 29, 2020 Delfina had a hypotensive episode following dialysis yesterday but is now improved and back to what I consider her baseline. There are no speech deficits she does not talk about about swallowing problems she has some proximal weakness of her upper extremities related to her rotator cuff surgery and no extraocular movement abnormalities and while she has some mild generalized weakness none of this appears to be due to myasthenia but rather to her multiple underlying diseases She continues to take prednisone 20 mg a day I spoke to Dr. Rees of cardiology about her and I believe we are going to try to replace 1 of her pacemaker batteries during this hospital stay I see no reason she cannot have this done. I am really not sure this was a myasthenic crisis at all but did not see her during it. Dr. Osborne did see her I did not feel it was a crisis but this was after she had received fairly high doses of Solu-Medrol so the picture could have been muddied. The procedure could be done apparently under local with some mild sedation so the risk of general anesthesia here to replace the pacemaker battery is probably not going to be an issue and she is staying in the hospital anyway for a swallowing study in light of her complaints of food hanging up in her throat area I will check back with her tomorrow but for now she is doing quite well and plans are to continue to 20 mg of prednisone daily for probably a month or more and then moved to the alternate day therapy and eventually trying the lowest dose possible alternate day acting on the assumption that her myasthenia may have some low-grade subclinical activity that needs to be suppressed Maximo Driscoll MD
[2020-05-29] MEDS: LORazepam 0.5 MG TAB PO PRN (20:48)
[2020-05-29] MEDS: ASPIRIN 81 MG ECTAB PO SCH (20:48)
[2020-05-30] MEDS: LEVOTHYROXINE SODIUM 125 MCG TABLET PO SCH (06:26)
[2020-05-30] MEDS: predniSONE 20 MG TAB PO SCH (08:13)
[2020-05-30] MEDS: PANTOprazole 40 MG TAB PO SCH ×2 (08:13→21:05)
[2020-05-30] MEDS: CHOLECALCIFEROL 1,000 UNITS 25 MCG TAB PO SCH (08:13)
[2020-05-30] MEDS: AMIODARONE 200 MG TAB PO SCH ×2 (08:13→21:07)
[2020-05-30] MEDS: HEPARIN SOD 5,000 UNIT/0.5 ML VIAL SQ SCH ×2 (08:13→21:08)
[2020-05-30] MEDS: NEPHROCAPS PO SCH (08:13)
--- NOTE | 2020-05-30 09:24 | Nephrology Progress Note ---
Date of Service May 30, 2020 Assessment & Plan (1) ESRD on dialysis: Patient with ESRD on dialysis Sunday using a PermCath. Her last dialysis was yesterday. Electrolytes are stable and no signs of volume overload. No indication for dialysis today. Episode of hypotension at 8pm sunday likely due to combination of Ativan and tramadol and less likely due to dialysis. Chest x-ray on admission showed pulmonary edema -She tolerated dialysis well on 05/28/2020. Next dialysis will be Sunday, target UF 1.5 to 2 L L. Will give midodrine 10 mg predialysis (2) Hyponatremia: Likely due to volume overload. Continue fluid restriction of 1200 mL daily. (3) Dysphagia: Patient is planned for barium swallow tomorrow morning. We will plan to do dialysis after the barium swallow likely midmorning or afternoon Admission and Anticipated Discharge Date Admission Date: May 26, 2020 Subjective She slept well last night. She is complaining of exertional dyspnea with walking to the bathroom. Back pain is controlled with tramadol and Ativan. Blood pressure is stable. Review of Systems Review of Systems: All systems reviewed & are unremarkable except as noted in HPI & below Physical Exam Physical Exam: General exam: Appears comfortable, no acute distress HEENT: Pupils are equal and reactive to light Neck: No JVD, neck is supple trachea is midline Respiratory system: Clear breath sounds bilaterally. Gastrointestinal: Abdomen is soft, non distended, non tender, bowel sounds are present CVS: Regular rate and rhythm. No murmurs, rubs or gallops Musculoskeletal: No joint or muscle tenderness Extremities: Non tender, no edema, peripheral pulses are present Neuro: Oriented, no tremors, no focal neurological deficits Skin: No rashes Access: Right PermCath Results & Data ([facility]) Vital Signs (Past 12 Hours) Vital Signs Temp Pulse Pulse Resp BP Pulse Ox 05/30/20 07:25 36.4 C L 79 19 102/70 05/30/20 04:48 36.3 C L 72 20 91/68 L 94 05/30/20 00:00 87 05/29/20 23:57 36.4 C L 71 20 93/67 L 98 Laboratory Results 05/28/20 07:12
--- NOTE | 2020-05-30 09:48 | Hospitalist Progress Note ---
Date of Service May 30, 2020 Assessment & Plan (1) Weakness: Unintentional Weight Loss -This is a patient who is on dialysis and also pacemaker and problems with eating. She is brought in to the ED on 05/26/2020 by her son Josef [phone] who reports that over period of time, her mother has had progressive weight loss with poor oral appetitite and has trouble with eating the food such as feeling reflux symptoms. However, patient is not on protonic at home currently. no abdomen pain. no vomiting. They also had outpatient plans for gastroenterology evaluation but this has not been done yet. -Her son feels that while the above symptoms have been ongoing, he feels that his mother also having more weakness of her strength and in past several days, she does not have strength to feed herself with her own hands. Review of outpatient EPIC notes that there have been communication with outpatient providers and Dr. Driscoll questioning whether patient has flair-up of myasthenia gravis. 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 allow advance to clear liquid diet, on pantoprazole 40 mg BID -P/OT evaluations -started solumedrol 40 mg IV BID on 05/26/2020, requested neurology consult to rule out myasthenia gravis flare and they deemed this to be unlikely and but allowed for transition from solumedrol to prednisone 20 mg daily starting on 05/28/2020. continue prednisone for now -upper EGD is deferred by patient and her son, -since patient tolerated clear liquid diet on 05/26/2020, start full liquid diet on 05/27/2020 while awaiting formal speech and swallow evaluation and maintain aspiration precautions. patient seems to be tolerating diet well -patient is due for videofluoroscopy and possible barium swallow study as per speech and swallow services has been rescheduled to 05/30/2020 -05/30/2020: patient's feels weaker today but appears that this symptoms are correlating with volume status. she is still saturating well on room air but she subjectively feels more short of breath. she and her sone declines IV Lasix but she agrees for follow up Chest X ray and continuous pulse oximetry monitoring. may need more volume taken off on dialysis on scheduled for 05/31/2020 urinary tract infection unlikely -was started on ceftriaxone by emergency rooom physician on 05/26/2020. no bacteria in the UA, presence of yeast is not significant. urine cultures returned as Group B Beta Strep [place] Count >100,000 CFU/ml Sens No Sensitivities to Follow +Mix Urine Plus Low Counts of Other Mixed Reyna -the group b beta strep likely contaminant and ceftriaxone orders stopped on 05/28/2020 (2) ESRD on dialysis: -Patient is on dialysis through perm cath every Sunday, Sunday, Sunday. As per her son, she was at dialysis earlier on Sunday05/26/2020 -home medication of sensipar and Triprhocaps -nephrology completed dialysis as inpatient on 05/28/2020 -may need more volume taken off on dialysis on scheduled for 05/31/2020 (3) Hypothyroidism: -outpatient medication of levothyroxine is 100 mcg daily -TSH elevated as 6.7 but free T4 is not low (free T4 1.7 is mildly elevated) -total T4 is normal as 6.9, free T3 levels low as 1.23 and total T3 level low as 0.28 -it is possible that amiodarone could be contributing to changes in thyroid function labs. cardiology increased the home dose levothyroxine 100 mcg daily to be as 125 mcg daily starting on 05/28/2020 (4) Tachy-xi syndrome: Presence of Pacemaker Paroxysmal Atrial Fibrillation -Patient has sinus bradycardia on exam and by admission EKG. -patient's son also reports that patient's pacemaker is at end of battery life. Patient denies chest pain or palpitations or fevers. -monitor on telemetry -continue amiodarone 200 mg BID as per home dose for now -cardiology consult 05/27/2020 "although her pacemaker has reached end-of-life there is still plenty of safety margin on the battery. On telemetry she is mostly sinus rhythm with heart rate in the 70s. Last evening while sleeping she did have a paced rhythm in the 60s. Her pacemaker is currently sent for a VVI mode at a rate of 65. So I think the pacemaker still functioning appropriately. Her symptoms may be related to her myasthenia, GI, or end-stage kidney disease. Before we would put her through an elective surgery with anesthesia the could worsen her myasthenia, I think it is best that we work out these other things first with the idea that her pacemaker can be upgraded electively in the near future. in case of any interventions that can be done for the pacemaker while inpatient" -further discuss with cardiology when patient can have the battery exchange since patient so far to date is clinically stable Code Status: DNR/DNI celio Bahena [phone] DVT prophylaxis: heparin subcutaneous q12 hours Admission and Anticipated Discharge Date Admission Date: May 26, 2020 Subjective -05/30/2020: patient's feels weaker today but appears that this symptoms are correlating with volume status. she is still saturating well on room air but she subjectively feels more short of breath. she and her sone declines IV Lasix but she agrees for follow up Chest X ray and continuous pulse oximetry monitoring. they report that web feeder came earlier and plan to try to take more volume off on dialysis on 05/31/2020 no chest pain. no abdomen pain. she moves her upper extremities well. she does not move well the lower extremities because of volume status. no dizziness. no headache. no abdomen pain. no vomiting Review of Systems Review of Systems: All systems reviewed & are unremarkable except as noted in Subjective Physical Exam Constitutional: comfortable Eyes: PERRL, conjunctivae normal, anicteric sclerae EOM intact bilaterally ENMT: external ear and nose normal, oropharynx normal Neck: trachea midline, no thyromegaly normal visual inspection Respiratory: normal respiratory effort Auscultation: + crackles Cardiovascular: Rate/Rhythm: regular rate (heart rate in the 70s) Gastrointestinal (Abdomen): normal bowel sounds, soft, nontender, no hepatosplenomegaly Musculoskeletal: Head/Neck/Chest: normocephalic bilateral leg edema Neurologic: PERRL, EOMI, accommodation nl, no face palsy, no dysarthria Psychiatric: A+Ox3, euthymic affect Results & Data Results & Data ([facility]) Vital Signs (Past 12 Hours) Vital Signs Temp Pulse Pulse Resp BP Pulse Ox 05/30/20 07:25 36.4 C L 79 19 102/70 05/30/20 04:48 36.3 C L 72 20 91/68 L 94 05/30/20 00:00 87 05/29/20 23:57 36.4 C L 71 20 93/67 L 98
[2020-05-30] MEDS ORDERED: FUROSEMIDE 40 MG in SYRINGE 0 ML IV ONE (10:00)
--- NOTE | 2020-05-30 10:09 | XRay Report ---
SINGLE VIEW CHEST CLINICAL HISTORY: Follow-up CHF. FINDINGS: An AP, portable, upright chest radiograph is compared to study dated 05/26/2020 and correlat ed with chest CT dated 04/14/2019. The examination is degraded by portable technique and patient rotat ion. A right sided central venous catheter is unchanged in position, as is a 2-lead cardiac pacemaker . The heart is enlarged noting atherosclerotic calcification of the thoracic aorta. There is pulmonar y vascular congestion with evidence of interstitial edema. There are small pleural effusions with bib asilar consolidation. No pneumothorax is seen. The skeletal structures are osteopenic. The bony thora x is grossly intact. Advanced arthritic changes seen in the shoulders. Superior subluxation of the hu meral heads suggest chronic bilateral rotator cuff injury. A large calcified granuloma is noted in th e spleen. IMPRESSION: 1. Cardiomegaly and cardiac pacemaker with evidence of congestive failure and interstitial edema. Thi s is similar in appearance to yesterday. 2. Small pleural effusions with bibasilar consolidation. ACT 112: Negative or not required by law. Electronically signed by: Hi Ring M.D. 05/30/2020 10:08 AM
--- NOTE | 2020-05-30 11:15 | Cardiology Progress Note ---
Date of Service May 30, 2020 Assessment & Plan (1) CKD (chronic kidney disease): (2) Pacemaker at end of battery life: (3) Tachy-xi syndrome: (4) Myasthenia gravis: Patient is a bit more short of breath and fatigued this morning. Her chest x-ray suggest congestive heart failure in my exam is consistent. She is in a continuous sinus rhythm with adequate heart rates and rarely use her pacemaker over the past 24 to 36 hours. I do not believe that this is a pacemaker problem. Think she may have gotten some IV fluids after dialysis on Sunday due to low blood pressure and it may have tipped her into volume overload. I will try to contact nephrology. Subjective Patient is a little more short of breath and fatigued this morning. This morning. Review of Systems Review of Systems: All systems reviewed & are unremarkable except as noted in HPI & below Nothing additional to add Physical Exam Physical Exam: General: no acute distress and stated age Head: normocephalic, no masses, lesions, tenderness or abnormalities Eyes: conjunctiva are pink and non-injected, sclera clear Neck: supple, no adenopathy, no bruits, normal jugular venous pulse, no hepatojugular reflux Chest: normal shape and normal respiratory effort Lungs: Rales bilaterally at the bases Cardiac Exam: - regular rate & rhythm, no murmurs gallops or rubs - normal S1, normal S2 Pulses: 2(+) throughout Abdomen: abdomen soft, non-tender, no abnormal masses and no hepatosplenomegaly Musculoskeletal: no gait disturbance, no joint inflammation, no deforming arthritis Extremities: no edema and no cyanosis Neuro: grossly normal exam Results & Data Vital Signs (Past 12 Hours) Vital Signs Temp Pulse Pulse Resp BP Pulse Ox 05/30/20 07:25 36.4 C L 79 19 102/70 05/30/20 04:48 36.3 C L 72 20 91/68 L 94 05/30/20 00:00 87 05/29/20 23:57 36.4 C L 71 20 93/67 L 98 Laboratory Results Laboratory Results - last 24 hr 05/29/20 05/29/20 05/29/20 11:29 16:34 20:31 POC Glucose 133 H 138 H 153 H Diagnostic Findings Chest x-ray suggest congestive heart failure Medications Administered Current Inpatient Medications Amiodarone HCl (Cordarone) 200 mg PO BID [facility]DR[facility] Stop: 08/21/20 20:59 Last Admin: 05/30/20 08:13 Dose: 200 mg Documented by: Aspirin (Ecotrin Ectab) 81 mg PO HS [facility] Stop: 06/25/20 20:59 Last Admin: 05/29/20 20:48 Dose: 81 mg Documented by: Heparin Sodium (Porcine) (Heparin Sodium (Porcine)) 5,000 units SQ Q12 [facility] Stop: 06/25/20 20:59 Last Admin: 05/30/20 08:13 Dose: 5,000 units Documented by: Levothyroxine Sodium (Synthroid) 125 mcg PO DAILYBB [facility] Stop: 06/27/20 06:29 Last Admin: 05/30/20 06:26 Dose: 125 mcg Documented by: Lorazepam (Ativan) 0.5 mg PO DAILY PRN PRN Reason: Anxiety Stop: 06/25/20 16:44 Last Admin: 05/29/20 20:48 Dose: 0.5 mg Documented by: Melatonin (Melatonin) 9 mg PO HSZ PRN PRN Reason: Sleep Stop: 06/25/20 17:37 Midodrine (Proamatine) 5 mg PO [id number] PENDING SALE TO [facility] Stop: 06/27/20 05:59 Last Admin: 05/28/20 11:08 Dose: 5 mg Documented by: Miscellaneous (Order Awaiting Action) 1 ea N/A QS PENDING SALE TO [facility] Stop: 06/26/20 00:00 Last Admin: 05/29/20 23:38 Dose: Not Given Documented by: Pantoprazole Sodium (Protonix) 40 mg PO BID [place] Stop: 06/27/20 20:59 Last Admin: 05/30/20 08:13 Dose: 40 mg Documented by: Prednisone (Prednisone) 20 mg PO DAILY [facility] Stop: 06/27/20 08:59 Last Admin: 05/30/20 08:13 Dose: 20 mg Documented by: Tramadol HCl (Ultram) 50 mg PO Q12H PRN PRN Reason: Pain Stop: 06/25/20 19:44 Last Admin: 05/28/20 20:05 Dose: 50 mg Documented by: Vitamin B Complex/Folic Acid (Nephrocaps) 1 cap PO DAILY [facility] Stop: 06/26/20 08:59 Last Admin: 05/30/20 08:13 Dose: 1 cap Documented by: Vitamin D (Vitamin D3) 1,000 units PO DAILY [facility] Stop: 06/26/20 08:59 Last Admin: 05/30/20 08:13 Dose: 1,000 units Documented by: (1) CKD (chronic kidney disease) Chronic kidney disease stage: unspecified stage Qualified Code(s): N18.9 - Chronic kidney disease, unspecified
[2020-05-30] MEDS: TRAMADOL HCL 50 MG TABLET PO PRN (12:11)
--- NOTE | 2020-05-30 14:32 | Communication Note ---
Date of Service: May 30, 2020 Delfina is a little more fatigued and short of breath today with exertion and cardiology has seen her feels that she is in congestive heart failure and kamar pects he may have been a little excessive fluid administered when she had a hypotensive episode post dialysis several days ago. Hopefully this will begin to resolve and she is due for dialysis tomorrow He is also due for a swallowing study and at some point will need a battery of her pacemaker replaced On exam she is awake alert oriented perhaps a little tachypneic but she has no findings that suggest that this is myasthenia gravis. Eye movements are full facial motility and strength is normal she can hold her lips sealed against resistance neck flexor strength is excellent her speech is non-nasal or dysarthric and with exception of shoulder weakness which is due to her rotator cuff issue she really does not have any significant muscle weakness and could not be explicable on the basis of her age and general underlying multiple medical conditions Continues to be on prednisone 20 mg a day which is going to perhaps contribute a bit of fluid retention but this point I think we are in a sense "stuck" and that she seemed to respond to high doses of IV Solu-Medrol and we can never be certain that she did not have at least in part of a myasthenic problem even though both Dr. Osborne and I feel this is unlikely The Neurology policy is now to continue the prednisone at 20 mg a day, see her on an outpatient basis in about 3 to 4 weeks and at that point if she is doing as well as can be expected with her multiple medical problems, reduce it to 20 mg every other day I will check back with her tomorrow Maximo Driscoll MD
[2020-05-30] MEDS ORDERED: ACETAMINOPHEN 325 MG TAB PO STA (19:44)
[2020-05-30] MEDS: ASPIRIN 81 MG ECTAB PO SCH (21:05)
[2020-05-30] MEDS: LORazepam 0.5 MG TAB PO PRN (21:06)
[2020-05-31] MEDS ORDERED: LEVOTHYROXINE SODIUM 25 MCG TABLET PO SCH (06:30)
[2020-05-31] MEDS ORDERED: LEVOTHYROXINE SODIUM 100 MCG TABLET PO SCH (06:30)
[2020-05-31] MEDS: MIDODRINE HCL 2.5 MG TAB PO SCH (06:34)
[2020-05-31] MEDS ORDERED: HEPARIN SOD (PORCINE) 1000 UNIT/ML 10 ML VIAL IV ONE (07:00)
[2020-05-31] MEDS ORDERED: SODIUM CHLORIDE 0.9% 1000ML 1,000 ML IV PRN (07:00)
[2020-05-31] MEDS: PANTOprazole 40 MG TAB PO SCH ×2 (07:55→20:20)
[2020-05-31] MEDS: NEPHROCAPS PO SCH (07:56)
[2020-05-31] MEDS: AMIODARONE 200 MG TAB PO SCH ×2 (07:56→20:21)
[2020-05-31] MEDS: CHOLECALCIFEROL 1,000 UNITS 25 MCG TAB PO SCH (07:56)
[2020-05-31] MEDS: HEPARIN SOD 5,000 UNIT/0.5 ML VIAL SQ SCH ×2 (07:57→20:20)
--- NOTE | 2020-05-31 08:30 | Hospitalist Progress Note ---
Date of Service May 31, 2020 Assessment & Plan (1) Weakness: Unintentional Weight Loss -This is a patient who is on dialysis and also pacemaker and problems with eating. She is brought in to the ED on 05/26/2020 by her son Josef [phone] who reports that over period of time, her mother has had progressive weight loss with poor oral appetitite and has trouble with eating the food such as feeling reflux symptoms. However, patient is not on protonic at home currently. no abdomen pain. no vomiting. They also had outpatient plans for gastroenterology evaluation but this has not been done yet. -Her son feels that while the above symptoms have been ongoing, he feels that his mother also having more weakness of her strength and in past several days, she does not have strength to feed herself with her own hands. Review of outpatient EPIC notes that there have been communication with outpatient providers and Dr. Driscoll questioning whether patient has flair-up of myasthenia gravis. 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 allow advance to clear liquid diet, on pantoprazole 40 mg BID -P/OT evaluations -started solumedrol 40 mg IV BID on 05/26/2020, requested neurology consult to rule out myasthenia gravis flare and they deemed this to be unlikely and but allowed for transition from solumedrol to prednisone 20 mg daily starting on 05/28/2020. continue prednisone for now -upper EGD is deferred by patient and her son -since patient tolerated clear liquid diet on 05/26/2020, start full liquid diet on 05/27/2020 while awaiting formal speech and swallow evaluation and maintain aspiration precautions. patient seems to be tolerating diet well -patient is due for videofluoroscopy and possible barium swallow study as per speech and swallow services has been rescheduled to 05/31/2020 -05/30/2020: patient's feels weaker today but appears that this symptoms are correlating with volume status. she is still saturating well on room air but she subjectively feels more short of breath. she and her sone declines IV Lasix. her CXR is grossly unchanged at that on admission. nephrology may need more volume taken off on dialysis on scheduled for 05/31/2020 after patient completes swallowing studies on 05/31/2020 urinary tract infection unlikely -was started on ceftriaxone by emergency rooom physician on 05/26/2020. no bacteria in the UA, presence of yeast is not significant. urine cultures returned as Group B Beta Strep [place] Count >100,000 CFU/ml Sens No Sensitivities to Follow +Mix Urine Plus Low Counts of Other Mixed Reyna -the group b beta strep likely contaminant and ceftriaxone orders stopped on 05/28/2020 (2) ESRD on dialysis: -Patient is on dialysis through perm cath every Sunday, Sunday, Sunday. As per her son, she was at dialysis earlier on Sunday05/26/2020 -home medication of sensipar and Triprhocaps -nephrology completed dialysis as inpatient on 05/28/2020 -may need more volume taken off on dialysis on scheduled for 05/31/2020 (3) Hypothyroidism: -outpatient medication of levothyroxine is 100 mcg daily -TSH elevated as 6.7 but free T4 is not low (free T4 1.7 is mildly elevated) -total T4 is normal as 6.9, free T3 levels low as 1.23 and total T3 level low as 0.28 -it is possible that amiodarone could be contributing to changes in thyroid function labs. cardiology increased the home dose levothyroxine 100 mcg daily to be as 125 mcg daily starting on 05/28/2020 (4) Tachy-xi syndrome: Presence of Pacemaker/Pacemaker at end of Battery Life Paroxysmal Atrial Fibrillation -Patient has sinus bradycardia on exam and by admission EKG. -patient's son also reports that patient's pacemaker is at end of battery life. Patient denies chest pain or palpitations or fevers. -monitor on telemetry -continue amiodarone 200 mg BID -cardiology consult 05/27/2020 "although her pacemaker has reached end-of-life there is still plenty of safety margin on the battery." at this time cardiology is determining whether pacemaker battery should be addressed as inpatient versus outpatient. Code Status: DNR/DNI celio Bill [phone] DVT prophylaxis: heparin subcutaneous q12 hours Admission and Anticipated Discharge Date Admission Date: May 26, 2020 Subjective Seen in the morning. patient on nasal cannula oxygen 2 liters/min which she typically uses while sleeping at night. speaking normally. no chest pain. no abdomen pain. no dizziness. no headache. no vomiting. Review of Systems Review of Systems: All systems reviewed & are unremarkable except as noted in Subjective Physical Exam Constitutional: comfortable Eyes: PERRL, conjunctivae normal, anicteric sclerae EOM intact bilaterally ENMT: external ear and nose normal, oropharynx normal Neck: trachea midline, no thyromegaly normal visual inspection Respiratory: normal respiratory effort Auscultation: + crackles on nasal cannula Cardiovascular: Rate/Rhythm: regular rate (heart rate in the 70s) Gastrointestinal (Abdomen): normal bowel sounds, soft, nontender, no hepatosplenomegaly Musculoskeletal: Head/Neck/Chest: normocephalic Neurologic: PERRL, EOMI, accommodation nl, no face palsy, no dysarthria Psychiatric: A+Ox3, euthymic affect Results & Data Results & Data ([facility]) Vital Signs (Past 12 Hours) Vital Signs Temp Pulse Pulse Resp BP Pulse Ox 05/31/20 07:12 36.4 C L 69 18 95/62 L 94 05/31/20 03:32 35.6 C L 72 94/64 L 97 05/31/20 00:19 36.3 C L 69 18 89/62 L 94 05/31/20 00:00 69
[2020-05-31 08:44] LABS: Albumin Globulin Ratio 1.2 (0.9-2); Albumin Level 3.3 gm/dl (3.4-5.0); BUN Creatinine Ratio 15.6 (10-20); Bilirubin,Total 1.2 mg/dl (0.2-1); Calcium 8.4 mg/dl (8.5-10.1); Creatinine Clr Calc Pharmacy 5.6 ml/min; Est GFR (African American) 7.6; Est GFR (Non-African American) 6.6; Globulin 2.8 gm/dl (2.5-4.0); Potassium 4.8 mmol/L (3.5-5.1); Total Protein 6.1 gm/dl (6.4-8.2)
--- NOTE | 2020-05-31 08:58 | Cardiology Progress Note ---
Date of Service May 31, 2020 Assessment & Plan (1) CKD (chronic kidney disease): (2) Pacemaker at end of battery life: (3) Tachy-xi syndrome: (4) Myasthenia gravis: Patient remains clinically stable. She is to have a barium swallow today followed by dialysis. I will have her pacemaker interrogated again today to determine battery life. Reassessment after dialysis today. Subjective The patient is resting comfortably. She is waiting for dialysis following her barium swallow. Review of Systems Review of Systems: All systems reviewed & are unremarkable except as noted in HPI & below Nothing additional to add Physical Exam Physical Exam: General: no acute distress and stated age Head: normocephalic, no masses, lesions, tenderness or abnormalities Eyes: conjunctiva are pink and non-injected, sclera clear Neck: supple, no adenopathy, no bruits, normal jugular venous pulse, no hepatojugular reflux Chest: normal shape and normal respiratory effort Lungs: clear to auscultation and percussion Cardiac Exam: - regular rate & rhythm, no murmurs gallops or rubs - normal S1, normal S2 Pulses: 2(+) throughout Abdomen: abdomen soft, non-tender, no abnormal masses and no hepatosplenomegaly Musculoskeletal: no gait disturbance, no joint inflammation, no deforming arthritis Extremities: no edema and no cyanosis Neuro: grossly normal exam Results & Data Vital Signs (Past 12 Hours) Vital Signs Temp Pulse Pulse Resp BP Pulse Ox 05/31/20 07:12 36.4 C L 69 18 95/62 L 94 05/31/20 03:32 35.6 C L 72 94/64 L 97 05/31/20 00:19 36.3 C L 69 18 89/62 L 94 05/31/20 00:00 69 Laboratory Results Laboratory Results - last 24 hr 05/30/20 05/30/20 05/30/20 11:32 16:39 20:33 Sodium Potassium Chloride Carbon Dioxide Anion Gap BUN Creatinine Est Cr Clr Drug Dosing Est GFR ( Amer) Est GFR (Non-Af Amer) BUN/Creatinine Ratio Glucose POC Glucose 136 H 138 H 143 H Calcium Total Bilirubin AST ALT Alkaline Phosphatase Total Protein Albumin Globulin Albumin/Globulin Ratio 05/31/20 05/31/20 07:29 07:35 Sodium 134 L Potassium 4.8 Chloride 99 Carbon Dioxide 21 Anion Gap 15.0 H BUN 84 H Creatinine 5.37 H* Est Cr Clr Drug Dosing 5.6 Est GFR ( Amer) 7.6 Est GFR (Non-Af Amer) 6.6 BUN/Creatinine Ratio 15.6 Glucose 101 H POC Glucose 93 Calcium 8.4 L Total Bilirubin 1.2 H AST 49 H ALT 89 H Alkaline Phosphatase 116 Total Protein 6.1 L Albumin 3.3 L Globulin 2.8 Albumin/Globulin Ratio 1.2 Medications Administered Current Inpatient Medications Amiodarone HCl (Cordarone) 200 mg PO BID [facility] Stop: 06/25/20 20:59 Last Admin: 05/31/20 07:56 Dose: 200 mg Documented by: Aspirin (Ecotrin Ectab) 81 mg PO HS [facility] Stop: 06/25/20 20:59 Last Admin: 05/30/20 21:05 Dose: 81 mg Documented by: Heparin Sodium (Porcine) (Heparin Sodium (Porcine)) 5,000 units SQ Q12 [facility] Stop: 06/25/20 20:59 Last Admin: 05/31/20 07:57 Dose: 5,000 units Documented by: Heparin Sodium (Porcine) (Heparin Iv Bolus) 400 units IV Q1H [facility] Stop: 05/31/20 09:01 Sodium Chloride (Nss 1000ml) 1,000 mls @ 0 mls/hr IV .Q0M PRN PRN Reason: For Hemodialysis Use ONLY Stop: 05/31/20 12:59 Levothyroxine Sodium (Synthroid) 125 mcg PO DAILYBB [facility] Stop: 06/27/20 06:29 Last Admin: 05/30/20 06:26 Dose: 125 mcg Documented by: Lorazepam (Ativan) 0.5 mg PO DAILY PRN PRN Reason: Anxiety Stop: 06/25/20 16:44 Last Admin: 05/30/20 21:06 Dose: 0.5 mg Documented by: Melatonin (Melatonin) 9 mg PO HSZ PRN PRN Reason: Sleep Stop: 06/25/20 17:37 Midodrine (Proamatine) 5 mg PO MoWeFr@0600 [facility] Stop: 06/27/20 05:59 Last Admin: 05/31/20 06:34 Dose: 5 mg Documented by: Miscellaneous (Order Awaiting Action) 1 ea N/A QS [facility] Stop: 06/26/20 00:00 Last Admin: 07/27/20 07:55 Dose: Not Given Documented by: Pantoprazole Sodium (Protonix) 40 mg PO BID [facility] Stop: 06/27/20 20:59 Last Admin: 05/31/20 07:55 Dose: 40 mg Documented by: Prednisone (Prednisone) 20 mg PO DAILY [facility] Stop: 06/27/20 08:59 Last Admin: 05/30/20 08:13 Dose: 20 mg Documented by: Tramadol HCl (Ultram) 50 mg PO Q12H PRN PRN Reason: Pain Stop: 06/25/20 19:44 Last Admin: 05/30/20 12:11 Dose: 50 mg Documented by: Vitamin B Complex/Folic Acid (Nephrocaps) 1 cap PO DAILY [facility] Stop: 06/26/20 08:59 Last Admin: 05/31/20 07:56 Dose: 1 cap Documented by: Vitamin D (Vitamin D3) 1,000 units PO DAILY [facility] Stop: 06/26/20 08:59 Last Admin: 05/31/20 07:56 Dose: 1,000 units Documented by: (1) CKD (chronic kidney disease) Chronic kidney disease stage: unspecified stage Qualified Code(s): N18.9 - Chronic kidney disease, unspecified
[2020-05-31] MEDS: predniSONE 20 MG TAB PO SCH (09:00)
[2020-05-31] MEDS: HEPARIN SOD (PORCINE) 1000 UNIT/ML 10 ML VIAL IV SCH ×3 (10:40→12:40)
--- NOTE | 2020-05-31 16:04 | Fluoroscopy Report ---
[place] video swallow HISTORY: Dysphagia r/o Zenker's diverticulum TECHNIQUE: Video fluoroscopic evaluation of swallowing was performed in the AP and lateral projection s by the speech pathology staff. The patient is fed nectar-thick and thin liquid barium, a barium coa michael wafer, and barium pudding. FLUOROSCOPY TIME: 30 minutes. NUMBER OF FLUOROSCOPY IMAGES: 0 COMPARISON STUDY: January 04, 2009 FINDINGS: When swallowing thin liquids, there was penetration, but no evidence of aspiration. When sw allowing nectar thick liquids, there is no aspiration or penetration. When swallowing pudding there i s no aspiration or penetration. When swallowing a cracker with paste there is no aspiration or penetr ation. There is a mildly prominent cricopharyngeus impression. There is disordered esophageal motilit y. There is a suspected small Zenker's diverticulum. This would be better assessed with a conventiona l barium swallow study. IMPRESSION: 1. 1. Penetration but no evidence of aspiration. Markedly disordered esophageal motility. 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 2. Please see the speech pathologist report for detailed findings and recommendations. ACT 112: Negative or not required by law. Electronically signed by: Erich Gant M.D. 05/31/2020 4:02 PM
--- NOTE | 2020-05-31 16:08 | Communication Note ---
Date of Service: May 31, 2020 I saw Delfina today. She actually looks fairly well. She had dialysis got a little weak but is coming around and is in the process of discussing her diet and her daughter is present in the room. The video swallowing study showed some esophageal dysmotility and a Zenker's diverticulum but did not demonstrate any upper pharyngeal dysfunction so I doubt that her dysphagia was due to myasthenia but will continue the prednisone for now anyway with intents to tapered off gradually over the next month or so Otherwise she is awake alert oriented in 3 spheres with normal eye movements no complaints of diplopia normal facial motility and strength normal facial sensation clear speech good neck flexor strength and otherwise appears to be unchanged other than some global complaints of weakness which likely are postdialysis and normal for her She is due for the surgery for the pacemaker battery change tomorrow and then may be discharged after day of observation I will check with her tomorrow and will then make arrangements for follow-up after her discharge plans are little more clear Maximo Driscoll MD
[2020-05-31] MEDS: TRAMADOL HCL 50 MG TABLET PO PRN (17:48)
[2020-05-31] MEDS: ASPIRIN 81 MG ECTAB PO SCH (20:21)
[2020-05-31] MEDS: LORazepam 0.5 MG TAB PO PRN (20:31)
[2020-06-01] MEDS: LEVOTHYROXINE SODIUM 125 MCG TABLET PO SCH (05:53)
[2020-06-01 06:17] LABS: Eosinophils # (auto) 0.01 K/uL (0-0.5); Eosinophils % (auto) 0.1 %; Hematocrit (blood only) 42.8 % (37-47); Hemoglobin 13.4 g/dL (12.0-16.0); Immature Granulocytes # (auto) 0.03 K/uL (0.00-0.02); Immature Granulocytes % (auto) 0.3 %; Lymphocytes # (auto) 1.33 K/uL (1.2-3.4); Lymphocytes % (auto) 14.4 %; Mean Corpuscular Hemoglobin 29.8 pg (25-34); Mean Corpuscular Hgb Conc 31.3 g/dL (32-36); Mean Corpuscular Volume 95.3 fL (80-100); Mean Platelet Volume 12.2 fL (7.4-10.4); Monocytes # (auto) 0.42 K/uL (0.11-0.59); Monocytes % (auto) 4.5 %; Neutrophils # (auto) 7.47 K/uL (1.4-6.5); Neutrophils % (auto) 80.7 %; Nucleated RBC # (auto) 0.09 K/uL (0-0); Nucleated RBC % (auto) 0.9 %; Platelet Count 136 K/uL (130-400); RDW Coefficient of Variation 18.5 % (11.5-14.5); RDW Standard Deviation 61.8 fL (36.4-46.3); Red Blood Count 4.49 M/uL (4.2-5.4); White Blood Count 9.26 K/uL (4.8-10.8)
[2020-06-01 06:54] LABS: Albumin Globulin Ratio 1.2 (0.9-2); Albumin Level 3.5 gm/dl (3.4-5.0); BUN Creatinine Ratio 13.1 (10-20); Bilirubin,Total 1.4 mg/dl (0.2-1); Creatinine Clr Calc Pharmacy 7.5 ml/min; Est GFR (African American) 10.8; Est GFR (Non-African American) 9.3; Globulin 2.9 gm/dl (2.5-4.0); Total Protein 6.4 gm/dl (6.4-8.2)
[2020-06-01 07:46] LABS: Potassium 5.1 mmol/L (3.5-5.1)
--- NOTE | 2020-06-01 08:05 | Hospitalist Progress Note ---
Date of Service June 01, 2020 Assessment & Plan (1) Weakness: Unintentional Weight Loss -This is a patient who is on dialysis and also pacemaker and problems with eating. She is brought in to the ED on 05/26/2020 by her son Josef [phone] who reports that over period of time, her mother has had progressive weight loss with poor oral appetitite and has trouble with eating the food such as feeling reflux symptoms. However, patient is not on protonic at home currently. no abdomen pain. no vomiting. -Her son feels that while the above symptoms have been ongoing, he feels that his mother also having more weakness of her strength and in past several days, she does not have strength to feed herself with her own hands. Review of outpatient [facility] notes that there have been communication with outpatient providers and Dr. Driscoll questioning whether patient has flair-up of myasthenia gravis. 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 -started solumedrol 40 mg IV BID on 05/26/2020, requested neurology consult to rule out myasthenia gravis flare and they deemed this to be unlikely and but allowed for transition from solumedrol to prednisone 20 mg daily starting on 05/28/2020. continue prednisone as 20 mg daily for and neurology recommended to consider to continue prednisone 20 mg daily dosing until her outpatient neurology clinic appointment (scheduled on [facility]) -upper EGD by Gastroenterology servuce is deferred by patient and her son -since patient tolerated clear liquid diet on 05/26/2020, start full liquid diet on 05/27/2020 while awaiting formal speech and swallow evaluation and maintain aspiration precautions. patient seems to be tolerating diet well -patient is due for videofluoroscopy and possible barium swallow study as per speech and swallow services has been rescheduled to 05/31/2020 -05/30/2020: patient's feels weaker today but appears that this symptoms are correlating with volume status. she is still saturating well on room air but she subjectively feels more short of breath. she and her sone declines IV Lasix. her CXR is grossly unchanged at that on admission. I wonder whether her subjective weakness prior to this admission were due to primarily due to her volume status 05/31/2020: completed dialysis session. completed swallowing studies on 05/31/2020: as per speech and swallow therapist who messaged hospitalist "She is not aspirating but is at risk as she has a ton of esophageal issues, as we suspected. She has dysmotility, a small Zenker's Diverticulum, and a tortous esophagus." recommended slippery diet urinary tract infection unlikely -was started on ceftriaxone by emergency rooom physician on 05/26/2020. no bacteria in the UA, presence of yeast is not significant. urine cultures returned as: Group B Beta Strep [place] Count >100,000 CFU/ml Sens No Sensitivities to Follow +Mix Urine Plus Low Counts of Other Mixed Reyna -the group b beta strep likely contaminant and ceftriaxone orders stopped on (2) ESRD on dialysis: -Patient is on dialysis through perm cath every Sunday, Sunday, Sunday. As per her son, she was at dialysis earlier on Sunday05/26/2020 -home medication of sensipar and Triprhocaps -nephrology completed dialysis as inpatient on 05/28/2020 and on 05/31/2020 (3) Hypothyroidism: -outpatient medication of levothyroxine is 100 mcg daily -TSH elevated as 6.7 but free T4 is not low (free T4 1.7 is mildly elevated) -total T4 is normal as 6.9, free T3 levels low as 1.23 and total T3 level low as 0.28 -it is possible that amiodarone could be contributing to changes in thyroid function labs. cardiology increased the home dose levothyroxine 100 mcg daily to be as 125 mcg daily starting on 05/28/2020 (4) Tachy-xi syndrome: Presence of Pacemaker/Pacemaker at end of Battery Life Paroxysmal Atrial Fibrillation -Patient has sinus bradycardia on exam and by admission EKG. -patient's son also reports that patient's pacemaker is at end of battery life. Patient denies chest pain or palpitations or fevers. -monitor on telemetry -continue amiodarone 200 mg BID -cardiology consult 05/27/2020 "although her pacemaker has reached end-of-life there is still plenty of safety margin on the battery." at this time cardiology is determining whether pacemaker battery should be addressed as inpatient versus outpatient. -Pacemaker interrogated on 05/31/2020 and patient and her son to discuss with cardiology on future pacemaker plans Code Status: DNR/DNI son Bill [phone] DVT prophylaxis: heparin subcutaneous q12 hours Admission and Anticipated Discharge Date Admission Date: May 26, 2020 Subjective Patient seen and examined in the AM. She is eating the solid breakfast. denies nausea. no vomiting. no dizziness. no headache. breathing on room air. no chest pain. no abdomen pain. no shortness of breath Review of Systems Review of Systems: All systems reviewed & are unremarkable except as noted in Subjective Physical Exam Constitutional: comfortable Eyes: PERRL, conjunctivae normal, anicteric sclerae EOM intact bilaterally ENMT: external ear and nose normal, oropharynx normal Neck: trachea midline, no thyromegaly normal visual inspection Respiratory: normal respiratory effort Cardiovascular: Rate/Rhythm: regular rate (heart rate in the 70s) Gastrointestinal (Abdomen): normal bowel sounds, soft, nontender, no hepatosplenomegaly Musculoskeletal: Head/Neck/Chest: normocephalic Neurologic: PERRL, EOMI, accommodation nl, no face palsy, no dysarthria Psychiatric: A+Ox3, euthymic affect Results & Data Results & Data ([facility]) Vital Signs (Past 12 Hours) Vital Signs Temp Pulse Pulse Resp BP BP Pulse Ox 06/01/20 07:55 36.4 C L 76 18 96/72 L 94 06/01/20 03:51 36.3 C L 70 16 87/59 L 99 05/31/20 23:14 36.6 C 66 20 97/68 L 100
[2020-06-01] MEDS: CHOLECALCIFEROL 1,000 UNITS 25 MCG TAB PO SCH (08:11)
[2020-06-01] MEDS: NEPHROCAPS PO SCH (08:12)
[2020-06-01] MEDS: predniSONE 20 MG TAB PO SCH (08:12)
[2020-06-01] MEDS: AMIODARONE 200 MG TAB PO SCH ×2 (08:12→20:31)
[2020-06-01] MEDS: PANTOprazole 40 MG TAB PO SCH ×2 (08:12→20:31)
[2020-06-01] MEDS: HEPARIN SOD 5,000 UNIT/0.5 ML VIAL SQ SCH ×2 (08:13→20:30)
--- NOTE | 2020-06-01 10:30 | Gastroenterology Progress Note ---
Date of Service June 01, 2020 Assessment & Plan (1) Weight loss: Pt's feeling of not being able to eat/drink quickly most likely secondary to slow esophageal motility with age and MG. Unlikely to have esophageal structural abnormality. Plan: Discussed with pt/son. EGD as OP - but if pt and family prefer to avoid endoscopy, it is reasonable to defer as her symptoms are more typical of esophageal dysmotility vs. a structural abnormality. Regarding weight loss: Decreased appetite is often seen with dialysis and CHF pts but would consider CT abd/pelvis to r/o any occult malignancy. Present on Admission?: Yes (2) Dysphagia: Present on Admission?: Yes Admission and Anticipated Discharge Date Admission Date: May 26, 2020 Supervising Physician Co-Signing Physician Notes I have personally seen and examined the patient with AYAAN Murray. Her note reflects my exam and findings. I agree with her impression and plan. I do not think EGD would benefit patient or add to her treatment at this point. Discussed with patient and son present who agree. Grazing pattern for diet recommended. Baldev Rose M.D. Subjective Ms. Delfina Majano is an 89 yr old female with MG, ESRD on dialysis. GI was consulted and recommended CT, eventual OP EGD. Video swallow with w/o aspiration. Pt unable to complete barium swallow due to inability to stand for esophagus X-rays. Asked by Dr. Gage to see the patient again and to make a comment on timing of EGD. I spoke with the patient and her son today. Main problem according to the patient and her son is her worsening weakness. The patient reports that if she eats then drinks too quickly it feels like the water comes back up again. Otherwise she does not have any feeling of food getting stuck and denies any pain on swallowing. No typical reflux symptoms. No abdominal pain. Review of Systems Review of Systems: ROS: Gen: + Weakness, No fevers, + 90 lbs gradual weight loss in 2 yrs since started dialysis Eyes: No eye redness, or pain, no recent vision changes Resp: No SOB, no cough Cardio: No palpitations/irregular beats, no chest pain GI: No abdominal pain, no reflux, no nausea/vomiting : Denies pain on urination Skin: No jaundice, itching or new rashes Physical Exam Constitutional: WD/WN, vitals as above Eyes: PERRL, conjunctivae normal, anicteric sclerae ENMT: external ear and nose normal, oropharynx normal Neck: trachea midline, no thyromegaly Respiratory: normal respiratory effort Auscultation: + diminished lung sounds (at bases) few LLL crackles Cardiovascular: Rate/Rhythm: regular rate and regular rhythm 2/6 systolic murmur Gastrointestinal (Abdomen): Inspection/Auscultation: abdomen normal to inspection; abdomen not distended Percussion/Palpation: abdomen soft; abdomen nontender hypoactive BS Skin: no rashes, warm and dry Neurologic: PERRL, EOMI, accommodation nl, no face palsy, no dysarthria Psychiatric: A+Ox3, euthymic affect pleasant, smiles Lymphatic: no cervical or axillary lymphadenopathy Results & Data ([facility]) Vital Signs (Past 12 Hours) Vital Signs Temp Pulse Pulse Resp BP BP Pulse Ox 06/01/20 07:55 36.4 C L 76 18 96/72 L 94 06/01/20 03:51 36.3 C L 70 16 87/59 L 99 05/31/20 23:14 36.6 C 66 20 97/68 L 100
--- NOTE | 2020-06-01 11:16 | Progress Notes ---
DATE: 06/01/2020 NEPHROLOGY PROGRESS NOTE SUBJECTIVE: She had dialysis yesterday and had about 1.7 liters of fluid removed. At this time, she feels weak and tired and poor appetite. OBJECTIVE: VITAL SIGNS: Blood pressure is 96/72, temperature 36.4, 94% on room air. HEENT: Mucous membranes moist. NECK: Supple. No jugular venous distention. CHEST: Bilaterally decreased breath sounds with basal crackles. CARDIOVASCULAR: S1, S2 irregular. Soft systolic murmur heard. ABDOMEN: Soft, nontender. EXTREMITIES: Show no edema. LABORATORY TESTS: Sodium 138, potassium 5.1, BUN 53, creatinine 4.03, hemoglobin 13.4. ASSESSMENT AND PLAN: An 89-year-old female with end-stage renal disease, on chronic hemodialysis Sunday, Sunday, Sunday through a tunneled dialysis catheter, admitted with generalized deconditioning, issues with pacemaker and issues with swallowing and poor appetite. End-stage renal disease: She does have some evidence of congestive heart failure as she does have interstitial edema as well as pleural effusion. We will try to take as much fluid as we can, but she does not tolerate fluid removal very well as her blood pressure drops and she gets weak. Next dialysis will be tomorrow for 3 hours 30 minutes and we will try to take off 2 kilo off on a 2K bath.
--- NOTE | 2020-06-01 13:09 | Cardiology Progress Note ---
Date of Service June 01, 2020 Assessment & Plan (1) CKD (chronic kidney disease): (2) Pacemaker at end of battery life: (3) Tachy-xi syndrome: (4) Myasthenia gravis: The patient presently has multiple medical problems. All consultants notes are appreciated. From a cardiac standpoint I believe she is stable. Her pacemaker battery is reaching end-of-life but still has 3 to 4 months of energy remaining. The EP service indicated that she could be switched back to a dual- chamber pacemaker. When she has recovered from this hospital admission and her problems have been worked out then they can proceed with an elective upgrade of her pacemaker generator. Subjective The patient had an uneventful night. She expresses no new complaints. Review of Systems Review of Systems: All systems reviewed & are unremarkable except as noted in HPI & below Nothing additional to add Physical Exam Physical Exam: General: no acute distress and stated age Head: normocephalic, no masses, lesions, tenderness or abnormalities Eyes: conjunctiva are pink and non-injected, sclera clear Neck: supple, no adenopathy, no bruits, normal jugular venous pulse, no hepatojugular reflux Chest: normal shape and normal respiratory effort Lungs: clear to auscultation and percussion Cardiac Exam: - regular rate & rhythm, no murmurs gallops or rubs - normal S1, normal S2 Pulses: 2(+) throughout Abdomen: abdomen soft, non-tender, no abnormal masses and no hepatosplenomegaly Musculoskeletal: no gait disturbance, no joint inflammation, no deforming arthritis Extremities: no edema and no cyanosis Neuro: grossly normal exam Results & Data Vital Signs (Past 12 Hours) Vital Signs Temp Pulse Pulse Resp BP Pulse Ox 06/01/20 11:59 36.5 C 69 20 94/61 L 94 06/01/20 07:55 36.4 C L 76 18 96/72 L 94 06/01/20 03:51 36.3 C L 70 16 87/59 L 99 Laboratory Results Laboratory Results - last 24 hr 05/31/20 05/31/20 05/31/20 13:47 16:33 20:23 WBC RBC Hgb Hct MCV MCH MCHC RDW Std Deviation RDW Coeff of Cornel Plt Count MPV Immature Gran % (Auto) Neut % (Auto) Lymph % (Auto) [place] % (Auto) Eos % (Auto) Baso % (Auto) Neut # (Auto) Lymph # (Auto) [place] # (Auto) Eos # (Auto) Baso # (Auto) Immature Gran # (Auto) Absolute Nucleated RBC Nucleated RBC % (auto) Sodium Potassium Chloride Carbon Dioxide Anion Gap BUN Creatinine Est Cr Clr Drug Dosing Est GFR ( Amer) Est GFR (Non-Af Amer) BUN/Creatinine Ratio Glucose POC Glucose 97 138 H 103 H Calcium Total Bilirubin Direct Bilirubin AST ALT Alkaline Phosphatase Total Protein Albumin Globulin Albumin/Globulin Ratio 06/01/20 06/01/20 06/01/20 05:39 05:39 05:45 WBC 9.26 RBC 4.49 Hgb 13.4 Hct 42.8 MCV 95.3 MCH 29.8 MCHC 31.3 L RDW Std Deviation 61.8 H RDW Coeff of Cornel 18.5 H Plt Count 136 MPV 12.2 H Immature Gran % (Auto) 0.3 Neut % (Auto) 80.7 Lymph % (Auto) 14.4 [place] % (Auto) 4.5 Eos % (Auto) 0.1 Baso % (Auto) 0.0 Neut # (Auto) 7.47 H Lymph # (Auto) 1.33 [place] # (Auto) 0.42 Eos # (Auto) 0.01 Baso # (Auto) 0.00 Immature Gran # (Auto) 0.03 H Absolute Nucleated RBC 0.09 H Nucleated RBC % (auto) 0.9 Sodium 138 Potassium 5.1 Chloride 101 Carbon Dioxide 25 Anion Gap 12.0 H BUN 53 H Creatinine 4.03 H D Est Cr Clr Drug Dosing 7.5 Est GFR ( Amer) 10.8 Est GFR (Non-Af Amer) 9.3 BUN/Creatinine Ratio 13.1 Glucose 108 H POC Glucose Calcium 9.0 Total Bilirubin 1.4 H Direct Bilirubin 0.7 H AST 88 H ALT 138 H Alkaline Phosphatase 174 H Total Protein 6.4 Albumin 3.5 Globulin 2.9 Albumin/Globulin Ratio 1.2 06/01/20 06/01/20 07:30 11:27 WBC RBC Hgb Hct MCV MCH MCHC RDW Std Deviation RDW Coeff of Cornel Plt Count MPV Immature Gran % (Auto) Neut % (Auto) Lymph % (Auto) [place] % (Auto) Eos % (Auto) Baso % (Auto) Neut # (Auto) Lymph # (Auto) [place] # (Auto) Eos # (Auto) Baso # (Auto) Immature Gran # (Auto) Absolute Nucleated RBC Nucleated RBC % (auto) Sodium Potassium Chloride Carbon Dioxide Anion Gap BUN Creatinine Est Cr Clr Drug Dosing Est GFR ( Amer) Est GFR (Non-Af Amer) BUN/Creatinine Ratio Glucose POC Glucose 91 103 H Calcium Total Bilirubin Direct Bilirubin AST ALT Alkaline Phosphatase Total Protein Albumin Globulin Albumin/Globulin Ratio Medications Administered Current Inpatient Medications Amiodarone HCl (Cordarone) 200 mg PO BID [facility] Stop: 06/25/20 20:59 Last Admin: 06/01/20 08:12 Dose: 200 mg Documented by: Aspirin (Ecotrin Ectab) 81 mg PO HS [facility] Stop: 06/25/20 20:59 Last Admin: 05/31/20 20:21 Dose: 81 mg Documented by: Heparin Sodium (Porcine) (Heparin Sodium (Porcine)) 5,000 units SQ Q12 [facility] Stop: 06/25/20 20:59 Last Admin: 06/01/20 08:13 Dose: 5,000 units Documented by: Levothyroxine Sodium (Synthroid) 125 mcg PO DAILYBB [facility] Stop: 06/27/20 06:29 Last Admin: 06/01/20 05:53 Dose: 125 mcg Documented by: Lorazepam (Ativan) 0.5 mg PO DAILY PRN PRN Reason: Anxiety Stop: 06/25/20 16:44 Last Admin: 05/31/20 20:31 Dose: 0.5 mg Documented by: Melatonin (Melatonin) 9 mg PO HSZ PRN PRN Reason: Sleep Stop: 06/25/20 17:37 Midodrine (Proamatine) 5 mg PO MoWeFr@0600 [facility] Stop: 06/27/20 05:59 Last Admin: 05/31/20 06:34 Dose: 5 mg Documented by: Miscellaneous (Order Awaiting Action) 1 ea N/A QS [facility] Stop: 06/26/20 00:00 Last Admin: 06/01/20 08:12 Dose: Not Given Documented by: Pantoprazole Sodium (Protonix) 40 mg PO BID [facility] Stop: 06/27/20 20:59 Last Admin: 06/01/20 08:12 Dose: 40 mg Documented by: Prednisone (Prednisone) 20 mg PO DAILY [facility] Stop: 06/27/20 08:59 Last Admin: 06/01/20 08:12 Dose: 20 mg Documented by: Tramadol HCl (Ultram) 50 mg PO Q12H PRN PRN Reason: Pain Stop: 06/25/20 19:44 Last Admin: 05/31/20 17:48 Dose: 50 mg Documented by: Vitamin B Complex/Folic Acid (Nephrocaps) 1 cap PO DAILY [facility] Stop: 06/26/20 08:59 Last Admin: 06/01/20 08:12 Dose: 1 cap Documented by: Vitamin D (Vitamin D3) 1,000 units PO DAILY [facility] Stop: 06/26/20 08:59 Last Admin: 06/01/20 08:11 Dose: 1,000 units Documented by: (1) CKD (chronic kidney disease) Chronic kidney disease stage: unspecified stage Qualified Code(s): N18.9 - Chronic kidney disease, unspecified
--- NOTE | 2020-06-01 16:05 | Communication Note ---
Date of Service: June 01, 2020 Delfina looks well today and has again no manifestations of her myasthenia gravis that I can detect clinically. Her speech is clear eye movements are norm al facial strength is normal neck flexor strength is normal there is a little proximal weakness in her arms due to her shoulder issues and her lower extremities etc. are weak but this is due to her generalized disease not to myasthenia. Swallowing study shows no pharyngeal issues which would be typical of myasthenia and only esophageal issues which are probably intrinsic esophageal dysmotility Her pacemaker battery is been replaced She is scheduled for dialysis tomorrow She continues to take prednisone 20 mg daily and I will arrange to see her on an outpatient basis and frankly would probably switch this to every other day for about a month or 2 and then begin to taper it off as I really doubt that what happened to her was in any way shape or form a true myasthenic crisis I will check with her tomorrow Maximo Driscoll MD
[2020-06-01] MEDS: LORazepam 0.5 MG TAB PO PRN (20:27)
[2020-06-01] MEDS: ASPIRIN 81 MG ECTAB PO SCH (20:31)
[2020-06-01] MEDS: TRAMADOL HCL 50 MG TABLET PO PRN (23:15)
[2020-06-02] MEDS: LEVOTHYROXINE SODIUM 125 MCG TABLET PO SCH (05:23)
[2020-06-02] MEDS: MIDODRINE HCL 2.5 MG TAB PO SCH (05:23)
[2020-06-02 07:33] LABS: Albumin Globulin Ratio 1.3 (0.9-2); Albumin Level 3.8 gm/dl (3.4-5.0); Bilirubin,Total 1.5 mg/dl (0.2-1); Creatinine Clr Calc Pharmacy 5.7 ml/min; Est GFR (African American) 7.9; Est GFR (Non-African American) 6.8; Globulin 2.8 gm/dl (2.5-4.0); Total Protein 6.6 gm/dl (6.4-8.2)
[2020-06-02] MEDS: CHOLECALCIFEROL 1,000 UNITS 25 MCG TAB PO SCH (08:45)
[2020-06-02] MEDS: predniSONE 20 MG TAB PO SCH (08:45)
[2020-06-02] MEDS: PANTOprazole 40 MG TAB PO SCH ×2 (08:45→20:38)
[2020-06-02] MEDS: NEPHROCAPS PO SCH (08:45)
[2020-06-02] MEDS: AMIODARONE 200 MG TAB PO SCH ×2 (08:45→20:37)
[2020-06-02] MEDS: HEPARIN SOD 5,000 UNIT/0.5 ML VIAL SQ SCH ×2 (09:00→20:38)
[2020-06-02] MEDS: ALTEPLASE, RECOMBINANT 1 MG/ML 2ML VIAL INSTIL SCH ×2 (10:47→10:48)
--- NOTE | 2020-06-02 12:01 | Progress Notes ---
DATE: 06/02/2020 SUBJECTIVE: No major issues. Blood pressure remained somewhat low at 98/74. We attempted to do dialysis, but her dialysis catheter did not work. We have put the Cathflo to hopefully dissolve the clot and make the catheter functional again. OBJECTIVE: VITAL SIGNS: Blood pressure 98/74, pulse rate 65, temperature 36.5, 100% on 3 liter nasal cannula. CHEST: Decreased breath sounds, bilateral basal crackles. CARDIOVASCULAR: S1, S2 regular. ABDOMEN: Soft, nontender. EXTREMITIES: Shows no edema. LABORATORY TESTS: From this morning shows a creatinine of 5.22, BUN 78. Sodium 133, potassium 5. ASSESSMENT AND PLAN: An 89-year-old female with end-stage renal disease on chronic hemodialysis Sunday, Sunday, Sunday through a tunneled dialysis catheter, admitted with generalized deconditioning, issues with pacemaker and issues with swallowing and poor appetite. End-stage renal disease: At this point, the big problem is the catheter is not working. Hopefully, with the Cathflo it will be functional. Otherwise, she will have to put a new dialysis catheter. She has evidence of congestive heart failure with pleural effusion as well as pulmonary congestion and ideally she would benefit with more fluid removal, but the patient is very weak with somewhat low blood pressure and as per son, she does not tolerate fluid removal at all, so we will take less than the desired amount with a goal ultrafiltration of 1.3 kilo today.
--- NOTE | 2020-06-02 13:33 | Communication Note ---
Date of Service: June 02, 2020 Today, GI was asked to evaluate pt for elevated LFTs. Labs show normal LFTs prior to admission, then transaminitis and mild alk phos elevation starting 05/31. She does not have abdominal pain, nausea or vomiting (no biliary obstruction symptoms). Most likely this represents an effect of a medication, transient hypotensive event or other iatrogenic cause. We continue to recommend imaging (CT recommended on initial consult last week). As an alternative, liver US would also be helpful to r/o biliary obstruction. When liver enzymes become elevated after a patient is hospitalized, it is usually the result of medications received during admission. However, imaging would help rule out structural/biliary issues.
--- NOTE | 2020-06-02 18:04 | Communication Note ---
Date of Service: June 02, 2020 Delfina looks the same as she did yesterday has tolerated dialysis and unfortunately is having some elevated liver enzymes. I thought that she has had a battery replaced in the pacemaker yesterday but instead be intensive the signal have been altered and I am not sure she is going to have the replacement done during this hospital stay. Again I do not think this was a myasthenic crisis but we seem to be committed to 20 mg of prednisone a day at least for the next few weeks until I can get her into the office assess the situation and probably initiate alternate day therapy I will check back with her again tomorrow but after that if she is stable I will sign off the case and arrange for follow-up on an outpatient basis Maximo Driscoll MD
--- NOTE | 2020-06-02 18:59 | Hospitalist Progress Note ---
Date of Service June 02, 2020 Assessment & Plan (1) Transaminitis: AST increased from 88 to 249 and ALT increased from 138 to 308 and ALK increased from 174 to 192 Pt and family has been refused CT abd/pelvis Gastro on board Will get an u/s liver to r/o obstruction. Continue monitor liver enzymes (2) Weakness: Unintentional Weight Loss -This is a patient who is on dialysis and also pacemaker and problems with eating. She is brought in to the ED on 05/26/2020 by her son Josef [phone] who reports that over period of time, her mother has had progressive weight loss with poor oral appetitite and has trouble with eating the food such as feeling reflux symptoms. However, patient is not on protonic at home currently. no abdomen pain. no vomiting. -Her son feels that while the above symptoms have been ongoing, he feels that his mother also having more weakness of her strength and in past several days, she does not have strength to feed herself with her own hands. Review of outpatient [facility] notes that there have been communication with outpatient providers and Dr. Driscoll questioning whether patient has flair-up of myasthenia gravis. 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 -started solumedrol 40 mg IV BID on 05/26/2020, requested neurology consult to rule out myasthenia gravis flare and they deemed this to be unlikely and but allowed for transition from solumedrol to prednisone 20 mg daily starting on 05/28/2020. continue prednisone as 20 mg daily for and neurology recommended to consider to continue prednisone 20 mg daily dosing until her outpatient neurolo gy clinic appointment (scheduled on [facility]) -upper EGD by Gastroenterology is deferred by patient and her son -since patient tolerated clear liquid diet on 05/26/2020, start full liquid diet on 05/27/2020 while awaiting formal speech and swallow evaluation and maintain aspiration precautions. patient seems to be tolerating diet well -patient is due for videofluoroscopy and possible barium swallow study as per speech and swallow services has been rescheduled to 05/31/2020 -05/30/2020: patient's feels weaker today but appears that this symptoms are correlating with volume status. she is still saturating well on room air but she subjectively feels more short of breath. she and her sone declines IV Lasix. her CXR is grossly unchanged at that on admission. I wonder whether her subjective weakness prior to this admission were due to primarily due to her volume status 05/31/2020: completed dialysis session. completed swallowing studies on 05/31/2020: as per speech and swallow therapist who messaged hospitalist "She is not aspirating but is at risk as she has a ton of esophageal issues, as we suspected. She has dysmotility, a small Zenker's Diverticulum, and a tortous esophagus." recommended slippery diet 06/02- Continue minced and moist diet PT/OT eval Fall precaution Abnormal UA Urine cx positive for group B beta strep possible contamination Was starting on IV Rocephin and discontinued on 05/28 Stable (3) ESRD on dialysis: -Patient is on dialysis through perm cath every Sunday, Sunday, Sunday. As per her son, she was at dialysis earlier on Sunday05/26/2020 -home medication of sensipar and Triprhocap HDon MWF (4) Hypothyroidism: -outpatient medication of levothyroxine is 100 mcg daily -TSH elevated as 6.7 but free T4 is not low (free T4 1.7 is mildly elevated) -total T4 is normal as 6.9, free T3 levels low as 1.23 and total T3 level low as 0.28 -it is possible that amiodarone could be contributing to changes in thyroid function labs. 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 -patient's son also reports that patient's pacemaker is at end of battery life. Patient denies chest pain or palpitations or fevers. -monitor on telemetry -continue amiodarone 200 mg BID -cardiology consult 05/27/2020 "although her pacemaker has reached end-of-life there is still plenty of safety margin on the battery." at this time cardiology is determining whether pacemaker battery should be addressed as inpatient versus outpatient. -Pacemaker interrogated on 05/31/2020 and patient and her son to discuss with cardiology on future pacemaker plans Code Status: DNR/DNI son Bill [phone] DVT prophylaxis: heparin subcutaneous q12 hours Admission and Anticipated Discharge Date Admission Date: May 26, 2020 Subjective Pt was seen and examined Lying in bed with no distress with son at bedside Pt said that she feels fine She does not have any abdominal Tolerated her diet Pt and son continue to refuse the CT abdomen because son does not think that she would be able to drink the contrast Denies any chest pain, palpitation, dizziness and SOB Physical Exam Physical Exam: General- No acute distress Head- atraumatic Eyes- PERRL, EOMI, ENT- oropharynx clear Neck- supple, no JVD Lungs- clear to auscultation Heart- regular rhythm; no murmur Abdomen- normal bowel sounds, soft, nontender Extremities- no calf tenderness Neuro- alert, oriented x 3; PERRL, EOMI; no facial palsy; no dysarthria Skin- warm & dry Results & Data Results & Data ([facility]) Vital Signs (Past 12 Hours) Vital Signs Temp Pulse Pulse Pulse Pulse Resp BP 06/02/20 15:47 36.6 C 93 H 19 06/02/20 15:15 36.5 C 69 06/02/20 15:00 102 H 107/80 06/02/20 14:40 84 96/64 L 06/02/20 14:20 96 H 90/67 L 06/02/20 14:00 96 H 113/75 06/02/20 13:40 96 H 114/77 06/02/20 13:20 105 H 148/78 H 06/02/20 13:00 93 H 117/99 06/02/20 12:40 95 H 112/85 06/02/20 12:20 70 102/64 06/02/20 12:00 71 116/73 06/02/20 11:40 70 101/67 06/02/20 10:30 36.5 C 65 06/02/20 08:05 36.5 C 73 16 06/02/20 08:00 70 BP BP Pulse Ox 06/02/20 15:47 96/67 L 100 06/02/20 15:15 101/71 06/02/20 15:00 06/02/20 14:40 06/02/20 14:20 06/02/20 14:00 06/02/20 13:40 06/02/20 13:20 06/02/20 13:00 06/02/20 12:40 06/02/20 12:20 06/02/20 12:00 06/02/20 11:40 06/02/20 10:30 06/02/20 08:05 98/74 L 100 06/02/20 08:00
[2020-06-02] MEDS: ASPIRIN 81 MG ECTAB PO SCH (20:37)
[2020-06-03] MEDS: LEVOTHYROXINE SODIUM 125 MCG TABLET PO SCH (06:02)
[2020-06-03 07:13] LABS: Albumin Level 3.3 gm/dl (3.4-5.0); BUN Creatinine Ratio 13.4 (10-20); Calcium 8.3 mg/dl (8.5-10.1); Est GFR (Non-African American) 10.4; Potassium 4.1 mmol/L (3.5-5.1)
[2020-06-03 07:20] LABS: Albumin Globulin Ratio 1.3 (0.9-2); Bilirubin,Total 1.4 mg/dl (0.2-1); Globulin 2.5 gm/dl (2.5-4.0); Total Protein 5.8 gm/dl (6.4-8.2)
--- NOTE | 2020-06-03 07:48 | Ultrasound Report ---
US liver HISTORY: 89 years-old Female Elevated liver enzymes acutely elevated LFTs COMPARISON: Chest CT 04/14/2019 TECHNIQUE: Multiple real-time sonographic images of the abdominal right upper quadrant were obtained assessing grayscale appearance and color flow FINDINGS: Limited exam secondary to inability to breath-hold. The visualized pancreas is unremarkable. The comm on bile duct is normal, 3 mm. Multiple calcified granulomata of the liver. No hepatic mass lesion or marginal nodularity to suggest cirrhosis. Echogenic linear area of the right hepatic lobe may reflect areas of fibrosis or hepatic steatosis. Mild gallbladder distention. There is an echogenic mucosal f old versus gallbladder polyp along the dependent gallbladder neck measuring 8 mm in greatest dimensio n. No gallbladder wall thickening or pericholecystic fluid. Sonographic Pagan sign reported as negat sanjay. Nonspecific shadowing is noted within the subcutaneous tissues of the anterior abdomen, possibly post surgical. No right-sided hydronephrosis. IMPRESSION: 1. Mild gallbladder distention without cholelithiasis or sonographic evidence of acute cholecystitis. 2. Probable prominent mucosal fold of the gallbladder neck measures up to 8 mm. A gallbladder polyp i s could appear similarly. 3. Multiple calcified granulomata of the liver. 4. No biliary ductal dilation. ACT 112: Negative or not required by law. The above report was generated using voice recognition software. It may contain grammatical, syntax o r spelling errors. Electronically signed by: Gael Palmer M.D. 06/03/2020 7:46 AM
[2020-06-03] MEDS: NEPHROCAPS PO SCH (08:49)
[2020-06-03] MEDS: HEPARIN SOD 5,000 UNIT/0.5 ML VIAL SQ SCH ×2 (08:49→20:17)
[2020-06-03] MEDS: predniSONE 20 MG TAB PO SCH (08:49)
[2020-06-03] MEDS: CHOLECALCIFEROL 1,000 UNITS 25 MCG TAB PO SCH (08:49)
[2020-06-03] MEDS: PANTOprazole 40 MG TAB PO SCH ×2 (08:50→20:17)
[2020-06-03] MEDS: AMIODARONE 200 MG TAB PO SCH ×2 (09:07→20:17)
--- NOTE | 2020-06-03 15:23 | Cardiology Progress Note ---
Date of Service June 03, 2020 Assessment & Plan (1) Weight loss: (2) Dysphagia: (3) Tachy-xi syndrome: (4) Pacemaker at end of battery life: (5) Weakness: The patient is improving clinically and overall feels better. Believe that this might be due to the steroids that were started and perhaps also the increase in her Synthroid due to the elevated TSH. I believe that the pacemaker was incidental and not a cause of her symptoms. Her pacemaker is only used as a backup and she is not pacemaker dependent. Since she has been admitted she is only use the pacemaker at night while she is sleeping or rarely during the day. She has been in sinus rhythm since admission but today she is in a rate controlled atrial fibrillation which is asymptomatic. She is already on amiodarone and I would make no additional medication changes. She did not come in to the hospital on anticoagulation and I believe that is because of her risk of bleeding. She is only on aspirin 81 mg daily. The plan will be to proceed with an elective generator change which can be set up after the patient's d ischarge through our clinic. Subjective Patient has no new cardiac complaints today. She actually states she is she feels much better and is actually eating better today. Review of Systems Review of Systems: All systems reviewed & are unremarkable except as noted in HPI & below Nothing additional to add Physical Exam Physical Exam: General: no acute distress and stated age Head: normocephalic, no masses, lesions, tenderness or abnormalities Eyes: conjunctiva are pink and non-injected, sclera clear Neck: supple, no adenopathy, no bruits, normal jugular venous pulse, no hepatojugular reflux Chest: normal shape and normal respiratory effort Lungs: clear to auscultation and percussion Cardiac Exam: - regular rate & rhythm, no murmurs gallops or rubs - normal S1, normal S2 Pulses: 2(+) throughout Abdomen: abdomen soft, non-tender, no abnormal masses and no hepatosplenomegaly Musculoskeletal: no gait disturbance, no joint inflammation, no deforming arthritis Extremities: no edema and no cyanosis Neuro: grossly normal exam Results & Data Vital Signs (Past 12 Hours) Vital Signs Temp Pulse Pulse Resp BP Pulse Ox 06/03/20 12:03 36.6 C 68 17 86/63 L 90 06/03/20 09:00 95/60 L 06/03/20 08:09 36.5 C 87 16 87/57 L 96 06/03/20 03:25 35.8 C L 88 18 91/60 L 99 Laboratory Results Laboratory Results - last 24 hr 06/02/20 06/02/20 06/03/20 16:33 20:33 06:09 Sodium 137 Potassium 4.1 D Chloride 104 Carbon Dioxide 20 L Anion Gap 13.0 H BUN 50 H Creatinine 3.69 H D Est Cr Clr Drug Dosing 8.0 Est GFR ( Amer) 12.0 Est GFR (Non-Af Amer) 10.4 BUN/Creatinine Ratio 13.4 Glucose 93 POC Glucose 113 H 121 H Calcium 8.3 L Total Bilirubin 1.4 H AST 195 H ALT 340 H Alkaline Phosphatase 175 H Total Protein 5.8 L Albumin 3.3 L Globulin 2.5 Albumin/Globulin Ratio 1.3 06/03/20 06/03/20 07:50 11:44 Sodium Potassium Chloride Carbon Dioxide Anion Gap BUN Creatinine Est Cr Clr Drug Dosing Est GFR ( Amer) Est GFR (Non-Af Amer) BUN/Creatinine Ratio Glucose POC Glucose 71 108 H Calcium Total Bilirubin AST ALT Alkaline Phosphatase Total Protein Albumin Globulin Albumin/Globulin Ratio Medications Administered Current Inpatient Medications Amiodarone HCl (Cordarone) 200 mg PO BID [facility] Stop: 06/25/20 20:59 Last Admin: 06/03/20 09:07 Dose: 200 mg Documented by: Aspirin (Ecotrin Ectab) 81 mg PO HS [facility] Stop: 06/25/20 20:59 Last Admin: 06/02/20 20:37 Dose: 81 mg Documented by: Heparin Sodium (Porcine) (Heparin Sodium (Porcine)) 5,000 units SQ Q12 [facility] Stop: 06/25/20 20:59 Last Admin: 06/03/20 08:49 Dose: 5,000 units Documented by: Levothyroxine Sodium (Synthroid) 125 mcg PO DAILYBB [facility] Stop: 06/27/20 06:29 Last Admin: 06/03/20 06:02 Dose: 125 mcg Documented by: Lorazepam (Ativan) 0.5 mg PO DAILY PRN PRN Reason: Anxiety Stop: 06/25/20 16:44 Last Admin: 06/01/20 20:27 Dose: 0.5 mg Documented by: Melatonin (Melatonin) 9 mg PO HSZ PRN PRN Reason: Sleep Stop: 06/25/20 17:37 Midodrine (Proamatine) 5 mg PO [id number]@[id number] [facility] Stop: 06/27/20 05:59 Last Admin: 06/02/20 05:23 Dose: 5 mg Documented by: Miscellaneous (Order Awaiting Action) 1 ea N/A QS [facility] Stop: 06/26/20 00:00 Last Admin: 06/03/20 00:18 Dose: 1 ea Documented by: Pantoprazole Sodium (Protonix) 40 mg PO BID [facility] Stop: 06/27/20 20:59 Last Admin: 06/03/20 08:50 Dose: 40 mg Documented by: Prednisone (Prednisone) 20 mg PO DAILY [facility] Stop: 06/27/20 08:59 Last Admin: 06/03/20 08:49 Dose: 20 mg Documented by: Tramadol HCl (Ultram) 50 mg PO Q12H PRN PRN Reason: Pain Stop: 06/25/20 19:44 Last Admin: 06/01/20 23:15 Dose: 50 mg Documented by: Vitamin B Complex/Folic Acid (Nephrocaps) 1 cap PO DAILY [facility] Stop: 06/26/20 08:59 Last Admin: 06/03/20 08:49 Dose: 1 cap Documented by: Vitamin D (Vitamin D3) 1,000 units PO DAILY [facility] Stop: 06/26/20 08:59 Last Admin: 06/03/20 08:49 Dose: 1,000 units Documented by:
--- NOTE | 2020-06-03 16:29 | Communication Note ---
Date of Service: June 03, 2020 Delfina looks stable her speech is clear she reports no dysphagia and her exam reveals nothing to suggest clear-cut myasthenic weakness of any muscle group She is going to be discharged tomorrow if things continue to go well Neurology does not need to see her at this point other than on an outpatient basis and I will arrange to have her visit in our office in about 2 to 3 weeks which point I probably will switch to prednisone to every other day Maximo Driscoll MD
--- NOTE | 2020-06-03 19:59 | Hospitalist Progress Note ---
Date of Service June 03, 2020 Assessment & Plan (1) Transaminitis: AST increased from 88 to 249 and ALT increased from 138 to 308 and ALK increased from 174 to 192 Pt and family has been refused CT abd/pelvis Gastro on board Liver U/S showed mild gallbladder distention without cholelithiasis or sonographic evidence of acute cholecystitis. Probable prominent mucosal fold of the gallbladder neck measures up to 8 mm. A gallbladder polyp is could appear similarly. No biliary ductal dilation. Liver enzymes slightly decreased. Monitor LFT (2) Weakness: Unintentional Weight Loss -This is a patient who is on dialysis and also pacemaker and problems with eating. She is brought in to the ED on 05/26/2020 by her son Josef [phone] who reports that over period of time, her mother has had progressive weight loss with poor oral appetitite and has trouble with eating the food such as feeling reflux symptoms. However, patient is not on protonic at home currently. no abdomen pain. no vomiting. -Her son feels that while the above symptoms have been ongoing, he feels that his mother also having more weakness of her strength and in past several days, she does not have strength to feed herself with her own hands. Review of outpatient [facility] notes that there have been communication with outpatient providers and Dr. Driscoll questioning whether patient has flair-up of myasthenia gravis. -05/26/2020: On my exam patient appeared have no deficits of extraoccular eye movements and appears to be able to sustain with with moving her gaze to an upward position and keeping that steady, no tongue deviations, and able to move her hands with strong hand film touch up inspector; Patient passed the dysphagia screening. -started solumedrol 40 mg IV BID on 05/26/2020, requested neurology consult to rule out myasthenia gravis flare and they deemed this to be unlikely and but allowed for transition from solumedrol to prednisone 20 mg daily starting on 05/28/2020. continue prednisone as 20 mg daily for and neurology recommended to consider to continue prednisone 20 mg daily dosing until her outpatient neurology clinic appointment (scheduled on [facility]) -upper EGD by Gastroenterology is deferred by patient and her son -since patient tolerated clear liquid diet on 05/26/2020, start full liquid diet on 05/27/2020 while awaiting formal speech and swallow evaluation and maintain aspiration precautions. patient seems to be tolerating diet well -patient is due for videofluoroscopy and possible barium swallow study as per speech and swallow services has been rescheduled to 05/31/2020 -05/30/2020: patient's feels weaker today but appears that this symptoms are correlating with volume status. she is still saturating well on room air but she subjectively feels more short of breath. she and her sone declines IV Lasix. her CXR is grossly unchanged at that on admission. I wonder whether her subjective weakness prior to this admission were due to primarily due to her volume status 05/31/2020: completed dialysis session. completed swallowing studies on 05/31/2020: as per speech and swallow therapist who messaged hospitalist "She is not aspirating but is at risk as she has a ton of esophageal issues, as we suspected. She has dysmotility, a small Zenker's Diverticulum, and a tortous esophagus." recommended slippery diet 06/02- Continue minced and moist diet PT/OT eval Fall precaution Abnormal UA Urine cx positive for group B beta strep possible contamination Was starting on IV Rocephin and discontinued on 05/28 Stable (3) ESRD on dialysis: -Patient is on dialysis through perm cath every Sunday, Sunday, Sunday. As per her son, she was at dialysis earlier on Sunday05/26/2020 -home medication of sensipar and Triprhocap -Next HD tomorrow (4) Hypothyroidism: -outpatient medication of levothyroxine is 100 mcg daily -TSH elevated as 6.7 but free T4 is not low (free T4 1.7 is mildly elevated) -total T4 is normal as 6.9, free T3 levels low as 1.23 and total T3 level low as 0.28 -it is possible that amiodarone could be contributing to changes in thyroid function labs. 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 -patient's son also reports that patient's pacemaker is at end of battery life. Patient denies chest pain or palpitations or fevers. -monitor on telemetry -continue amiodarone 200 mg BID -cardiology consult 05/27/2020 "although her pacemaker has reached end-of-life there is still plenty of safety margin on the battery." at this time cardiology is determining whether pacemaker battery should be addressed as inpatient versus outpatient. -Pacemaker interrogated on 05/31/2020 and patient and her son to discuss with cardiology on future pacemaker plans Code Status: DNR/DNI son Josef [phone] DVT prophylaxis: heparin subcutaneous q12 hours Admission and Anticipated Discharge Date Admission Date: May 26, 2020 Subjective Pt was seen and examined Sitting in bed with no distress with daughter at bedside Pt said that she feels fine Denies any chest pain, palpitation and SOB Physical Exam Physical Exam: General- No acute distress Head- atraumatic Eyes- PERRL, EOMI, ENT- oropharynx clear Neck- supple, no JVD Lungs- clear to auscultation Heart- regular rhythm; no murmur Abdomen- normal bowel sounds, soft, nontender Extremities- no calf tenderness Neuro- alert, oriented x 3; PERRL, EOMI; no facial palsy; no dysarthria Skin- warm & dry Results & Data Results & Data ([facility]) Vital Signs (Past 12 Hours) Vital Signs Temp Pulse Pulse Resp BP BP Pulse Ox 06/03/20 19:50 36.3 C L 57 L 18 97/65 L 100 06/03/20 15:45 36.3 C L 92 H 18 89/56 L 99 06/03/20 12:03 36.6 C 68 17 86/63 L 90 06/03/20 09:00 95/60 L 06/03/20 08:09 36.5 C 87 16 87/57 L 96
[2020-06-03] MEDS: ASPIRIN 81 MG ECTAB PO SCH (20:17)
[2020-06-03] MEDS: LORazepam 0.5 MG TAB PO PRN (20:19)
[2020-06-04] MEDS: TRAMADOL HCL 50 MG TABLET PO PRN ×2 (00:42→08:26)
[2020-06-04] MEDS: MIDODRINE HCL 2.5 MG TAB PO SCH (05:36)
[2020-06-04] MEDS: LEVOTHYROXINE SODIUM 125 MCG TABLET PO SCH (05:37)
[2020-06-04 07:37] LABS: Albumin Globulin Ratio 1.2 (0.9-2); Albumin Level 3.5 gm/dl (3.4-5.0); BUN Creatinine Ratio 14.6 (10-20); Bilirubin,Total 1.7 mg/dl (0.2-1); Calcium 8.7 mg/dl (8.5-10.1); Creatinine Clr Calc Pharmacy 6.4 ml/min; Est GFR (Non-African American) 7.8; Globulin 2.9 gm/dl (2.5-4.0); Potassium 5.1 mmol/L (3.5-5.1); Total Protein 6.4 gm/dl (6.4-8.2)
[2020-06-04] MEDS: PANTOprazole 40 MG TAB PO SCH ×2 (08:27→20:30)
[2020-06-04] MEDS: AMIODARONE 200 MG TAB PO SCH ×2 (08:27→20:30)
[2020-06-04] MEDS: CHOLECALCIFEROL 1,000 UNITS 25 MCG TAB PO SCH (08:27)
[2020-06-04] MEDS: predniSONE 20 MG TAB PO SCH (08:28)
[2020-06-04] MEDS: HEPARIN SOD 5,000 UNIT/0.5 ML VIAL SQ SCH ×2 (08:28→20:30)
[2020-06-04] MEDS: NEPHROCAPS PO SCH (08:28)
--- NOTE | 2020-06-04 15:49 | Progress Notes ---
DATE: 06/04/2020 NEPHROLOGY PROGRESS NOTE SUBJECTIVE: The patient just came from dialysis. No fluid was removed because of persistent hypotension. The patient continues to get progressively weak from overall deconditioning. PHYSICAL EXAMINATION: VITAL SIGNS: Blood pressure is 91/60, pulse rate 94, temperature 36.4, 97% on room air. HEENT: Mucous membrane is moist. NECK: Supple. No jugular venous distention. CHEST: Bilateral decreased breath sounds, occasional crackles. CARDIOVASCULAR: S1, S2, regular. Soft systolic murmur heard. ABDOMEN: Soft, nontender. EXTREMITIES: Show no edema. LABORATORY TESTS: From today was reviewed in detail. ASSESSMENT AND PLAN: An 89-year-old female with end-stage renal disease, on chronic hemodialysis Sunday, Sunday, Sunday through a tunneled dialysis catheter, admitted with generalized deconditioning, issues with pacemaker and issues with swallowing and poor appetite. End-stage renal disease: She has pleural effusion and some evidence of pulmonary congestion, but we have not been able to take much fluid off. Today, we did not take any; last time we took about 1 kilo. Catheter worked good today, although last time we had to give Cathflo. I do not believe that there is one specific problem that will fix her overall weakness. This is more of a generalized deconditioning from all of her medical problem and advanced age. The patient is still mentally very sharp and should be able to direct the level of care she wants in the coming days.
--- NOTE | 2020-06-04 18:37 | Hospitalist Progress Note ---
Date of Service June 04, 2020 Assessment & Plan (1) Transaminitis: AST increased from 88 to 249 and ALT increased from 138 to 308 and ALK increased from 174 to 192 Pt and family has been refused CT abd/pelvis Gastro on board Liver U/S showed mild gallbladder distention without cholelithiasis or sonographic evidence of acute cholecystitis. Probable prominent mucosal fold of the gallbladder neck measures up to 8 mm. A gallbladder polyp is could appear similarly. No biliary ductal dilation. Liver enzymes slightly decreased. Monitor LFT (2) Weakness: Unintentional Weight Loss -This is a patient who is on dialysis and also pacemaker and problems with eating. She is brought in to the ED on 05/26/2020 by her son Josef [phone] who reports that over period of time, her mother has had progressive weight loss with poor oral appetitite and has trouble with eating the food such as feeling reflux symptoms. However, patient is not on protonic at home currently. no abdomen pain. no vomiting. -Her son feels that while the above symptoms have been ongoing, he feels that his mother also having more weakness of her strength and in past several days, she does not have strength to feed herself with her own hands. Review of outpatient [facility] notes that there have been communication with outpatient providers and Dr. Driscoll questioning whether patient has flair-up of myasthenia gravis. 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 -started solumedrol 40 mg IV BID on 05/26/2020, requested neurology consult to rule out myasthenia gravis flare and they deemed this to be unlikely and but allowed for transition from solumedrol to prednisone 20 mg daily starting on 05/28/2020. continue prednisone as 20 mg daily for and neurology recommended to consider to continue prednisone 20 mg daily dosing until her outpatient neurology clinic appointment (scheduled on [facility]) -upper EGD by Gastroenterology is deferred by patient and her son -since patient tolerated clear liquid diet on 05/26/2020, start full liquid diet on 05/27/2020 while awaiting formal speech and swallow evaluation and maintain aspiration precautions. patient seems to be tolerating diet well -patient is due for videofluoroscopy and possible barium swallow study as per speech and swallow services has been rescheduled to 05/31/2020 -05/30/2020: patient's feels weaker today but appears that this symptoms are correlating with volume status. she is still saturating well on room air but she subjectively feels more short of breath. she and her sone declines IV Lasix. her CXR is grossly unchanged at that on admission. I wonder whether her subjective weakness prior to this admission were due to primarily due to her volume status 05/31/2020: completed dialysis session. completed swallowing studies on 05/31/2020: as per speech and swallow therapist who messaged hospitalist "She is not aspirating but is at risk as she has a ton of esophageal issues, as we suspected. She has dysmotility, a small Zenker's Diverticulum, and a tortous esophagus." recommended slippery diet 06/02- Continue minced and moist diet PT/OT eval Fall precaution Abnormal UA Urine cx positive for group B beta strep possible contamination Was starting on IV Rocephin and discontinued on 05/28 Stable (3) ESRD on dialysis: -Patient is on dialysis through perm cath every Sunday, Sunday, Sunday. As per her son, she was at dialysis earlier on Sunday05/26/2020 -home medication of sensipar and Triprhocap -Next HD Sunday (4) Hypothyroidism: -outpatient medication of levothyroxine is 100 mcg daily -TSH elevated as 6.7 but free T4 is not low (free T4 1.7 is mildly elevated) -total T4 is normal as 6.9, free T3 levels low as 1.23 and total T3 level low as 0.28 -it is possible that amiodarone could be contributing to changes in thyroid function labs. 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 -patient's son also reports that patient's pacemaker is at end of battery life. Patient denies chest pain or palpitations or fevers. -monitor on telemetry -continue amiodarone 200 mg BID -cardiology consult 05/27/2020 "although her pacemaker has reached end-of-life there is still plenty of safety margin on the battery." at this time cardiology is determining whether pacemaker battery should be addressed as inpatient versus outpatient. -Pacemaker interrogated on 05/31/2020 and patient and her son to discuss with cardiology on future pacemaker plans Code Status: DNR/DNI son Josef [phone] DVT prophylaxis: heparin subcutaneous q12 hours Admission and Anticipated Discharge Date Admission Date: May 26, 2020 Subjective Pt was seen and examined Lying in bed with no distress with daughter at bedside Pt said that she did not sleep last night She said that slept today after dialysis Denies any chest pain, palpitation, dizziness and SOB Physical Exam Physical Exam: General- No acute distress Head- atraumatic Eyes- PERRL, EOMI, ENT- oropharynx clear Neck- supple, no JVD Lungs- clear to auscultation Heart- + murmur Abdomen- normal bowel sounds, soft, nontender Extremities- no calf tenderness Neuro- alert, oriented x 3; PERRL, EOMI; no facial palsy; no dysarthria Skin- warm & dry Results & Data Results & Data ([facility]) Vital Signs (Past 12 Hours) Vital Signs Temp Pulse Pulse Pulse Resp BP BP 06/04/20 16:10 36.4 C L 78 19 102/71 06/04/20 13:15 36.4 C L 94 H 94 H 91/60 L 06/04/20 13:00 107 H 83/63 L 06/04/20 12:40 103 H 86/63 L 06/04/20 12:20 95 H 83/61 L 06/04/20 12:08 76 103/72 06/04/20 12:05 86 76/57 L 06/04/20 12:00 63 71/33 L 06/04/20 11:40 101 H 82/62 L 06/04/20 11:20 52 L 90/65 L 06/04/20 11:00 70 107/82 06/04/20 10:40 71 83/62 L 06/04/20 10:20 63 95/61 L 06/04/20 10:00 91 H 87/81 L 06/04/20 09:45 36.9 C 77 77 89/68 L 06/04/20 07:05 36.0 C L 89 16 92/63 L BP Pulse Ox 06/04/20 16:10 100 06/04/20 13:15 91/60 L 06/04/20 13:00 06/04/20 12:40 06/04/20 12:20 06/04/20 12:08 06/04/20 12:05 06/04/20 12:00 06/04/20 11:40 06/04/20 11:20 06/04/20 11:00 06/04/20 10:40 06/04/20 10:20 06/04/20 10:00 06/04/20 09:45 06/04/20 07:05 97
[2020-06-04] MEDS: ASPIRIN 81 MG ECTAB PO SCH (20:30)
[2020-06-05] MEDS: LEVOTHYROXINE SODIUM 125 MCG TABLET PO SCH (06:03)
[2020-06-05] MEDS: TRAMADOL HCL 50 MG TABLET PO PRN ×2 (06:05→17:18)
[2020-06-05] MEDS: predniSONE 20 MG TAB PO SCH (08:39)
[2020-06-05] MEDS: NEPHROCAPS PO SCH (08:39)
[2020-06-05] MEDS: PANTOprazole 40 MG TAB PO SCH ×2 (08:39→20:45)
[2020-06-05] MEDS: CHOLECALCIFEROL 1,000 UNITS 25 MCG TAB PO SCH (08:39)
[2020-06-05] MEDS: HEPARIN SOD 5,000 UNIT/0.5 ML VIAL SQ SCH (08:40)
[2020-06-05] MEDS: AMIODARONE 200 MG TAB PO SCH ×2 (08:43→21:08)
[2020-06-05 09:58] LABS: Albumin Level 3.4 gm/dl (3.4-5.0); BUN Creatinine Ratio 14.1 (10-20); Calcium 8.3 mg/dl (8.5-10.1); Creatinine Clr Calc Pharmacy 7.5 ml/min; Est GFR (African American) 10.9; Est GFR (Non-African American) 9.4; Potassium 4.5 mmol/L (3.5-5.1)
[2020-06-05 10:01] LABS: Albumin Globulin Ratio 1.1 (0.9-2); Bilirubin,Total 1.7 mg/dl (0.2-1); Total Protein 6.4 gm/dl (6.4-8.2)
[2020-06-05] MEDS ORDERED: STAT IV Infusion **Titration per Protocol STA (13:51)
[2020-06-05] MEDS ORDERED: 0.2 MICRON FILTER SET 1 EA IV ONE (13:51)
[2020-06-05] MEDS ORDERED: AMIODARONE IV BOLUS & DRIP IV STA (13:51)
[2020-06-05] MEDS ORDERED: AMIODARONE / D5W 150 MG/100 ML BAG IV STA (13:56)
--- NOTE | 2020-06-05 14:02 | Cardiology Progress Note ---
Date of Service June 05, 2020 Assessment & Plan (1) Atrial fibrillation with RVR: Patient was admitted with generalized weakness. She has improved with supportive care including prednisone. She however has reverted to atrial fibrillation with rapid ventricular response. Her primary preschool program director is Dr. Quiñones, and I have also followed her on an inpatient basis in the past. I had discussed her case with him, and both of us were concerned that the patient has a history of poor tolerance of atrial fibrillation from a hemodynamic standpoint especially given her severe mitral valve regurgitation which has not been felt to be amenable to intervention. She is already on amiodarone 200 mg twice daily on a chronic basis for a rhythm control strategy. Unfortunately, she does have significant elevation in her liver function tests, including her transaminases. Right upper quadrant ultrasound revealed no culprit explanation. This may be due to hemodynamics of relative hypotension this admission and passive liver congestion. At this time, I think it is necessary to consider a trial of IV amiodarone to help in sinus rhythm. Her blood pressure has been too low to allow hemodialysis, and I anticipate that this problem is going to be exacerbated by the development of atrial fibrillation. Her coexistent elevated transaminases of course make this a less than ideal situation, but as I discussed the patient and her son, although this is a medication change that comes with some degree of risk, I think it is worth a try. She is not on anticoagulation due to her multiple bleeding complications. Therefore she is really not a candidate for electrical cardioversion. I terms of blood pressure support, instead of utilizing midodrine prior to hemodialysis, I have changed the dosing to 2.5 mg 3 times daily daily. (2) Pacemaker at end of battery life: Patient's [place] conduction noted currently on telemetry. Her device is reprogrammed to be back in a dual-chamber mode by having reached the elective replacement interval. Patient/son prefer proceeding with outpatient electrophysiology consultation generator change within a few weeks. I reassured him that the generator will support her next few weeks, pending generator change. (3) Transaminitis: As noted above. Subjective Patient seen in cardiology follow-up. She is reverted to atrial fibrillation over the last 24 hours. At rest, she elevated ventricular rates in the range of 90 to 110 bpm. At rest she is asymptomatic. Her son, Josef, is at the bedside. Review of Systems Review of Systems: All systems reviewed & are unremarkable except as noted in HPI & below Physical Exam Physical Exam: Temp Pulse Resp BP Pulse Ox 36.0 C L 98 H 20 93/60 L 100 06/05/20 11:33 06/05/20 11:33 06/05/20 11:33 06/05/20 11:33 06/05/20 11:33 Constitutional: Frail, chronically ill in appearance, no acute distress Respiratory: Decreased breath sounds in the bases Cardiovascular: Rate/Rhythm: + tachycardic and + irregularly irregular Heart Sounds: + murmur (2/6 systolic murmur) Vessels: + JVD Extremities: + edema (Trace bilateral lower extremity edema) Chest (Breasts): Additional Comments: Left infraclavicular pacemaker clean dry and intact Right-sided tunneled catheter in place, no erythema, no drainage Gastrointestinal (Abdomen): normal bowel sounds, soft, nontender, no hepatosplenomegaly Neurologic: PERRL, EOMI, accommodation nl, no face palsy, no dysarthria Results & Data Vital Signs (Past 12 Hours) Vital Signs Temp Pulse Pulse Resp BP BP Pulse Ox 06/05/20 11:33 36.0 C L 98 H 20 93/60 L 100 06/05/20 08:43 105/71 06/05/20 06:59 35.9 C L 104 H 20 89/65 L 100 06/05/20 03:22 36.4 C L 104 H 19 85/63 L 99 Laboratory Results Cardiac Enzymes 06/05/20 Range/Units 09:15 AST 62 H (15-37) U/L Comprehensive Metabolic Panel 06/05/20 Range/Units 09:15 Sodium 136 (136-145) mmol/L Potassium 4.5 (3.5-5.1) mmol/L Chloride 102 (98-107) mmol/L Carbon Dioxide 20 L (21-32) mmol/L BUN 56 H (7-18) mg/dl Creatinine 3.99 H D (0.6-1.2) mg/dl Glucose 125 H (70-99) mg/dl Calcium 8.3 L (8.5-10.1) mg/dl AST 62 H (15-37) U/L ALT 267 H (12-78) U/L Alkaline Phosphatase 228 H (45-117) U/L Total Protein 6.4 (6.4-8.2) gm/dl Albumin 3.4 (3.4-5.0) gm/dl Intake and Output 06/04/20 06/05/20 06/05/20 22:59 06:59 14:59 Intake Total 300 / 300 150 / 150 Balance 300 / 300 150 / 150 Intake: Oral 300 / 300 150 / 150 Other: Other Intake Source Sips ice chips # Unmeasured Voids 2 1 1 Weight 64.3 kg
[2020-06-05] MEDS ORDERED: AMIODARONE / D5W 360 MG/200 ML BAG IV ONE (14:15)
[2020-06-05] MEDS: MIDODRINE HCL 2.5 MG TAB PO SCH (16:14)
[2020-06-05] MEDS ORDERED: MIDODRINE HCL 2.5 MG TAB PO SCH (17:00)
--- NOTE | 2020-06-05 18:19 | Hospitalist Progress Note ---
Date of Service June 05, 2020 Assessment & Plan (1) Transaminitis: AST increased from 88 to 249 and ALT increased from 138 to 308 and ALK increased from 174 to 192 Pt and family has been refused CT abd/pelvis Gastro on board Liver U/S showed mild gallbladder distention without cholelithiasis or sonographic evidence of acute cholecystitis. Probable prominent mucosal fold of the gallbladder neck measures up to 8 mm. A gallbladder polyp is could appear similarly. No biliary ductal dilation. Liver enzymes continue to decreased slightly Continue monitor liver enzymes (2) Atrial fibrillation: Currently on Afib with HR btw 90's to 110's case discussed with cardiology Amiodarone drip started to help to convert to sinus rhythm Will monitor Liver enzymes while on amiodarone drip She is not on anticoagulation due to her multiple bleeding complications. not a candidate for electrical cardioversion. (3) Weakness: Unintentional Weight Loss -This is a patient who is on dialysis and also pacemaker and problems with eating. She is brought in to the ED on 05/26/2020 by her son Josef [phone] who reports that over period of time, her mother has had progressive weight loss with poor oral appetitite and has trouble with eating the food such as feeling reflux symptoms. However, patient is not on protonic at home currently. no abdomen pain. no vomiting. -Her son feels that while the above symptoms have been ongoing, he feels that his mother also having more weakness of her strength and in past several days, she does not have strength to feed herself with her own hands. [facility] with [facility] providers and Dr. Driscoll questioning whether patient has flair-up of myasthenia gravis. 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 -started solumedrol 40 mg IV BID on 05/26/2020, requested neurology consult to rule out myasthenia gravis flare and they deemed this to be unlikely and but allowed for transition from solumedrol to prednisone 20 mg daily starting on 05/28/2020. continue prednisone as 20 mg daily for and neurology recommended to consider to continue prednisone 20 mg daily dosing until her outpatient neurology clinic appointment (scheduled on [facility]) -upper EGD by Gastroenterology is deferred by patient and her son -since patient tolerated clear liquid diet on 05/26/2020, start full liquid diet on 05/27/2020 while awaiting formal speech and swallow evaluation and maintain aspiration precautions. patient seems to be tolerating diet well -patient is due for videofluoroscopy and possible barium swallow study as per speech and swallow services has been rescheduled to 05/31/2020 -05/30/2020: patient's feels weaker today but appears that this symptoms are correlating with volume status. she is still saturating well on room air but she subjectively feels more short of breath. she and her sone declines IV Lasix. her CXR is grossly unchanged at that on admission. I wonder whether her subjective weakness prior to this admission were due to primarily due to her volume status 05/31/2020: completed dialysis session. completed swallowing studies on 020: as per speech and swallow therapist who messaged hospitalist "She is not aspirating but is at risk as she has a ton of esophageal issues, as we suspected. She has dysmotility, a small Zenker's Diverticulum, and a tortous esophagus." recommended slippery diet 06/02- Continue minced and moist diet PT/OT eval Fall precaution Abnormal UA Urine cx positive for group B beta strep possible contamination Was starting on IV Rocephin and discontinued on 05/28 Stable (4) ESRD on dialysis: -Patient is on dialysis through perm cath every Sunday, Sunday, Sunday. As per her son, she was at dialysis earlier on Sunday05/26/2020 - No fluid removed yesterday due to low BP -Case discussed with Nephrology -Next HD Sunday (5) Hypotension: BP has been running btw 80 to 90's systolic Ok from nephrology to increase the Midodrine Midodrine changed to 2.5 mg 3 times daily daily. Continue monitor BP (6) Hypothyroidism: -outpatient medication of levothyroxine is 100 mcg daily -TSH elevated as 6.7 but free T4 is not low (free T4 1.7 is mildly elevated) -total T4 is normal as 6.9, free T3 levels low as 1.23 and total T3 level low as 0.28 -it is possible that amiodarone could be contributing to changes in thyroid function labs. 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 Patient denies chest pain or palpitations or fevers. -continue amiodarone 200 mg BID -cardiology consult 05/27/2020 "although her pacemaker has reached end-of-life there is still plenty of safety margin on the battery." at this time cardiology is determining whether pacemaker battery should be addressed as inpatient versus outpatient. -Pacemaker interrogated on 05/31/2020 and patient and her son to discuss with cardiology on future pacemaker plans Code Status: DNR/DNI celio Bahena [phone] DVT prophylaxis: heparin subcutaneous q12 hours Disposition Discharge home once medically stable Admission and Anticipated Discharge Date Admission Date: May 26, 2020 Subjective Pt was seen and examined Sitting in the recliner with mirian present Son is concerned to take his mon home because she is still in Afib Also yesterday they could not remove any fluid during HD Pt said that she she slept better on the reclined Denies any chest pain, palpitation, dizziness Physical Exam Physical Exam: General- No acute distress Head- atraumatic Eyes- PERRL, EOMI, ENT- oropharynx clear Neck- supple, no JVD Lungs- clear to auscultation Heart- +irregular, + systolic murmur Abdomen- normal bowel sounds, soft, nontender Extremities- no calf tenderness Neuro- alert, oriented x 3; PERRL, EOMI; no facial palsy; no dysarthria Skin- warm & dry Results & Data Results & Data ([facility]) Vital Signs (Past 12 Hours) Vital Signs Temp Pulse Resp BP BP Pulse Ox 06/05/20 15:51 81 17 83/62 L 99 06/05/20 11:33 36.0 C L 98 H 20 93/60 L 100 06/05/20 08:43 105/71 06/05/20 06:59 35.9 C L 104 H 20 89/65 L 100
[2020-06-05] MEDS: LORazepam 0.5 MG TAB PO PRN (18:44)
--- NOTE | 2020-06-05 19:30 | Progress Notes ---
DATE: 06/05/2020 SUBJECTIVE: The patient had dialysis yesterday, but we could not remove any fluid because of persistent hypotension. The patient continues to get progressively weak from overall deconditioning. She does have atrial fibrillation which she tolerates very poorly. PHYSICAL EXAMINATION: VITAL SIGNS: Most recent vital signs shows blood pressure 83/62, pulse rate 81 and irregular, temperature 36 degrees Celsius, 99% on 2 liter nasal cannula. HEENT: Mucous membranes moist. NECK: Supple. JVD is present. CARDIOVASCULAR: Tachycardic and irregularly irregular heart sounds with 2/6 systolic murmur. Trace lower extremity edema. CHEST: Decreased breath sounds in the bases. NEUROLOGIC: Overall frail and chronically ill in appearance; however, speech is normal and she is awake, alert, oriented x3. LABORATORY TESTS: From this morning was reviewed. Sodium 136, potassium 4.5, BUN 56, creatinine 3.99. Hemoglobin 13.4 three days ago. ASSESSMENT AND PLAN: An 89-year-old female with end-stage renal disease, on chronic hemodialysis Sunday, Sunday, Sunday through a tunneled dialysis catheter, admitted with generalized deconditioning, issues with atrial fibrillation and pacemaker and issues with swallowing and poor appetite. End-stage renal disease: She has evidence of pleural effusion as well as evidence of pulmonary congestion and congestive heart failure, which seems to have got worse with the atrial fibrillation issue. However, she has low blood pressure and it is difficult to take enough ultrafiltration. I did discussed with Cardiology and we both are in agreement that midodrine should be used and we will give 5 mg 3 times a day to potentially help with her blood pressure. However, I am concerned about the generalized deconditioning which is probably a combination of all of medical problem and advanced age. The patient is still mentally very sharp and should be able to direct the level of care she wants in the coming days. Next dialysis is scheduled for Sunday.
[2020-06-05] MEDS: ASPIRIN 81 MG ECTAB PO SCH (20:45)
[2020-06-05] MEDS: AMIODARONE / D5W 360 MG/200 ML BAG IV SCH (20:45)
[2020-06-06] MEDS: LEVOTHYROXINE SODIUM 125 MCG TABLET PO SCH (06:09)
[2020-06-06 07:25] LABS: Albumin Globulin Ratio 1.2 (0.9-2); Albumin Level 3.5 gm/dl (3.4-5.0); Calcium 8.6 mg/dl (8.5-10.1); Creatinine Clr Calc Pharmacy 6.4 ml/min; Est GFR (Non-African American) 7.8; Globulin 2.9 gm/dl (2.5-4.0); Potassium 5.6 mmol/L (3.5-5.1); Total Protein 6.4 gm/dl (6.4-8.2)
[2020-06-06] MEDS: AMIODARONE / D5W 360 MG/200 ML BAG IV SCH (08:27)
[2020-06-06] MEDS: MIDODRINE HCL 2.5 MG TAB PO SCH ×3 (09:25→16:22)
[2020-06-06] MEDS: predniSONE 20 MG TAB PO SCH (09:25)
[2020-06-06] MEDS: NEPHROCAPS PO SCH (09:25)
[2020-06-06] MEDS: CHOLECALCIFEROL 1,000 UNITS 25 MCG TAB PO SCH (09:25)
[2020-06-06] MEDS: PANTOprazole 40 MG TAB PO SCH ×2 (09:25→23:27)
--- NOTE | 2020-06-06 10:26 | Cardiology Progress Note ---
Date of Service June 06, 2020 Assessment & Plan (1) Atrial fibrillation with RVR: (2) Mitral insufficiency: (3) Tachy-xi syndrome: (4) Transaminitis: Patient's transaminase elevation is worse today, with AST level today of 62 units/L, increased to 366 units/L. ALT had been 267 units/L, increased to 416 units/L today. Phosphatase levels remain similar, 223. She is not in distress, however she is awake sitting upright in a chair. Believe her initial presentation was for noncardiac issues with generalized weakness, and she did seem to perk up with the addition of prednisone. She however has now reverted to atrial fibrillation with mildly elevated ventricular rates, and historically, she has not tolerated this well from a hemodynamic standpoint. She has a history of moderate to severe mitral regurgitation, and had been seen by interventional/structural heart disease clinic in December, to discuss possible percutaneous mitral valve clip, however at that time, the patient was doing relatively well, and she favored no invasive procedure, and ongoing observation was recommended. Despite treatment with IV amiodarone for 24 hours, she remains in atrial fibrillation, however her rates are relatively well controlled. Treatment with AV kris blockers is limited by relative hypotension. As per my discussion with Dr. Shea with nephrology yesterday, we have placed her on a standing dose of midodrine at 5 mg 3 times daily. At this time, given the significant increase in her liver function tests, I am going to discontinue both her oral and IV amiodarone. I debated adding digoxin as an alternative rate control medication for her, however given her renal insufficiency, and elevated potassium this is a poor choice for her at present. In regards to her pacemaker and ureter that is an elective replacement interval. It is currently functioning appropriately, and she rarely requires pacemaker support. Outpatient EP follow-up is already planned outpatient generator change. 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 Her hemoglobin this day has been stable. She however is not on anticoagulation on a chronic basis due to the past bleeding complications. She is not a candidate for treatment with a direct oral anticoagulant due to her insufficiency. I am hesitant to start her on Coumadin due to her liver function test abnormalities. She is not a candidate for LMWH. I would defer bleeding risk at this time unfractioned heparin. If however placing her on short-term anticoagulation in an effort to allow for cardioversion in the future if necessary. However as noted, she is a poor candidate for oral anticoagulation at present. Subjective Patient seen in cardiology follow-up. She is sitting upright in the chair, no acute distress. She remains in atrial fibrillation, rates in the upper 90s this morning. Blood pressure remains on the lower side with systolic blood pressure in the 90s. Review of Systems Review of Systems: All systems reviewed & are unremarkable except as noted in HPI & below Physical Exam Physical Exam: Temp Pulse Resp BP Pulse Ox 37.0 C 98 H 16 90/52 L 98 06/06/20 08:10 06/06/20 08:10 06/06/20 08:10 06/06/20 08:10 06/06/20 08:10 Constitutional: Chronically ill in appearance, frail, no acute distress Respiratory: normal respiratory effort, lungs clear to auscultation Cardiovascular: Rate/Rhythm: + irregularly irregular Heart Sounds: + murmur (2/6 SM) Vessels: + JVD Extremities: + edema (Trace LE edema) Chest (Breasts): Additional Comments: Right-sided tunneled hemodialysis catheter noted, no erythema. Left infraclavicular pacemaker pocket clean dry and intact. Gastrointestinal (Abdomen): normal bowel sounds, soft, nontender, no hepatosplenomegaly Neurologic: PERRL, EOMI, accommodation nl, no face palsy, no dysarthria Results & Data Vital Signs (Past 12 Hours) Vital Signs Temp Pulse Pulse Resp BP Pulse Ox 06/06/20 08:10 37.0 C 98 H 16 90/52 L 98 06/06/20 03:19 36.6 C 108 H 17 84/61 L 100 06/06/20 00:06 36.8 C 100 H 19 83/61 L 94 06/05/20 23:00 92 H Laboratory Results Cardiac Enzymes 05/26/20 05/27/20 05/28/20 Range/Units 13:05 06:27 07:12 AST (15-37) U/L ALT 53 49 49 (12-78) U/L 05/31/20 06/01/20 06/02/20 Range/Units 07:35 05:39 06:23 AST (15-37) U/L ALT 89 H 138 H 308 H (12-78) U/L 06/03/20 06/04/20 06/05/20 Range/Units 06:09 06:12 09:15 AST (15-37) U/L ALT 340 H 338 H 267 H (12-78) U/L 06/06/20 Range/Units 06:08 AST 366 H (15-37) U/L ALT 416 H (12-78) U/L Comprehensive Metabolic Panel 06/06/20 Range/Units 06:08 Sodium 131 L (136-145) mmol/L Potassium 5.6 H D (3.5-5.1) mmol/L Chloride 96 L (98-107) mmol/L Carbon Dioxide 17 L (21-32) mmol/L BUN 70 H (7-18) mg/dl Creatinine 4.69 H* D (0.6-1.2) mg/dl Glucose 84 (70-99) mg/dl Calcium 8.6 (8.5-10.1) mg/dl AST 366 H (15-37) U/L ALT 416 H (12-78) U/L Alkaline Phosphatase 223 H (45-117) U/L Total Protein 6.4 (6.4-8.2) gm/dl Albumin 3.5 (3.4-5.0) gm/dl Intake and Output 06/05/20 06/06/20 06/06/20 22:59 06:59 14:59 Intake Total 199.245 / 624.245 175 / 624.245 205.688 / 205.688 Output Total 0 / 0 Balance 199.245 / 624.245 175 / 624.245 205.688 / 205.688 Intake: IV 199.245 / 299.245 205.688 / 205.688 NEXTERONE / D5W 360 mg In 200 199.245 / 199.245 205.688 / 205.688 ml @ 0.5 MG/MIN 16.667 mls/hr IV .Q12H COUNTS INCLUDE 234 BEDS AT THE [facility] Rx#:[id number] Oral 175 / 325 Output: Urine 0 / 0 Other: Weight 64.3 kg
[2020-06-06] MEDS: TRAMADOL HCL 50 MG TABLET PO PRN (12:44)
[2020-06-06] MEDS: LORazepam 0.5 MG TAB PO PRN ×2 (14:27→23:27)
--- NOTE | 2020-06-06 14:40 | Communication Note ---
Date of Service: June 06, 2020 I called son, Josef, on the phone and updated him with today's events.
--- NOTE | 2020-06-06 17:25 | XRay Report ---
XR chest 1V portable CLINICAL HISTORY: Shortness of breath COMPARISON STUDY: 05/30/2020 FINDINGS: The heart remains enlarged. There is a right-sided dual-lumen central venous catheter. Ther e is a left subclavian dual-chamber central venous pacemaker. There is persistent but improving conge stive failure/fluid overload. Trace right pleural effusion is suspected. There are improving right ba silar airspace opacities.[ IMPRESSION: 1. Cardiomegaly with persistent but improving mild pulmonary vascular congestion/fluid overload 2. Trace right pleural effusion 3. Improving right basilar airspace opacities ACT 112: Negative or not required by law. Electronically signed by: Erich Gant M.D. 06/06/2020 5:23 PM
--- NOTE | 2020-06-06 18:19 | Hospitalist Progress Note ---
Date of Service June 06, 2020 Assessment & Plan (1) Transaminitis: AST increased from 88 to 249 and ALT increased from 138 to 308 and ALK increased from 174 to 192 Pt and family has been refused CT abd/pelvis Gastro on board Liver U/S showed mild gallbladder distention without cholelithiasis or sonographic evidence of acute cholecystitis. Probable prominent mucosal fold of the gallbladder neck measures up to 8 mm. A gallbladder polyp is could appear similarly. No biliary ductal dilation. Liver enzymes worsening today with AST increased from 62 to 366 and ALT from 262 to 417 Amiodarone drip was discontinued Will discuss with GI about the worsening liver enzymes Continue monitor Liver enzymes (2) Atrial fibrillation: Currently on Afib with HR btw 90's to 110's Case discussed with cardiology Amiodarone drip was starting yesterday to help to convert to sinus rhythm Liver enzymes worsening while on amiodarone drip and amiodarone drip was discontinued She is not on anticoagulation due to her multiple bleeding complications. not a candidate for electrical cardioversion. Family does not want any heroic management Continue monitor in telemetry (3) Weakness: Unintentional Weight Loss -This is a patient who is on dialysis and also pacemaker and problems with eating. She is brought in to the ED on 05/26/2020 by her son Josef [phone] who reports that over period of time, her mother has had progressive weight loss with poor oral appetitite and has trouble with eating the food such as feeling reflux symptoms. However, patient is not on protonic at home currently. no abdomen pain. no vomiting. -Her son feels that while the above symptoms have been ongoing, he feels that his mother also having more weakness of her strength and in past several days, she does not have strength to feed herself with her own hands. Review of outpatient EPIC notes that there have been communication with outpatient providers and Dr. Driscoll questioning whether patient has flair-up of myasthenia gravis. -05/26/2020: On my exam patient appeared have no deficits of extraoccular eye movements and appears to be able to sustain with with moving her gaze to an upward position and keeping that steady, no tongue deviations, and able to move her hands with strong hand client experience consultant; Patient passed the dysphagia screening. -started solumedrol 40 mg IV BID on 05/26/2020, requested neurology consult to ru le out myasthenia gravis flare and they deemed this to be unlikely and but allowed for transition from solumedrol to prednisone 20 mg daily starting on 05/28/2020. continue prednisone as 20 mg daily for and neurology recommended to consider to continue prednisone 20 mg daily dosing until her outpatient neurology clinic appointment (scheduled on [facility]) -upper EGD by Gastroenterology is deferred by patient and her son -since patient tolerated clear liquid diet on 05/26/2020, start full liquid diet on 05/27/2020 while awaiting formal speech and swallow evaluation and maintain aspiration precautions. patient seems to be tolerating diet well -patient is due for videofluoroscopy and possible barium swallow study as per speech and swallow services has been rescheduled to 05/31/2020 -05/30/2020: patient's feels weaker today but appears that this symptoms are correlating with volume status. she is still saturating well on room air but she subjectively feels more short of breath. she and her sone declines IV Lasix. her CXR is grossly unchanged at that on admission. I wonder whether her subjective weakness prior to this admission were due to primarily due to her volume status 05/31/2020: completed dialysis session. completed swallowing studies on 05/31/2020: as per speech and swallow therapist who messaged hospitalist "She is not aspirating but is at risk as she has a ton of esophageal issues, as we suspected. She has dysmotility, a small Zenker's Diverticulum, and a tortous esophagus." recommended slippery diet 06/02- Continue minced and moist diet PT/OT eval Fall precaution Abnormal UA Urine cx positive for group B beta strep possible contamination Was starting on IV Rocephin and discontinued on 05/28 Stable (4) ESRD on dialysis: -Patient is on dialysis through perm cath every Sunday, Sunday, Sunday. As per her son, she was at dialysis earlier on Sunday05/26/2020 -No fluid removed yon last HD on Sunday due to low BP -Case discussed with Nephrology at bedside -No HD at [facility] on Sunday -Pt does not want to transfer to another facility to get emergent dialysis -wants to be comfortable and family agreed with her wishes -Next HD Sunday (If able to tolerate) (5) Hypotension: BP has been running btw in the 75's systolic Midodrine was increased to 5mgTID Continue monitor BP (6) Hypothyroidism: -outpatient medication of levothyroxine is 100 mcg daily -TSH elevated as 6.7 but free T4 is not low (free T4 1.7 is mildly elevated) -total T4 is normal as 6.9, free T3 levels low as 1.23 and total T3 level low as 0.28 -it is possible that amiodarone could be contributing to changes in thyroid function labs. 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 Patient denies chest pain or palpitations or fevers. -continue amiodarone 200 mg BID -cardiology consult 05/27/2020 "although her pacemaker has reached end-of-life there is still plenty of safety margin on the battery." at this time cardiology is determining whether pacemaker battery should be addressed as inpatient versus outpatient. -Pacemaker interrogated on 05/31/2020 and patient and her son to discuss with cardiology on future pacemaker plans Worsening SOB Possible related to CHF due to Afib CXR showed cardiomegaly with persistent but improving mild pulmonary vascular congestion/fluid overload. Trace right pleural effusion Improving right basilar airspace opacities Lab ordered but was cancelled since son wanted her to be comfortable for now Will do a trial of CPAP PRN Continue oxygen supplement Code Status: DNR/DNI celio Bahena [phone] DVT prophylaxis: heparin subcutaneous q12 hours Disposition Continue monitor in tele Admission and Anticipated Discharge Date Admission Date: May 26, 2020 Subjective Pt was seen and examined Sitting on the recliner with respiratory distress I saw the patient early today she was doing a little better I went to check on her in the afternoon after nurse said BP dropped When I went back to check on her, her breathing got worst She was not able to speak in a full sentence Dr. Shea came to the bedside to evaluate the patient The decision was made to do HD and put on pressor since BP tends to drop very low that we can remove some fluid during HD Dr. Shea called the one call dialysis nurse, no HD provides on Sunday (As per contract with the hospital) The next option was to transfer to another facility to get emergent HD Pt does not want to proceed with any heroic management and does not want to transfer for HD Pt would like to be comfortable. Pt does not want any intubation or chest compression Daughter and son Josef agreed and respect pt wishes. If she is stable tomorrow, she is ok to get HD here at [facility]. Physical Exam Physical Exam: General- No acute distress Head- atraumatic Eyes- PERRL, EOMI, ENT- oropharynx clear Neck- supple, no JVD Lungs- clear to auscultation Heart- +irregular, + systolic murmur Abdomen- normal bowel sounds, soft, nontender Extremities- no calf tenderness Neuro- alert, oriented x 3; PERRL, EOMI; no facial palsy; no dysarthria Skin- warm & dry Results & Data Results & Data ([facility]) Vital Signs (Past 12 Hours) Vital Signs Temp Pulse Resp BP BP Pulse Ox 06/06/20 15:39 36.8 C 61 18 75/55 L 68/58 L 94 06/06/20 11:39 37.0 C 89 16 90/52 L 95 06/06/20 08:10 37.0 C 98 H 16 90/52 L 98
--- NOTE | 2020-06-06 18:38 | Progress Notes ---
DATE: 06/06/2020 SUBJECTIVE: The patient suddenly became very short of breath within the last hour and I was called by the hospitalist and the nursing staff. Denies chest pain, but she feels very weak, unable to speak. Voice is very soft and raspy. PHYSICAL EXAMINATION: VITAL SIGNS: Blood pressure 73 systolic. Pulse is irregular, temperature 36.8, 94% on 2 liter nasal cannula, but she is definitely very short of breath with significant use of accessory muscles. NECK: JVD is present. CHEST: Bilateral decreased breath sound, basal crackles. CARDIOVASCULAR: S1 and S2 irregular, systolic murmur heard. ABDOMEN: Soft, nontender. EXTREMITIES: Shows 1+ edema. LABORATORY TESTS: Reviewed. ASSESSMENT AND PLAN: An 89-year-old female with end-stage renal disease on chronic hemodialysis Sunday, Sunday, Sunday through a tunneled dialysis catheter, admitted with generalized deconditioning issues with atrial fibrillation and pacemaker issues. End-stage renal disease: She has evidence of pulmonary congestion at this time and she is very symptomatic. However, blood pressure is extremely low at 70 systolic. Even during the last dialysis we could not take any fluid off because of persistent hypotension. I had a long discussion with the patient's daughter, who was present at bedside as well as the patient and then also with son who is very involved in her care by phone. The patient made the decision that she does not want anything aggressive, so we are not planning to do dialysis at this point. SYLVIA
[2020-06-06] MEDS: LIDOCAINE 5% 1 PATCH TD SCH (21:00)
[2020-06-06] MEDS: ASPIRIN 81 MG ECTAB PO SCH (23:27)
[2020-06-07] MEDS: LEVOTHYROXINE SODIUM 125 MCG TABLET PO SCH (05:55)
[2020-06-07 07:53] LABS: Albumin Globulin Ratio 1.1 (0.9-2); Albumin Level 3.3 gm/dl (3.4-5.0); BUN Creatinine Ratio 16.1 (10-20); Bilirubin,Total 2.5 mg/dl (0.2-1); Calcium 8.3 mg/dl (8.5-10.1); Creatinine Clr Calc Pharmacy 5.3 ml/min; Est GFR (African American) 7.1; Est GFR (Non-African American) 6.1; Globulin 2.9 gm/dl (2.5-4.0); Potassium 6.3 mmol/L (3.5-5.1); Total Protein 6.2 gm/dl (6.4-8.2)
[2020-06-07] MEDS: TRAMADOL HCL 50 MG TABLET PO PRN ×2 (08:06→20:56)
[2020-06-07] MEDS: MIDODRINE HCL 2.5 MG TAB PO SCH ×3 (08:07→17:55)
[2020-06-07] MEDS: PANTOprazole 40 MG TAB PO SCH ×2 (08:08→20:53)
[2020-06-07] MEDS: NEPHROCAPS PO SCH (08:08)
[2020-06-07] MEDS: CHOLECALCIFEROL 1,000 UNITS 25 MCG TAB PO SCH (08:08)
[2020-06-07] MEDS: predniSONE 20 MG TAB PO SCH (08:08)
[2020-06-07 08:12] LABS: Phosphorus 9.1 mg/dl (2.5-4.9)
[2020-06-07] MEDS: LIDOCAINE 5% 1 PATCH TD SCH (08:54)
[2020-06-07 09:09] LABS: Hematocrit (blood only) 45.3 % (37-47); Mean Corpuscular Hemoglobin 31.2 pg (25-34); Mean Corpuscular Hgb Conc 33.1 g/dL (32-36); Mean Corpuscular Volume 94.2 fL (80-100); Nucleated RBC # (auto) 0.56 K/uL (0-0); Nucleated RBC % (auto) 3.1 %; RDW Coefficient of Variation 19.7 % (11.5-14.5); RDW Standard Deviation 62.9 fL (36.4-46.3); Red Blood Count 4.81 M/uL (4.2-5.4)
[2020-06-07 09:43] LABS: Platelet Count 44 K/uL (130-400); Platelet Estimate Decreased (Normal)
[2020-06-07] MEDS ORDERED: Nursing to Pharmacy Communication SCH (11:00)
[2020-06-07] MEDS: LORazepam 0.5 MG TAB PO PRN (11:22)
--- NOTE | 2020-06-07 12:14 | Cardiology Progress Note ---
Date of Service June 07, 2020 Assessment & Plan (1) Acute pulmonary edema: (2) Mitral insufficiency: (3) Atrial fibrillation with RVR: (4) Pacemaker at end of battery life: (5) Transaminitis: Patient with hypotension that limits the ability to proceed with hemodialysis to allow for volume management. She remains hyperkalemic with a potassium in excess of 6 mmol/L today. Atrial fibrillation noted with relatively well controlled rates. As noted in my previous to progress notes, IV and oral amiodarone treatment initiated in hopes of helping facilitate conversion back to sinus rhythm, as she has a history of poor tolerance of atrial fibrillation from a hemodynamic standpoint. Her transaminases however worsened yesterday prompting discontinuation of both oral and IV amiodarone. She has remained in atrial fibrillation. AST now 1092 and the ALT is 1106 unit/L. I discussed her case with her son, Josef, Dr Fish, and Dr Pendleton. Although I think her hemodynamics are worse and that she has not tolerated atrial fibrillation, she was hypotensive prior to reverting to atrial fi brillation. She is not anticoagulated due to past history of bleeding complication. Her respiratory status is too tenuous to consider transesophageal echocardiogram, and not sure she would tolerate sedation. We discussed options of trying to stabilize her blood pressure with pressors, to allow for cardioversion, but I am not optimistic that she would remain in sinus rhythm and I think we would be back to the same place within a short interval of time. As I had discussed with her son prior to her acute decompensation yesterday, I think that overall, her prognosis is poor, and that palliative measures may be appropriate. She is a DNR. We are going to consider proceeding with an attempt at dialysis today. Subjective Patient seen in follow-up of paroxysmal atrial fibrillation, mitral regurgitation, heart failure with preserved ejection fraction in the setting of kidney disease and low blood pressure. Since I had seen her yesterday morning, her condition worsened later in the day. She became short of breath, and is felt to have developed pulmonary edema. Her blood pressure remains tenuously low, limiting ability to perform hemodialysis. Atrial fibrillation noted with rates in the range of 80 to 96 bpm at present. She is developed significant lower extremity edema, and peripheral cyanosis with cool extremities. Son, Josef, at the bedside, developments discussed at length. Physical Exam Physical Exam: Temp Pulse Resp BP Pulse Ox 36.9 C 96 H 18 91/76 L 99 06/07/20 07:35 06/07/20 11:56 06/07/20 07:35 06/07/20 11:56 06/07/20 08:15 Constitutional: Chronically ill in appearance, with acute worsening over the last 48 hours Respiratory: Decreased breath sounds bilaterally at the bases Cardiovascular: Rate/Rhythm: + irregularly irregular Heart Sounds: + murmur (II/ systolic murmur heard best at the apex) Vessels: + JVD Extremities: + edema (2+ lower extremity edema) Gastrointestinal (Abdomen): normal bowel sounds, soft, nontender, no hepatosplenomegaly Neurologic: PERRL, EOMI, accommodation nl, no face palsy, no dysarthria Results & Data Vital Signs (Past 12 Hours) Vital Signs Temp Pulse Pulse Resp BP Pulse Ox 06/07/20 11:56 96 H 91/76 L 06/07/20 08:15 99 06/07/20 07:35 36.9 C 82 18 90/52 L 96 06/07/20 03:51 36.4 C L 90 20 88/56 L Laboratory Results Cardiac Enzymes 06/07/20 Range/Units 06:42 AST 1092 H (15-37) U/L CBC 06/07/20 06/07/20 Range/Units 06:42 08:54 WBC Cancelled 18.50 H RBC Cancelled 4.81 Hgb Cancelled 15.0 Hct Cancelled 45.3 Plt Count Cancelled 44 L Comprehensive Metabolic Panel 06/07/20 Range/Units 06:42 Sodium 131 L (136-145) mmol/L Potassium 6.3 H* (3.5-5.1) mmol/L Chloride 97 L (98-107) mmol/L Carbon Dioxide 13 L (21-32) mmol/L BUN 91 H (7-18) mg/dl Creatinine 5.69 H* D (0.6-1.2) mg/dl Glucose 68 L (70-99) mg/dl Calcium 8.3 L (8.5-10.1) mg/dl AST 1092 H (15-37) U/L ALT 1106 H (12-78) U/L Alkaline Phosphatase 211 H (45-117) U/L Total Protein 6.2 L (6.4-8.2) gm/dl Albumin 3.3 L (3.4-5.0) gm/dl Intake and Output 06/06/20 06/07/20 06/07/20 22:59 06:59 14:59 Intake Total 100 / 405.688 Balance 100 / 405.688 Intake: Oral 100 / 200 Other: Other Intake Source Sips
--- NOTE | 2020-06-07 12:33 | Gastroenterology Progress Note ---
Date of Service June 07, 2020 Assessment & Plan (1) Transaminitis: Initial elevation likely caused by A-fib, mild hypotension, possibly the effect of prednisone or ceftriaxone. Dramatic increase likely secondary to amiodorone. Agree with holding the amiodorone. Recheck LFTs tomorrow. If not improving, then would ask family repeat US with doppler and add viral hepatitis serologies such as CMV, EB, Parvovirus and mono. ATtg add: I interviewed and examined pt, reviewed chart and labs. Pt is elderly frail patient who recently received amio IV and now has dramatic LFT elevation, likely secondary to amio tox. Amio has now been held, discussions regarding hospice care are pending. Follow LFT's, further w/u as above. Present on Admission?: Yes Admission and Anticipated Discharge Date Admission Date: May 26, 2020 Subjective Ms. Delfina Majano is a 89 yr old female pt of Dr. Raul Vargas. She carries a hx of ESRD on dialysis, CHF, A-fib, mitral insufficiency, tachy/xi with implanted pacer, Myasthenia Gravis. She was admitted on 05/26 for weakness and weight loss. GI was consulted for dysphagia, thought secondary to esophageal dysmotility. GI is asked to evaluate for elevated LFTS: Symptoms: gradual weight loss over several months (prior to LFT elevation). Nausea x 2 days. No abdominal pain or jaundice. LFTs were normal in the OP setting, most recent checked on 05/26/20. Bilirubin has remained normal. AST 133 -> 62 ->366->1092 today ALT 338->267->416->1106 today. Alk phos mildly elevated at 205->228->223->211 today. US on 06/03 with: 1.Mild gallbladder distention without cholelithiasis or sonographic evidence of acute cholecystitis. 2. Probable prominent mucosal fold of the gallbladder neck measures up to 8 mm. A gallbladder polyp is could appear similarly. Pt denies any abdominal pain, nausea or vomiting. Regarding meds: Prednisone 20mg started on admission. Ceftriaxone given 05/27-06/01. Activase 06/02 x 2 doses Amiodorone drop x <24 hrs - 06/06/20. Review of Systems Review of Systems: ROS: Gen: + weakness, + weight loss Eyes: No eye redness, or pain, no recent vision changes Resp: No SOB, no cough Cardio: No palpitations/irregular beats, no chest pain GI: No abdominal pain, + nausea/vomiting : Denies pain on urination Skin: No jaundice, itching or new rashes Physical Exam Constitutional: WD/WN, vitals as above Eyes: PERRL, conjunctivae normal, anicteric sclerae ENMT: external ear and nose normal, oropharynx normal Neck: trachea midline, no thyromegaly Respiratory: normal respiratory effort, lungs clear to auscultation Auscultation: + diminished lung sounds (both bases) Cardiovascular: irregular rhythm, 2-3/6 systolic murmur Gastrointestinal (Abdomen): normal bowel sounds, soft, nontender, no hepatosplenomegaly Musculoskeletal: generalized weakness Skin: + turgor decreased; no rashes and no jaundice Neurologic: PERRL, EOMI, accommodation nl, no face palsy, no dysarthria Psychiatric: pleasant, quiet affect, good eye contact, smiles at times Lymphatic: no cervical or axillary lymphadenopathy Results & Data ([facility]) Vital Signs (Past 12 Hours) Vital Signs Temp Pulse Pulse Resp BP Pulse Ox 06/07/20 12:23 36.8 C 72 20 98/71 L 95 06/07/20 11:56 96 H 91/76 L 06/07/20 08:15 99 06/07/20 07:35 36.9 C 82 18 90/52 L 96 06/07/20 03:51 36.4 C L 90 20 88/56 L Laboratory Results WBC 18 See HPI Diagnostic Findings Liver US - see HPI Family does not want CT
[2020-06-07] MEDS: MoRPHine SULFATE 2 MG/ML CARP IV PRN (17:54)
--- NOTE | 2020-06-07 18:15 | Nephrology Progress Note ---
Date of Service June 07, 2020 Assessment & Plan (1) ESRD on dialysis: Patient with ESRD on dialysis Sunday using a PermCath. She has volume overload and hypoxic due to pulmonary edema -She tolerated dialysis well on 06/07/2020 with net UF 3litres. Next dialysis will be tomorrow or Sunday depending on respiratory status. Will give midodrine 10 mg predialysis (2) Hyponatremia: Likely due to volume overload. Continue fluid restriction of 1200 mL daily. (3) Dysphagia: Patient is on soft diet per nutrition Admission and Anticipated Discharge Date Admission Date: May 26, 2020 Subjective Patient was seen and examined while on dialysis this morning. She is SOB and has marked leg swelling. K is high. Son Josef at the bedside. She is tolerating HD well. Review of Systems Review of Systems: All systems reviewed & are unremarkable except as noted in HPI & below Physical Exam Physical Exam: General exam: Appears comfortable, no acute distress HEENT: Pupils are equal and reactive to light Neck: No JVD, neck is supple trachea is midline Respiratory system: Crackles bilaterally. Gastrointestinal: Abdomen is soft, non distended, non tender, bowel sounds are present CVS: Regular rate and rhythm. No murmurs, rubs or gallops Musculoskeletal: No joint or muscle tenderness Extremities: Non tender, 2+ edema, Neuro: Oriented, no tremors, no focal neurological deficits Skin: Bruise on left leg Results & Data ([facility]) Vital Signs (Past 12 Hours) Vital Signs Temp Pulse Pulse Pulse Pulse Resp BP 06/07/20 15:27 36.7 C 97 H 20 06/07/20 15:00 36.8 C 79 06/07/20 14:20 79 93/74 L 06/07/20 14:00 98 H 108/67 06/07/20 13:40 92 H 87/64 L 06/07/20 13:20 73 105/75 06/07/20 13:00 91 H 94/65 L 06/07/20 12:40 79 104/84 06/07/20 12:23 36.8 C 72 20 06/07/20 12:20 73 105/75 06/07/20 12:00 98 H 92/72 L 06/07/20 11:56 96 H 06/07/20 11:40 96 H 91/73 L 06/07/20 11:20 69 100/63 08/03/20 11:00 99 H 98/81 L 06/07/20 10:30 102 H 81/60 L 06/07/20 10:00 36.5 C 70 06/07/20 08:15 06/07/20 07:35 36.9 C 82 18 BP Pulse Ox 06/07/20 15:27 84/64 L 100 06/07/20 15:00 93/54 L 06/07/20 14:20 06/07/20 14:00 06/07/20 13:40 06/07/20 13:20 06/07/20 13:00 06/07/20 12:40 06/07/20 12:23 98/71 L 95 06/07/20 12:20 06/07/20 12:00 06/07/20 11:56 91/76 L 06/07/20 11:40 06/07/20 11:20 06/07/20 11:00 06/07/20 10:30 06/07/20 10:00 06/07/20 08:15 99 06/07/20 07:35 90/52 L 96 Laboratory Results 06/07/20 06:42 06/07/20 06/07/20 06/07/20 06:42 06:42 08:54 WBC Cancelled 18.50 H RBC Cancelled 4.81 MCV Cancelled 94.2 MCH Cancelled 31.2 MCHC Cancelled 33.1 RDW Std Deviation Cancelled 62.9 H RDW Coeff of Cornel Cancelled 19.7 H Plt Count Cancelled 44 L MPV Cancelled 11.0 H Phosphorus 9.1 H Albumin 3.3 L
--- NOTE | 2020-06-07 18:30 | Hospitalist Progress Note ---
Date of Service June 07, 2020 Assessment & Plan (1) Transaminitis: AST increased from 88 to 249 and ALT increased from 138 to 308 and ALK increased from 174 to 192 Pt and family has been refused CT abd/pelvis Gastro on board Liver U/S showed mild gallbladder distention without cholelithiasis or sonographic evidence of acute cholecystitis. Probable prominent mucosal fold of the gallbladder neck measures up to 8 mm. A gallbladder polyp is could appear similarly. No biliary ductal dilation. Amiodarone was discontinued Liver enzymes worsening today with AST 62-->336--> 1092 today and ALT 262--> 417--> 1106 Continue monitor Liver enzymes Will try to avoid hepatotoxic agents Will address palliative care with son for goal of care (2) Atrial fibrillation: Currently on Afib with HR btw 90's to 110's Case discussed with cardiology Amiodarone drip was starting yesterday to help to convert to sinus rhythm Liver enzymes worsening while on amiodarone drip and amiodarone drip was discontinued She is not on anticoagulation due to her multiple bleeding complications. not a candidate for electrical cardioversion. Family does not want any heroic management Amiodarone was discontinued due to worsening liver enzymes Continue to be in Afib (3) Weakness: Unintentional Weight Loss -This is a patient who is on dialysis and also pacemaker and problems with eating. She is brought in to the ED on 05/26/2020 by her son Josef [phone] who reports that over period of time, her mother has had progressive weight loss with poor oral appetitite and has trouble with eating the food such as feeling reflux symptoms. However, patient is not on protonic at home currently. no abdomen pain. no vomiting. -Her son feels that while the above symptoms have been ongoing, he feels that his mother also having more weakness of her strength and in past several days, she does not have strength to feed herself with her own hands. Review of outpatient EPIC notes that there have been communication with outpatient providers and Dr. Driscoll questioning whether patient has flair-up of myasthenia gravis. -05/26/2020: On my exam patient appeared have no deficits of extraoccular eye movements and appears to be able to sustain with with moving her gaze to an upward position and keeping that steady, no tongue deviations, and able to move her hands with strong hand emulsification operator; Patient passed the dysphagia screening. -started solumedrol 40 mg IV BID on 05/26/2020, requested neurology consult to rule out myasthenia gravis flare and they deemed this to be unlikely and but allowed for transition from solumedrol to prednisone 20 mg daily starting on 05/28/2020. continue prednisone as 20 mg daily for and neurology recommended to consider to continue prednisone 20 mg daily dosing until her outpatient neurology clinic appointment (scheduled on [facility]) -upper EGD by Gastroenterology is deferred by patient and her son -since patient tolerated clear liquid diet on 05/26/2020, start full liquid diet on 05/27/2020 while awaiting formal speech and swallow evaluation and maintain aspiration precautions. patient seems to be tolerating diet well -patient is due for videofluoroscopy and possible barium swallow study as per speech and swallow services has been rescheduled to 05/31/2020 -05/30/2020: patient's feels weaker today but appears that this symptoms are correlating with volume status. she is still saturating well on room air but she subjectively feels more short of breath. she and her sone declines IV Lasix. her CXR is grossly unchanged at that on admission. I wonder whether her subjective weakness prior to this admission were due to primarily due to her volume status 05/31/2020: completed dialysis session. completed swallowing studies on 05/31/2020: as per speech and swallow therapist who messaged hospitalist "She is not aspirating but is at risk as she has a ton of esophageal issues, as we suspected. She has dysmotility, a small Zenker's Diverticulum, and a tortous esophagus." recommended slippery diet 06/02- Continue minced and moist diet PT/OT eval Fall precaution Abnormal UA Urine cx positive for group B beta strep possible contamination Was starting on IV Rocephin and discontinued on 05/28 Stable (4) ESRD on dialysis: -Patient is on dialysis through perm cath every Sunday, Sunday, Sunday. As per her son, she was at dialysis earlier on Sunday05/26/2020 -No fluid removed yon last HD on Sunday due to low BP -Case discussed with Nephrology at bedside -No HD at [facility] on Sunday -Pt does not want to transfer to another facility to get emergent dialysis -wants to be comfortable and family agreed with her wishes -Tolerated HD today where 3L removed -Plan to have HD tomorrow or Sunday (5) Hypotension: BP has been running btw in the 75's systolic Midodrine was increased to 5mgTID and (10mg predialysis day) Morphine requested as per family for the pain in lower extremities Discussed with family about the risk such as worsening low BP and respiratory distress Continue monitor BP (6) Hypothyroidism: -outpatient medication of levothyroxine is 100 mcg daily -TSH elevated as 6.7 but free T4 is not low (free T4 1.7 is mildly elevated) -total T4 is normal as 6.9, free T3 levels low as 1.23 and total T3 level low as 0.28 -it is possible that amiodarone could be contributing to changes in thyroid function labs. 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 Patient denies chest pain or palpitations or fevers. -continue amiodarone 200 mg BID -cardiology consult 05/27/2020 "although her pacemaker has reached end-of-life there is still plenty of safety margin on the battery." at this time cardiology is determining whether pacemaker battery should be addressed as inpatient versus outpatient. -Pacemaker interrogated on 05/31/2020 and patient and her son to discuss with cardiology on future pacemaker plans Pulmonary Edema Possible related to CHF due to Afib CXR showed cardiomegaly with persistent but improving mild pulmonary vascular congestion/fluid overload. Trace right pleural effusion Improving right basilar airspace opacities Lab ordered but was cancelled since son wanted her to be comfortable for now Continue oxygen supplement Continue HD for fluid management Code Status: DNR/DNI son Bill [phone] DVT prophylaxis: heparin subcutaneous q12 hours Disposition Continue monitor in tele Admission and Anticipated Discharge Date Admission Date: May 26, 2020 Subjective Pt was seen and examined Sitting in bed with mild respiratory distress with both sons and daughter at bedside Pt said that her breathing is slightly better compared to yesterday She said that she is having a lot of pain in her legs she said that the tramadol does not help much Son asked to give morphine for the pain because pt had it in the past help Son said that pt cannot take oxycodone I explained to family about the risk of narcotic that can drop her blood pressure lower and lead to respiratory distress and even Family understood the risk and would like her mother to be comfortable since she is having alot of pain in her legs Will give a low dose of morphine to help with the pain Pt continues to be in Afib She tolerated HD today Physical Exam Physical Exam: General- No acute distress Head- atraumatic Eyes- PERRL, EOMI, ENT- oropharynx clear Neck- supple, no JVD Lungs- Diminished BS Heart- +irregular, + systolic murmur Abdomen- normal bowel sounds, soft, nontender Extremities- no calf tenderness, +edema, +LE tenderness, + skin opening/ulcers in both legs Neuro- alert, oriented x 3; PERRL, EOMI; no facial palsy; no dysarthria Skin- warm & dry Results & Data Results & Data ([facility]) Vital Signs (Past 12 Hours) Vital Signs Temp Pulse Pulse Pulse Pulse Resp BP 06/07/20 15:27 36.7 C 97 H 20 06/07/20 15:00 36.8 C 79 06/07/20 14:20 79 93/74 L 06/07/20 14:00 98 H 108/67 06/07/20 13:40 92 H 87/64 L 06/07/20 13:20 73 105/75 06/07/20 13:00 91 H 94/65 L 06/07/20 12:40 79 104/84 06/07/20 12:23 36.8 C 72 20 06/07/20 12:20 73 105/75 06/07/20 12:00 98 H 92/72 L 06/07/20 11:56 96 H 06/07/20 11:40 96 H 91/73 L 06/07/20 11:20 69 100/63 06/07/20 11:00 99 H 98/81 L 06/07/20 10:30 102 H 81/60 L 06/07/20 10:00 36.5 C 70 06/07/20 08:15 06/07/20 07:35 36.9 C 82 18 BP Pulse Ox 06/07/20 15:27 84/64 L 100 06/07/20 15:00 93/54 L 06/07/20 14:20 06/07/20 14:00 06/07/20 13:40 06/07/20 13:20 06/07/20 13:00 06/07/20 12:40 06/07/20 12:23 98/71 L 95 06/07/20 12:20 06/07/20 12:00 06/07/20 11:56 91/76 L 06/07/20 11:40 06/07/20 11:20 06/07/20 11:00 06/07/20 10:30 06/07/20 10:00 06/07/20 08:15 99 06/07/20 07:35 90/52 L 96
[2020-06-07] MEDS: ASPIRIN 81 MG ECTAB PO SCH (20:53)
[2020-06-08] MEDS: LEVOTHYROXINE SODIUM 125 MCG TABLET PO SCH (06:34)
[2020-06-08 06:55] LABS: Mean Corpuscular Hgb Conc 33.7 g/dL (32-36); Nucleated RBC # (auto) 0.21 K/uL (0-0); Nucleated RBC % (auto) 1.4 %
[2020-06-08 07:01] LABS: Hematocrit (blood only) 43.9 % (37-47); Hemoglobin 14.8 g/dL (12.0-16.0); Mean Corpuscular Volume 91.8 fL (80-100); RDW Standard Deviation 61.4 fL (36.4-46.3); Red Blood Count 4.78 M/uL (4.2-5.4); White Blood Count 14.91 K/uL (4.8-10.8)
[2020-06-08 07:21] LABS: Albumin Globulin Ratio 1.3 (0.9-2); Albumin Level 3.3 gm/dl (3.4-5.0); Bilirubin,Total 2.3 mg/dl (0.2-1); Calcium 8.1 mg/dl (8.5-10.1); Creatinine Clr Calc Pharmacy 6.5 ml/min; Est GFR (African American) 9.5; Est GFR (Non-African American) 8.2; Globulin 2.5 gm/dl (2.5-4.0); Potassium 4.9 mmol/L (3.5-5.1); Total Protein 5.8 gm/dl (6.4-8.2)
[2020-06-08 07:26] LABS: Platelet Count 40 K/uL (130-400); Platelet Estimate SIGNIFIC DECREASED (Normal)
[2020-06-08] MEDS: predniSONE 20 MG TAB PO SCH (08:34)
[2020-06-08] MEDS: NEPHROCAPS PO SCH (08:34)
[2020-06-08] MEDS: PANTOprazole 40 MG TAB PO SCH (08:34)
[2020-06-08] MEDS: CHOLECALCIFEROL 1,000 UNITS 25 MCG TAB PO SCH (08:34)
[2020-06-08] MEDS: LIDOCAINE 5% 1 PATCH TD SCH (08:38)
[2020-06-08] MEDS: MIDODRINE HCL 2.5 MG TAB PO SCH ×2 (08:52→12:07)
--- NOTE | 2020-06-08 10:37 | Nephrology Progress Note ---
Date of Service June 08, 2020 Assessment & Plan (1) ESRD on dialysis: Patient with ESRD on dialysis Sunday using a PermCath. She has volume overload and hypoxic due to pulmonary edema. She continues to deal with the serious back pain which is uncontrolled with a lot of narcotics. The limitation of narcotics is hypertension. Patient also has dysphagia and not eating much. Given all the problems with her health, she would like to talk to a hospice provider and is considering hospice at home. She agrees to dialysis tomorrow to give her more time with decision making. Son was at the bedside and in agreement. She tolerated dialysis well on 06/07/2020 with net UF 3litres. -We will request hospice consult -We will plan on dialysis tomorrow to give her more to think about end-of-life issues (2) Hyponatremia: Likely due to volume overload. Continue fluid restriction of 1200 mL daily. Improved with dialysis (3) Dysphagia: Patient is on soft diet per nutrition Admission and Anticipated Discharge Date Admission Date: May 26, 2020 Subjective Patient is complaining of severe back pain which requires a lot of narcotics to control. She also understands that she cannot take a lot of narcotics due to hypotension. She tolerated dialysis well yesterday. She is not eating well. She is seriously considering hospice at home and willing to talk to hospice provider. Legs are swollen. Son was at the bedside Review of Systems Review of Systems: All systems reviewed & are unremarkable except as noted in HPI & below Physical Exam Physical Exam: General exam: Appears comfortable on oxygen by nasal cannula, sitting up in a chair HEENT: Pupils are equal and reactive to light Neck: No JVD, neck is supple trachea is midline Respiratory system: Clear breath sounds bilaterally. Gastrointestinal: Abdomen is soft, non distended, non tender, bowel sounds are present CVS: Regular rate and rhythm. No murmurs, rubs or gallops Musculoskeletal: No joint or muscle tenderness Extremities: Non tender, 2+ edema Neuro: Oriented, no tremors, no focal neurological deficits Skin: No rashes Results & Data ([facility]) Vital Signs (Past 12 Hours) Vital Signs Temp Pulse Pulse Pulse Resp BP Pulse Ox 06/08/20 07:24 36.4 C L 87 18 83/58 L 90 06/08/20 04:13 36.4 C L 90 18 101/52 L 95 06/07/20 23:59 79 08/03/20 23:50 36.4 C L 84 17 88/59 L 99 Laboratory Results 06/08/20 06:33 06/08/20 06/08/20 06:33 06:33 WBC 14.91 H RBC 4.78 MCV 91.8 MCH 31.0 MCHC 33.7 RDW Std Deviation 61.4 H RDW Coeff of Cornel 20.0 H Plt Count 40 L Albumin 3.3 L
--- NOTE | 2020-06-08 10:50 | Palliative Care Consultation ---
Date of Consultation June 08, 2020 Assessment & Plan (1) Goals of care, counseling/discussion: This is an 89 year old female who is ESRD dependent on HD M/W/F who presented to the hospital with increased weight loss and worsening poor appetite. Per her son, Josef, she has been showing signs of overall decline over the past few months. Additional PMH includes: CHF, ESRD, weight loss, MG, esophageal dysphagia and GI dysmotility. The patient has been receiving hemodialysis and tolerating it over the past two years; however, more recently, she has been more lethargic and tired with some discomfort after her treatments. Additionally, her pacemaker is now nearing the end of its battery life and would need to be exchanged. Palliative Care was consulted to discuss goals of care. -I met with the patient in room 235. She was sitting in the bedside chair with her legs elevated, resting in no apparent distress. -The patients son, Josef, was also in the room with her. -We discussed her recent year of life and he expressed how dialysis has been going, and reinterated that lately, it has been more taxing on her. -He expressed they are not certain whether she would like to continue with HD or not. He was hoping to discuss more palliative care and hospice care, pointing out the differences. -Once the patient woke, I talked directly with her regarding quality of life and what was important to her. She said she is a good cook and misses being independent. She said its important to her to be with her family at the end of her life. -I did stress the importance of understanding that if she stops hemodialysis she will develop metabolic encephalopathy and pass away within days. All parties understand this. -We discussed pacemaker change out procedure and that it is a simple, yet surgical procedure with a recovery period and after speaking with her in detail about her main goals, is not linear with Hospice, which is ultimately what the family has chosen. -The family would like to return home with hospice services as soon as possible. After discussion with the case management team and hospitalist, this can be arranged for this afternoon. Case management to arrange hospice referral, equipment delivery, and RN coordination. -All questions answered to the patient and her son. There are a total of 6 adult children who, together, will provide / care. -The patient has been receiving Morphine 1mg Q 4 PRN for pain. She will receive Roxanol and the patient will be provided a script upon discharge by attending team until comfort pack can arrive. -PPS: 20% (2) ESRD on dialysis: (3) COPD (chronic obstructive pulmonary disease): (4) Acute hypoxemic respiratory failure: (5) Atrial fibrillation with RVR: (6) Weakness: (7) Pacemaker at end of battery life: History of Present Illness Reason for Consultation: Goals of Care Requesting Physician: Dr. Tabares Attending Physician: Christine Fish MD History of Present Illness This is an 89 year old female who is ESRD dependent on HD M/W/F who presented to the hospital with increased weight loss and worsening poor appetite. Per her son, Josef, she has been showing signs of overall decline over the past few months. Additional PMH includes: CHF, ESRD, weight loss, MG, eso phageal dysphagia and GI dysmotility. The patient has been receiving hemodialysis and tolerating it over the past two years; however, more recently, she has been more lethargic and tired with some discomfort after her treatments. Additionally, her pacemaker is now nearing the end of its battery life and would need to be exchanged. Palliative Care was consulted to discuss goals of care. Please see A/P for further details. Thank you kindly for involving the palliative care team wit this patient. Allergies Allergy/AdvReac Type Severity Reaction Status Date / Time naproxen Allergy Unknown Black Verified 12/22/19 17:26 stool/bleeding. 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 codeine AdvReac Unknown GASTRIC Verified 12/22/19 17:26 UPSET methocarbamol AdvReac Unknown Nausea/Vomi Verified 12/22/19 17:26 ting Fwzzlcz-[id number]-Uyi Reductase AdvReac Unknown MUSCLE Verified 12/22/19 17:26 Inhibitor WEAKNESS Home Medications Home Medications Medication Instructions Recorded Confirmed Type aspirin [Aspirin Childrens] 81 mg PO HS 08/20/18 05/26/20 History levothyroxine [Synthroid] 100 mcg PO DAILY 08/20/18 05/26/20 History docusate sodium [Colace] 100 mg PO DAILY 12/03/18 05/26/20 History midodrine 5 mg PO DIRECTED 12/03/18 05/26/20 History sennosides [Senna Laxative] 8.6 mg PO DAILY PRN 12/03/18 05/26/20 History cholecalciferol (vitamin D3) 1,000 unit PO DAILY 04/14/19 05/26/20 History [Vitamin D3] Phospha 250 Neutral 0 tab PO DAILY 12/22/19 05/26/20 History Triphrocaps 1 mg PO DAILY 12/22/19 05/26/20 History cinacalcet [Sensipar] 30 mg PO Q2D 12/22/19 05/26/20 History lorazepam 0.5 mg PO DAILY PRN 12/22/19 05/26/20 History tramadol 50 mg PO Q8H PRN 12/22/19 05/26/20 History zinc sulfate 50 mg PO DAILY 12/22/19 05/26/20 History amiodarone 200 mg PO BID #0 tab 12/23/19 05/26/20 Rx melatonin 10 mg PO HS PRN 05/26/20 05/26/20 History Patient History Medical History Acute hypotension (Acute) Acute kidney injury superimposed on chronic kidney disease (Acute) Acute on chronic diastolic HF (heart failure) (Acute) In setting of mixed valvular disease Acute on chronic heart failure with preserved ejection fraction Acute decompensated heart failure on the basis of mixed valvular heart disease with history of moderate to severe mitral insufficiency, severe tricuspid insufficiency, moderate aortic insufficiency. 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) Obstructive type of ventilatory defect with mild restriction which may be related to patient's morbid obesity (per 2015 PFTs) Morbid obesity (Chronic) Myasthenia gravis (Chronic) Pacemaker (Chronic) Paroxysmal atrial fibrillation Pulmonary edema Pulmonary HTN (Chronic) SBO (small bowel obstruction) (Resolved) Shortness of breath (Acute) 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 Tricuspid regurgitation Valvular heart disease Surgical History H/O: hysterectomy (Resolved) History of appendectomy (Resolved) History of permanent cardiac pacemaker placement (Resolved) History of tonsillectomy (Resolved) Family History Other Heart disease Stroke Social History Smoking Status: Never smoker Second Hand Exposure: No; Hx Alcohol Use: No Hx Substance Use: No Preferred Language: Nauruan Communication Ability: Effective Visual Impairment: No Limitations Watchmaker Apprentice Required: No Beliefs That Will Affect Care: None marital status: / Current Living Situation: Alone current occupational status: retired Feels Safe at Home: Yes Review of Systems Review of Systems: All systems reviewed & are unremarkable except as noted in HPI & below Physical Exam Constitutional: + ill appearing, + frail appearing, cooperative and + lethargic Eyes: PERRL, conjunctivae normal, anicteric sclerae Respiratory: normal respiratory effort and + cough Auscultation: + crackles and + wheezes Cardiovascular: Rate/Rhythm: regular rate and regular rhythm Heart Sounds: normal S1 and normal S2 Extremities: normal capillary refill and + edema (bilateral LE) Gastrointestinal (Abdomen): normal bowel sounds, soft, nontender, no hepatosplenomegaly Skin: + dry skin and + pallor Results & Data Vital Signs (Past 12 Hours) Vital Signs Temp Pulse Pulse Pulse Resp BP Pulse Ox 06/08/20 07:24 36.4 C L 87 18 83/58 L 90 06/08/20 04:13 36.4 C L 90 18 101/52 L 95 06/07/20 23:59 79 06/07/20 23:50 36.4 C L 84 17 88/59 L 99 PG Care Time/CCT Total # of Minutes Spent Total Time Spent with Patient: Total time spent is greater than 50% in coordination of care (as documented) at patient's floor/unit and/or counseling patient:125 Coding Level of Care Code 08740 Inpt Consult Level 4 Diagnoses Goals of care, counseling/discussion Z71.89 ESRD on dialysis N18.6; Z99.2 COPD (chronic obstructive pulmonary disease) J44.9 Acute hypoxemic respiratory failure J96.01 Atrial fibrillation with RVR I48.91 Weakness R53.1 Pacemaker at end of battery life Z45.010 Time Spent (min) 125 Time Spent Midlevel Total time spent 125 minutes with > 50% of that time spent assessing the patient, discussing goals of care and symptom management with the patient, family, and IDT.
--- NOTE | 2020-06-08 11:58 | Gastroenterology Progress Note ---
Date of Service June 08, 2020 Assessment & Plan (1) Transaminitis: Most likely secondary to amiodorone tox, improvement with discontinuation. Explained that this would not be a good med to tx her cardiac issue.s Contributing factors may also be CHF, antibiotics. Would defer further w/u at this time. GI will sign off. Present on Admission?: Yes Admission and Anticipated Discharge Date Admission Date: May 26, 2020 Subjective 89 yr old female with CHF, ESRD on dialysis, weakness, weight loss. Esophageal dysphagia from esophageal dysmotility. EGD deferred. Transaminitis and mild bili/alk phos elevation: US with mildly dilated gallbladder, no stones, wall thickening or loyd dil. LFTs Normal earlier in May prior to arrival. Mildly elevated when first check during IP stay. Spiked after amiodorone. AST much improved: 1092->566; Other LFTs similar: ALT: 1106->1150. Alk Phos 211->198; T bili 2.5->2.5. Patient is awake alert oriented, pleasantly smiling, supported at the bedside chair. Son at her side, attentive. Briefly discussed possibility of hospice with son and patient. They are leaning toward this option. Review of Systems Review of Systems: ROS: Gen: +weakness, No fevers, + weight loss Eyes: No eye redness, or pain, no recent vision changes Resp: No SOB, no cough Cardio: No palpitations/irregular beats, no chest pain GI: No abdominal pain, no nausea/vomiting : Denies pain on urination Skin: No jaundice, itching or new rashes Constitutional: + body aches (lower legs, with edema), + weakness and + weight loss Physical Exam Constitutional: WD/WN, vitals as above + ill appearing (frail appearing) Eyes: PERRL, conjunctivae normal, anicteric sclerae ENMT: external ear and nose normal, oropharynx normal Neck: trachea midline, no thyromegaly Respiratory: normal respiratory effort, lungs clear to auscultation Cardiovascular: Rate/Rhythm: regular rate and regular rhythm 2/6 systolic murmur Gastrointestinal (Abdomen): Inspection/Auscultation: abdomen normal to inspection Percussion/Palpation: abdomen soft; abdomen nontender Skin: warm, dry, no jaundice Neurologic: PERRL, EOMI, accommodation nl, no face palsy, no dysarthria Psychiatric: A+Ox3, euthymic affect Lymphatic: no cervical or axillary lymphadenopathy Results & Data ([facility]) Vital Signs (Past 12 Hours) Vital Signs Temp Pulse Pulse Pulse Resp BP Pulse Ox 06/08/20 07:24 36.4 C L 87 18 83/58 L 90 06/08/20 04:13 36.4 C L 90 18 101/52 L 95 06/07/20 23:59 79 06/07/20 23:50 36.4 C L 84 17 88/59 L 99 Laboratory Results See HPI for LFTs Hb 14, Hct 43, K 4.9, BUN 63, Cr 4.5. Diagnostic Findings See HPI for US
--- NOTE | 2020-06-08 12:33 | Cardiology Progress Note ---
Date of Service June 08, 2020 Assessment & Plan (1) Pulmonary edema: (2) Atrial fibrillation: (3) Pacemaker at end of battery life: After patent seen by nephrology today, pt assessed by undersigned. Son, Josef, in room at the time of my assessment. Pt and family request palliative care consult and I placed a referral. Subjective Pt with transient leg cramping and back pain this am-improved now. Physical Exam Physical Exam: Temp Pulse Resp BP Pulse Ox 36.3 C L 92 H 18 90/60 L 93 06/08/20 12:06 06/08/20 12:06 06/08/20 12:06 06/08/20 12:06 06/08/20 12:06 Constitutional: + ill appearing Respiratory: decreased BS at the bases Cardiovascular: Rate/Rhythm: + irregularly irregular Heart Sounds: + murmur (II/ SM) Vessels: + JVD Extremities: + edema (1-2+ LE edema , slightly improved compared to yesterday ) Results & Data Vital Signs (Past 12 Hours) Vital Signs Temp Pulse Resp BP Pulse Ox 06/08/20 12:06 36.3 C L 92 H 18 90/60 L 93 06/08/20 07:24 36.4 C L 87 18 83/58 L 90 06/08/20 04:13 36.4 C L 90 18 101/52 L 95 (1) Pulmonary edema Chronicity: chronic Qualified Code(s): J81.1 - Chronic pulmonary edema
[2020-06-08] MEDS: MoRPHine SULFATE 2 MG/ML CARP IV PRN (13:33)
--- NOTE | 2020-06-08 15:34 | Hospitalist Progress Note ---
Date of Service June 08, 2020 Assessment & Plan (1) Transaminitis: AST increased from 88 to 249 and ALT increased from 138 to 308 and ALK increased from 174 to 192 Pt and family has been refused CT abd/pelvis Gastro on board Liver U/S showed mild gallbladder distention without cholelithiasis or sonographic evidence of acute cholecystitis. Probable prominent mucosal fold of the gallbladder neck measures up to 8 mm. A gallbladder polyp is could appear similarly. No biliary ductal dilation. Amiodarone was discontinued Liver enzymes worsening today with AST 62-->336--> 1092--> 566 today and ALT 262--> 417--> 1106-->1150 today Will try to avoid hepatotoxic agents Palliative care team with son for goal of care patient would like to be comfortable As per patient wishes, will make comfort care and transition to home hospice (2) Atrial fibrillation: Currently on Afib with HR btw 90's to 110's Case discussed with cardiology Amiodarone drip was starting yesterday to help to convert to sinus rhythm Liver enzymes worsening while on amiodarone drip and amiodarone drip was discontinued She is not on anticoagulation due to her multiple bleeding complications. not a candidate for electrical cardioversion. Family does not want any heroic management Amiodarone was discontinued due to worsening liver enzymes Continue to be in Afib Pt will transition to home hospice today (3) Weakness: Unintentional Weight Loss -This is a patient who is on dialysis and also pacemaker and problems with eating. She is brought in to the ED on 05/26/2020 by her son Josef [phone] who reports that over period of time, her mother has had progressive weight loss with poor oral appetitite and has trouble with eating the food such as feeling reflux symptoms. However, patient is not on protonic at home currently. no abdomen pain. no vomiting. -Her son feels that while the above symptoms have been ongoing, he feels that his mother also having more weakness of her strength and in past several days, she does not have strength to feed herself with her own hands. Review of outpatient EPIC notes that there have been communication with outpatient providers and Dr. Driscoll questioning whether patient has flair-up of myasthenia gravis. -05/26/2020: On my exam patient appeared have no deficits of extraoccular eye movements and appears to be able to sustain with with moving her gaze to an upward position and keeping that steady, no tongue deviations, and able to move her hands with strong hand ammunition specialist; Patient passed the dysphagia screening. -started solumedrol 40 mg IV BID on 05/26/2020, requested neurology consult to rule out myasthenia gravis flare and they deemed this to be unlikely and but allowed for transition from solumedrol to prednisone 20 mg daily starting on 05/28/2020. continue prednisone as 20 mg daily for and neurology recommended to consider to continue prednisone 20 mg daily dosing until her outpatient neurology clinic appointment (scheduled on [facility]) -upper EGD by Gastroenterology is deferred by patient and her son -since patient tolerated clear liquid diet on 05/26/2020, start full liquid diet on 05/27/2020 while awaiting formal speech and swallow evaluation and maintain aspiration precautions. patient seems to be tolerating diet well -patient is due for videofluoroscopy and possible barium swallow study as per speech and swallow services has been rescheduled to 05/31/2020 -05/30/2020: patient's feels weaker today but appears that this symptoms are correlating with volume status. she is still saturating well on room air but she subjectively feels more short of breath. she and her sone declines IV Lasix. her CXR is grossly unchanged at that on admission. I wonder whether her subjective weakness prior to this admission were due to primarily due to her volume status 05/31/2020: completed dialysis session. completed swallowing studies on 05/31/2020: as per speech and swallow therapist who messaged hospitalist "She is not aspirating but is at risk as she has a ton of esophageal issues, as we suspected. She has dysmotility, a small Zenker's Diverticulum, and a tortous esophagus." recommended slippery diet 06/08/20- Continue minced and moist diet Will discharge on PO narcotic and ativan for comfort care Fall precaution Abnormal UA Urine cx positive for group B beta strep possible contamination Was starting on IV Rocephin and discontinued on 05/28 Stable (4) ESRD on dialysis: -Patient is on dialysis through perm cath every Sunday, Sunday, Sunday. As per her son, she was at dialysis earlier on Sunday05/26/2020 -No fluid removed yon last HD on Sunday due to low BP -Case discussed with Nephrology at bedside -No HD at [facility] on Sunday -Pt does not want to transfer to another facility to get emergent dialysis -wants to be comfortable and family agreed with her wishes -Tolerated HD today where 3L removed -Plan to have HD tomorrow or Sunday - Pt and family want to discontinue HD and transition to home hospice - family and pt understand that it will be a few days until patient dies if dialysis discontinued - Nephrology was notified since pt transition to hospice -No HD tomorrow (5) Hypotension: BP has been running btw in the 's systolic Midodrine was increased to 5mgTID and (10mg predialysis day) Morphine requested as per family for the pain in lower extremities Discussed with family about the risk such as worsening low BP and respiratory distress BP stable (6) Hypothyroidism: -outpatient medication of levothyroxine is 100 mcg daily -TSH elevated as 6.7 but free T4 is not low (free T4 1.7 is mildly elevated) -total T4 is normal as 6.9, free T3 levels low as 1.23 and total T3 level low as 0.28 -it is possible that amiodarone could be contributing to changes in thyroid function labs. 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 Patient denies chest pain or palpitations or fevers. -continue amiodarone 200 mg BID -cardiology consult 05/27/2020 "although her pacemaker has reached end-of-life there is still plenty of safety margin on the battery." at this time cardiology is determining whether pacemaker battery should be addressed as inpatient versus outpatient. -Pacemaker interrogated on 05/31/2020 and patient and her son to discuss with cardiology on future pacemaker plans - patient would like to be comfortable - As per patient wishes, will make comfort care and transition to home hospice Pulmonary Edema Possible related to CHF due to Afib CXR showed cardiomegaly with persistent but improving mild pulmonary vascular congestion/fluid overload. Trace right pleural effusion Improving right basilar airspace opacities Lab ordered but was cancelled since son wanted her to be comfortable for now Continue oxygen supplement No HD tomorrow, since family transition to hospice care /comfort care only Code Status: DNR/DNI son Josef [phone] DVT prophylaxis: heparin subcutaneous q12 hours Disposition Discharge home with hospice care today Admission and Anticipated Discharge Date Admission Date: May 26, 2020 Subjective Pt was seen and examined Sitting in chair with mild respiratory distress with sons at bedside Pt said that pain improves with the IV morphine family met with palliative team today and would like to transition to hospice care as per patient wishes Denies any chest pain, palpitation, dizziness Physical Exam Physical Exam: General- No acute distress Head- atraumatic Eyes- PERRL, EOMI, ENT- oropharynx clear Neck- supple, no JVD Lungs- Diminished BS Heart- +irregular, + systolic murmur Abdomen- normal bowel sounds, soft, nontender Extremities- no calf tenderness, +edema, +LE tenderness, + skin opening/ulcers in both legs Neuro- alert, oriented x 3; PERRL, EOMI; no facial palsy; no dysarthria Skin- warm & dry Results & Data Results & Data ([facility]) Vital Signs (Past 12 Hours) Vital Signs Temp Pulse Resp BP BP Pulse Ox 06/08/20 13:58 36.3 C L 92 H 18 91/61 L 90/60 L 93 06/08/20 12:06 36.3 C L 92 H 18 90/60 L 93 06/08/20 07:24 36.4 C L 87 18 83/58 L 90 06/08/20 04:13 36.4 C L 90 18 101/52 L 95
[2020-06-08] MEDS ORDERED: MoRPHine SULFATE 5 MG/0.25 ML UDP PO PRN (16:06)
--- NOTE | 2020-06-08 22:39 | Discharge Summary ---
Date of Service June 08, 2020 Admission HPI Per Admitting Provider This is a patient who is on dialysis and also pacemaker and problems with eating. She is brought in to the ED by her son Josef [phone] who reports that over period of time, her mother has had progressive weight loss with poor oral appetitite and has trouble with eating the food such as feeling reflux symptoms. However, patient is not on protonic at home currently. no abdomen pain. no vomiting. They also had outpatient plans for gastroenterology evaluation but this has not been done yet. Her son feels that while the above symptoms have been ongoing, he feels that his mother also having more weakness of her strength and in past several days, she does not have strength to feed herself with her own hands. Review of outpatient EPIC notes that there have been communication with outpatient providers and Dr. Driscoll questioning whether patient has flair-up of myasthenia gravis. 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 As per her son, she was at dialysis earlier today on Sunday05/26/2020 but did not have a fully complete dialysis session. There are some mild crackles on lung exam but patient breathing on room air. In addition, patient's son also reports that patient's pacemaker is at end of battery life. Patient has sinus bradycardia on exam and by admission EKG. Patient denies chest pain or palpitations or fevers. Family of mother with strokes and father with cancer Primary Care Provider: Raul Vargas, DO Admission Exam Per Admitting Provider Constitutional: comfortable Eyes: PERRL, conjunctivae normal, anicteric sclerae EOM intact bilaterally ENMT: external ear and nose normal, oropharynx normal Neck: trachea midline, no thyromegaly normal visual inspection Respiratory: Auscultation: + crackles Cardiovascular: Rate/Rhythm: + bradycardic Gastrointestinal (Abdomen): normal bowel sounds, soft, nontender, no hepatosplenomegaly Musculoskeletal: Head/Neck/Chest: normocephalic Neurologic: PERRL, EOMI, accommodation nl, no face palsy, no dysarthria on my exam patient appeared have no deficits of extraoccular eye movements and appears to be able to sustain with with moving her gaze to an upward position and keeping that steady, no tongue deviations, and able to move her 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 Psychiatric: A+Ox3, euthymic affect Principal Diagnosis Weakness Unintentional weight loss End stage renal disease on dialysis Hypothyroidism Tachy-xi syndrome Presence of Pacemaker (pacemaker at end of battery life) Transaminitis Discharge Exam General- No acute distress Head- atraumatic Eyes- PERRL, EOMI, ENT- oropharynx clear Neck- supple, no JVD Lungs- Diminished BS Heart- +irregular, + systolic murmur Abdomen- normal bowel sounds, soft, nontender Extremities- no calf tenderness, +edema, +LE tenderness, + skin opening/ulcers in both legs Neuro- alert, oriented x 3; PERRL, EOMI; no facial palsy; no dysarthria Skin- warm & dry Discharge Data Allergies Allergy/AdvReac Type Severity Reaction Status Date / Time naproxen Allergy Unknown Black Verified 12/22/19 17:26 stool/bleeding. 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 codeine AdvReac Unknown GASTRIC Verified 12/22/19 17:26 UPSET methocarbamol AdvReac Unknown Nausea/Vomi Verified 12/22/19 17:26 ting [id number] Reductase AdvReac Unknown MUSCLE Verified 12/22/19 17:26 Inhibitor WEAKNESS Consultations 05/26/20 15:44 ED Decision to Admit Stat 05/26/20 16:41 Consult Gastroenterology Routine 05/26/20 16:42 Consult Nephrology Routine 05/26/20 16:43 Consult Neurology Routine 05/26/20 16:44 Consult Cardiology Routine 06/08/20 10:15 Consult Palliative Care Routine Ordered Studies 05/26/20 12:59 CT head/brain wo con Stat 05/31/20 11:00 FL video swallow Routine 06/03/20 US liver Routine XR chest 1V portable HISTORY: 89 years-old Female Dyspnea acute shortness of breath COMPARISON: Chest radiograph 12/22/2019 TECHNIQUE: Portable AP view of the chest FINDINGS: Cardiac silhouette is enlarged, unchanged. Calcified plaque of the thoracic aortic arch pulmonary vascular congestion with interstitial coarsening. Right sided dual-lumen hemodialysis catheter is unchanged. Left subclavian pacer. Small pleural effusions with mild bibasilar opacities. Degenerative changes of the shoulders and spine. IMPRESSION: 1. Cardiomegaly with pulmonary vascular congestion and interstitial coarsening suggestive of pulmonary edema. 2. Small pleural effusions with bibasilar opacities suggestive of probable atelectasis. ACT 112: Negative or not required by law. The above report was generated using voice recognition software. It may contain grammatical, syntax or spelling errors. Electronically signed by: Gael Palmer M.D. 05/26/2020 1:31 PM Dictated: 05/26/20 1330 Transcribed: 05/26/[address] SCAN OF THE BRAIN WITHOUT IV CONTRAST CLINICAL HISTORY: Generalized weakness. COMPARISON STUDY: CT of the brain dated 06/04/2015. TECHNIQUE: Unenhanced axial CT scan of the brain is performed from the vertex to the skull base. A dose lowering technique was utilized adhering to the principles of ALARA. CT DOSE: 638.56 mGycm FINDINGS: Brain parenchyma: There are age-related involutional changes noting mild/moderate subcortical and periventricular microangiopathic change. There is no hemorrhage, mass effect, or evidence of acute territorial ischemia by CT criteria. Peña-white matter differentiation is preserved. No extra-axial fluid collection is seen. Ventricles, sulci, cisterns: Prominent secondary to involutional change. Intracranial vasculature: There is atherosclerotic calcification of the cavernous carotid and vertebral arteries. Calvarium: Unremarkable. Sinuses and mastoids: The visualized paranasal sinuses are clear. There are small bilateral mastoid effusions. Orbits: The bony orbits are grossly intact. There are bilateral ocular lens i mplants. IMPRESSION: There is no hemorrhage, mass effect, or evidence of acute territorial ischemia by CT criteria. ACT 112: Negative or not required by law. Electronically signed by: Hi Ring M.D. 05/26/2020 2:04 PM Dictated: 05/26/20 1354 Transcribed: 05/26/20 1400 SINGLE VIEW CHEST CLINICAL HISTORY: Follow-up CHF. FINDINGS: An AP, portable, upright chest radiograph is compared to study dated 05/26/2020 and correlated with chest CT dated 04/14/2019. The examination is degraded by portable technique and patient rotation. A right sided central venous catheter is unchanged in position, as is a 2-lead cardiac pacemaker. The heart is enlarged noting atherosclerotic calcification of the thoracic aorta. There is pulmonary vascular congestion with evidence of interstitial edema. There are small pleural effusions with bibasilar consolidation. No pneumothorax is seen. The skeletal structures are osteopenic. The bony thorax is grossly intact. Advanced arthritic changes seen in the shoulders. Superior subluxation of the humeral heads suggest chronic bilateral rotator cuff injury. A large calcified granuloma is noted in the spleen. IMPRESSION: 1. Cardiomegaly and cardiac pacemaker with evidence of congestive failure and interstitial edema. This is similar in appearance to yesterday. 2. Small pleural effusions with bibasilar consolidation. ACT 112: Negative or not required by law. Electronically signed by: Hi Ring M.D. 05/30/2020 10:08 AM Dictated: 05/30/20 1006 Transcribed: 05/30/20 1006 FLUOROSCOPY TIME: 30 minutes. NUMBER OF FLUOROSCOPY IMAGES: 0 COMPARISON STUDY: January 04, 2009 FINDINGS: When swallowing thin liquids, there was penetration, but no evidence of aspiration. When swallowing nectar thick liquids, there is no aspiration or penetration. When swallowing pudding there is no aspiration or penetration. When swallowing a cracker with paste there is no aspiration or penetration. There is a mildly prominent cricopharyngeus impression. There is disordered esophageal motility. There is a suspected small Zenker's diverticulum. This would be better assessed with a conventional barium swallow study. IMPRESSION: 1. 1. Penetration but no evidence of aspiration. Markedly disordered esophageal motility. Suspected small Zenker's diverticulum. 2. Please see the speech pathologist report for detailed findings and recommendations. ACT 112: Negative or not required by law. Electronically signed by: Erich Gant M.D. 05/31/2020 4:02 PM Dictated: 05/31/20 1600 Transcribed: 05/31/20 1600 US liver HISTORY: 89 years-old Female Elevated liver enzymes acutely elevated LFTs COMPARISON: Chest CT 04/14/2019 TECHNIQUE: Multiple real-time sonographic images of the abdominal right upper quadrant were obtained assessing grayscale appearance and color flow FINDINGS: Limited exam secondary to inability to breath-hold. The visualized pancreas is unremarkable. The common bile duct is normal, 3 mm. Multiple calcified granulomata of the liver. No hepatic mass lesion or marginal nodularity to suggest cirrhosis. Echogenic linear area of the right hepatic lobe may reflect areas of fibrosis or hepatic steatosis. Mild gallbladder distention. There is an echogenic mucosal fold versus gallbladder polyp along the dependent gallbladder neck measuring 8 mm in greatest dimension. No gallbladder wall thickening or pericholecystic fluid. Sonographic Pagan sign reported as negative. Nonspecific shadowing is noted within the subcutaneous tissues of the anterior abdomen, possibly postsurgical. No right-sided hydronephrosis. IMPRESSION: 1. Mild gallbladder distention without cholelithiasis or sonographic evidence of acute cholecystitis. 2. Probable prominent mucosal fold of the gallbladder neck measures up to 8 mm. A gallbladder polyp is could appear similarly. 3. Multiple calcified granulomata of the liver. 4. No biliary ductal dilation. ACT 112: Negative or not required by law. The above report was generated using voice recognition software. It may contain grammatical, syntax or spelling errors. Electronically signed by: Gael Palmer M.D. 06/03/2020 7:46 AM Dictated: 06/03/20 0741 Transcribed: 06/03/20 0742 XR chest 1V portable CLINICAL HISTORY: Shortness of breath COMPARISON STUDY: 05/30/2020 FINDINGS: The heart remains enlarged. There is a right-sided dual-lumen central venous catheter. There is a left subclavian dual-chamber central venous pacemaker. There is persistent but improving congestive failure/fluid overload. Trace right pleural effusion is suspected. There are improving right basilar airspace opacities.[ IMPRESSION: 1. Cardiomegaly with persistent but improving mild pulmonary vascular congestion/fluid overload 2. Trace right pleural effusion 3. Improving right basilar airspace opacities ACT 112: Negative or not required by law. Electronically signed by: Erich Gant M.D. 06/06/2020 5:23 PM Dictated: 06/06/20 1722 Transcribed: 06/06/20 1722 Hospital Course (1) Transaminitis: AST increased from 88 to 249 and ALT increased from 138 to 308 and ALK increased from 174 to 192 Pt and family has been refused CT abd/pelvis Gastro on board Liver U/S showed mild gallbladder distention without cholelithiasis or sonographic evidence of acute cholecystitis. Probable prominent mucosal fold of the gallbladder neck measures up to 8 mm. A gallbladder polyp is could appear similarly. No biliary ductal dilation. Amiodarone was discontinued Liver enzymes worsening today with AST 62-->336--> 1092--> 566 today and ALT 262--> 417--> 1106-->1150 today Will try to avoid hepatotoxic agents Palliative care team with son for goal of care patient would like to be comfortable As per patient wishes, will make comfort care and transition to home hospice (2) Atrial fibrillation: Currently on Afib with HR btw 90's to 110's Case discussed with cardiology Amiodarone drip was starting yesterday to help to convert to sinus rhythm Liver enzymes worsening while on amiodarone drip and amiodarone drip was discontinued She is not on anticoagulation due to her multiple bleeding complications. not a candidate for electrical cardioversion. Family does not want any heroic management Amiodarone was discontinued due to worsening liver enzymes Continue to be in Afib Pt will transition to home hospice today (3) Weakness: Unintentional Weight Loss -This is a patient who is on dialysis and also pacemaker and problems with eating. She is brought in to the ED on 05/26/2020 by her son Josef [phone] who reports that over period of time, her mother has had progressive weight loss with poor oral appetitite and has trouble with eating the food such as feeling reflux symptoms. However, patient is not on protonic at home currently. no abdomen pain. no vomiting. -Her son feels that while the above symptoms have been ongoing, he feels that his mother also having more weakness of her strength and in past several days, she does not have strength to feed herself with her own hands. Review of outpatient EPIC notes that there have been communication with outpatient providers and Dr. Driscoll questioning whether patient has flair-up of myasthenia gravis. 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 -started solumedrol 40 mg IV BID on 05/26/2020, requested neurology consult to rule out myasthenia gravis flare and they deemed this to be unlikely and but allowed for transition from solumedrol to prednisone 20 mg daily starting on 05/28/2020. continue prednisone as 20 mg daily for and neurology recommended to consider to continue prednisone 20 mg daily dosing until her outpatient neurology clinic appointment (scheduled on [facility]) -upper EGD by Gastroenterology is deferred by patient and her son -since patient tolerated clear liquid diet on 05/26/2020, start full liquid diet on 05/27/2020 while awaiting formal speech and swallow evaluation and maintain aspiration precautions. patient seems to be tolerating diet well -patient is due for videofluoroscopy and possible barium swallow study as per speech and swallow services has been rescheduled to 05/31/2020 -05/30/2020: patient's feels weaker today but appears that this symptoms are correlating with volume status. she is still saturating well on room air but she subjectively feels more short of breath. she and her sone declines IV Lasix. her CXR is grossly unchanged at that on admission. I wonder whether her subjective weakness prior to this admission were due to primarily due to her volume status 05/31/2020: completed dialysis session. completed swallowing studies on 05/31/2020: as per speech and swallow therapist who messaged hospitalist "She is not aspirating but is at risk as she has a ton of esophageal issues, as we suspected. She has dysmotility, a small Zenker's Diverticulum, and a tortous esophagus." recommended slippery diet 06/08/20- Continue minced and moist diet Will discharge on PO narcotic and ativan for comfort care Fall precaution Abnormal UA Urine cx positive for group B beta strep possible contamination Was starting on IV Rocephin and discontinued on 05/28 Stable (4) ESRD on dialysis: -Patient is on dialysis through perm cath every Sunday, Sunday, Sunday. As per her son, she was at dialysis earlier on Sunday05/26/2020 -No fluid removed yon last HD on Sunday due to low BP -Case discussed with Nephrology at bedside -No HD at [facility] on Sunday -Pt does not want to transfer to another facility to get emergent dialysis -wants to be comfortable and family agreed with her wishes -Tolerated HD today where 3L removed -Plan to have HD tomorrow or Sunday - Pt and family want to discontinue HD and transition to home hospice - family and pt understand that it will be a few days until patient dies if dialysis discontinued - Nephrology was notified since pt transition to hospice -No HD tomorrow (5) Hypotension: BP has been running btw in the 75's systolic Midodrine was increased to 5mgTID and (10mg predialysis day) Morphine requested as per family for the pain in lower extremities Discussed with family about the risk such as worsening low BP and respiratory distress BP stable (6) Hypothyroidism: -outpatient medication of levothyroxine is 100 mcg daily -TSH elevated as 6.7 but free T4 is not low (free T4 1.7 is mildly elevated) -total T4 is normal as 6.9, free T3 levels low as 1.23 and total T3 level low as 0.28 -it is possible that amiodarone could be contributing to changes in thyroid function labs. 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 Patient denies chest pain or palpitations or fevers. -continue amiodarone 200 mg BID -cardiology consult 05/27/2020 "although her pacemaker has reached end-of-life there is still plenty of safety margin on the battery." at this time cardiology is determining whether pacemaker battery should be addressed as inpatient versus outpatient. -Pacemaker interrogated on 05/31/2020 and patient and her son to discuss with ca rdiology on future pacemaker plans - patient would like to be comfortable - As per patient wishes, will make comfort care and transition to home hospice Pulmonary Edema Possible related to CHF due to Afib CXR showed cardiomegaly with persistent but improving mild pulmonary vascular congestion/fluid overload. Trace right pleural effusion Improving right basilar airspace opacities Lab ordered but was cancelled since son wanted her to be comfortable for now Continue oxygen supplement No HD tomorrow, since family transition to hospice care /comfort care only Code Status: DNR/DNI son Bill [phone] DVT prophylaxis: heparin subcutaneous q12 hours Disposition Discharge home with hospice care today Total Time Total Time Spent Total Time Spent (In Minutes): 35 minutes Total Time Includes: Examination of the Patient, Discharge Planning, Medication Reconciliation, Communication With Other Providers and Other Discharge Plan Discharge Items Patient Disposition: Hospice - Home Reason For Visit: WEAKNESS,TROUBLE WITH EATING,PACEMAKER END OF CYRUS Discharge Diagnosis: Weakness Unintentional weight loss End stage renal disease on dialysis Hypothyroidism Tachy-xi syndrome Presence of Pacemaker (pacemaker at end of battery life) Transaminitis Activity: Resume your previous activity Non-emergency contact: Primary Care Provider Call non-emergency contact if: you have any medication questions Follow-up/Referrals: Raul Vargas DO [Primary Care Provider] - Diet: Dialysis Renal Addtl Attending Provider Instructions: Discharge home with hospice Continue Morphine sulfate as needed for pain Continue Ativan as needed for anxiety Fall precaution Aspiration precaution Continue slippery, minced and moist diet Pending Studies at Discharge: No Stand-Alone Forms: My [employer], Smoking Cessation Medications and DC Order Prescriptions: New morphine concentrate 100 mg/5 mL (20 mg/mL) Solution 5 mg PO Q4H PRN (Reason: Pain and respiratory distress ) Qty: 15 RF: 0 lorazepam 0.5 mg tablet 0.5 mg BUCCAL Q6HWA PRN (Reason: anxiety) Qty: 20 RF: 0 levothyroxine [Synthroid] 125 mcg Tablet 125 mcg PO DAILYBB Qty: 30 RF: 0 Continued aspirin [Aspirin Childrens] 81 mg Tablet,Chewable 81 mg PO HS RF: 0 docusate sodium [Colace] 100 mg Capsule 100 mg PO DAILY RF: 0 sennosides [Senna Laxative] 8.6 mg Tablet 8.6 mg PO DAILY PRN (Reason: Constipation) RF: 0 tramadol 50 mg Tablet 50 mg PO Q8H PRN (Reason: Pain) RF: 0 melatonin 10 mg Tablet 10 mg PO HS PRN (Reason: Sleep) RF: 0 midodrine 5 mg Tablet 5 mg PO DIRECTED Qty: 30 RF: 0 Discontinued cholecalciferol (vitamin D3) [Vitamin D3] 1,000 unit Tablet 1,000 unit PO DAILY RF: 0 levothyroxine [Synthroid] 100 mcg tablet 100 mcg PO DAILY RF: 0 lorazepam 0.5 mg tablet 0.5 mg PO DAILY PRN (Reason: Anxiety) RF: 0 Phospha 250 Neutral 250 mg Tablet 0 tab PO DAILY RF: 0 cinacalcet [Sensipar] 30 mg Tablet 30 mg PO Q2D RF: 0 zinc sulfate 220 (50) mg capsule 50 mg PO DAILY RF: 0 Triphrocaps 1 mg capsule 1 mg PO DAILY RF: 0 amiodarone 200 mg tablet 200 mg PO BID Qty: 0 RF: 0 Discharge Orders: Discharge Order (Routine); Ordered 06/08/20 Ordered By: Christine Fish Admission Data Admit Date/Time: 05/26/20 16:47 Attending Provider: Christine Fish Admit Provider: Hilario Gage Primary Care Provider: Raul Vargas Other Providers: Hilario Gage ; Myra Denson ; Tim Pendleton ; Saray Blum ; Everardo Pinedo ; [facility] ; Elba Peralta Other Interventions: Discharge Summary Assessment (RN) Last Done: 06/08/20 13:58 DC Date/Time DO NOT enter until pt leaves facility: 06/08/20 17:41
--- NOTE | 2020-06-19 12:16 | Coding Query ---
CONGESTIVE HEART FAILURE To Promote full compliance with coding requirements relating to patient care, physician participation is requested in all cases of tire finisher uncertainty. Please assist us with the following questions. A diagnosis of Congestive Heart Failure is documented in the patient's medical record. To accurately code this diagnosis and to compare patient severity, we ask that you specify the type of heart failure by placing an X within the parenthesis (x). SYSTOLIC HEART FAILURE ( ) Acute ( ) Chronic ( ) Acute on Chronic ( ) Rheumatic ( ) Unknown DIASTOLIC HEART FAILURE ( ) Acute ( ) Chronic (x ) Acute on Chronic ( ) Rheumatic ( ) Unknown COMBINED SYSTOLIC AND DIASTOLIC HEART FAILURE ( ) Acute ( ) Chronic ( ) Acute on Chronic ( ) Rheumatic ( ) Unknown Was the CHF Present On Admission? Please check the appropriate box: (x ) Present on Admission ( ) Not Present On Admission ( ) Clinically undetermined Thank you AME Camejo, [facility]
== END 2020-06-08 17:41 | disposition hospice, home (50) | DRG 391 ==
LOC: ED 12:29 → SUATTDRO 16:47 → 2S 16:47